=== PATIENT | male | born 1940 | race African-American/Black ===

== ENCOUNTER 2017-03-26 14:53 | Observation (INO) | payer MEDICARE ==
--- NOTE | 2017-03-26 15:27 | RAD ---
INDICATION: Dysarthria and hypertension COMPARISON: Most recent brain CT is dated August 28, 2008 TECHNIQUE: Contiguous axial sections of the brain were obtained from the skull base to the vertex without contrast. FINDINGS: New since the prior CT examination is encephalomalacia at the right parietal-occipital lobe measuring a maximum axial dimension of 3.6 x 3.8 cm. Elsewhere there is mild periventricular and subcortical white matter hypoattenuation. Throughout the rest of the brain the hoskins-white matter differentiation is adequately maintained. There is no evidence of acute intracranial hemorrhage. There is atherosclerotic calcification of the bilateral vertebral and petrous carotid arteries. No significant focal osseous abnormality is present. The mastoid air cells appear clear. There is partially visualized is a secretions in the right maxillary sinus. IMPRESSION: New since the CT of the brain dated August 28, 2008 is an area of encephalomalacia involving the right parietal-occipital lobe. This has a chronic appearance, but if the patient is exhibiting focal neurologic deficits then further characterization with MRI of the brain is advised. There are additional chronic and degenerative changes also noted in the body the report.
[2017-03-26 15:57] LABS: Hematocrit 32 % (42-52); Mean Corpuscular HGB Conc 32 g/dl (31-36); Mean Corpuscular Hemoglobin 23 pg (27-31); Mean Platelet Volume 10 um3 (7.4-10.4); Red Blood Count 4.33 10^6/ul (4.0-5.4); Red Cell Distribution Width 15 % (10.5-15); White Blood Count 8.4 10^3/ul (3.5-10.8)
[2017-03-26 15:59] LABS: Comments Flag Yes
[2017-03-26 16:00] LABS: Mean Corpuscular Volume 73 fL (80-94)
[2017-03-26 16:11] LABS: Albumin 3.6 g/dL (3.2-5.2); BUN/Creatinine Ratio 20.7 (8-20); Calcium 8.5 mg/dL (8.6-10.3); EGFR African American 58.5 (>60); EGFR Non-African American 45.5 (>60); Globulin 2.6 g/dL (2-4); Potassium 3.9 mmol/L (3.5-5.0); Total Bilirubin 0.2 mg/dL (0.2-1.0); Total Protein 6.2 g/dL (6.4-8.9)
[2017-03-26 16:12] LABS: Troponin I 0.01 ng/mL (<0.04)
[2017-03-26] MEDS ORDERED: Labetalol IV* 5 MG/ML 20 ML VIAL IV PUSH ONE (17:18)
[2017-03-26] MEDS ORDERED: NS 0.9% 1000 ML* 1,000 ML IV SCH ×2 (17:30→19:15)
[2017-03-26] MEDS ORDERED: Dextrose 50% Syringe 50 ML* 25 GM/50 ML SYRINGE IV PUSH PRN (17:38)
[2017-03-26] MEDS ORDERED: Insulin LISPRO* 1 UNITS UNIT SUBCUT SCH (18:00)
--- NOTE | 2017-03-26 18:42 | ED ---
Robert Rao Thomas, scribed for Frandy Farmer MD on 03/26/17 at 1514 . Neurological HPI - HPI Summary HPI Summary: The pt is a 76 y/o M BIB EMS after his noticed that he has slurred sleep and facial droop at 09:00 this AM. Pt denies any pains, FUNES, SOB, CP, and nausea. PMHx: PR, anticoagulation therapy, DM, CAD, HTN, depression. SHx: former smoker, no alcohol, no illicit drugs. He ate breakfast. He is on a blood thinner. - History of Current Complaint Stated Complaint: STROKE-LIKE SYMPTOMS,HIGH BLOOD PRESSURE Time Seen by Provider: 03/26/17 14:56 Hx Obtained From: Patient, EMS Onset/Duration: Sudden Onset, Started hours ago - 09:00, Still Present Timing: Constant Number of Seizures: 0 Character: Other: - POS: facial droop Aggravating: Nothing Alleviating: Nothing Associated Signs and Symptoms: Positive: Impaired Speech - slurred. Negative: Headache, Chest Pain, Shortness of Breath - Additional Pertinent History Primary Care Physician: [id number] - Allergy/Home Medications Allergies/Adverse Reactions: Allergies Allergy/AdvReac Type Severity Reaction Status Date / Time Penicillins Allergy Rash Verified 11/05/15 13:12 Home Medications: Home Medications Ferrous Gluconate [Iron] 27 mg PO DAILY 03/26/17 [History Confirmed 03/26/17] Lisinopril/HCTZ 20/25(NF) [Zestoretic 20/25(NF)] 1 tab PO DAILY 03/26/17 [ History Confirmed 03/26/17] Nitroglycerin 0.2 MG/HR PATCH* [Nitroglycerin 5 MG PATCH*] 1 patch TRANSDERM DAILY 03/26/17 [History Confirmed 03/26/17] Terazosin CAP* [Hytrin CAP*] 10 mg PO BEDTIME 03/26/17 [History Confirmed ] metFORMIN* [Glucophage 850 MG TAB *] 850 mg PO BID 03/26/17 [History Confirmed 03/26/17] prednisoLONE 1% OPHTH.SUSP* [Pred Forte 1%*] 1 drop BOTH EYES DAILY 03/26/17 [ History Confirmed 03/26/17] PMH/Surg Hx/FS Hx/Imm Hx Previously Healthy: No Endocrine/Hematology History: Reports: Hx Diabetes Denies: Hx Anticoagulant Therapy, Hx Thyroid Disease Cardiovascular History: Reports: Hx Angina, Hx Cardiac Arrest, Hx Coronary Artery Disease, Hx Hypertension, Hx Myocardial Infarction, Hx Pacemaker/ICD Denies: Hx Congestive Heart Failure Respiratory History: Denies: Hx Asthma, Hx Chronic Obstructive Pulmonary Disease (COPD) GI History: Reports: Hx Gall Bladder Disease - cholecystectomy, Other GI Disorders History: Denies: Hx Renal Disease Sensory History: Reports: Hx Vision Problem Opthamlomology History: Reports: Hx Vision Problem Neurological History: Denies: Hx Dementia, Hx Seizures Psychiatric History: Reports: Hx Depression, Hx Bipolar Disorder Denies: Hx Substance Abuse - Surgical History Surgery Procedure, Year, and Place: PACEMAKER, TRACHEOSTOMY, CHOLECYSTECTOMY Infectious Disease History: Denies: Hx Hepatitis, Hx Human Immunodeficiency Virus (HIV), Traveled Outside the [place] in Last 30 Days - Family History Known Family History: Positive: Diabetes - Social History Alcohol Use: None Substance Use Type: Reports: None Hx Tobacco Use: Yes Smoking Status (MU): Former Smoker Review of Systems Negative: Fever Negative: Chest Pain Negative: Shortness Of Breath Negative: Nausea Negative: Other - NEG: any pains Neurological: Other - POS: facial droop Positive: Slurred Speech. Negative: Headache All Other Systems Reviewed And Are Negative: Yes Physical Exam Triage Information Reviewed: Yes Vital Signs On Initial Exam: Initial Vitals Temp Pulse Resp BP Pulse Ox 97.6 F 65 17 153/86 100 03/26/17 15:17 03/26/17 15:17 03/26/17 15:17 03/26/17 15:17 03/26/17 15:17 Vital Signs Reviewed: Yes Appearance: Positive: Well-Appearing, No Pain Distress Skin: Positive: Warm, Skin Color Reflects Adequate Perfusion, Dry Head/Face: Positive: Normal Head/Face Inspection Eyes: Positive: Normal ENT: Positive: Normal ENT inspection Neck: Positive: Supple, Nontender Respiratory/Lung Sounds: Positive: Clear to Auscultation, Breath Sounds Present Cardiovascular: Positive: RRR Abdomen Description: Positive: Nontender, Soft Bowel Sounds: Positive: Present Musculoskeletal: Positive: Normal Neurological: Positive: Alert, Oriented to Person Place, Time, Other - He has slurred speech. There seems to be some R-sided facial droop, but on command he can move his entire face (there is only droop at rest). Psychiatric: Positive: Normal, Affect/Mood Appropriate Diagnostics - Vital Signs Vital Signs Temp Pulse Resp BP Pulse Ox 03/26/17 15:20 97.9 F 61 17 153/86 100 03/26/17 15:17 97.6 F 65 17 153/86 100 - Laboratory Lab Results: Lab Results 03/26/17 03/26/17 03/26/17 Range/Units 15:50 15:50 15:50 WBC 8.4 (3.5-10.8) 10^3/ul RBC 4.33 (4.0-5.4) 10^6/ul Hgb 10.0 L (14.0-18.0) g/dl Hct 32 L (42-52) % MCV 73 L (80-94) fL MCH 23 L (27-31) pg MCHC 32 (31-36) g/dl RDW 15 (10.5-15) % Plt Count 183 (150-450) 10^3/ul MPV 10 (7.4-10.4) um3 Neut % (Auto) 60.5 (38-83) % Lymph % (Auto) 27.4 (25-47) % Furnas % (Auto) 10.5 H (1-9) % Eos % (Auto) 0.7 (0-6) % Baso % (Auto) 0.9 (0-2) % Absolute Neuts (auto) 5.1 (1.5-7.7) 10^3/ul Absolute Lymphs (auto) 2.3 (1.0-4.8) 10^3/ul Absolute Monos (auto) 0.9 H (0-0.8) 10^3/ul Absolute Eos (auto) 0.1 (0-0.6) 10^3/ul Absolute Basos (auto) 0.1 (0-0.2) 10^3/ul Absolute Nucleated RBC 0.01 10^3/ul Nucleated RBC % 0.1 INR (Anticoag Therapy) 0.92 (0.89-1.11) Sodium 140 (133-145) mmol/L Potassium 3.9 (3.5-5.0) mmol/L Chloride 104 (101-111) mmol/L Carbon Dioxide 28 (22-32) mmol/L Anion Gap 8 (2-11) mmol/L BUN 31 H (6-24) mg/dL Creatinine 1.50 H (0.67-1.17) mg/dL Est GFR ( Amer) 58.5 (>60) Est GFR (Non-Af Amer) 45.5 (>60) BUN/Creatinine Ratio 20.7 H (8-20) Glucose 191 H (70-100) mg/dL Lactic Acid (0.5-2.0) mmol/L Calcium 8.5 L (8.6-10.3) mg/dL Total Bilirubin 0.20 (0.2-1.0) mg/dL AST 11 L (13-39) U/L ALT 7 (7-52) U/L Alkaline Phosphatase 28 L (34-104) U/L Troponin I 0.01 (<0.04) ng/mL Total Protein 6.2 L (6.4-8.9) g/dL Albumin 3.6 (3.2-5.2) g/dL Globulin 2.6 (2-4) g/dL Albumin/Globulin Ratio 1.4 (1-3) Triglycerides mg/dL Cholesterol mg/dL LDL Cholesterol mg/dL HDL Cholesterol mg/dL Serum Alcohol (<10) mg/dL 03/26/17 03/26/17 03/26/17 Range/Units 15:50 16:30 16:30 WBC (3.5-10.8) 10^3/ul RBC (4.0-5.4) 10^6/ul Hgb (14.0-18.0) g/dl Hct (42-52) % MCV (80-94) fL MCH (27-31) pg MCHC (31-36) g/dl RDW (10.5-15) % Plt Count (150-450) 10^3/ul MPV (7.4-10.4) um3 Neut % (Auto) (38-83) % Lymph % (Auto) (25-47) % Furnas % (Auto) (1-9) % Eos % (Auto) (0-6) % Baso % (Auto) (0-2) % Absolute Neuts (auto) (1.5-7.7) 10^3/ul Absolute Lymphs (auto) (1.0-4.8) 10^3/ul Absolute Monos (auto) (0-0.8) 10^3/ul Absolute Eos (auto) (0-0.6) 10^3/ul Absolute Basos (auto) (0-0.2) 10^3/ul Absolute Nucleated RBC 10^3/ul Nucleated RBC % INR (Anticoag Therapy) (0.89-1.11) Sodium (133-145) mmol/L Potassium (3.5-5.0) mmol/L Chloride (101-111) mmol/L Carbon Dioxide (22-32) mmol/L Anion Gap (2-11) mmol/L BUN (6-24) mg/dL Creatinine (0.67-1.17) mg/dL Est GFR ( Amer) (>60) Est GFR (Non-Af Amer) (>60) BUN/Creatinine Ratio (8-20) Glucose (70-100) mg/dL Lactic Acid 2.6 H* (0.5-2.0) mmol/L Calcium (8.6-10.3) mg/dL Total Bilirubin (0.2-1.0) mg/dL AST (13-39) U/L ALT (7-52) U/L Alkaline Phosphatase (34-104) U/L Troponin I (<0.04) ng/mL Total Protein (6.4-8.9) g/dL Albumin (3.2-5.2) g/dL Globulin (2-4) g/dL Albumin/Globulin Ratio (1-3) Triglycerides 243 mg/dL Cholesterol 203 mg/dL LDL Cholesterol 118 mg/dL HDL Cholesterol 36.0 mg/dL Serum Alcohol < 10 (<10) mg/dL Result Diagrams: 03/26/17 15:50 03/26/17 15:50 Lab Statement: Any lab studies that have been ordered have been reviewed, and results considered in the medical decision making process. - CT CT Brain CT Interpretation: Positive (See Comments) - New since the CT of the brain dated August 28, 2008 is an area of encephalomalacia involving the right parietal-occipital lobe. This has a chronic appearance, but if the patient is exhibiting focal neurologic deficits then further characterization with MRI of the brain is advised. There are additional chronic and degenerative changes also noted in the body the report. CT Interpretation Completed By: Radiologist Course/Dx - Course Course Of Treatment: Mr. Perales was ffine when he got up lan AM according to his . About 0900, she noticed that he began to slur his words and he developed a right facial droop. The patient denies all of this. On presentation, I evaluated him in the sloan and sent him for CT immediately. He had a right facial droop at rest but was able to move it when asked. It was tough to tell but the forehead did seem to be involved. His speech was quite slurred. His CT showed an old right occipital infarct and the hospitalist and neurologist were asked to see him. A Code Destin was not called secondary to the 6 hours time from onset of symptoms until evaluated in the ED. - Diagnoses Provider Diagnoses: CVA (cerebral vascular accident) Discharge - Discharge Plan Condition: Fair Disposition: ADMITTED TO [facility] The documentation as recorded by the Robert pappas Thomas accurately reflects the service I personally performed and the decisions made by me, Frandy Farmer MD.
[2017-03-26] MEDS: Labetalol IV* 200 MG in NS 0.9% 250 ML* 160 ML IVPB SCH ×2 (19:35→22:35)
[2017-03-26 20:52] LABS: Urine Bilirubin Negative (Negative); Urine Glucose Negative (Negative); Urine Nitrite Negative (Negative)
[2017-03-26] MEDS ORDERED: Terazosin CAP* 5 MG PO SCH (21:00)
[2017-03-26] MEDS ORDERED: Atorvastatin* 80 MG TAB PO ONE (21:00)
--- NOTE | 2017-03-26 21:31 | HP ---
CC: KD Wetzel; Dr. Keller; Dr. Campos HISTORY AND PHYSICAL: DATE OF ADMISSION: 03/26/17 TIME OF EVALUATION: 4:45 p.m. PRIMARY CARE PROVIDER: KD Wetzel DRAPERY WORKER: Dr. Keller. CONSULTING NEUROLOGIST: Dr. Campos. CHIEF COMPLAINT: "He was not speaking right" as per . HISTORY OF PRESENT ILLNESS: Mr. Perales is a 76-year-old male with a past medical history of coronary artery disease, type 2 diabetes, third-degree AV block status post pacemaker, history of cardiac arrest, hypertension, bipolar disorder , depression, who presented to the emergency room due to slurred speech. The patient states he is asymptomatic at this time. He states that he woke up around 6 in the morning as he usually does to watch Morning Fausto and he was feeling well. His confirms that he had no symptoms at that time. Around 9 , she checked on him and noticed that he had slurred speech, but he told her it was because he had too much saliva in his mouth and she checked back on him around 2:30 in the afternoon and she noticed that he had right facial droop and his slurred speech was much worse and she could not understand any words. EMS was called and he was found to have a blood pressure of 191/82. The states that his speech is better now, but not back to normal and although the patient denies any symptoms, he still has a right-sided facial droop. He denies any other localized weakness, numbness, tingling, or any other symptoms and he actually wanted to go home but later on agreed with admission. PAST MEDICAL HISTORY: 1. Coronary artery disease. 2. Type 2 diabetes. 3. Third-degree AV block status post pacemaker placement. 4. History of cardiac arrest. 5. Hypertension. 6. Bipolar disorder. 7. Depression. PAST SURGICAL HISTORY: Status post cholecystectomy. MEDICATIONS: 1. Aspirin 81 mg p.o. daily. 2. Atorvastatin 40 mg p.o. daily. 3. Depakote DR 500 mg p.o. b.i.d. 4. Ferrous gluconate 27 mg p.o. daily. 5. Furosemide 40 mg p.o. daily. 6. Glipizide 10 mg p.o. b.i.d. 7. Lisinopril/hydrochlorothiazide 1 tablet p.o. daily. 8. Losartan 100 mg p.o. daily. 9. Metformin 850 mg p.o. b.i.d. 10. Metoprolol tartrate 100 mg p.o. b.i.d. 11. Nitroglycerin patch 0.2 mg an hour daily. 12. Potassium chloride 20 mEq p.o. daily. 13. Prednisolone 1% one drop to both eyes daily. 14. Terazosin 10 mg p.o. at bedtime. 15. Verapamil 240 mg p.o. b.i.d. ALLERGIES: With PENICILLIN, the patient experienced a rash. FAMILY HISTORY: Mother at age 91 from breast cancer. Father at age 106 of old age. SOCIAL HISTORY: He denies any history of alcohol, tobacco, or drug use. Surrogate decision maker is his , Isaac Perales, phone number is [phone]. REVIEW OF SYSTEMS: A 14-point review of systems was performed and all the pertinent negatives and positive findings are in the HPI. PHYSICAL EXAMINATION GENERAL: The patient is a pleasant elderly male, sitting up in the ED stretcher , in no acute distress. VITAL SIGNS: Temperature 97.9, heart rate is 61, respiratory rate is 17, oxygen saturation is 100% on room air, blood pressure was 211/98 during my interview. HEENT: Pupils are equal. Moist mucous membranes. Face is asymmetric with right- sided weakness. The patient is able to close his eyes and maintain them closed. Cranial nerves II through XII are grossly intact except for the facial weakness described. CHEST: Breath sounds present bilaterally with no added sounds. CVS: Normal S1 and S2. Regular rate and rhythm with a pronounced systolic murmur. ABDOMEN: Soft, nontender. Bowel sounds are present. EXTREMITIES: No edema. NEUROLOGIC: He is alert, awake, and oriented x3. He is able to move all 4 extremities. Sensation is intact bilaterally. Right facial weakness as described and the patient still has significant dysarthria, although the patient 's describes that this is improved. LABORATORY AND IMAGING DATA: The patient's CBC showed a WBC of 8.4, hemoglobin of 10, hematocrit of 32, platelets of 183,000 with 60% neutrophils. INR is 0.92. Chemistries showed a sodium of 140, potassium of 3.9, chloride of 104, bicarb of 28, BUN of 31, creatinine of 1.5, glucose of 191, calcium of 8.5. LFTs are normal. No EKG was yet performed in the emergency room. CT of the brain showed an area of encephalomalacia involving the right parieto- occipital lobe and this is new when compared to a prior CT from August 2008. ASSESSMENT AND PLAN: Mr. Perales is a 76-year-old male with a past medical history of coronary artery disease, type 2 diabetes, third-degree AV block status post pacemaker placement, status post cardiac arrest, hypertension, bipolar disorder, depression, who presented to the emergency room with complaints of right facial droop and slurred speech likely secondary to a cerebrovascular accident. 1. Probable cerebrovascular accident/hypertensive emergency. The patient's symptoms may be secondary to vasospasm secondary to his uncontrolled hypertension. The patient states that he took all his medications at home as usual and his numbers are usually controlled. He states that his systolics are usually around 140 and that he was recently seen by Dr. Keller in the office and told "everything is fine, you don't need to see the wood block artist until next year." His blood pressure per EMS was systolic of 191 and during my interview his systolic was 211. The patient will be admitted to the intensive care unit for further control. He will receive labetalol in the emergency room and he will likely require a labetalol drip to maintain his systolic blood pressure between 160 to 180. At this point, a neurology consultation was requested. The patient unfortunately cannot have an MRI due to his pacemaker and his creatinine is 1.5 at this point with a GFR of 45, so we are going to hydrate him overnight and see if he can get a better renal function to perform a CTA of the head and neck tomorrow. I am going to request an echocardiogram and a quick discussion with consulting neurologist (Dr. Campos), recommendation was to continue his aspirin on its usual dose. He already took his usual dose this morning and I am going to continue 81 mg for now, but as we get his blood pressure controlled, he may be considered for addition of Plavix or switching to Aggrenox. He will be monitored with neurological checks. He will be seen by speech, occupational, and physical therapies. I am going to continue his atorvastatin and check a lipid profile. 2. Hypertensive emergency. The patient will receive labetalol and he will have a labetalol drip while in the intensive care unit. I am going to continue his usual medications including metoprolol, losartan, and verapamil. I am holding his lisinopril and hydrochlorothiazide for now due to elevated creatinine, but I believe this could be resumed soon. 3. Type 2 diabetes. The patient says that it is usually controlled at home with morning glucose around 80s. As the patient is n.p.o. for now, he is going to monitored with fingersticks and a lispro sliding scale, but if he is able to eat, we may be able to resume at least his glipizide. We are going to check hemoglobin A1c. 4. DVT prophylaxis. The patient has a score of 4 on the DVT Prophylaxis Risk Assessment Guide. He will have SCDs for now, but as we get his blood pressure under control, he will be started on subcutaneous heparin. 5. Code status is full. TIME SPENT: Approximately 70 minutes were spent with the patient and interview, medical records review, physical examination to complete the admission, more than half of this time was spent [id number] with the patient in coordination of care. [id number]/[facility] #: [id number] AYO
[2017-03-26] MEDS ORDERED: niCARdipine 0.1MG/ML IVPREMIX* 20 MG/200 ML BAG IV SCH (21:37)
[2017-03-26] MEDS ORDERED: IVPREMIX ONE (21:53)
[2017-03-26] MEDS ORDERED: NICARDIPINE 0.1 MG/ML ONE (21:53)
[2017-03-26] MEDS: Aspirin TAB* 325 MG PO SCH (21:58)
[2017-03-26] MEDS: Metoprolol Tartrate TAB* 100 MG TAB PO SCH (21:58)
[2017-03-26] MEDS: Verapamil SR TAB* 240 MG PO SCH (21:58)
[2017-03-26] MEDS: Insulin LISPRO* 1 UNITS UNIT SUBCUT SCH (21:59)
[2017-03-26] MEDS: Divalproex DR TAB(*) 500 MG PO SCH (21:59)
[2017-03-26] MEDS ORDERED: Heparin VIAL(*) 5000 UNITS/ML VIAL (FIVE THOUSAND) SUBCUT SCH (22:00)
--- NOTE | 2017-03-26 22:04 | CONS ---
AMENDED REPORT NOW INCLUDES DATE OF CONSULT - ESIGNED BEFORE ADJUSTMENT CONSULTATION REPORT: DATE OF CONSULT/DICTATION: 03/26/17 PATIENT OF: Dr. Santana and KD Wetzel at [facility]. HISTORY OF PRESENT ILLNESS: This is a 76-year-old right-handed man who woke up this morning in his usual state of health and then at about 9 a.m., developed slurred speech and right facial droop with some possible word finding difficulty. There was no weakness in his arm or leg. There was no numbness, no headache. No shortness of breath, chest pain, nausea. He has a history of heart attack, diabetes, coronary artery disease, hypertension, depression. He smoked only 2 months and this was 60 years ago. No alcohol history or illicit drugs. PAST MEDICAL HISTORY: He has had no prior strokes. He has had a pacemaker, tracheostomy, cholecystectomy. MEDICATIONS AT HOME: Include: 1. Ferrous gluconate 27 mg daily. 2. Lisinopril hydrochlorothiazide 1 tab daily. 3. Nitroglycerin 0.2 patch. 4. Terazosin 10 mg at bedtime. 5. Metformin 850 b.i.d. 6. Prednisolone 1 drop both eyes daily. FAMILY HISTORY: Significant for diabetes. SOCIAL HISTORY: His records says former smoker. He says it was only for 2 months 50 or 60 years ago. REVIEW OF SYSTEMS: Negative in all 14 spheres other than the HPI. PHYSICAL EXAM: When he arrived in the ER, his blood pressure is 153/86. He got one dose of 10 mg IV labetalol. This got his blood pressure, which had been higher down to the 180s to 110. He is alert and oriented with speech with minimal slurred to it. He says he feels much better. His notes that his speech is almost back to normal. Cranial nerves II through XII were normal other than he had a minimal facial weakness. This has much improved from before , but still the notes a slight difference. Motor exam revealed normal tone , strength, finger-to- nose. There was no pronator drip. Sensation intact to light touch. Reflexes were trace to 1. Toes were downgoing. Neck was supple. Chest: Clear. Cardiovascular: Regular rate and rhythm. Abdomen: Soft with positive bowel sounds. The skin showed no rash. CT scan was reviewed and did show a significant area of encephalomalacia in his right occipital area most likely representing an old stroke. He also had his right temporal larger than his left. There is some mild diffuse atrophy. DIAGNOSTIC STUDIES/LAB DATA: White count 8.4, hematocrit 32, platelets 183. INR 0.92. CMP had a BUN of 31, creatinine 1.5, glucose 191, lactic acid 2.6, calcium 8.5. Normal liver function test. Total protein 6.2. LDL was 118. Alcohol was negative. IMPRESSION: Mr. Perales most likely sustained a small stroke with persistent, but much improved speech abnormality and right facial weakness. He came in. He is well outside the TPA window and his symptoms are minimal at this point. He will need further workup including the CTA if his BUN and creatinine improved. Otherwise, I would start off with carotid Doppler. We cannot get an MRI or MRA given his pacemaker. He will also need an echo and he should be started on a statin with a target of LDL of 70 or below. We should also increase his aspirin to 325. This can be given p.o. unless he does not pass his swallowing evaluation that will be done shortly. Thank you for sharing his case. [id number]/[facility] #: [id number] ORIGINAL ESIGN DATE/TIME: 03/27/171810 AYO
[2017-03-26] MEDS ORDERED: nitroGLYCERIN DRIP* 250 ML ONE (22:41)
[2017-03-26] MEDS ORDERED: nitroGLYCERIN DRIP* 25,000 MCG in PREMIX* 0 ML IV SCH (23:00)
[2017-03-27] MEDS ORDERED: Nitroglycerin 0.2 MG/HR PATCH* (5 MG) TRANSDERM SCH (09:00)
[2017-03-27] MEDS ORDERED: prednisoLONE 1% OPHTH.SUSP* 5 ML OPHTH.SUSP BOTH EYES SCH (09:00)
[2017-03-27] MEDS ORDERED: Aspirin EC Low Dose* 81 MG TAB.EC PO SCH (09:00)
[2017-03-27] MEDS ORDERED: Potassium Chlor TAB* 20 MEQ TAB.ER PO SCH (09:00)
[2017-03-27] MEDS ORDERED: Atorvastatin* 40 MG TAB PO SCH (09:00)
[2017-03-27] MEDS ORDERED: Losartan TAB* 25 MG PO SCH (09:00)
[2017-03-27] MEDS: Metoprolol Tartrate TAB* 100 MG TAB PO SCH (09:04)
[2017-03-27 09:05] LABS: Comments Flag Yes; Hematocrit 30 % (42-52); Hemoglobin 9.5 g/dl (14.0-18.0); Mean Corpuscular HGB Conc 32 g/dl (31-36); Mean Corpuscular Hemoglobin 23 pg (27-31); Mean Platelet Volume 10 um3 (7.4-10.4); Red Blood Count 4.05 10^6/ul (4.0-5.4); Red Cell Distribution Width 16 % (10.5-15); White Blood Count 8.9 10^3/ul (3.5-10.8)
[2017-03-27] MEDS: Divalproex DR TAB(*) 500 MG PO SCH (09:05)
[2017-03-27] MEDS: Aspirin TAB* 325 MG PO SCH (09:05)
[2017-03-27 09:06] LABS: Mean Corpuscular Volume 74 fL (80-94)
[2017-03-27] MEDS: Insulin LISPRO* 1 UNITS UNIT SUBCUT SCH ×2 (09:07→13:09)
[2017-03-27] MEDS: Verapamil SR TAB* 240 MG PO SCH (09:36)
--- NOTE | 2017-03-27 12:39 | PN ---
Subjective Date of Service: 03/27/17 Interval History: No new c/o. Objective Active Medications: Aspirin (Aspirin Tab*) 325 mg PO DAILY [facility] Last Admin: 03/27/17 09:05 Dose: 325 mg Dextrose (D50w Syringe 50 Ml*) 12.5 gm IV PUSH .FOR FS < 60 - SS PRN PRN Reason: FS < 60 Divalproex Sodium (Depakote Dr Tab(*)) 500 mg PO BID [facility] Last Admin: 03/27/17 09:05 Dose: 500 mg Labetalol HCl 200 mg/ Sodium (Chloride) 200 mls @ 30 mls/hr IVPB .(Initial Rate ) NILDA PRN Reason: 0.5 MG/MIN Last Admin: 03/26/17 22:35 Dose: 30 mls/hr Sodium Chloride (Ns 0.9% 1000 Ml*) 1,000 mls @ 100 mls/hr IV PER RATE [facility] Last Admin: 03/26/17 19:35 Dose: 100 mls/hr Nitroglycerin/Dextrose 25,000 (mcg/ IV Solution) 250 mls @ 3 mls/hr IV .( Initial Rate) NILDA; 5 MCG/MIN PRN Reason: Protocol Last Admin: 03/26/17 22:58 Dose: 3 mls/hr Insulin Human Lispro (Humalog*) 0 units SUBCUT ACHS NILDA PRN Reason: Protocol Last Admin: 03/27/17 09:07 Dose: 3 units Losartan Potassium (Cozaar Tab*) 100 mg PO DAILY [facility] Last Admin: 03/27/17 09:04 Dose: 100 mg Metoprolol Tartrate (Lopressor Tab*) 100 mg PO BID [facility] Last Admin: 03/27/17 09:04 Dose: 100 mg Nitroglycerin (Nitroglycerin 5 Mg Patch*) 1 patch TRANSDERM DAILY [facility] Last Admin: 03/27/17 09:34 Dose: 1 patch Pharmacy Profile Note (Nitro Patch/Oint Remove*) 1 note PATCH OFF BEDTIME [facility] Prednisolone Acetate (Pred Forte 1%*) 1 drop BOTH EYES DAILY [facility] Last Admin: 03/27/17 09:23 Dose: 1 drop Terazosin HCl (Hytrin Cap*) 10 mg PO BEDTIME [facility] Last Admin: 03/26/17 21:58 Dose: 10 mg Verapamil HCl (Calan Sr Tab*) 240 mg PO BID [facility] Last Admin: 03/27/17 09:36 Dose: 240 mg Vital Signs 03/26/17 03/26/17 03/26/17 18:54 19:28 20:00 Temperature 98.2 F 97.6 F Pulse Rate 65 60 Respiratory 17 18 18 Rate Blood Pressure 188/119 188/119 (mmHg) O2 Sat by Pulse 100 99 Oximetry 03/26/17 03/26/17 03/26/17 23:28 23:38 23:43 Temperature 97.5 F Pulse Rate 66 Respiratory 20 Rate Blood Pressure 125/71 149/63 (mmHg) O2 Sat by Pulse 100 Oximetry 03/26/17 03/27/17 03/27/17 23:50 00:00 00:02 Temperature Pulse Rate 66 65 67 Respiratory 21 20 21 Rate Blood Pressure 167/60 145/61 (mmHg) O2 Sat by Pulse 100 97 99 Oximetry 03/27/17 03/27/17 03/27/17 00:10 00:20 00:30 Temperature Pulse Rate 65 65 65 Respiratory 22 18 22 Rate Blood Pressure 162/60 152/59 153/58 (mmHg) O2 Sat by Pulse 99 97 98 Oximetry 03/27/17 03/27/17 03/27/17 00:40 00:50 01:00 Temperature Pulse Rate 67 65 61 Respiratory 20 19 20 Rate Blood Pressure 147/68 155/78 192/75 (mmHg) O2 Sat by Pulse 99 99 98 Oximetry 03/27/17 03/27/17 03/27/17 01:05 01:10 01:15 Temperature Pulse Rate 60 66 60 Respiratory 22 24 16 Rate Blood Pressure 184/74 140/95 156/69 (mmHg) O2 Sat by Pulse 96 95 100 Oximetry 03/27/17 03/27/17 03/27/17 01:30 01:45 02:00 Temperature Pulse Rate 60 59 63 Respiratory 18 18 14 Rate Blood Pressure 180/61 188/61 176/60 (mmHg) O2 Sat by Pulse 100 99 99 Oximetry 03/27/17 03/27/17 03/27/17 02:15 02:30 02:45 Temperature Pulse Rate 59 59 59 Respiratory 19 19 19 Rate Blood Pressure 164/53 143/56 149/46 (mmHg) O2 Sat by Pulse 97 97 97 Oximetry 03/27/17 03/27/17 03/27/17 03:00 03:04 03:15 Temperature Pulse Rate 62 67 64 Respiratory 19 23 22 Rate Blood Pressure 98/81 122/85 145/59 (mmHg) O2 Sat by Pulse 98 100 100 Oximetry 03/27/17 03/27/17 03/27/17 03:30 03:45 04:00 Temperature 97.7 F Pulse Rate 62 59 65 Respiratory 19 18 18 Rate Blood Pressure 127/60 131/54 132/64 (mmHg) O2 Sat by Pulse 97 97 99 Oximetry 03/27/17 03/27/17 03/27/17 04:15 04:30 04:45 Temperature Pulse Rate 60 64 62 Respiratory 20 20 22 Rate Blood Pressure 126/58 137/55 (mmHg) O2 Sat by Pulse 98 99 99 Oximetry 03/27/17 03/27/17 03/27/17 05:00 05:15 05:30 Temperature Pulse Rate 59 59 59 Respiratory 18 18 18 Rate Blood Pressure 133/58 128/56 132/57 (mmHg) O2 Sat by Pulse 97 97 97 Oximetry 03/27/17 03/27/17 03/27/17 05:45 06:00 06:15 Temperature Pulse Rate 61 59 59 Respiratory 19 18 19 Rate Blood Pressure 132/61 145/60 144/59 (mmHg) O2 Sat by Pulse 98 97 92 Oximetry 03/27/17 03/27/17 03/27/17 06:30 06:45 07:00 Temperature Pulse Rate 60 59 59 Respiratory 19 18 17 Rate Blood Pressure 143/59 143/60 141/58 (mmHg) O2 Sat by Pulse 90 95 95 Oximetry 03/27/17 03/27/17 03/27/17 07:15 07:30 07:45 Temperature Pulse Rate 64 59 61 Respiratory 16 20 20 Rate Blood Pressure 152/62 164/71 170/62 (mmHg) O2 Sat by Pulse 99 99 100 Oximetry 03/27/17 03/27/17 03/27/17 08:00 08:15 08:30 Temperature Pulse Rate 60 65 61 Respiratory 21 17 18 Rate Blood Pressure 170/68 182/67 163/68 (mmHg) O2 Sat by Pulse 99 100 100 Oximetry 03/27/17 03/27/17 03/27/17 08:45 09:00 09:15 Temperature Pulse Rate 66 63 67 Respiratory 23 20 21 Rate Blood Pressure 179/71 161/69 180/73 (mmHg) O2 Sat by Pulse 99 100 100 Oximetry 08/01/0603/27/17 03/27/17 09:30 09:45 09:49 Temperature 97.6 F Pulse Rate 64 65 Respiratory 19 14 Rate Blood Pressure 157/69 150/111 (mmHg) O2 Sat by Pulse 100 99 Oximetry 03/27/17 03/27/17 03/27/17 10:00 10:30 10:45 Temperature Pulse Rate 61 62 59 Respiratory 22 13 19 Rate Blood Pressure 164/70 146/64 170/70 (mmHg) O2 Sat by Pulse 99 100 99 Oximetry 03/27/17 11:00 Temperature Pulse Rate 62 Respiratory 21 Rate Blood Pressure 154/69 (mmHg) O2 Sat by Pulse 99 Oximetry Oxygen Devices in Use Now: None Appearance: Alert, in a chair. In good spirits. Looks comfortable. Eyes: No Scleral Icterus Ears/Nose/Mouth/Throat: Clear Oropharnyx, Mucous Membranes Moist Respiratory: Symmetrical Chest Expansion and Respiratory Effort, Clear to Auscultation, Clear to Percussion Cardiovascular: RRR, No Edema, - - 4-5/6 systolic murmur RSB Extremities: No Edema, No Clubbing, Cyanosis, - Skin: No Rash or Ulcers, No Nodules or Sclerosis, - Neurological: Alert and Oriented x 3, NL Sensation, - - R facial droop. Speech dysarthric, ? in part due to edentulous state. Result Diagrams: 03/27/17 08:55 03/26/17 15:50 Additional Lab and Data: Lab Results 03/26/17 03/26/17 03/26/17 Range/Units 15:50 15:50 15:50 WBC 8.4 (3.5-10.8) 10^3/ul RBC 4.33 (4.0-5.4) 10^6/ul Hgb 10.0 L (14.0-18.0) g/dl Hct 32 L (42-52) % MCV 73 L (80-94) fL MCH 23 L (27-31) pg MCHC 32 (31-36) g/dl RDW 15 (10.5-15) % Plt Count 183 (150-450) 10^3/ul MPV 10 (7.4-10.4) um3 Neut % (Auto) 60.5 (38-83) % Lymph % (Auto) 27.4 (25-47) % Banner % (Auto) 10.5 H (1-9) % Eos % (Auto) 0.7 (0-6) % Baso % (Auto) 0.9 (0-2) % Absolute Neuts (auto) 5.1 (1.5-7.7) 10^3/ul Absolute Lymphs (auto) 2.3 (1.0-4.8) 10^3/ul Absolute Monos (auto) 0.9 H (0-0.8) 10^3/ul Absolute Eos (auto) 0.1 (0-0.6) 10^3/ul Absolute Basos (auto) 0.1 (0-0.2) 10^3/ul Absolute Nucleated RBC 0.01 10^3/ul Nucleated RBC % 0.1 INR (Anticoag Therapy) 0.92 (0.89-1.11) Sodium 140 (133-145) mmol/L Potassium 3.9 (3.5-5.0) mmol/L Chloride 104 (101-111) mmol/L Carbon Dioxide 28 (22-32) mmol/L Anion Gap 8 (2-11) mmol/L BUN 31 H (6-24) mg/dL Creatinine 1.50 H (0.67-1.17) mg/dL Est GFR ( Amer) 58.5 (>60) Est GFR (Non-Af Amer) 45.5 (>60) BUN/Creatinine Ratio 20.7 H (8-20) Glucose 191 H (70-100) mg/dL Lactic Acid (0.5-2.0) mmol/L Calcium 8.5 L (8.6-10.3) mg/dL Total Bilirubin 0.20 (0.2-1.0) mg/dL AST 11 L (13-39) U/L ALT 7 (7-52) U/L Alkaline Phosphatase 28 L (34-104) U/L Troponin I 0.01 (<0.04) ng/mL Total Protein 6.2 L (6.4-8.9) g/dL Albumin 3.6 (3.2-5.2) g/dL Globulin 2.6 (2-4) g/dL Albumin/Globulin Ratio 1.4 (1-3) Triglycerides mg/dL Cholesterol mg/dL LDL Cholesterol mg/dL HDL Cholesterol mg/dL Serum Alcohol (<10) mg/dL 03/26/17 03/26/17 03/26/17 Range/Units 15:50 16:30 16:30 WBC (3.5-10.8) 10^3/ul RBC (4.0-5.4) 10^6/ul Hgb (14.0-18.0) g/dl Hct (42-52) % MCV (80-94) fL MCH (27-31) pg MCHC (31-36) g/dl RDW (10.5-15) % Plt Count (150-450) 10^3/ul MPV (7.4-10.4) um3 Neut % (Auto) (38-83) % Lymph % (Auto) (25-47) % Banner % (Auto) (1-9) % Eos % (Auto) (0-6) % Baso % (Auto) (0-2) % Absolute Neuts (auto) (1.5-7.7) 10^3/ul Absolute Lymphs (auto) (1.0-4.8) 10^3/ul Absolute Monos (auto) (0-0.8) 10^3/ul Absolute Eos (auto) (0-0.6) 10^3/ul Absolute Basos (auto) (0-0.2) 10^3/ul Absolute Nucleated RBC 10^3/ul Nucleated RBC % INR (Anticoag Therapy) (0.89-1.11) Sodium (133-145) mmol/L Potassium (3.5-5.0) mmol/L Chloride (101-111) mmol/L Carbon Dioxide (22-32) mmol/L Anion Gap (2-11) mmol/L BUN (6-24) mg/dL Creatinine (0.67-1.17) mg/dL Est GFR ( Amer) (>60) Est GFR (Non-Af Amer) (>60) BUN/Creatinine Ratio (8-20) Glucose (70-100) mg/dL Lactic Acid 2.6 H* (0.5-2.0) mmol/L Calcium (8.6-10.3) mg/dL Total Bilirubin (0.2-1.0) mg/dL AST (13-39) U/L ALT (7-52) U/L Alkaline Phosphatase (34-104) U/L Troponin I (<0.04) ng/mL Total Protein (6.4-8.9) g/dL Albumin (3.2-5.2) g/dL Globulin (2-4) g/dL Albumin/Globulin Ratio (1-3) Triglycerides 243 mg/dL Cholesterol 203 mg/dL LDL Cholesterol 118 mg/dL HDL Cholesterol 36.0 mg/dL Serum Alcohol < 10 (<10) mg/dL Microbiology and Other Data: Microbiology 03/26/17 19:32 Nasal Screen MRSA (PCR)([facility]) - Final Nasal Mrsa Negative Assess/Plan/Problems-Billing Assessment: - Patient Problems (1) CVA (cerebral vascular accident) Current Visit: Yes Status: Acute Code(s): I63.9 - CEREBRAL INFARCTION, UNSPECIFIED SNOMED Code(s): 208560568 Comment: Clinically L cerebral CVA, minimal deficit. R parietal-occipital lobe area of encephalomalacia. Continue ASA 325 mg daily. (2) Hypertension Current Visit: No Status: Acute Code(s): I10 - ESSENTIAL (PRIMARY) HYPERTENSION SNOMED Code(s): 17714995 Comment: Resume all home BP meds. (3) AV block, 3rd degree Current Visit: No Status: Acute Code(s): I44.2 - ATRIOVENTRICULAR BLOCK, COMPLETE SNOMED Code(s): 47856165 Comment: PPM in place, followed by Dr. Keller. (4) Aortic stenosis Current Visit: Yes Status: Acute Code(s): I35.0 - NONRHEUMATIC AORTIC (VALVE ) STENOSIS SNOMED Code(s): 63892853 Comment: Clinically moderate degree. Fup Dr. Keller. (5) CAD (coronary artery disease) Current Visit: Yes Status: Acute Code(s): I25.10 - ATHSCL HEART DISEASE OF [place] CORONARY ARTERY W/O ANG PCTRS SNOMED Code(s): 77060553 Comment: Continue home statin.
[2017-03-27 13:00] VITALS: BP 189/68
[2017-03-27] MEDS ORDERED: Iodixanol* (CONTRAST) 320 MG/ML 100 ML SDV IV SCH (13:14)
[2017-03-27 13:55] LABS: BUN/Creatinine Ratio 21.5 (8-20); Calcium 8.3 mg/dL (8.6-10.3); EGFR Non-African American 53.7 (>60); HDL Cholesterol 36.6 mg/dL; Potassium 3.7 mmol/L (3.5-5.0)
--- NOTE | 2017-03-27 14:25 | RAD ---
INDICATION: LEFT cerebral CVA. COMPARISON: March 26, 2017 CT brain. January 12, 2012 carotid ultrasound. TECHNIQUE: Multidetector CT images were obtained from the aortic arch to the vertex of the head with 80 mL Visipaque 320 IV contrast. Arterial phase of enhancement. Multiplanar reformation including maximum intensity projection. 3-D arterial volume rendering. Stenosis estimations based on denominator of distal arterial diameter. NECK ANGIOGRAM REPORT: Normal configuration of the branch vessels from the aortic arch. Negative for ostial stenosis. Mild atherosclerotic plaque at the RIGHT carotid bulb and proximal internal carotid artery with approximate 20% stenosis resulting. Similar approximate 20% stenosis at the LEFT proximal internal carotid artery. Tortuous internal carotid arteries. Predominant LEFT vertebral artery with both vertebral arteries patent. The diminutive RIGHT vertebral artery terminates in the RIGHT posterior inferior communicating artery, a normal variant. NECK ANGIOGRAM IMPRESSION: Negative for hemodynamic significant carotid stenosis. HEAD ANGIOGRAM REPORT: Atherosclerotic plaque at the level of the carotid siphons with suggestion of multiple approximate 50% stenoses however magnitude of calcification limits assessment. Patent first and second segments of the bilateral middle and anterior cerebral arteries. Suggestion of a diminutive patent anterior communicating artery. Unremarkable basilar artery and cerebellar artery origins. The RIGHT posterior cerebral artery while patent proximally is diminutive in size and corresponds with the region of encephalomalacia related to old RIGHT occipital and parietal infarct. The LEFT posterior cerebral artery is supplied primarily by the posterior circulation with normal variant hypoplastic posterior communicating artery. No intracranial aneurysms or vascular malformations evident. Normal opacification of the dural venous sinuses. Dominant RIGHT internal jugular vein, a normal variant. HEAD ANGIOGRAM IMPRESSION: 1. Atherosclerotic plaque at the level of the carotid siphons with suggestion of multiple approximate 50% stenoses however magnitude of calcification limits assessment. 2. Negative for appreciable stenosis or occlusion of either middle cerebral artery. 3. The RIGHT posterior cerebral artery while patent proximally is diminutive in size and corresponds with the region of encephalomalacia related to old RIGHT occipital and parietal infarct. CPT II: CPT II Codes: 3100F
[2017-03-27] MEDS ORDERED: glipiZIDE TAB* 5 MG PO SCH (17:00)
[2017-03-27] MEDS ORDERED: Atorvastatin* 80 MG TAB PO SCH (17:00)
[2017-03-27] MEDS ORDERED: Nitro Patch/OINT Remove PATCH OFF SCH (21:00)
--- NOTE | 2017-03-27 22:23 | DS ---
CC: Dr. Keller; KD Wetzle DISCHARGE SUMMARY: DATE OF ADMISSION: DATE OF DISCHARGE: 03/27/17 HOSPITAL COURSE: This 76-year-old man presented because of difficulty with speech. She woke up at 6 in the morning on the day of admission and was feeling well. About 9 o'clock, his noted his sp eech was slurred, but the patient told her it was because he had too much saliva in his mouth. When she checked on him at 2:30 in the afternoon, he had right facial droop and the slurring of speech w as worse as she could not understand him at all, she called EMS. The patient had a right facial droop on arrival to the emergency room. The said his speech had improved. On the day of discharge, the still felt the speech was not normal. He had a mild r ight facial droop. His speech was somewhat dysarthric. I thought in part this might be due his fiona ntulous state, but based on his 's statement, I think he has true dysarthria from his stroke. T he rest of the history is detailed in the admission note. The patient was evaluated with a CT scan of the brain in the emergency room, this showed an area of encephalomalacia in the right parietal occipital lobe probably representing a remote infarct. There was no new infarct seen in the emergency room. CTA of the head and neck showed calcified areas of stenosis in the carotid siphons approximately 50% stenosis although the magnitude of the calcificati on limited assessment. There was no appreciable stenosis or occlusion of either middle cerebral art vandana. The right posterior cerebral artery was patent proximally but diminutive in size and could be related to the area of encephalomalacia on the right occipital parietal regions. Dr. Mohamud saw him in consultation and recommended increasing his aspirin from 81 to 325 mg daily. I also increased his atorvastatin from 40 to 80 mg daily. The patient was advised not to take metformin on the day of discharge or the next few days but to st art it again on 03/30/17. He will continue with his glipizide and all of his other usual medication s. FINAL DIAGNOSES: 1. Cerebrovascular accident. 2. Hypertension. 3. Third-degree heart block, status post permanent pacemaker. 4. Aortic stenosis. 5. Coronary artery disease. DISCHARGE MEDICATIONS: 1. Aspirin 325 mg daily. 2. Atorvastatin 80 mg daily at 5 p.m. 3. Glipizide 10 mg daily at 8 a.m. and 5 p.m. 4. Metoprolol tartrate 100 mg b.i.d. 5. Verapamil 240 mg b.i.d. 6. Divalproex 500 mg b.i.d. 7. Losartan 100 mg daily. 8. Furosemide 40 mg daily. 9. Potassium chloride 20 mEq daily. 10. Nitroglycerin patch 0.2 mg for hour daily. 11. Lisinopril/hydrochlorothiazide 20/25 one daily. 12. Prednisolone 1% ophthalmic suspension 1 drop both eyes daily. 13. Ferrous gluconate 27 mg daily. 14. Terazosin 10 mg h.s. [id number]/[facility] #: [id number]
== END 2017-03-27 16:51 | disposition home or self-care (01) ==
LOC: ED 14:53 → MEDTELE 16:51 → INTOOBSV 16:51 → OBSVTOIN 16:51 → ICU 17:54
PROVIDERS: ADMIT Internal Medicine; ATTEND Internal Medicine
DX: I63.9 Cerebral infarction, unspecified (principal); I10 Essential (primary) hypertension; Z95.0 Presence of cardiac pacemaker; I35.0 Nonrheumatic aortic (valve) stenosis; I25.10 Atherosclerotic heart disease of native coronary artery without angina pectoris; Z79.82 Long term (current) use of aspirin; E11.8 Type 2 diabetes mellitus with unspecified complications; F31.9 Bipolar disorder, unspecified; F32.9 Major depressive disorder, single episode, unspecified
CPT/HCPCS: 36415; 70450; 70496; 70498; 80048; 80053; 80061; 80320; 81003; 83036; 83605; 84484; 85025; 85610; 87641; 96374; 99283; A9270-GY; G0378; G0480; Q9967

== ENCOUNTER 2017-03-30 10:36 | Inpatient (IN) | payer MEDICARE ==
[2017-03-30] MEDS ORDERED: NS 0.9% 1000 ML* 1,000 ML IV ONE (10:37)
--- NOTE | 2017-03-30 10:56 | RAD ---
HISTORY: Right-sided facial droop, weakness COMPARISONS: Head CT dated March 26, 2017, CTA dated March 27, 2017 TECHNIQUE: Multiple contiguous axial CT scans were obtained of the head without intravenous contrast. FINDINGS: HEMORRHAGE/INFARCT: There is no hemorrhage or acute infarct. MASSES/SHIFT: There is no mass or shift. EXTRA-AXIAL SPACES: There are no extra-axial fluid collections. SULCI AND VENTRICLES: The sulci and ventricles are normal in size and position for the patient's stated age. CEREBRUM: There is right parieto-occipital encephalomalacia consistent with remote infarct. BRAINSTEM: There are no focal parenchymal abnormalities. CEREBELLUM: There are no focal parenchymal abnormalities. VESSELS: There is calcification of the cavernous segments of the internal carotid arteries bilaterally and of the distal vertebral arteries bilaterally. PARANASAL SINUSES the upper abdomen is: There is polypoid mucosal thickening versus mucus retention cysts of the right maxillary sinus. ORBITS: The orbits are unremarkable. BONES AND SOFT TISSUE: No bone or soft tissue abnormalities are noted. OTHER: None IMPRESSION: 1. REMOTE INFARCT OF THE RIGHT CEREBRAL HEMISPHERE. 2. NO ACUTE INTRACRANIAL PATHOLOGY. 3. PRELIMINARY FINDINGS WERE DISCUSSED WITH DR. ESQUIVEL AT APPROXIMATELY 10:50 AM ON MARCH 30, 2017.
--- NOTE | 2017-03-30 11:11 | RAD ---
INDICATION: Neurologic change. Code hoskins. COMPARISON: June 02, 2016 TECHNIQUE: An AP portable view obtained at 1050 hours is submitted. FINDINGS: Bones/Soft Tissues: There are no acute bony findings. There is a left-sided cardiac pacemaker. Cardiomediastinal: The cardiomediastinal silhouette is normal. Lungs: There are no infiltrates. Pleura: There are no pleural effusions. Other: None IMPRESSION: NO ACTIVE DISEASE.
[2017-03-30 11:29] LABS: Hematocrit 32 % (42-52); Hemoglobin 10.3 g/dl (14.0-18.0); Mean Corpuscular HGB Conc 32 g/dl (31-36); Mean Corpuscular Hemoglobin 23 pg (27-31); Mean Platelet Volume 9 um3 (7.4-10.4); Red Blood Count 4.44 10^6/ul (4.0-5.4); Red Cell Distribution Width 15 % (10.5-15); White Blood Count 9.1 10^3/ul (3.5-10.8)
[2017-03-30 11:32] LABS: Comments Flag Yes; Mean Corpuscular Volume 73 fL (80-94)
[2017-03-30 11:45] LABS: Albumin 3.6 g/dL (3.2-5.2); BUN/Creatinine Ratio 15.7 (8-20); Calcium 8.4 mg/dL (8.6-10.3); EGFR African American 54.7 (>60); EGFR Non-African American 42.5 (>60); Globulin 2.7 g/dL (2-4); HDL Cholesterol 36.1 mg/dL; Potassium 3.7 mmol/L (3.5-5.0); Total Bilirubin 0.3 mg/dL (0.2-1.0); Total Protein 6.3 g/dL (6.4-8.9)
[2017-03-30 11:47] LABS: Troponin I 0.03 ng/mL (<0.04)
[2017-03-30] MEDS ORDERED: Dextrose 50% Syringe 50 ML* 25 GM/50 ML SYRINGE IV PUSH PRN (15:00)
--- NOTE | 2017-03-30 15:02 | ED ---
Dhaval Rao Benjamin, scribed for Nate Esquivel MD on 03/30/17 at 1109 . Neurological HPI - HPI Summary HPI Summary: 76yo male BIBA at 1035 for CVA like symptoms. Florencia hoskins was called TEACHER COUNSELOR at 10: 28. Per EMS, onset was 08:30, but without any confirmation. Pt presents with right facial droop, and right arm weakness. Pt was admitted to ICU on 03/26/17 for TIA. - History of Current Complaint Stated Complaint: POSSIBLE STROKE Time Seen by Provider: 03/30/17 10:37 Hx Obtained From: Patient Onset/Duration: Sudden Onset - around 08:30 Timing: Constant Onset Severity: Moderate Current Severity: Moderate Neurological Deficit Location: Facial - right, RUE Character: Motor Weakness - right arm, Impaired Speech - slurring some words - Additional Pertinent History Primary Care Physician: MARION - Allergy/Home Medications Allergies/Adverse Reactions: Allergies Allergy/AdvReac Type Severity Reaction Status Date / Time Penicillins Allergy Rash Verified 03/30/17 11:04 Home Medications: Home Medications Senna TAB* [Senokot TAB*] 2 tab PO DAILY 03/30/17 [History Confirmed 03/30/17] PMH/Surg Hx/FS Hx/Imm Hx Endocrine/Hematology History: Reports: Hx Diabetes Denies: Hx Anticoagulant Therapy, Hx Thyroid Disease Cardiovascular History: Reports: Hx Angina, Hx Cardiac Arrest, Hx Coronary Artery Disease, Hx Hypertension, Hx Myocardial Infarction, Hx Pacemaker/ICD Denies: Hx Congestive Heart Failure Respiratory History: Denies: Hx Asthma, Hx Chronic Obstructive Pulmonary Disease (COPD) GI History: Reports: Hx Gall Bladder Disease - cholecystectomy, Other GI Disorders History: Denies: Hx Renal Disease Sensory History: Reports: Hx Vision Problem Denies: Hx Contacts or Glasses, Hx Eye Injury, Hx Hearing Aid Opthamlomology History: Reports: Hx Vision Problem Denies: Hx Contacts or Glasses, Hx Eye Injury Neurological History: Reports: Hx Transient Ischemic Attacks (TIA) Denies: Hx Dementia, Hx Seizures Psychiatric History: Reports: Hx Depression, Hx Bipolar Disorder Denies: Hx Substance Abuse - Surgical History Surgery Procedure, Year, and Place: PACEMAKER, TRACHEOSTOMY, CHOLECYSTECTOMY Infectious Disease History: Denies: Hx Clostridium Difficile, Hx Hepatitis, Hx Human Immunodeficiency Virus (HIV), Hx of Known/Suspected MRSA, Hx Shingles, Hx Tuberculosis, History Other Infectious Disease, Traveled Outside the [place] in Last 30 Days - Family History Known Family History: Positive: Diabetes - Social History Occupation: Disabled Lives: With Family Alcohol Use: None Substance Use Type: Reports: None Hx Tobacco Use: Yes Smoking Status (MU): Former Smoker Review of Systems Constitutional: Negative Eyes: Negative ENT: Negative Cardiovascular: Negative Respiratory: Negative Gastrointestinal: Negative Genitourinary: Negative Musculoskeletal: Negative Skin: Negative Neurological: Other - right facial droop Positive: Weakness - right arm, Slurred Speech All Other Systems Reviewed And Are Negative: Yes Physical Exam Triage Information Reviewed: Yes Vital Signs On Initial Exam: Initial Vitals Pulse Resp Pulse Ox 67 22 96 03/30/17 10:48 03/30/17 10:48 03/30/17 10:48 Vital Signs Reviewed: Yes Skin: Positive: Warm, Skin Color Reflects Adequate Perfusion, Dry Head/Face: Positive: Normal Head/Face Inspection Eyes: Positive: Normal ENT: Positive: Normal ENT inspection Neck: Positive: Supple, Nontender Respiratory/Lung Sounds: Positive: Clear to Auscultation, Breath Sounds Present Cardiovascular: Positive: Murmur Abdomen Description: Positive: Nontender, Soft Bowel Sounds: Positive: Present Neurological: Positive: Alert, Oriented to Person Place, Time, Facial Droop - right, Slurred Speech - slurring some words, Finger to Nose - able to perform. Negative: Sensory/Motor Intact - sensory intact, RUE weakness, Facial Symmetry, Speech Normal, Pronator Drift Present - Emigrant Coma Scale Glascow Coma Scale Comments: 15 Diagnostics - Vital Signs Vital Signs Temp Pulse Resp BP Pulse Ox 03/30/17 14:30 60 18 145/114 98 03/30/17 14:15 60 16 162/77 94 03/30/17 14:00 60 16 148/76 97 03/30/17 13:45 60 15 144/72 96 03/30/17 13:30 60 16 152/78 95 03/30/17 13:15 60 20 155/75 95 03/30/17 13:00 60 18 134/78 97 03/30/17 12:45 60 18 145/71 96 03/30/17 12:30 60 13 155/77 98 03/30/17 12:15 60 15 146/77 94 03/30/17 12:00 60 17 155/82 94 03/30/17 11:46 60 18 163/76 97 03/30/17 11:30 60 21 124/89 98 03/30/17 11:15 60 17 157/72 96 03/30/17 11:00 60 16 143/74 98 03/30/17 10:54 60 18 157/72 98 03/30/17 10:53 98.3 F 60 18 157/72 98 03/30/17 10:48 67 22 96 - Laboratory Lab Results: Lab Results 03/30/17 03/30/17 03/30/17 Range/Units 10:53 11:15 11:15 WBC 9.1 (3.5-10.8) 10^3/ul RBC 4.44 (4.0-5.4) 10^6/ul Hgb 10.3 L (14.0-18.0) g/dl Hct 32 L (42-52) % MCV 73 L (80-94) fL MCH 23 L (27-31) pg MCHC 32 (31-36) g/dl RDW 15 (10.5-15) % Plt Count 164 (150-450) 10^3/ul MPV 9 (7.4-10.4) um3 Neut % (Auto) 58.6 (38-83) % Lymph % (Auto) 28.1 (25-47) % Fulton % (Auto) 9.9 H (1-9) % Eos % (Auto) 2.2 (0-6) % Baso % (Auto) 1.2 (0-2) % Absolute Neuts (auto) 5.3 (1.5-7.7) 10^3/ul Absolute Lymphs (auto) 2.6 (1.0-4.8) 10^3/ul Absolute Monos (auto) 0.9 H (0-0.8) 10^3/ul Absolute Eos (auto) 0.2 (0-0.6) 10^3/ul Absolute Basos (auto) 0.1 (0-0.2) 10^3/ul Absolute Nucleated RBC 0.01 10^3/ul Nucleated RBC % 0.1 INR (Anticoag Therapy) 0.96 (0.89-1.11) APTT 25.9 L (26.0-36.3) seconds Sodium (133-145) mmol/L Potassium (3.5-5.0) mmol/L Chloride (101-111) mmol/L Carbon Dioxide (22-32) mmol/L Anion Gap (2-11) mmol/L BUN (6-24) mg/dL Creatinine (0.67-1.17) mg/dL Est GFR ( Amer) (>60) Est GFR (Non-Af Amer) (>60) BUN/Creatinine Ratio (8-20) Glucose (70-100) mg/dL POC Glucose (mg/dL) 306 H (70-100) mg/dL Lactic Acid (0.5-2.0) mmol/L Calcium (8.6-10.3) mg/dL Total Bilirubin (0.2-1.0) mg/dL AST (13-39) U/L ALT (7-52) U/L Alkaline Phosphatase (34-104) U/L Troponin I (<0.04) ng/mL Total Protein (6.4-8.9) g/dL Albumin (3.2-5.2) g/dL Globulin (2-4) g/dL Albumin/Globulin Ratio (1-3) Triglycerides mg/dL Cholesterol mg/dL LDL Cholesterol mg/dL HDL Cholesterol mg/dL Blood Type Antibody Screen 03/30/17 03/30/17 03/30/17 Range/Units 11:15 11:15 11:15 WBC (3.5-10.8) 10^3/ul RBC (4.0-5.4) 10^6/ul Hgb (14.0-18.0) g/dl Hct (42-52) % MCV (80-94) fL MCH (27-31) pg MCHC (31-36) g/dl RDW (10.5-15) % Plt Count (150-450) 10^3/ul MPV (7.4-10.4) um3 Neut % (Auto) (38-83) % Lymph % (Auto) (25-47) % Fulton % (Auto) (1-9) % Eos % (Auto) (0-6) % Baso % (Auto) (0-2) % Absolute Neuts (auto) (1.5-7.7) 10^3/ul Absolute Lymphs (auto) (1.0-4.8) 10^3/ul Absolute Monos (auto) (0-0.8) 10^3/ul Absolute Eos (auto) (0-0.6) 10^3/ul Absolute Basos (auto) (0-0.2) 10^3/ul Absolute Nucleated RBC 10^3/ul Nucleated RBC % INR (Anticoag Therapy) (0.89-1.11) APTT (26.0-36.3) seconds Sodium 140 (133-145) mmol/L Potassium 3.7 (3.5-5.0) mmol/L Chloride 105 (101-111) mmol/L Carbon Dioxide 30 (22-32) mmol/L Anion Gap 5 (2-11) mmol/L BUN 25 H (6-24) mg/dL Creatinine 1.59 H (0.67-1.17) mg/dL Est GFR ( Amer) 54.7 (>60) Est GFR (Non-Af Amer) 42.5 (>60) BUN/Creatinine Ratio 15.7 (8-20) Glucose 254 H (70-100) mg/dL POC Glucose (mg/dL) (70-100) mg/dL Lactic Acid 1.6 (0.5-2.0) mmol/L Calcium 8.4 L (8.6-10.3) mg/dL Total Bilirubin 0.30 (0.2-1.0) mg/dL AST 16 (13-39) U/L ALT 16 (7-52) U/L Alkaline Phosphatase 47 (34-104) U/L Troponin I 0.03 (<0.04) ng/mL Total Protein 6.3 L (6.4-8.9) g/dL Albumin 3.6 (3.2-5.2) g/dL Globulin 2.7 (2-4) g/dL Albumin/Globulin Ratio 1.3 (1-3) Triglycerides 289 mg/dL Cholesterol 169 mg/dL LDL Cholesterol 75 mg/dL HDL Cholesterol 36.1 mg/dL Blood Type AB Positive Antibody Screen Negative Result Diagrams: 03/30/17 11:15 03/30/17 11:15 Lab Statement: Any lab studies that have been ordered have been reviewed, and results considered in the medical decision making process. - Radiology CXR Xray Interpretation: No Acute Changes Radiology Interpretation Completed By: Radiologist - CT Brain CT WO CT Interpretation: Positive (See Comments) - IMPRESSION: 1. REMOTE INFARCT OF THE RIGHT CEREBRAL HEMISPHERE. 2. NO ACUTE INTRACRANIAL PATHOLOGY. 3. PRELIMINARY FINDINGS WERE DISCUSSED WITH DR. ESQUIVEL AT APPROXIMATELY 10:50 AM ON MARCH 30, 2017. CT Interpretation Completed By: Radiologist - EKG 1046. Cardiac Rate: NL - 60bpm EKG Interpretation: Atrial paced. Inverted T waves in lateral and inferior leads. NIH Scale - NIH Scale Level of Consciousness: Alert/Keenly Responsive Ask Patient the Month and His/Her Age: Both Correct Ask Pt to Open/Close Eyes and Event Sales Representative/Release Non-Paretic Hand: Both Correctly Best Gaze (Only Horizontal Eye Movement): Normal Visual Field Testing: No Visual Loss Facial Paresis-Pt to Smile & Close Eyes or Grimace Symmetry: Partial Paralysis Motor Function - Right Arm: No Drift-Holds 10 Seconds Motor Function - Left Arm: No Drift-Holds 10 Seconds Motor Function - Right Leg: No Drift-Holds 10 Seconds Motor Function - Left Leg: No Drift-Holds 10 Seconds Limb Ataxia-Must be out of Proportion to Weakness Present: Present in One Limb - right arm Sensory (Use Pinprick to Test Arms/Legs/Trunk/Face): Normal Best Language (Describe Picture, Name Items): No Aphasia Dysarthria (Read Several Words): Slurs Some Words Extinction and Inattention: No Abnormality Total Score: 4 Course/Dx - Course Course Of Treatment: Reviewed pts medication and allergy lists. Discussed to Dr. Mohamud (Neurology) at 10:37, 11:05, 13:[address] MOHAMUD SAW PATIENT IN ED. ADMIT HOSPITALIST STABLE. - Diagnoses Provider Diagnoses: CVA (cerebral vascular accident) Discharge - Discharge Plan Condition: Stable Disposition: ADMITTED TO [facility] Referrals: Valente ATKINS,Hansa Skinner [Primary Care Provider] - The documentation as recorded by the Dhaval pappas Benjamin accurately reflects the service I personally performed and the decisions made by me, Nate Esquivel MD.
[2017-03-30] MEDS: Atorvastatin* 80 MG TAB PO SCH (16:47)
[2017-03-30] MEDS: Insulin LISPRO* 1 UNITS UNIT SUBCUT SCH (16:47)
[2017-03-30 20:08] LABS: Urine Bilirubin Negative (Negative); Urine Glucose 2+(150 mg/dL) (Negative); Urine Nitrite Negative (Negative)
[2017-03-30] MEDS: Verapamil SR TAB* 240 MG PO SCH (20:47)
[2017-03-30] MEDS: Metoprolol Tartrate TAB* 50 mg PO SCH (20:47)
[2017-03-30] MEDS: Terazosin CAP* 5 MG PO SCH (20:48)
[2017-03-30] MEDS: Heparin VIAL(*) 5000 UNITS/ML VIAL (FIVE THOUSAND) SUBCUT SCH (20:48)
[2017-03-30] MEDS: Divalproex DR TAB(*) 500 MG PO SCH (20:48)
--- NOTE | 2017-03-30 21:02 | HP ---
CC: KD Wetzel at [facility]. * HOSPITAL MEDICINE HISTORY AND PHYSICAL: DATE OF ADMISSION: 03/30/17 PRIMARY CARE PROVIDER: KD Wetzel at [facility]. ATTENDING PHYSICIAN: Ketan Devine MD * (dictation provided by Rachel Hardwick NP ) CHIEF COMPLAINT: Dysarthria, right-sided facial droop and right-sided weakness. HISTORY OF PRESENT ILLNESS: Mr. Perales is a 76-year-old male with a past medical history of recent admission to our hospital from 03/26/17 to 03/27/17 with concern for CVA with symptoms of facial droop on the right and dysarthria. He also has a history of coronary artery disease with CT many years ago, non- insulin-dependent diabetes, third degree AV block with pacemaker, hypertension and bipolar disorder. In brief, during the last hospitalization, the patient had some improvement in his initial symptoms of right facial droop and dysarthria, and A CT brain that showed a remote infarct in the right parietal occipital lobe but no new infarct. CTA of the head and neck showed 50% stenosis. He was seen in consultation by Dr. Mohamud from Neurology who recommended increasing aspirin from 81 to 325 mg and atorvastatin from 40 to 80 mg. Mr. Perales states he was doing relatively well on getting home today. He was at the [facility] seeing his therapist when suddenly at 8 a.m., he had again worsening dysarthria with right-sided facial droop and right-sided weakness. The patient presented to the emergency room and at this point, he states that his symptoms of dysarthria and facial droop are essentially back to where he was on 03/27/17 at the time of last discharge. His labs are essentially unremarkable showing a chronic kidney disease stage 3 with BUN 25, creatinine 1.59. He has chronic anemia with hemoglobin 10.3 and [address] CT of the brain shows a remote infarct in the right cerebral hemisphere, and a new are of hypoattenuation in the left hemisphere. He was seen in consultation by Dr. Mohamud who based on the multiple infarcts in different locations, is concerned for a possible cardioembolic phenomenon. PAST MEDICAL HISTORY: 1. History of right CVA. 2. CT. 3. Type 2 diabetes, non-insulin dependent. 4. Third degree heart block with pacemaker, followed by Dr. Keller. 5. CKD, stage III. 6. Chronic anemia. 7. Moderate to severe aortic stenosis. 8. Bipolar disorder. 9. Depression. MEDICATIONS: 1. Aspirin 325 mg daily. 2. Ferrous gluconate 27 mg p.o. daily. 3. Glipizide 10 mg twice daily. 4. Prednisolone 1% 1 drop both eyes daily. 5. Atorvastatin 80 mg p.o. daily. 6. Divalproex DR 500 mg p.o. b.i.d. 7. Furosemide 40 mg p.o. daily. 8. Lisinopril/hydrochlorothiazide 20/25 one tab p.o. daily. 9. Losartan 100 mg p.o. daily. 10. Metoprolol tartrate 100 mg p.o. b.i.d. 11. Nitroglycerin 0.2 mg per hour patch daily. 12. Potassium chloride 20 mEq p.o. daily. 13. Senna 2 tabs p.o. daily. 14. Terazosin 10 mg p.o. at bedtime. 15. Verapamil 240 mg p.o. b.i.d. ALLERGIES: PENICILLIN. FAMILY HISTORY: His mother at 71 from breast cancer. Father at 106 from old age. SOCIAL HISTORY: No report of alcohol, tobacco, or drug use. He lives with his , his healthcare proxy. REVIEW OF SYSTEMS: A 14-point review of systems was completed with Mr. Perales and all those not mentioned above were negative. PHYSICAL EXAMINATION GENERAL: Mr. Perales is sitting up in the bed. He is in no acute distress. VITAL SIGNS: Temperature 98.3, heart rate 60, respiratory rate 16, O2 saturation 94% on room air, blood pressure 148/76. HEENT: His pupils are equal and reactive. Extraocular movements are intact. LUNGS: Clear to auscultation bilaterally with no accessory muscle use and good aeration. HEART: S1, S2 with a prominent systolic murmur at the sternal border. No murmur, rub, or gallop. It is regular. ABDOMEN: Soft, nontender with bowel sounds positive x4. EXTREMITIES: No cyanosis or edema. NEURO: He is alert. He is oriented x3. I am not able at this point to appreciate any weakness in the upper or lower extremities. He has good strength in both right and left. He does have right-sided facial droop and does have slurred speech, but he is able to communicate enough to make his intent understood. SKIN: Intact. LABORATORY DATA/DIAGNOSTIC STUDIES: WBC 9.1, hemoglobin 10.3, hematocrit 32, platelet count 164,000. INR 0.96. Sodium 140, potassium 3.7, chloride 105, serum bicarbonate 30, BUN 25, creatinine 1.59, glucose 254. Triglycerides 289. Cholesterol 169, LDL 75, HDL 36. CT brain is again as follows: "Remote infarct of the right cerebral hemisphere , no acute intracranial pathology. However, there is an addendum that states there is a small focus of hypoattenuation of the left frontal jorge radiata on axial image 21." Chest x-ray, no active disease. EKG shows A-paced rhythm, the heart rate is 60. ASSESSMENT/PLAN: Mr. Perales is a 76-year-old male with a recent cerebrovascular accident to the right with myocardial infarction, oby-nxlvksv-rexsogznh diabetes , third degree heart block with pacemaker and moderate to severe stenosis who presents to the hospital today with a repeat episode of dysarthria with right- sided facial droop and right-sided weakness. Our plans are for observation in the hospital for the followin. Cerebrovascular accident: This is the patient's second episode this week. He had an original episode on the right and now after an episode of worsening dysarthria and weakness is found to have an area of hypoattenuation on the left. I appreciate the consultation from Dr. Mohamud from Neurology. He is concerned that the patient has a cardioembolic phenomenon causing his mmultiple strokes. I did review the outpatient records from Dr. Keller and he notes that the patient did show brief episodes of atrial fibrillation when his pacemaker was interrogated last. This is very likely the cause of his strokes and anticoagulation will need to be considered. For now, plan to repeat CT brain tomorrow and then consider anticoagulation at that point if there is no significant hemorrhagic conversion. He is already on aspirin. He has good control of his blood pressure with blood pressure running 140s to 160s. His diabetes is reasonably controlled with a hemoglobin A1c of 7.2 at last visit. 2. Hypertension. Continue verapamil, metoprolol, losartan, lisinopril/ hydrochlorothiazide and furosemide. His blood pressure is running 140s to 160s. 3. Hyperlipidemia. Continue atorvastatin. 4. Diabetes. Hold glipizide and provide lispro sliding scale insulin with meals. 5. Chronic kidney disease, stage 3. He is at baseline. 6. Anemia, at baseline. The patient is on ferrous sulfate supplementation at home. 7. DVT prophylaxis with heparin subcu. 8. Disposition to telemetry floor. TIME SPENT: Approximately 60 minutes were spent on the admission of this patient, and more than half of the time was spent with the patient at the bedside reviewing the events leading up to this hospitalization, performing the physical examination, and reviewing my plan of care. RACHEL HARDWICK, MADELYN [id number]/[facility]PS #: [id number] AYO
--- NOTE | 2017-03-30 22:00 | CONS ---
CONSULTATION REPORT: DATE OF CONSULTATION: 03/30/17 PATIENT OF: Dr. Hardwick, Dr. Keller. HISTORY OF PRESENT ILLNESS: This is a 76-year-old right-handed man, who I am seeing today for recurrence of aphasia and right-sided weakness that began this morning and is much improved. His weakness was resolved when I saw him late morning, he still had a little bit of aphasia but was speaking in sentences and the states that this was much improved from earlier. His history is significant for similar findings presenting on this past Wednesday and he was outside the TPA window, and his symptoms were mild enough that he did not need to be considered for clot retrieval. His CTA the next day was read as 50% bilateral stenosis and because he was having recurrent symptoms today, they called Dr. Moise at [place] and spoke to him about the case with the concern that he had 50% symptomatic carotid stenosis with recurrent events, would he be a endarterectomy candidate, Dr. Moise thought that this stenosis was well less than 50% and he did not need any vascular intervention. He has had no prior stroke prior to Wednesday. He has a pacemaker for bradycardia , tracheostomy, cholecystectomy. He also has history of heart attack, diabetes , coronary artery disease, hypertension, and depression. There is no history in his hospital chart for atrial fibrillation and he was not aware that he had atrial fibrillation, however, on review of his [facility] chart today he had, there is a history of atrial fibrillation as captured by his pacemaker. MEDICATIONS: At home include: 1. Lipitor 80 mg daily. 2. Depakote 500 mg twice a day. 3. Furosemide 40 mg daily. 4. Aspirin 325 mg daily. 5. Cozaar 100 mg daily. 6. Lisinopril 1 tablet daily. 7. Iron 27 mg daily. 8. Glipizide 10 mg twice a day. 9. Verapamil 240 mg b.i.d. 10. Hytrin 10 mg at bedtime. 11. Glycerine 1 patch transdermally. 12. Metoprolol 100 mg daily. FAMILY HISTORY: Family history for diabetes. SOCIAL HISTORY: He is a former smoker. REVIEW OF SYSTEMS: Negative in all the 14 spheres. PHYSICAL EXAMINATION: On exam, temperature 98.3, pulse 60, respirations 15, blood pressure 146/73. He was alert and oriented. Speech was mildly hesitant, but he spoke in full sentences. He could find most words, but there was some mild decrease in fluency. He had a right facial droop. Strength is 5/5 bilaterally with no pronator drift. There is minimal fine motor problems in the right hand. Sensation intact to light touch. Reflexes were 1 and equal. Toes were downgoing. Chest: Clear. Cardiovascular: Regular rate and rhythm. Abdomen: Soft with positive bowel sounds. DIAGNOSTIC STUDIES/LABORATORY DATA: His repeat CT scan, I reviewed. I then spoke to Dr. Beckwith today, there was concern that there was an interval change with some hypodensity in his left basal ganglia, which was new since the prior CT scan, Dr. Beckwith agreed. His blood work from today showed white count of 9.1 , hematocrit of 32, platelets of 164,000. INR 0.96, PTT 25.9. CMP had a creatinine of 1.59, BUN of 25, glucose of 254, calcium of 8.4, total protein 6.9 , LDL 75. IMPRESSION: Liliam has had recurrent stroke, which is mild and improving. His CT scan had a right occipital stroke as well as that was old and today he is having stroke in different vascular distributions, although the one on Wednesday and today were in the same distribution. I am concerned that he could be having stroke from his atrial fibrillation. We will not be able to get an MRI scan, but we will repeat the CT scan and if we do not see any significant further stroke and he has frequent recurrent strokes, we will begin anticoagulation in the near future. Discussed this plan with Rachellissette Hardwick and the family. Thank you for sharing his case. [id number]/[facility] #: [id number] AYO
[2017-03-31] MEDS: Heparin VIAL(*) 5000 UNITS/ML VIAL (FIVE THOUSAND) SUBCUT SCH ×2 (05:49→13:42)
--- NOTE | 2017-03-31 06:43 | PN ---
Progress Note - Progress Note Date of Service: 03/31/17 Note: Nonsustained run of vtach 33 sec - asymptomatic. Labs ordered
[2017-03-31 06:44] LABS: BUN/Creatinine Ratio 20.1 (8-20); Calcium 8.3 mg/dL (8.6-10.3); EGFR African American 66.7 (>60); EGFR Non-African American 51.8 (>60); Magnesium 1.8 mg/dL (1.9-2.7); Potassium 3.9 mmol/L (3.5-5.0)
[2017-03-31] MEDS: Insulin LISPRO* 1 UNITS UNIT SUBCUT SCH ×3 (07:58→16:45)
--- NOTE | 2017-03-31 08:05 | RAD ---
INDICATION: CVA COMPARISON: CT brain March 30, 2017 TECHNIQUE: Noncontrast axial source images were acquired from the skull base to the vertex. FINDINGS: Ventricles/sulci: There is cortical atrophy with compensatory dilatation of the CSF spaces. Brain parenchyma: There is a remote right occipital infarct with encephalomalacia. There is periventricular and subcortical white matter change compatible with chronic ischemia. Intracranial hemorrhage:None. Extra-axial spaces: There are no abnormal extra axial fluid collections or evidence of extra-axial mass. Calvarium: There is no calvarial fracture or other calvarial abnormality. Scalp: There is no evidence of scalp or extracalvarial soft tissue abnormality. Paranasal sinuses/mastoid: The paranasal sinuses and mastoid air cells are clear. Other: None. IMPRESSION: ATROPHY. SMALL VESSEL ISCHEMIC CHANGE. OLD RIGHT OCCIPITAL INFARCT. NO ACUTE FINDINGS.
[2017-03-31] MEDS ORDERED: Magnesium Oxide TAB* 400 MG PO ONE (08:30)
[2017-03-31] MEDS: Senna TAB PO SCH (08:46)
[2017-03-31] MEDS: Losartan TAB* 25 MG PO SCH (08:46)
[2017-03-31] MEDS: Furosemide TAB* 40 MG PO SCH (08:47)
[2017-03-31] MEDS: Potassium Chlor TAB* 20 MEQ TAB.ER PO SCH (08:47)
[2017-03-31] MEDS: Lisinopril TAB* 10 MG PO SCH (08:47)
[2017-03-31] MEDS: Verapamil SR TAB* 240 MG PO SCH ×2 (08:47→20:55)
[2017-03-31] MEDS: Divalproex DR TAB(*) 500 MG PO SCH ×2 (08:47→20:55)
[2017-03-31] MEDS: Metoprolol Tartrate TAB* 50 mg PO SCH ×2 (08:47→20:55)
[2017-03-31] MEDS: Hydrochlorothiazide TAB* 25 MG PO SCH (08:47)
[2017-03-31] MEDS: Nitroglycerin 0.2 MG/HR PATCH* (5 MG) TRANSDERM SCH (08:51)
--- NOTE | 2017-03-31 09:19 | PN ---
Subjective Date of Service: 03/31/17 Interval History: Suspected prolonged episode of VT this AM. Asymptomatic. Patient seen this morning. Denies any new symptoms. Feels that his symptoms have improved from yesterday when symptoms recurred. Denies chest pain, SOB. Family History: Unchanged from Admission Social History: Unchanged from Admission Past Medical History: Unchanged from Admission Objective Active Medications: Atorvastatin Calcium (Lipitor*) 80 mg PO 1700 NILDA Dextrose (D50w Syringe 50 Ml*) 12.5 gm IV PUSH .FOR FS < 60 - SS PRN Divalproex Sodium (Depakote Dr Tab(*)) 500 mg PO BID NILDA Furosemide (Lasix Tab*) 40 mg PO DAILY NILDA Heparin Sodium (Porcine) (Heparin Vial(*)) 5,000 units SUBCUT Q8HR NILDA Hydrochlorothiazide (Hydrodiuril Tab*) 25 mg PO DAILY NILDA Insulin Human Lispro (Humalog*) 0 units SUBCUT AC NILDA Lisinopril (Prinivil Tab*) 20 mg PO DAILY NILDA Losartan Potassium (Cozaar Tab*) 100 mg PO DAILY NILDA Metoprolol Tartrate (Lopressor Tab*) 100 mg PO BID NILDA Nitroglycerin (Nitroglycerin 5 Mg Patch*) 1 patch TRANSDERM DAILY NILDA Potassium Chloride (Klor Con Er Tab*) 20 meq PO DAILY NILDA Senna (Senokot Tab*) 2 tab PO DAILY NILDA Terazosin HCl (Hytrin Cap*) 10 mg PO BEDTIME NILDA Verapamil HCl (Calan Sr Tab*) 240 mg PO BID NILDA Vital Signs 03/30/17 03/30/17 03/30/17 15:16 15:53 15:54 Temperature 97.5 F Pulse Rate 59 60 60 Respiratory 15 15 18 Rate Blood Pressure 162/63 146/73 170/84 (mmHg) O2 Sat by Pulse 97 97 Oximetry 03/31/17 03/31/17 03/31/17 03:45 05:25 07:14 Temperature 98.6 F 98.2 F 97.9 F Pulse Rate 60 59 60 Respiratory 16 18 20 Rate Blood Pressure 159/72 168/77 130/71 (mmHg) O2 Sat by Pulse 98 100 100 Oximetry Oxygen Devices in Use Now: None Appearance: Elderly, AAM, sitting in chair in NAD Eyes: No Scleral Icterus Ears/Nose/Mouth/Throat: Mucous Membranes Moist Neck: NL Appearance and Movements; NL JVP Respiratory: Symmetrical Chest Expansion and Respiratory Effort, Clear to Auscultation Cardiovascular: RRR, - - 3/6 ISABELLA Abdominal: NL Sounds; No Tenderness; No Distention Lymphatic: No Cervical Adenopathy Extremities: No Edema Skin: No Rash or Ulcers Neurological: Alert and Oriented x 3, - - R sided facial droop, dysarhtria, no aphasia noted, strength 5/5 throughout B/L UEs and LEs, no sensory deficits appreciated Result Diagrams: 03/30/17 11:15 03/31/17 06:20 Assess/Plan/Problems-Billing Assessment: CVA in a 76 yo M with hx of HTN, CAD, DM, 3rd degree heart block s/p PPM, mod- severe aortic stenosis - Patient Problems (1) CVA (cerebral vascular accident) Current Visit: No Comment: Clinically L cerebral CVA, R parietal-occipital lobe area of encephalomalacia on CT. Repeat CT scan this AM with no new findings , no hemorrhage. Continue ASA 325 mg daily for now. Will need to clarify if patient actually had AFib as outpatient, Dr. Bush to consult. Feels episode this AM was actually SVT. Continue ASA and statin. Will discuss further with Neurology. (2) Tachyarrhythmia Current Visit: Yes Comment: Dr. Bush to consult, will review recent interrogation and potentially re-interrogate. On initial scan of tele she feels this is more likely SVT. Replete K and Mg. Will get echo. (3) CAD (coronary artery disease) Current Visit: No Comment: Continue home statin. (4) Hypertension Current Visit: No Comment: Continue all home BP meds. (5) Diabetes Current Visit: Yes Comment: HISS (6) DVT prophylaxis Current Visit: Yes Comment: HSQ Status and Disposition: Inpatient
[2017-03-31] MEDS ORDERED: Aspirin TAB* 325 MG PO SCH (10:00)
[2017-03-31] MEDS ORDERED: Pneumococcal Vac Polyvalent* 0.5 ML VIAL IM ONE (12:00)
[2017-03-31] MEDS ORDERED: glipiZIDE TAB* 5 MG PO ONE (12:39)
--- NOTE | 2017-03-31 15:20 | ECHO ---
Patient: TORY SAPP [facility] [place] Rec#: [id number] : 1940 Date: 03/31/2017 Age: 76y Height: 167.6 cm / 66.0 in Weight: 96.6 kg / 212.9 lbs Sex: M BSA: 2.1 Room#: [facility] Admit Date#: 03/30/2017 Type: Inpatient Referring: Felicita Bush MD Reading: Felicita Bush MD Tire Groover: Leti Dillon RN RDCS CC: Hansa Lorenz Transthoracic Echocardiogram Indication: CVA BP: 130/71 HR: 60 Rhythm: Paced Findings History: CAD, PCI, pacemaker, aortic stenosis, cardiac arrest, CVA, HTN, DM, CKD Technical Comments: The study quality is fair. Completed at 1150. Left Ventricle: The left ventricular chamber size is normal. Moderate concentric left ventricular hypertrophy is observed. Global left ventricular wall motion and contractility are within normal limits. There is normal left ventricular systolic function. The estimated ejection fraction is 60-65%. Abnormal left ventricular diastolic filling is observed, consistent with impaired relaxation. Left Atrium: The left atrium is slightly dilated. Right Ventricle: The right ventricle wall thickness is mildly increased. The right ventricular cavity size is normal. The right ventricular global systolic function is normal. A pacemaker wire is visualized in the right ventricle. Right Atrium: The right atrial cavity size is normal. A pacemaker wire is visualized in the right atrium. Interatrial septum appears intact without evidence of shunting. The bubble study is negative. Aortic Valve: The aortic valve leaflets are moderately thickened.Could not confirm if trileaflet. Systolic excursion of the aortic valve cusps is reduced. There is trace to mild aortic regurgitation. There is moderate to severe aortic stenosis. The mean gradient of the aortic valve is 29 mmHg. The peak instantaneous gradient of the aortic valve is 45 mmHg. The aortic valve area, by peak velocities, is calculated at 0.9 cm2. The aortic valve area, by VTI's, is calculated at 1.1 cm2. Mitral Valve: There is mitral annular calcification. The mitral valve leaflets are mildly thickened. There is trace to mild mitral regurgitation. There is no evidence of mitral stenosis. Tricuspid Valve: The tricuspid valve leaflets are normal. There is trace tricuspid regurgitation. color jet in the region of TR on parasternal views, alias vs more likely artifact from RV lead. Unable to estimate the right ventricular systolic pressure. There is no tricuspid stenosis. Pulmonic Valve: The pulmonic valve appears normal. There is a trace pulmonic regurgitation. There is no pulmonic stenosis. Pericardium: There is no significant pericardial effusion. A pericardial fat pad is visualized. Aorta: There is no dilatation of the ascending aorta. There is no dilatation of the aortic arch. There is no dilation of the aortic root. Pulmonary Artery: The main pulmonary artery is not well visualized. Venous: The inferior vena cava appears normal in size. There is a greater than 50% respiratory change in the inferior vena cava dimension. Contrast: Normal saline was used as contrast for the bubble study. Images 2 and 3. Conclusions Moderate concentric left ventricular hypertrophy is observed. Global left ventricular wall motion and contractility are within normal limits. The estimated ejection fraction is 60-65%. Abnormal left ventricular diastolic filling is observed, consistent with impaired relaxation. The right ventricular global systolic function is normal. There is moderate to severe aortic stenosis: the mean gradient of the aortic valve is 29 mmHg, the BLAIR by VTI's, is calculated at 1.1 cm2, DI 0.27-0.33. There is mitral annular calcification with trace to mild mitral regurgitation. There is trace tricuspid regurgitation. Unable to estimate the right ventricular systolic pressure. No convincing evidence of intracardiac shunting. Compared with prior study of 08/14/15 LVEF is stable, stable. Consider MEAGAN (transesophogeal echo) if clinically indicated for improved imaging for possible cardioembolic source. Measurements Name Value Normal Range RVDdMajor (2D) 4.2 cm (2.2 - 4.4) RVAW (2D) 0.8 cm (0.2 - 0.5) RAd ISD 4CH 4.8 cm (3.4 - 4.9) RA (A4C)W 4.2 cm (2.9 - 4.6) IVSd (2D) 1.5 cm (0.6 - 1) LVPWd (2D) 1.4 cm (0.6 - 1) LVIDd (2D) 4.6 cm (3.6 - 5.4) LVIDs (2D) 3.3 cm - LV FS (2D) 28 % (25 - 45) Aortic Annulus 1.9 cm (1.4 - 2.6) Ao root diameter (2D) 3.1 cm (2.1 - 3.5) Ascending Ao 3.3 cm (2.1 - 3.4) Aortic arch 2.9 cm (1.8 - 3.4) LA dimension (AP) 2D 4.3 cm (2.3 - 3.8) LAd ISD 4CH 5.3 cm (2.9 - 5.3) LA ISD 4CH W 4.2 cm (2.5 - 4.5) Name Value Normal Range LA ESV SP 4CH (A/L) 57 ml - LA ESV SP 2CH (A/L) 62 ml - LA ESV BP (A/L) 65 ml - LA ESV BP (A/L) index 31.4 ml/m2 - LA ESV SP 4CH (MOD) 54 ml - LA ESV SP 2CH (MOD) 61 ml - Name Value Normal Range MV E-wave Vmax 0.88 m/sec - MV deceleration time 322 msec - MV A-wave Vmax 1.2 m/sec - MV E:A ratio 0.73 ratio - LV septal e' Vmax 0.03 m/sec - LV lateral e' Vmax 0.05 m/sec - LV E:e' septal ratio 29.3 ratio - LV E:e' lateral ratio 17.6 ratio - Name Value Normal Range AV Vmax 3.4 m/sec - AV VTI 82.8 cm - AV peak gradient 45 mmHg - AV mean gradient 29 mmHg - LVOT diameter 2.05 cm - LVOT Vmax 0.92 m/sec - LVOT VTI 27 cm - LVOT peak gradient 3 mmHg - LVOT mean gradient 2 mmHg - DOI (VTI) 0.33 ratio - DOI (Vmax) 0.27 ratio - BLAIR (continuity Vmax) 0.9 cm2 - BLAIR (continuity VTI) 1.1 cm2 - KIM Vmax 0.43 m/sec - Name Value Normal Range IVC diameter 1.8 cm - Name Value Normal Range PV Vmax 0.71 m/sec -
[2017-03-31] MEDS: Atorvastatin* 80 MG TAB PO SCH (16:44)
[2017-03-31] MEDS: glipiZIDE TAB* 5 MG PO SCH (16:45)
[2017-03-31] MEDS ORDERED: Rivaroxaban TAB(*) 20 MG TAB PO SCH (17:00)
[2017-03-31] MEDS: Terazosin CAP* 5 MG PO SCH (20:55)
--- NOTE | 2017-03-31 23:12 | PN ---
NEUROLOGICAL FOLLOWUP NOTE: DATE OF FOLLOWUP: 03/31/17 PATIENT OF: Dr. Steele. HISTORY OF PRESENT ILLNESS: This is a 76-year-old right-handed man who states his speech is better and feels back to normal. He has no other complaints and his is not here to note if she notes any difference. His medications are: 1. Aspirin 325. 2. Lipitor 80 mg daily. 3. Depakote 500 twice a day. 4. Lasix 40 mg daily. 5. Glucotrol 10 mg daily. 6. Hydrochlorothiazide 25 daily. 7. Lisinopril 20 mg daily. 8. Cozaar 100 mg daily. 9. Metoprolol 100 mg b.i.d. 10. Nitroglycerin p.r.n. 11. Verapamil 240 daily. 12. Terazosin 10 mg at bedtime. Temperature 98, pulse 70, respiratory rate 16, blood pressure 159/68. He was alert and oriented. He spoke in full sentences and spoke coherently. There was occasional light hesitancy, but most of the time he spoke in fluent sentences and could carry on conversation, could name objects as well without problem and said he was back to normal. He has a right facial weakness and his speech was better than yesterday. His right facial droop was unchanged. He had full strength in both sides. He tended to reach for objects with his left rather than his right, but his right was 5/5. He had slight asymmetric gait with his right leg appearing slightly stiffer than his left. I did not get him upright yesterday while he was in the middle of his stroke to walk him. Strength in his legs was symmetric. He reached for objects with either hand. He still had some minimal fine motor problems in his right hand. Reflexes were 1 and equal. Downgoing toes. Chest clear. Cardiovascular: Regular rate and rhythm. Abdomen is soft with positive bowel sounds. Repeat CT scan today showed no further stroke other than the interval change in his left basal ganglia noted on yesterday's CT scan, he has right encephalomalacia reflecting probably an old stroke. Labs were from yesterday. He will be getting an echo. His monitoring revealed tachycardia and Dr. Steele was getting Dr. Bush to come and determine the exact etiology of the tachycardia. Liliam has had 2 partial partial MCA strokes with right facial droop, this is minimal residual. He detects no change in his speech. I think there might be subtle changes. There may be an asymmetry to his gait, but it is unclear when this started. In any event, he is at further risk for strong further clots as he has had 2 strokes within several days' time. It is now long enough since his stroke on Wednesday that it would be reasonable to begin anticoagulating even though there would be risk of bleeding from anticoagulating now. The fact that he is having recurrent strokes in a short period of time puts him at high risk for further emboli and he would be safer to be treated than not, although _ I have discussed this with the patient today as well as Dr. Steele and he will begin anticoagulating. Thank you for sharing his case. [id number]/[facility] #: [id number] AYO
[2017-04-01] MEDS: Insulin LISPRO* 1 UNITS UNIT SUBCUT SCH ×2 (08:11→12:13)
[2017-04-01] MEDS: Losartan TAB* 25 MG PO SCH (08:12)
[2017-04-01] MEDS: Furosemide TAB* 40 MG PO SCH (08:12)
[2017-04-01] MEDS: Senna TAB PO SCH (08:12)
[2017-04-01] MEDS: Potassium Chlor TAB* 20 MEQ TAB.ER PO SCH (08:12)
[2017-04-01] MEDS: Hydrochlorothiazide TAB* 25 MG PO SCH (08:12)
[2017-04-01] MEDS: Metoprolol Tartrate TAB* 50 mg PO SCH (08:12)
[2017-04-01] MEDS: Verapamil SR TAB* 240 MG PO SCH (08:13)
[2017-04-01] MEDS: glipiZIDE TAB* 5 MG PO SCH (08:13)
[2017-04-01] MEDS: Lisinopril TAB* 10 MG PO SCH (08:13)
[2017-04-01] MEDS: Divalproex DR TAB(*) 500 MG PO SCH (08:13)
[2017-04-01] MEDS: Nitroglycerin 0.2 MG/HR PATCH* (5 MG) TRANSDERM SCH (08:15)
[2017-04-01] MEDS ORDERED: Aspirin EC Low Dose* 81 MG TAB.EC PO SCH (09:00)
--- NOTE | 2017-04-01 09:26 | CONS ---
CC: Hospitalist Service; Dr. Je Keller * CARDIOLOGY CONSULTATION: DATE OF CONSULT: 03/31/17 REASON FOR CONSULTATION: Recurrent stroke symptoms and concern for possible dysrhythmias. HISTORY OF PRESENT ILLNESS: Mr. Perales is a very nice 76-year-old gentleman with known atherosclerotic heart disease followed by my partner, Dr. Je Keller. He also has a history of third-degree heart block and has a pacemaker. The patient was admitted overnight from 03/26/17 to 03/27/17 due to acute onset of facial droop, expressive aphasia, and right-sided dysarthria. His aspirin was increased and statins increased. A CT revealed an old occipital infarct, but no new infarct and MRI could not be done due to the patient's pacer. A CT angiogram did show plaque in the cerebral vasculature. The patient was then readmitted on 03/30/17 because of recurrence of his symptoms with right-sided weakness, right-sided facial droop, and he could not speak. Repeat CT shows new attenuation in the left hemisphere and this CT raised concerns about possible cardioembolic phenomenon. Currently, the patient is feeling better. He can talk again. The patient denies any awareness, palpitations, or racing of the heart, chest pain, pressure, or heaviness. PAST MEDICAL HISTORY: 1. Third-degree heart block and a dual chamber pacemaker. 2. Coronary artery disease (cardiac catheterization 2010, 50% distal LAD, 40% occlusion of an OM3 branch and 25% occlusion of the distal right coronary artery ). 3. Moderate to severe aortic stenosis. 4. He has carotid artery disease. 5. Dyslipidemia. 6. Diabetes. 7. Hypertension. 8. Chronic kidney disease stage 3. 9. Chronic anemia. 10. Bipolar disorder. 11. Depression. PAST PSYCHIATRIC HISTORY: Includes pacemaker implantation 2006, cataract surgery, cholecystectomy, cardiac stenting 2007. INPATIENT MEDICATIONS: Include: 1. Aspirin 325 mg a day. 2. Subcutaneous heparin. 3. Glipizide 5 mg a day. 4. Verapamil 40 mg b.i.d. 5. Hytrin 10 mg a day. 6. Senokot 2 tabs daily. 7. Potassium chloride 20 mEq a day. 8. Nitroglycerin patch 5 mg a day on days. 9. Lopressor 100 mg b.i.d. 10. Cozaar 100 mg a day. 11. Lisinopril 20 mg a day. 12. Lispro insulin. 13. Hydrochlorothiazide 25 mg a day. 14. Lasix 40 mg a day. 15. Depakote 500 mg b.i.d. 16. Lipitor 80 mg a day. ALLERGIES: Include PENICILLIN. FAMILY HISTORY: Mother had history of breast cancer. Father at age 106. SOCIAL HISTORY: The patient lives with his . Nonsmoker. No history of recreational drugs or alcohol intake. REVIEW OF SYSTEMS: See History of Present Illness. Negative for palpitations. Negative for chest pain. No change in sleeping habits, bowel habits, diarrhea. No unilateral leg swelling or recent travel. All other 14-point review of systems were unremarkable. PHYSICAL EXAM: General: The patient is an overweight elderly gentleman in no acute distress, seated. Vital Signs: Blood pressure 159/68, pulse was 60 and regular, oxygen saturation 100% on room air, temperature 98.0, respiratory rate 16. Skin: Warm and dry. No appreciable cyanosis of the lips or nail beds. HEENT: Pupils were round and equal. Face: He had clear asymmetry of the mouth and his smile was asymmetrical. Speech was consistent with recent stroke and being somewhat slurred, but he had no trouble finding his words. Neck: Thick from obesity, but I do not appreciate thyromegaly or lymphadenopathy. Palpable carotid pulses bilaterally. Respirations: Clear with good effort. No wheezes, rales, or rhonchi. Coronary: S1 and S2, regular. Late peaking 2/6 systolic murmur heard in the right upper sternal border with radiation. Abdomen: Overweight, active bowel sounds, soft, nontender. No appreciable hepatomegaly, although suboptimal exam. Extremities: Lower extremities were free of edema and warmth. DIAGNOSTIC STUDIES/LAB DATA: White count 9, hemoglobin 10.3, hematocrit 32, and platelets 164. Sodium 142, potassium 3.9, bicarb 25, BUN 27, creatinine 1.34, glucose 162, calcium 8.3, magnesium 1.8. Total cholesterol 169, triglycerides 289, LDL cholesterol 75, HDL cholesterol 36. Troponin 0.03. CT of the brain from 03/31/17. Atrophy, small vessel ischemic changes, old right occipital infarct. No acute findings. Echocardiogram from 03/31/17 showed moderate left ventricular hypertrophy, ejection fraction 60 to 65%, abnormal diastolic filling, moderate to severe aortic stenosis with a mean gradient of 29 mmHg, aortic valve area calculated as 1.1 cm2. Dimensionless index 0.27, 0.33. No evidence of shunting on bubble study. Chest x-ray from 03/30/17 showed no active disease. ECG from 03/30/17 shows atrial pacing at a rate of 60 beats per minute, negative QRS. He has inverted T-waves in the inferior lateral leads and flattened T waves elsewhere. When this EKG is compared with this EKG of , there is no significant change. Pacemaker interrogation was performed. The patient on March 27 had high atrial rates for several hours documented, although the device was not programed to allow the evaluation of intracardiac electrogram and on 03/31/17 at 5 in the morning, he had another high atrial rate episode, the device was programed to save the longest and the most recent, so it is possible that he had high rate atrial dysrhythmias in the interim. Dr. Mohamud's consultation reviewed including his evaluation of repeat CT scan and there was concern for hypodensity in the left basal ganglia, which is new. His concerns were he had strokes in different vascular distributions and raised the possibility of Afib. CT angiogram of the head from 03/27/17 showed multiple 50% occlusions at the level of the carotid sinus. The right posterior cerebral artery was diminutive in size corresponding with the region of encephalomalacia related to the old right occipital parietal infarct. On telemetry initial concerns for ventricular tachycardia; however, on my review these are consistent with supraventricular tachycardia with ventricular pacing/tracking of the atrial dysrhythmias not ventricular tachycardia. IMPRESSION: In summary, Liliam Perales is a 76-year-old male with coronary artery disease, peripheral vascular disease involving the carotids, third-degree heart block with a pacemaker, and with a second admission this week for stroke with right- sided facial droop and right-sided weakness and trouble speaking. The pacemaker interrogation is consistent with recent atrial fibrillation. During the interrogation, I did reprogram the device so in the future we will be able to look at the intracardiac electrograms and be able to report with more accuracy of the atrial dysrhythmias. Based on 03/27/17 prolonged episode, I do recommend anticoagulation with Coumadin or NOAC if agreed upon by Neurology. In addition to aggressive atherosclerotic risk factor modification is being done with control of diabetes , hypertension, and dyslipidemia. Although initial concerns were raised about the possibility of ventricular tachycardia and the patient has some risk for this based on his aortic stenosis, I feel this was misinterpreted and in fact represented ventricular pacing and I think we can continue him on his current high dose beta-lynn. Potential options in the future would be to initiate in antiarrhythmic. For the paroxysmal atrial fibrillation, the safest with his aortic stenosis and complex medical regimen would be amiodarone, but there are other options as such as Tikosyn if he is compliant with medications and careful. I feel the choice of the antiarrhythmic can be determined at follow up with his regular car painter, Dr. Keller unless he shows recurrent episodes of atrial fibrillation during this hospitalization. Thank you for allowing me to assist in this nice gentleman's care. [id number]/[facility] #: [id number] AYO
--- NOTE | 2017-04-01 10:37 | DCNOTE ---
Patient seen this morning, no new complaints. Feels speech is improving. agrees. No chest pain, palpitations. On exam, RRR, ISABELLA, lungs CTA B/L, no w/r/r, R facial droop, slight dysarthria, no aphasia. Started on Xarelto this admission due to multi-area vascular distribution of CVA , concern of AFib (atrial tachycardia recorded) on PPM interrogation. Discharge on Xarelto and ASA 81 mg daily. F/U with Dr. Mohamud and Dr. Keller as well as PCP.
--- NOTE | 2017-04-01 11:45 | CARD ---
CC: Dr. Keller * DATE OF PROCEDURE: 03/31/2017 - ROOM #445 PROCEDURE PERFORMED: Pacemaker interrogation. INDICATION: Evaluate for possible paroxysmal atrial fibrillation. DEVICE: The device is a [employer] XL DR [id number], serial number [id number]. The device is a dual chamber, programmed in rate response mode with a low rate of 60 beats a minute. The patient atrially paced at 67 percent of the time, ventricularly paced was less than one percent of the time, and he modes which is less than one percent of the time. The programming did not allow for evaluation of intracardiac electrograms with high atrial rate episodes; however, it does detect dates and times of the atrial tachycardia. On 03/27/2017, the patient was in a high atrial rate of 349 beats a minute from 6:00 p.m. to 8:30 p.m. On March 31, he had a 10 second burst at 5:00 a.m. of an atrial dysrhythmia at 200 beats per minute. There are other events, but they have been cleared. This is the longest and most recent. I adjusted his programming, turning AMS entry on, I turned down the high ventricular rate triggered at 125 beats a minute, I decreased AT/AF detection to 150 beats a minute from 180 beats a minute, AF suppression is on. SUMMARY: In summary, high atrial rates suggestive of A-fib or flutter, one prolonged at least two hours in length. [id number]/[facility] #: [id number] MTDD
[2017-04-01 12:04] VITALS: BP 171/75
--- NOTE | 2017-04-02 01:09 | DS ---
CC: KD Wetzel; Dr. Keller; Dr. Mohamud * DISCHARGE SUMMARY: DATE OF ADMISSION: 03/30/17 DATE OF DISCHARGE: 04/01/17 PRIMARY CARE PHYSICIAN: KD Wetzel at [facility]. PRINCIPAL DISCHARGE DIAGNOSES: 1. Cardiovascular accident. 2. Atrial tachyarrhythmia, likely atrial fibrillation or atrial flutter. SECONDARY DIAGNOSES: 1. Type 2 diabetes. 2. Coronary artery disease, status post myocardial infarction. 3. Chronic kidney disease. 4. Third-degree heart block with pacemaker placement. 5. Chronic anemia. 6. Moderate to severe aortic stenosis. 7. Bipolar disorder. 8. Depression. DISCHARGE MEDICATION REGIMEN: 1. Xarelto 20 mg by mouth daily. 2. Aspirin 81 mg by mouth daily. 3. Metformin 850 mg by mouth 2 times daily. 4. Prednisolone 1 drop in both eyes daily. 5. Metoprolol tartrate 100 mg by mouth 2 times daily. 6. Nitroglycerin patch 5 mg 1 patch transdermal daily. 7. Potassium chloride 20 mEq by mouth daily. 8. Terazosin 10 mg by mouth at bedtime. 9. Glipizide 10 mg by mouth 2 times daily. 10. Depakote 500 mg by mouth 2 times daily. 11. Ferrous gluconate 27 mg by mouth daily. 12. Lasix 40 mg by mouth daily. 13. Lisinopril/HCTZ 20/25 one tablet by mouth daily. 14. Losartan 100 mg by mouth daily. 15. Atorvastatin 80 mg by mouth nightly. 16. Senna 2 tablets by mouth daily. STUDIES DURING HOSPITALIZATION: CT of the brain without contrast. Impression: There is a small focus of hypoattenuation of the left frontal jorge radiata on axial image 21. This is not clearly evident on the previous CT or CT of the head and the differential, acute and subacute, nonhemorrhagic lacunar infarct, also remote infarct of the right cerebral hemisphere is seen. Chest x-ray, impression: No active disease. Repeat CT of the brain 03/31/17, impression: Atrophy. Small vessel ischemic change, old right occipital infarct, no acute findings. Transthoracic echocardiogram, conclusion is moderate concentric LVH, global left ventricular wall motion and contractility within normal limits with an ejection fraction of 60-65%. Abnormal left ventricular diastolic filling was observed consistent with impaired relaxation. The right ventricular global systolic function is normal. There is some moderate to severe aortic stenosis. There is mitral annular calcification with trace to mild mitral regurgitation. There is trace tricuspid regurgitation, unable to estimate the right ventricular systolic pressure. No convincing evidence of intracardiac shunting. Compared with the prior study of 08/14/15, LVEF is stable, stable. CONSULTANTS DURING HOSPITALIZATION: 1. Dr. Mk Mohamud, Neurology. 2. Dr. Felicita Bush, Cardiology. HISTORY OF PRESENT ILLNESS AND HOSPITAL SUMMARY: Please see the full history and physical by Rachel Hardwick NP for full details. Briefly, Mr. Perales is a 76-year -old male with the past medical history as above who presented to the hospital with dysarthria and worsening right-sided facial droop after recent discharge from the hospital after stay with similar symptoms. On previous hospitalization , the patient was seen by Neurology and medication changes were made including increasing his statin and his aspirin. The patient was doing well after discharge until recurrence of his symptoms on the day of admission. His symptoms were concerning for recurrent stroke. On the CT scan, there was some evidence of subacute nonhemorrhagic infarct that was in a different distribution from what appears to be an old infarction in the occipital lobe on the CT scan. The patient had a repeat CT scan that was stable here in the hospital. Looking further in the patient's cardiac status, it seems that he has been having some episodes of atrial tachycardia, which are likely AFib or Aflutter. Dr. Bush evaluated the patient, interrogated the pacemaker, which showed this. She was initially consulted because of what appeared to be ventricular tachycardia on telemetry. However, Dr. Bush feels this is likely atrial in origin and appeared ventricular due to the pacer tracking. With the patient seemingly having areas of stroke in different vascular distributions combined with his potential atrial fibrillation, decision was made to start the patient on anticoagulation. He was started on Xarelto here in the hospital and he will be discharged home on this with his aspirin reduced back down to 81 mg dose. 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 Keller, as well as with Dr. Mohamud of Neurology as an outpatient. He was instructed to resume his home metformin on discharge as well. On day of discharge, he felt like he was back to his baseline that he was at from previous discharge. TIME SPENT: Total time spent on this discharge 50 minutes. This is a summary of the hospitalization. Please see the full medical record for further details. [id number]/[facility] #: [id number] [facility]ITAL[facility]
== END 2017-04-01 12:57 | disposition home or self-care (01) | DRG 65 ==
LOC: ED 10:36 → MEDTELE 15:09 → OBSVTOIN 03-31 09:13
PROVIDERS: ADMIT Internal Medicine; ATTEND Hospitalist
PROC: 3E0234Z Introduction of Serum, Toxoid and Vaccine into Muscle, Percutaneous Approach (ICD-10-PCS; 2017-03-31)
PROC: 4B02XSZ Measurement of Cardiac Pacemaker, External Approach (ICD-10-PCS; principal; 2017-04-01)
DX: I63.9 Cerebral infarction, unspecified (principal); G81.91 Hemiplegia, unspecified affecting right dominant side; I44.2 Atrioventricular block, complete; E11.22 Type 2 diabetes mellitus with diabetic chronic kidney disease; E11.51 Type 2 diabetes mellitus with diabetic peripheral angiopathy without gangrene; I48.92 Unspecified atrial flutter; G93.89 Other specified disorders of brain; I48.0 Paroxysmal atrial fibrillation; I12.9 Hypertensive chronic kidney disease with stage 1 through stage 4 chronic kidney disease, or unspecified chronic kidney disease; R47.01 Aphasia; G83.21 Monoplegia of upper limb affecting right dominant side; I25.10 Atherosclerotic heart disease of native coronary artery without angina pectoris; R40.2412 Glasgow coma scale score 13-15, at arrival to emergency department; R47.1 Dysarthria and anarthria; R29.810 Facial weakness; R29.704 NIHSS score 4; F31.9 Bipolar disorder, unspecified; N18.3 Chronic kidney disease, stage 3 (moderate); I08.3 Combined rheumatic disorders of mitral, aortic and tricuspid valves; D64.9 Anemia, unspecified; E66.3 Overweight; Z79.82 Long term (current) use of aspirin; Z79.01 Long term (current) use of anticoagulants; Z79.84 Long term (current) use of oral hypoglycemic drugs; Z88.0 Allergy status to penicillin; I25.2 Old myocardial infarction; Z90.49 Acquired absence of other specified parts of digestive tract; Z87.891 Personal history of nicotine dependence; Z86.73 Personal history of transient ischemic attack (TIA), and cerebral infarction without residual deficits; Z95.0 Presence of cardiac pacemaker; Z80.3 Family history of malignant neoplasm of breast; Z68.34 Body mass index [BMI] 34.0-34.9, adult; Z83.3 Family history of diabetes mellitus; Z23 Encounter for immunization
CPT/HCPCS: 36415; 70450; 71010; 80048; 80053; 80061; 81003; 82947; 83605; 83735; 84484; 85025; 85610; 85730; 86850; 86900; 86901; 90732; 93005; 93306; A9270-GY; J1644

== ENCOUNTER 2017-04-21 01:02 | Emergency (ER) | payer MEDICARE ==
[2017-04-21 01:38] LABS: Hematocrit 31 % (42-52); Hemoglobin 10.2 g/dl (14.0-18.0); Mean Corpuscular HGB Conc 33 g/dl (31-36); Mean Corpuscular Hemoglobin 23 pg (27-31); Mean Platelet Volume 8 um3 (7.4-10.4); Red Blood Count 4.43 10^6/ul (4.0-5.4); Red Cell Distribution Width 15 % (10.5-15); White Blood Count 9.6 10^3/ul (3.5-10.8)
[2017-04-21 01:45] LABS: Comments Flag Yes; Mean Corpuscular Volume 70 fL (80-94)
[2017-04-21 01:53] LABS: Albumin 3.5 g/dL (3.2-5.2); EGFR Non-African American 32.6 (>60); Globulin 2.9 g/dL (2-4); Potassium 3.8 mmol/L (3.5-5.0); Total Bilirubin 0.3 mg/dL (0.2-1.0); Total Protein 6.4 g/dL (6.4-8.9)
[2017-04-21 01:55] LABS: Troponin I 0.01 ng/mL (<0.04)
--- NOTE | 2017-04-21 04:10 | ED ---
Robert Rao Thomas, scribed for Daniele Eisenberg on 04/21/17 at 0128 . Neurological HPI - HPI Summary HPI Summary: The pt is a 76 y/o M with a Hx of CVA BIB EMS after he had AMS with attempts to strike his (per EMS, this is atypical for him). When the patient is asked how he is doing, he responds I dont know whats going on but I feel all right. He is aware that he is in the hospital but he is unsure which hospital. He does not know what year it is. He believes he is 50 years old. He is moving all extremities. He has R-sided facial droop. 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 PMHx: CVA, DM, HTN, CT, TIA. PSHx: pacemaker. - History of Current Complaint Chief Complaint: EDAltMentalStatus Stated Complaint: LOW SUGAR Time Seen by Provider: 04/21/17 01:11 Hx Obtained From: Patient, EMS Onset/Duration: Sudden Onset - per EMS, Still Present Timing: Constant Pain Intensity: 0 Aggravating: Nothing Alleviating: Nothing Associated Signs and Symptoms: Positive: Confusion, AMS - Additional Pertinent History Primary Care Physician: MARION - Allergy/Home Medications Allergies/Adverse Reactions: Allergies Allergy/AdvReac Type Severity Reaction Status Date / Time Penicillins Allergy Rash Verified 03/30/17 11:04 PMH/Surg Hx/FS Hx/Imm Hx Previously Healthy: No Endocrine/Hematology History: Reports: Hx Diabetes Denies: Hx Anticoagulant Therapy, Hx Thyroid Disease Cardiovascular History: Reports: Hx Angina, Hx Cardiac Arrest, Hx Coronary Artery Disease, Hx Hypertension, Hx Myocardial Infarction, Hx Pacemaker/ICD Denies: Hx Congestive Heart Failure Respiratory History: Denies: Hx Asthma, Hx Chronic Obstructive Pulmonary Disease (COPD) GI History: Reports: Hx Gall Bladder Disease - cholecystectomy, Other GI Disorders History: Denies: Hx Renal Disease Sensory History: Reports: Hx Vision Problem Denies: Hx Contacts or Glasses, Hx Eye Injury, Hx Hearing Aid Opthamlomology History: Reports: Hx Vision Problem Denies: Hx Contacts or Glasses, Hx Eye Injury Neurological History: Reports: Hx CVA, Hx Transient Ischemic Attacks (TIA) Denies: Hx Dementia, Hx Seizures Psychiatric History: Reports: Hx Depression, Hx Bipolar Disorder Denies: Hx Substance Abuse - Surgical History Surgery Procedure, Year, and Place: PACEMAKER, TRACHEOSTOMY, CHOLECYSTECTOMY Infectious Disease History: No Infectious Disease History: Denies: Hx Clostridium Difficile, Hx Hepatitis, Hx Human Immunodeficiency Virus (HIV), Hx of Known/Suspected MRSA, Hx Shingles, Hx Tuberculosis, History Other Infectious Disease, Traveled Outside the [place] in Last 30 Days - Family History Known Family History: Positive: Diabetes - Social History Alcohol Use: None Substance Use Type: Reports: None Hx Tobacco Use: Yes Smoking Status (MU): Former Smoker Review of Systems Negative: Fever Neurological: Other - POS: AMS (trying to hit , which is atypical), confused , R-sided facial droop All Other Systems Reviewed And Are Negative: Yes Physical Exam Triage Information Reviewed: Yes Vital Signs On Initial Exam: Initial Vitals Temp Pulse Resp BP Pulse Ox 96.8 F 64 18 163/65 96 04/21/17 01:11 04/21/17 01:11 04/21/17 01:11 04/21/17 01:11 04/21/17 01:11 Vital Signs Reviewed: Yes Appearance: Positive: Well-Appearing, No Pain Distress Skin: Positive: Warm, Skin Color Reflects Adequate Perfusion, Dry Head/Face: Positive: Normal Head/Face Inspection Eyes: Positive: EOMI, GUSTAVO ENT: Positive: Normal ENT inspection Neck: Positive: Supple, Nontender Respiratory/Lung Sounds: Positive: Clear to Auscultation, Breath Sounds Present Cardiovascular: Positive: RRR, Pulses are Symmetrical in both Upper and Lower Extremities Abdomen Description: Positive: Nontender, Soft Bowel Sounds: Positive: Present Musculoskeletal: Positive: Normal, Strength/ROM Intact Neurological: Positive: Other - He is alert but confused. He has right facial weakness. - Ayah Coma Scale Coma Scale Total: 14 Diagnostics - Vital Signs Vital Signs Temp Pulse Resp BP Pulse Ox 04/21/17 01:15 97.0 F 66 18 163/65 98 04/21/17 01:11 96.8 F 64 18 163/65 96 - Laboratory Lab Results: Lab Results 04/21/17 04/21/17 04/21/17 Range/Units 01:20 01:20 01:20 WBC 9.6 (3.5-10.8) 10^3/ul RBC 4.43 (4.0-5.4) 10^6/ul Hgb 10.2 L (14.0-18.0) g/dl Hct 31 L (42-52) % MCV 70 L (80-94) fL MCH 23 L (27-31) pg MCHC 33 (31-36) g/dl RDW 15 (10.5-15) % Plt Count 210 (150-450) 10^3/ul MPV 8 (7.4-10.4) um3 Neut % (Auto) 55.4 (38-83) % Lymph % (Auto) 34.5 (25-47) % [place] % (Auto) 9.1 H (1-9) % Eos % (Auto) 0.8 (0-6) % Baso % (Auto) 0.2 (0-2) % Absolute Neuts (auto) 5.3 (1.5-7.7) 10^3/ul Absolute Lymphs (auto) 3.3 (1.0-4.8) 10^3/ul Absolute Monos (auto) 0.9 H (0-0.8) 10^3/ul Absolute Eos (auto) 0.1 (0-0.6) 10^3/ul Absolute Basos (auto) 0 (0-0.2) 10^3/ul Absolute Nucleated RBC 0 10^3/ul Nucleated RBC % 0 INR (Anticoag Therapy) 1.26 H (0.89-1.11) APTT 34.7 (26.0-36.3) seconds Sodium 140 (133-145) mmol/L Potassium 3.8 (3.5-5.0) mmol/L Chloride 102 (101-111) mmol/L Carbon Dioxide 29 (22-32) mmol/L Anion Gap 9 (2-11) mmol/L BUN 46 H (6-24) mg/dL Creatinine 2.00 H (0.67-1.17) mg/dL Est GFR ( Amer) 42.0 (>60) Est GFR (Non-Af Amer) 32.6 (>60) BUN/Creatinine Ratio 23.0 H (8-20) Glucose 71 (70-100) mg/dL POC Glucose (mg/dL) (70-100) mg/dL Calcium 9.0 (8.6-10.3) mg/dL Total Bilirubin 0.30 (0.2-1.0) mg/dL AST 13 (13-39) U/L ALT 8 (7-52) U/L Alkaline Phosphatase 29 L (34-104) U/L Troponin I 0.01 (<0.04) ng/mL Total Protein 6.4 (6.4-8.9) g/dL Albumin 3.5 (3.2-5.2) g/dL Globulin 2.9 (2-4) g/dL Albumin/Globulin Ratio 1.2 (1-3) 04/21/17 Range/Units 02:52 WBC (3.5-10.8) 10^3/ul RBC (4.0-5.4) 10^6/ul Hgb (14.0-18.0) g/dl Hct (42-52) % MCV (80-94) fL MCH (27-31) pg MCHC (31-36) g/dl RDW (10.5-15) % Plt Count (150-450) 10^3/ul MPV (7.4-10.4) um3 Neut % (Auto) (38-83) % Lymph % (Auto) (25-47) % [place] % (Auto) (1-9) % Eos % (Auto) (0-6) % Baso % (Auto) (0-2) % Absolute Neuts (auto) (1.5-7.7) 10^3/ul Absolute Lymphs (auto) (1.0-4.8) 10^3/ul Absolute Monos (auto) (0-0.8) 10^3/ul Absolute Eos (auto) (0-0.6) 10^3/ul Absolute Basos (auto) (0-0.2) 10^3/ul Absolute Nucleated RBC 10^3/ul Nucleated RBC % INR (Anticoag Therapy) (0.89-1.11) APTT (26.0-36.3) seconds Sodium (133-145) mmol/L Potassium (3.5-5.0) mmol/L Chloride (101-111) mmol/L Carbon Dioxide (22-32) mmol/L Anion Gap (2-11) mmol/L BUN (6-24) mg/dL Creatinine (0.67-1.17) mg/dL Est GFR ( Amer) (>60) Est GFR (Non-Af Amer) (>60) BUN/Creatinine Ratio (8-20) Glucose (70-100) mg/dL POC Glucose (mg/dL) 77 (70-100) mg/dL Calcium (8.6-10.3) mg/dL Total Bilirubin (0.2-1.0) mg/dL AST (13-39) U/L ALT (7-52) U/L Alkaline Phosphatase (34-104) U/L Troponin I (<0.04) ng/mL Total Protein (6.4-8.9) g/dL Albumin (3.2-5.2) g/dL Globulin (2-4) g/dL Albumin/Globulin Ratio (1-3) Result Diagrams: 04/21/17 01:20 04/21/17 01:20 Lab Statement: Any lab studies that have been ordered have been reviewed, and results considered in the medical decision making process. - Radiology CXR Xray Interpretation: No Acute Changes - No acute disease Radiology Interpretation Completed By: ED Physician - CT CT Abd/Pel CT Interpretation: No Acute Changes - No evidence for acute pathology CT Interpretation Completed By: Radiologist - EKG 02:52 Cardiac Rate: NL - 60BPM EKG Interpretation: Sinus rhythm. Nonspecific T changes. Course/Dx - Course Assessment/Plan: The patient comes to the ED with AMS and low blood glucose. In the ED he was given dextrose. He is not at his baseline mental status. His bblood glucose was 70 in the ED. He was advised to follow up with his PCP and call his primary care doctor in the morning. pt has unlikely cva at present. pt at his baseline mental status as per the . - Diagnoses Provider Diagnoses: Hypoglycemia, CVA, old, aphasia, Diabetes Discharge - Discharge Plan Condition: Stable Disposition: HOME Patient Education Materials: Hypoglycemia in a Person with Diabetes (ED) Referrals: Valente ATKINS,Hansa Skinner [Primary Care Provider] - 2 Days Additional Instructions: Please call your primary care doctor in the morning. The documentation as recorded by the Robert pappas Thomas accurately reflects the service I personally performed and the decisions made by , Daniele Eisenberg.
[2017-04-21 04:40] VITALS: BP 159/69
--- NOTE | 2017-04-21 07:47 | RAD ---
INDICATION: CVA COMPARISON: Comparison is made with a prior chest x-ray study from March 30, 2017. TECHNIQUE: A portable view of the chest was obtained. FINDINGS: There is a dual-chamber transvenous pacemaker present. The heart is within normal limits in size. The lungs are underinflated and clear. No pleural effusion is seen. IMPRESSION: NO EVIDENCE FOR ACUTE DISEASE.
--- NOTE | 2017-04-21 07:58 | RAD ---
INDICATION: CVA. COMPARISON: Comparison is made with a prior CT brain from March 31, 2017. TECHNIQUE: Contiguous axial sections of the brain were obtained from the skull base to the vertex without contrast. FINDINGS: The ventricles, cisterns and sulci are enlarged consistent with diffuse atrophy. There is a focal moderate size area of encephalomalacia present in the right occipital lobe which is unchanged from the prior study consistent with an old infarct. There are small areas of decreased attenuation in the periventricular white matter most consistent with mild chronic small vessel ischemic changes. No other focal abnormality or mass effect is seen. There is no evidence for hemorrhage. No significant focal osseous abnormality is seen. The visualized portion of the paranasal sinuses and mastoid air cells appear clear. IMPRESSION: 1. NO EVIDENCE FOR GROSS ACUTE INFARCT, MASS EFFECT OR HEMORRHAGE. 2. OLD RIGHT OCCIPITAL LOBE INFARCT, UNCHANGED.
== END 2017-04-21 04:38 | disposition home or self-care (01) ==
LOC: ED 01:02
DX: E11.649 Type 2 diabetes mellitus with hypoglycemia without coma (principal); R41.0 Disorientation, unspecified; R41.82 Altered mental status, unspecified; R47.01 Aphasia; Z87.891 Personal history of nicotine dependence; Z86.73 Personal history of transient ischemic attack (TIA), and cerebral infarction without residual deficits
CPT/HCPCS: 36415; 70450; 71010; 80053; 84484; 85025; 85610; 85730; 93005; 99285

== ENCOUNTER 2017-04-21 12:48 | Inpatient (IN) | payer MEDICARE ==
[2017-04-21] MEDS ORDERED: NS 0.9% 1000 ML* 1,000 ML IV SCH ×2 (13:30→15:45)
--- NOTE | 2017-04-21 13:41 | RAD ---
HISTORY: Right face and arm weakness COMPARISONS: April 21, 2017 VIEWS:1: Single frontal portable view of the chest at 1:25 PM FINDINGS: LINES AND TUBES: There is left-sided pacemaker CARDIOMEDIASTINAL SILHOUETTE: The aorta is tortuous. The cardiomediastinal silhouette is stable from the previous examination.. PLEURA: The costophrenic angles are sharp. No pleural abnormalities are noted. LUNG PARENCHYMA: The lungs are clear. ABDOMEN: The upper abdomen is clear. There is no subphrenic gas. BONES AND SOFT TISSUES: No bone or soft tissue abnormalities are noted. IMPRESSION: NO ACTIVE CARDIOPULMONARY DISEASE.
--- NOTE | 2017-04-21 13:53 | RAD ---
HISTORY: Right face and arm weakness COMPARISONS: April 21, 2017 at 1:46 AM TECHNIQUE: Multiple contiguous axial CT scans were obtained of the head without intravenous contrast. FINDINGS: HEMORRHAGE/INFARCT: There is no hemorrhage or acute infarct. MASSES/SHIFT: There is no mass or shift. EXTRA-AXIAL SPACES: There are no extra-axial fluid collections. SULCI AND VENTRICLES: The sulci and ventricles are normal in size and position for the patient's stated age. CEREBRUM: There is stable right occipital encephalomalacia BRAINSTEM: There are no focal parenchymal abnormalities. CEREBELLUM: There are no focal parenchymal abnormalities. VESSELS: The vessels are grossly normal. PARANASAL SINUSES: The paranasal sinuses are clear. ORBITS: The orbits are unremarkable. BONES AND SOFT TISSUE: No bone or soft tissue abnormalities are noted. OTHER: None IMPRESSION: NO ACUTE INTRACRANIAL PATHOLOGY. STABLE RIGHT OCCIPITAL ENCEPHALOMALACIA
[2017-04-21 14:08] LABS: Hematocrit 30 % (42-52); Hemoglobin 9.5 g/dl (14.0-18.0); Mean Corpuscular HGB Conc 32 g/dl (31-36); Mean Corpuscular Hemoglobin 23 pg (27-31); Mean Platelet Volume 9 um3 (7.4-10.4); Red Blood Count 4.15 10^6/ul (4.0-5.4); Red Cell Distribution Width 15 % (10.5-15); White Blood Count 9.6 10^3/ul (3.5-10.8)
[2017-04-21 14:22] LABS: Comments Flag Yes
[2017-04-21 14:23] LABS: Mean Corpuscular Volume 71 fL (80-94)
[2017-04-21 14:25] LABS: Troponin I 0.01 ng/mL (<0.04)
[2017-04-21 14:27] LABS: B Type Natriuretic Peptide 74 pg/mL
[2017-04-21 14:32] LABS: ALT 7 U/L (7-52); AST 15 U/L (13-39); Albumin 3.4 g/dL (3.2-5.2); Alkaline Phosphatase 29 U/L (34-104); Ammonia 34 mol/L (16-53); Anion Gap 9 mmol/L (2-11); BUN/Creatinine Ratio 22.3 (8-20); Blood Urea Nitrogen 46 mg/dL (6-24); C Reactive Protein 11.48 mg/L (< 5.00); CO2 Carbon Dioxide 29 mmol/L (22-32); Calcium 8.9 mg/dL (8.6-10.3); Chloride 100 mmol/L (101-111); Creatine Kinase 57 U/L (10-223); EGFR African American 40.6 (>60); EGFR Non-African American 31.6 (>60); Globulin 2.9 g/dL (2-4); Glucose 120 mg/dL (70-100); Lipase 30 U/L (11.0-82.0); Potassium 4.3 mmol/L (3.5-5.0); Sodium 138 mmol/L (133-145); Total Protein 6.3 g/dL (6.4-8.9)
[2017-04-21 14:48] LABS: Acetaminophen < 15 mcg/mL
[2017-04-21 14:59] LABS: TSH (Thyroid Stimulating Horm) 4.77 mcIU/mL (0.34-5.60)
[2017-04-21] MEDS ORDERED: Acetaminophen TAB* 325 MG PO PRN (15:39)
[2017-04-21] MEDS ORDERED: Dextrose 50% Syringe 50 ML* 25 GM/50 ML SYRINGE IV PUSH PRN (15:39)
[2017-04-21] MEDS ORDERED: Ondansetron INJ* 2 MG/ML VIAL IV PRN (15:39)
--- NOTE | 2017-04-21 15:52 | ED ---
Andrew Rao Alfonso, scribed for Nate Dao MD on 04/21/17 at 1318 . Neurological HPI - HPI Summary HPI Summary: This patient is a 76 year old M BIBA to [facility] accompanied by for AMS since this morning. states he was last seen normal at 0630 today. The patient rates the pain 0/10 in severity. Symptoms aggravated by nothing. Symptoms alleviated by nothing. reports slurred speech, right sided facial droop, and right arm weakness. PMHx includes DM, CAD, HTN, and CVA. Medications reviewed. 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 - Onset/Duration: Sudden Onset, Started hours ago - morning last seen normal at 0630, Still Present Timing: Constant Onset Severity: Moderate Current Severity: Moderate Pain Intensity: 0 Pain Scale Used: 0-10 Numeric Aggravating: Nothing Alleviating: Nothing Associated Signs and Symptoms: Positive: Weakness, Impaired Speech - Additional Pertinent History Primary Care Physician: MARION - Allergy/Home Medications Allergies/Adverse Reactions: Allergies Allergy/AdvReac Type Severity Reaction Status Date / Time Penicillins Allergy Rash Verified 03/30/17 11:04 PMH/Surg Hx/FS Hx/Imm Hx Endocrine/Hematology History: Reports: Hx Diabetes Denies: Hx Anticoagulant Therapy, Hx Thyroid Disease Cardiovascular History: Reports: Hx Angina, Hx Cardiac Arrest, Hx Coronary Artery Disease, Hx Hypertension, Hx Myocardial Infarction, Hx Pacemaker/ICD Denies: Hx Congestive Heart Failure Respiratory History: Denies: Hx Asthma, Hx Chronic Obstructive Pulmonary Disease (COPD) GI History: Reports: Hx Gall Bladder Disease - cholecystectomy, Other GI Disorders History: Denies: Hx Renal Disease Sensory History: Reports: Hx Vision Problem Denies: Hx Contacts or Glasses, Hx Eye Injury, Hx Hearing Aid Opthamlomology History: Reports: Hx Vision Problem Denies: Hx Contacts or Glasses, Hx Eye Injury Neurological History: Reports: Hx CVA, Hx Transient Ischemic Attacks (TIA) Denies: Hx Dementia, Hx Seizures Psychiatric History: Reports: Hx Depression, Hx Bipolar Disorder Denies: Hx Substance Abuse - Surgical History Surgery Procedure, Year, and Place: PACEMAKER, TRACHEOSTOMY, CHOLECYSTECTOMY Infectious Disease History: No Infectious Disease History: Denies: Hx Clostridium Difficile, Hx Hepatitis, Hx Human Immunodeficiency Virus (HIV), Hx of Known/Suspected MRSA, Hx Shingles, Hx Tuberculosis, History Other Infectious Disease, Traveled Outside the [place] in Last 30 Days - Family History Known Family History: Positive: Diabetes - Social History Alcohol Use: None Substance Use Type: Reports: None Hx Tobacco Use: Yes Smoking Status (MU): Former Smoker Review of Systems Negative: Fever Neurological: Other - AMS, slurred speech, right sided facial droop, and right arm weakness. All Other Systems Reviewed And Are Negative: Yes Physical Exam Triage Information Reviewed: Yes Vital Signs On Initial Exam: Initial Vitals Temp Pulse Resp BP Pulse Ox 96.9 F 68 18 143/76 100 04/21/17 13:05 04/21/17 13:05 04/21/17 13:05 04/21/17 13:05 04/21/17 13:05 Vital Signs Reviewed: Yes Appearance: Positive: Well-Appearing, No Pain Distress Skin: Positive: Warm, Skin Color Reflects Adequate Perfusion, Dry Head/Face: Positive: Normal Head/Face Inspection Eyes: Positive: EOMI, GUSTAVO, Other: - Gaze stays midline and to the left. Able to bright his eyes across the right midline. Cannot see on the right side of the both eyes. ENT: Positive: Normal ENT inspection Neck: Positive: Supple, Nontender Respiratory/Lung Sounds: Positive: Clear to Auscultation, Breath Sounds Present Cardiovascular: Positive: RRR, Murmur Abdomen Description: Positive: Nontender, Soft Bowel Sounds: Positive: Present Musculoskeletal: Positive: Other - No effort against gravity RUE. Drift of RLE. Neurological: Positive: Facial Droop - right sided, Other - Alert. Right facial droop. Psychiatric: Positive: Affect/Mood Appropriate - Ayah Coma Scale Best Eye Response: 4 - Spontaneous Best Motor Response: 6 - Obeys Commands Best Verbal Response: 5 - Oriented Coma Scale Total: 14 Glascow Coma Scale Comments: Diagnostics - Vital Signs Vital Signs Temp Pulse Resp BP Pulse Ox 04/21/17 13:05 96.9 F 68 18 143/76 100 - Laboratory Lab Results: Lab Results 04/21/17 04/21/17 04/21/17 Range/Units 13:24 13:55 13:55 WBC (3.5-10.8) 10^3/ul RBC (4.0-5.4) 10^6/ul Hgb (14.0-18.0) g/dl Hct (42-52) % MCV (80-94) fL MCH (27-31) pg MCHC (31-36) g/dl RDW (10.5-15) % Plt Count (150-450) 10^3/ul MPV (7.4-10.4) um3 Neut % (Auto) (38-83) % Lymph % (Auto) (25-47) % Bingham % (Auto) (1-9) % Eos % (Auto) (0-6) % Baso % (Auto) (0-2) % Absolute Neuts (auto) (1.5-7.7) 10^3/ul Absolute Lymphs (auto) (1.0-4.8) 10^3/ul Absolute Monos (auto) (0-0.8) 10^3/ul Absolute Eos (auto) (0-0.6) 10^3/ul Absolute Basos (auto) (0-0.2) 10^3/ul Absolute Nucleated RBC 10^3/ul Nucleated RBC % INR (Anticoag Therapy) 1.76 H (0.89-1.11) APTT 36.7 H (26.0-36.3) seconds Sodium 138 (133-145) mmol/L Potassium 4.3 (3.5-5.0) mmol/L Chloride 100 L (101-111) mmol/L Carbon Dioxide 29 (22-32) mmol/L Anion Gap 9 (2-11) mmol/L BUN 46 H (6-24) mg/dL Creatinine 2.06 H (0.67-1.17) mg/dL Est GFR ( Amer) 40.6 (>60) Est GFR (Non-Af Amer) 31.6 (>60) BUN/Creatinine Ratio 22.3 H (8-20) Glucose 120 H (70-100) mg/dL POC Glucose (mg/dL) 132 H (70-100) mg/dL Lactic Acid (0.5-2.0) mmol/L Calcium 8.9 (8.6-10.3) mg/dL Magnesium 2.0 (1.9-2.7) mg/dL Total Bilirubin 0.30 (0.2-1.0) mg/dL AST 15 (13-39) U/L ALT 7 (7-52) U/L Alkaline Phosphatase 29 L (34-104) U/L Ammonia (16-53) mol/L Total Creatine Kinase 57 (10-223) U/L CK-MB (CK-2) 0.8 (0.6-6.3) ng/mL Troponin I 0.01 (<0.04) ng/mL C-Reactive Protein 11.48 H (< 5.00) mg/L B-Natriuretic Peptide ( - 100) pg/mL Total Protein 6.3 L (6.4-8.9) g/dL Albumin 3.4 (3.2-5.2) g/dL Globulin 2.9 (2-4) g/dL Albumin/Globulin Ratio 1.2 (1-3) Lipase 30 (11.0-82.0) U/L TSH 4.77 (0.34-5.60) mcIU/mL Acetaminophen < 15 mcg/mL 04/21/17 04/21/17 04/21/17 Range/Units 13:55 13:55 13:55 WBC 9.6 (3.5-10.8) 10^3/ul RBC 4.15 (4.0-5.4) 10^6/ul Hgb 9.5 L (14.0-18.0) g/dl Hct 30 L (42-52) % MCV 71 L (80-94) fL MCH 23 L (27-31) pg MCHC 32 (31-36) g/dl RDW 15 (10.5-15) % Plt Count 185 (150-450) 10^3/ul MPV 9 (7.4-10.4) um3 Neut % (Auto) 66.5 (38-83) % Lymph % (Auto) 23.6 L (25-47) % Bingham % (Auto) 9.0 (1-9) % Eos % (Auto) 0.5 (0-6) % Baso % (Auto) 0.4 (0-2) % Absolute Neuts (auto) 6.4 (1.5-7.7) 10^3/ul Absolute Lymphs (auto) 2.3 (1.0-4.8) 10^3/ul Absolute Monos (auto) 0.9 H (0-0.8) 10^3/ul Absolute Eos (auto) 0 (0-0.6) 10^3/ul Absolute Basos (auto) 0 (0-0.2) 10^3/ul Absolute Nucleated RBC 0 10^3/ul Nucleated RBC % 0 INR (Anticoag Therapy) (0.89-1.11) APTT (26.0-36.3) seconds Sodium (133-145) mmol/L Potassium (3.5-5.0) mmol/L Chloride (101-111) mmol/L Carbon Dioxide (22-32) mmol/L Anion Gap (2-11) mmol/L BUN (6-24) mg/dL Creatinine (0.67-1.17) mg/dL Est GFR ( Amer) (>60) Est GFR (Non-Af Amer) (>60) BUN/Creatinine Ratio (8-20) Glucose (70-100) mg/dL POC Glucose (mg/dL) (70-100) mg/dL Lactic Acid 2.6 H* (0.5-2.0) mmol/L Calcium (8.6-10.3) mg/dL Magnesium (1.9-2.7) mg/dL Total Bilirubin (0.2-1.0) mg/dL AST (13-39) U/L ALT (7-52) U/L Alkaline Phosphatase (34-104) U/L Ammonia 34 (16-53) mol/L Total Creatine Kinase (10-223) U/L CK-MB (CK-2) (0.6-6.3) ng/mL Troponin I (<0.04) ng/mL C-Reactive Protein (< 5.00) mg/L B-Natriuretic Peptide 74 ( - 100) pg/mL Total Protein (6.4-8.9) g/dL Albumin (3.2-5.2) g/dL Globulin (2-4) g/dL Albumin/Globulin Ratio (1-3) Lipase (11.0-82.0) U/L TSH (0.34-5.60) mcIU/mL Acetaminophen mcg/mL Result Diagrams: 04/21/17 13:55 04/21/17 13:55 Lab Statement: Any lab studies that have been ordered have been reviewed, and results considered in the medical decision making process. - Radiology CXR Radiology Interpretation Completed By: Radiologist - NO ACTIVE CARDIOPULMONARY DISEASE. ED physician has reviewed this radiology report and agrees. - CT Brain CT Interpretation Completed By: Radiologist - NO ACUTE INTRACRANIAL PATHOLOGY. STABLE RIGHT OCCIPITAL ENCEPHALOMALACIA. ED physician has reviewed this radiology report and agrees. - EKG 1410 Cardiac Rate: NL - BPM 60 EKG Interpretation: Atrial paced complex. Non specific T-wave abnormalities. Prolonged QTc 528. NIH Scale - NIH Scale Level of Consciousness: Alert/Keenly Responsive Ask Patient the Month and His/Her Age: One Correct/Not Aphasic Ask Pt to Open/Close Eyes and Jewelry Sorter/Release Non-Paretic Hand: Both Correctly Best Gaze (Only Horizontal Eye Movement): Partial Gaze Palsy Visual Field Testing: Complete Hemianopia - Right Facial Paresis-Pt to Smile & Close Eyes or Grimace Symmetry: Complete Paralysis Motor Function - Right Arm: No Effort Against Rowan Motor Function - Left Arm: No Drift-Holds 10 Seconds Motor Function - Right Leg: Drifts LT 10 seconds Motor Function - Left Leg: No Drift-Holds 10 Seconds Limb Ataxia-Must be out of Proportion to Weakness Present: Absent Sensory (Use Pinprick to Test Arms/Legs/Trunk/Face): Pinprick Less on Affected Best Language (Describe Picture, Name Items): No Aphasia Dysarthria (Read Several Words): Slurs Some Words Extinction and Inattention: Inattention Total Score: 14 Course/Dx - Course Course Of Treatment: DR GOMEZ, NEUROLOGY, SAW PATIENT IN ED. ADMIT HOSPITALIST STABLE. CRITICAL CARE TIME LESS THAN 30 MINUTES. - Diagnoses Provider Diagnoses: CVA (cerebral vascular accident) - Physician Notifications Discussed Care Of Patient With: Roby Gomez Time Discussed With Above Provider: 14:00 Instructed by Provider To: Other - Consulted Dr. Gomez (neurology) at 1400 who will see the patient in the ED. Consulted Dr. Devine (hospitalist) at 1410 who agrees to admit. Discharge - Discharge Plan Condition: Stable Disposition: ADMITTED TO [facility] Referrals: Valente ATKINS,Hansa Skinner [Primary Care Provider] - The documentation as recorded by the Andrew pappas Alfonso accurately reflects the service I personally performed and the decisions made by , Nate Dao MD.
[2017-04-21 16:19] LABS: Urine Bacteria Absent (Absent); Urine Bilirubin Negative (Negative); Urine Glucose Negative (Negative); Urine Nitrite Negative (Negative)
[2017-04-21] MEDS: Insulin LISPRO* 1 UNITS UNIT SUBCUT SCH (17:49)
[2017-04-21] MEDS: Atorvastatin* 80 MG TAB PO SCH (18:28)
[2017-04-21] MEDS: Metoprolol Tartrate TAB* 50 mg PO SCH (18:28)
[2017-04-21] MEDS: Rivaroxaban TAB(*) 15 MG PO SCH (19:40)
--- NOTE | 2017-04-21 20:25 | CONS ---
NEUROLOGY CONSULTATION: DATE OF CONSULT: 04/21/17 REFERRING PROVIDER: August Carney NP CHIEF COMPLAINT: Right-sided weakness, facial droop. HISTORY OF PRESENT ILLNESS: Liliam Perales is a 76-year-old man, who was just here in the emergency room late last night with confusion and hypoglycemia. He went home and according to his , had some breakfast and was at his baseline. He went to bed at about 5 in the morning and when he got up at 10:30 , she could not get him up. He had a left gaze deviation and his right side was weak. He was brought into the emergency room where his right-sided weakness persisted and he continued with the left gaze deviation. He was just discharged a few weeks ago from the hospital when he had presumptive left hemisphere stroke with right-sided weakness and was discharged with Xarelto for intermittent atrial fibrillation. He says he takes it regularly. He was readmitted early this month when he had a second episode of right-sided weakness again with facial drooping. CAT scans have shown an old right occipital infarct, but no new lesions. He had a CAT scan this admission which reveals an old right occipital infarct and some hypodensities in the left hemisphere, but no clear new infarct either. There is no history of seizures. PAST MEDICAL HISTORY: Notable for hypertension, diabetes, pacemaker for third- degree heart lynn, chronic stage 3 kidney disease, mumacimc-ao-lurwch aortic stenosis, bipolar disorder and depression, prior [place]. MEDICATIONS: At home, consist of: 1. Xarelto 20 mg p.o. q. day. 2. Aspirin 81 mg p.o. q. day. 3. Metformin 850 mg p.o. b.i.d. 4. Metoprolol 100 mg p.o. b.i.d. 5. Potassium 20 mEq p.o. q. day. 6. Glipizide 10 mg p.o. b.i.d. 7. Terazosin 10 mg p.o. q.h.s. 8. Depakote 500 mg p.o. b.i.d. 9. Lisinopril/hydrochlorothiazide 20/25 one p.o. q. day. 10. Losartan 100 mg p.o. q. day. 11. Lasix 40 mg p.o. q. day. 12. Atorvastatin 80 mg p.o. q.h.s. ALLERGIES: He is allergic to PENICILLIN. REVIEW OF SYSTEMS: From the patient is negative for headache or pain in his extremities. He has not noticed any change in vision. He has been ambulating with a walker since his discharge from the hospital earlier this month with presumptive recurrent stroke. He denies chest pain or shortness of breath or intestinal problems. PHYSICAL EXAM: He is well nourished and overweight. Temperature 96.9 temporally, blood pressure 140/70, heart rate is in the 70s and paced. Respirations 18 and oxygen saturation is 99% on room air. Neck is supple. Heart is in a regular rate and rhythm with a loud harsh murmur at the second right interspace. There is a transmitted murmur, but I do not clearly hear any bruits. Carotid pulses are intact. Lungs are clear anterolaterally. Neurologically, he has a forced gaze deviation to the left. He has a dense right homonymous hemianopsia. He has central pattern right facial weakness. Tongue protrudes to the right. Speech is moderately dysarthric. Hearing is intact. Motor exam reveals antigravity strength in the right arm and leg, but it drifts with both. He has good strength in left arm and leg. Opening and closing his fist on the left is normal, but on the right is slow and clumsy. Reflexes are diffusely diminished. He has a right Babinski sign. He has a symmetrical light touch and pin discrimination on the face, but diminished pin discrimination diffusely in the right arm. DIAGNOSTIC STUDIES/LAB DATA: Includes a CT scan described above. So far, chemistries back included an INR of 1.76, PTT elevated at 36.7, a lactic acid elevated at 2.6, glucose 120, creatinine is 2.06 which is elevated for him. BUN is elevated at 46. Cholesterol on 03/30/17 was [address] angiogram of the brain from 03/27/17 interpreted as showing approximately 50 % stenosis of the carotid siphons bilaterally. There is an intact right posterior cerebral artery, but it was diminutive in size distally. IMPRESSION AND PLAN: Impression is that of an apparent recurrent left hemisphere infarction. He is already on Xarelto and aspirin. He did not have any evidence of large vessel occlusive disease with his last CTA just a few weeks ago. Alternatively, may be having recurrent seizures but I would not expect him to still have a gaze deviation 5 or 6 hours after waking with it. We will arrange to have him admitted and switch his aspirin to Aggrenox. I will arrange for an EEG. He cannot get an MRI and I do not think he needs a CTA , so I will just repeat his brain CT after about 3 days. If his deficits return to their baseline and his repeat CAT scan does not show a new stroke, then an empiric trial of anticonvulsant could be considered even if his EEG does not show epileptiform discharges. Further recommendations will depend upon his hospital course and the results of his studies. [id number]/[facility] #: [id number] AYO
[2017-04-21] MEDS: Dipyridamole/Aspirin 25/200* CAP.ER PO SCH (20:37)
[2017-04-21] MEDS: Verapamil SR TAB* 240 MG PO SCH (20:37)
[2017-04-21] MEDS: Terazosin CAP* 5 MG PO SCH (20:37)
[2017-04-21] MEDS: Divalproex DR TAB(*) 500 MG PO SCH (20:38)
--- NOTE | 2017-04-21 22:55 | HP ---
CC: KD Wetzel; Dr. Joaquin * HISTORY AND PHYSICAL: DATE OF ADMISSION: 04/21/17 PRIMARY CARE PROVIDER: KD Wetzel ATTENDING PHYSICIAN WHILE IN THE HOSPITAL: Dr. Ketan Devine * (report dictated by August Carney NP). CONSULTING NEUROLOGIST: Dr. Joaquin. CHIEF COMPLAINT: 1. Worsening right-sided weakness. 2. Worsening dysarthria. 3. Worsening right facial droop. HISTORY OF PRESENT ILLNESS: Mr. Perales is a 76-year-old male patient, who has presented to the hospital 3 times now since the beginning of March with similar complaints. Initially, was diagnosed with CVA in the beginning of the month, came back with recurrent symptoms on 03/31/17, discharged and started on Xarelto. It sounds as if he was having intermittent episodes of AFib , which was thought that may be contributing to cardioembolic source of CVA. However, he was doing well, he was seeing VNS and has been at home, doing well; however, today, the VNS nurse noted that the patient appeared to be having more difficulty with speech. His face appeared to be more of a facial droop where the had said that the facial droop had resolved and now appeared to be coming back. In addition to this, it was also noted that he appeared to be more confused. There were no reports of incontinence of urine. No reports of tremors or shaking. There was a report of diaphoresis, chills, and feeling cold last night. He was actually brought in to the ER and was found to be hypoglycemic on 04/21/17 and then sent back home after correcting the sugar and then he came back again today after the VNS noted that he appeared to be more in and out of his baseline. There were reports of worsening right-sided weakness as well. He came in, was evaluated in the ED. There was concern for recurrence of stroke, worsening symptoms, and the hospitalist service was asked to evaluate for admission. PAST MEDICAL HISTORY: Significant for: 1. CVA. 2. [place]. 3. Diabetes. 4. Third-degree heart block, status post pacemaker. 5. CKD, stage 3. 6. Anemia. 7. Aortic stenosis, severe. 8. Bipolar disorder. 9. Depression. 10. CAD. 11. Hyperlipidemia. PAST SURGICAL HISTORY: He has had a pacemaker placement. MEDICATIONS: The home medications include: 1. Senna 2 tablets daily. 2. Lipitor 80 mg daily at 1700. 3. Glipizide 10 mg p.o. b.i.d. 4. Hytrin 10 mg p.o. at bedtime. 5. Ferrous gluconate 25 mg p.o. daily. 6. Prednisolone 1 drop both eyes daily. 7. Potassium 20 mEq p.o. daily. 8. Nitro patch, 1 patch transdermally daily. 9. Lisinopril/hydrochlorothiazide 1 tablet daily. 10. Lasix 40 mg daily. 11. Verapamil 240 mg p.o. b.i.d. 12. Cozaar 100 mg daily. 13. Depakote 500 mg p.o. b.i.d. 14. Metformin 850 mg p.o. b.i.d. 15. Xarelto 20 mg daily. 16. Metoprolol 100 mg p.o. b.i.d. 17. Aspirin 81 mg daily. ALLERGIES TO MEDICATIONS: Include PENICILLIN. FAMILY HISTORY: Mother had a history of breast cancer. Father at the age of 106. SOCIAL HISTORY: He does not smoke, does not drink. He lives with his who is also his surrogate decision maker. REVIEW OF SYSTEMS: There is no documented fever. Denied having any significant weight change. There was no double vision. There is no ear discharge. Denied having any rhinorrhea. There is no sore throat. No thyroid enlargement. Denied having any chest pain. There was no orthopnea, no nocturnal dyspnea. There was no abdominal pain. There was no nausea, no vomiting. There was no dysuria, no frequency. There was no loss of consciousness. No pruritus and no skin ulcerations. Review of 14 systems completed, all others negative. PHYSICAL EXAMINATION GENERAL: At this time, Mr. Perales is a 76-year-old male patient. He is sitting in the ER stretcher. He does not appear to be in any acute distress. VITAL SIGNS: Reveal blood pressure 143/76, pulse 68, respirations 18, O2 sat 100%, temperature 96.9. HEENT: Head is atraumatic, normocephalic. Eyes: He does have a deviated gaze noted to the left. Pupils react to light. Throat: Oral mucosa appeared to be dry. No oropharyngeal erythema. NECK: Supple. LUNGS: Clear to auscultation bilaterally. No wheezes, rales, or rhonchi. HEART: Sounds S1, S2. He has a grade 2 to 3 systolic murmur heard in the aortic listening area. ABDOMEN: Soft. It was flat, nontender. Bowel sounds are present. EXTREMITIES: He can move the left upper and left lower extremity with 5/5 strength. He has difficulty moving the right side, there is weakness here. NEUROLOGIC: He is awake. He knows where he is, he knows his name. He is confused in month. Again, right side was weaker than the left. He did have right-sided weakness when compared to the left side. He does have left deviated gaze. He does have a right-sided facial droop and he does have some dysarthria as well. No other gross focal deficits are noted. SKIN: Intact. DIAGNOSTIC STUDIES/LAB DATA: WBC of 9.6, RBC of 4.15, hemoglobin 9.5, hematocrit 30, platelet count 185. INR 1.76, PTT 36.7. Sodium 138, potassium 4.3, chloride of 100, bicarb 29, BUN 46, creatinine was 2.06, appears to be slightly elevated from his baseline of 1.3, glucose 120, lactate 2.6, calcium 8.9. Total bili 0.3, AST 15, ALT 7, alk phos . Ammonia 34. CK 57, CK-MB is 0.8. Troponin 0.01. CRP 11.4. BNP 74. TSH 4.77. Toxicology showed Tylenol is less than 15. He did have a brain CT obtained today, which showed no acute intracranial pathology, stable right occipital encephalomalacia. Chest x-ray showed no active cardiopulmonary disease. EKG shows atrial paced rhythm, rate of 60. Old medical records were reviewed. He did have a CTA done on 03/27/17 with impression, atherosclerotic plaque at the level of the carotid siphons suggestive of multiple approximate 50% stenosis ; however, magnitude of calcification limits assessment, negative for appreciable stenosis or occlusion of either middle cerebral artery, right posterior cerebral artery was patent, proximally is diminutive in size and corresponds with the region of encephalomalacia, where there is an old occipital and parietal infarct. He had an echo done as well, which showed no cardiac shunting that was with his last hospitalization. Old medical records were reviewed. ASSESSMENT AND PLAN: Mr. Perales is a 76-year-old male patient coming in to ER today with worsening focal neurological deficits in the setting of recent stroke. So, we were asked to evaluate for admission. He will be admitted under observation status for: 1. Focal weakness, concern for possible worsening cerebrovascular accident, possible transient ischemic attack, possible seizure. The hospitalist service was asked to evaluate the patient for this. Dr. Joaquin will evaluate the patient. The plan is he probably needs repeat CT of the head in 48 to 72 hours, which may be able to be done as an outpatient depending if the patient does return to his baseline mental status. The plan is to get an EEG, which has been done. Dr. Joaquin will read this. If there are any concerns for focal discharge, we will consider antiepileptics. At this point, I will get neuro checks every 2 hours. I am going to increase his aspirin to Aggrenox b.i.d. with the Xarelto and we will check neuro checks every 2 hours and follow him closely. 2. History of cerebrovascular accident. Continue again Aggrenox, continue the Xarelto, continue statin therapy. 3. History of myocardial infarction and coronary artery disease. Continue beta lynn, statin therapy for the time being and continue with Aggrenox. 4. Diabetes. He will be on lispro sliding scale. 5. Elevated lactic acid. It is probably secondary to the fact that his chronic kidney disease is a little worsened and this certainly may elevate the lactate in the setting of his metformin. We will hydrate him and repeat the lactate, I do not think he is actively infected. 6. History of chronic kidney disease with acute renal failure. It is probably secondary to dehydration. I am going to hold his NAIDA and ARBs for the time being, hydrate him, and repeat the labs in the morning. 7. Anemia. H and H stable. 8. Aortic stenosis. Follow with his primary translator. 9. Bipolar and depression. Continue his Depakote as prescribed. 10. Coronary artery disease. He is going to be on Aggrenox, statin, and a beta lynn. 11. Hyperlipidemia. Continue statin. 12. DVT prophylaxis. He is on Xarelto, so we will continue this. 13. Code status. Full code. 14. Fluids, electrolytes, and nutrition. He can have a consistent carb diet. TIME SPENT: On the admission was 60 minutes; greater than half the time was spent [id number] with the patient obtaining my history and physical, the other half the time was spent going over the plan of care with the patient and implementing the plan of care. I did discuss the plan of care with my attending physician, Dr. Devine; she is in agreement. AUGUST CARNEY NP [id number]/[facility] #: [id number] AYO
--- NOTE | 2017-04-22 05:03 | EEG ---
ELECTROENCEPHALOGRAPHY: DATE OF STUDY: 04/21/17 - ROOM #431 REFERRING PHYSICIAN: Dr. Joaquin. LOCATION: He is an inpatient in [address] [place] [address]. CLINICAL PROBLEM: Recurrent episodes of right-sided weakness and aphasia. MEDICATIONS: Include: 1. Xarelto. 2. Aspirin. 3. Metformin. 4. Depakote. 5. Atorvastatin. 6. Terazosin. 7. Lisinopril. 8. Verapamil. REPORT: This 16-channel EEG is remarkable for background activity consisting of a posterior dominant alpha rhythm in the right occipital derivations at about 8.5 cycles per seconds. Slower rhythm is seen in the left occipital derivations of lower abundance at about 6 to 7 cycles per second. Bifrontal beta rhythms are noted and are symmetric. The patient is clinically awake. The patient drowses with central slowing and briefly some parasagittal sleep spindles are noted. Activation procedures are not attempted. There are no epileptiform discharges. CLINICAL IMPRESSION: Abnormal EEG due to generalized slowing and background rhythms particularly from the left hemisphere. There are no epileptiform features to this recording. [id number]/[facility] #: [id number] [facility]
[2017-04-22 05:43] LABS: Hematocrit 27 % (42-52); Mean Corpuscular HGB Conc 34 g/dl (31-36); Mean Corpuscular Hemoglobin 24 pg (27-31); Mean Platelet Volume 9 um3 (7.4-10.4); Red Blood Count 3.77 10^6/ul (4.0-5.4); Red Cell Distribution Width 15 % (10.5-15); White Blood Count 9.4 10^3/ul (3.5-10.8)
[2017-04-22 05:44] LABS: Comments Flag Yes; Mean Corpuscular Volume 71 fL (80-94)
[2017-04-22 06:08] LABS: BUN/Creatinine Ratio 24.2 (8-20); Blood Urea Nitrogen 45 mg/dL (6-24); CO2 Carbon Dioxide 25 mmol/L (22-32); Calcium 8.2 mg/dL (8.6-10.3); Chloride 104 mmol/L (101-111); EGFR African American 45.7 (>60); EGFR Non-African American 35.5 (>60); Glucose 105 mg/dL (70-100); Sodium 138 mmol/L (133-145)
[2017-04-22 06:47] LABS: Anion Gap 9 mmol/L (2-11)
[2017-04-22] MEDS: Insulin LISPRO* 1 UNITS UNIT SUBCUT SCH ×3 (08:31→17:13)
[2017-04-22] MEDS: Divalproex DR TAB(*) 500 MG PO SCH ×2 (08:47→21:17)
[2017-04-22] MEDS: Metoprolol Tartrate TAB* 50 mg PO SCH ×2 (08:47→17:13)
[2017-04-22] MEDS: Verapamil SR TAB* 240 MG PO SCH ×2 (08:47→21:17)
[2017-04-22] MEDS: Potassium Chlor TAB* 20 MEQ TAB.ER PO SCH (08:47)
[2017-04-22] MEDS: Furosemide TAB* 40 MG PO SCH (08:47)
[2017-04-22] MEDS: Dipyridamole/Aspirin 25/200* CAP.ER PO SCH ×2 (08:47→21:16)
[2017-04-22] MEDS: Nitroglycerin 0.2 MG/HR PATCH* (5 MG) TRANSDERM SCH (08:48)
[2017-04-22] MEDS: prednisoLONE 1% OPHTH.SUSP* 5 ML OPHTH.SUSP BOTH EYES SCH (08:49)
[2017-04-22] MEDS ORDERED: Lisinopril TAB* 10 MG PO SCH (09:00)
[2017-04-22] MEDS ORDERED: Losartan TAB* 25 MG PO SCH (09:00)
--- NOTE | 2017-04-22 10:34 | PN ---
Subjective Date of Service: 04/22/17 Interval History: He offers no c/o. Objective Active Medications: Acetaminophen (Tylenol Tab*) 650 mg PO Q4H PRN PRN Reason: FEVER/PAIN Atorvastatin Calcium (Lipitor*) 80 mg PO 1700 [facility] Last Admin: 04/21/17 18:28 Dose: 80 mg Dextrose (D50w Syringe 50 Ml*) 12.5 gm IV PUSH .FOR FS < 60 - SS PRN PRN Reason: FS < 60 Dipyridamole/Aspirin (Aggrenox 25/200*) 1 cap.er PO BID [facility] Last Admin: 04/22/17 08:47 Dose: 1 cap.er Divalproex Sodium (Depakote Dr Tab(*)) 500 mg PO BID [facility] Last Admin: 04/22/17 08:47 Dose: 500 mg Furosemide (Lasix Tab*) 40 mg PO DAILY [facility] Last Admin: 04/22/17 08:47 Dose: 40 mg Insulin Human Lispro (Humalog*) 0 units SUBCUT AC [facility] PRN Reason: Protocol Last Admin: 04/22/17 08:31 Dose: Not Given Metoprolol Tartrate (Lopressor Tab*) 100 mg PO BID WITH MEALS [facility] Last Admin: 04/22/17 08:47 Dose: 100 mg Nitroglycerin (Nitroglycerin 5 Mg Patch*) 1 patch TRANSDERM DAILY [facility] Last Admin: 04/22/17 08:48 Dose: 1 patch Ondansetron HCl (Zofran Inj*) 4 mg IV Q6H PRN PRN Reason: NAUSEA Pharmacy Profile Note (Nitro Patch/Oint Remove*) 1 note PATCH OFF 2100 [facility] Potassium Chloride (Klor Con Er Tab*) 20 meq PO DAILY WITH MEAL [facility] Last Admin: 04/22/17 08:47 Dose: 20 meq Prednisolone Acetate (Pred Forte 1%*) 1 drop BOTH EYES DAILY [facility] Last Admin: 04/22/17 08:49 Dose: 1 drop Rivaroxaban (Xarelto(*)) 15 mg PO DAILY@1700 [facility] Last Admin: 04/21/17 19:40 Dose: 15 mg Terazosin HCl (Hytrin Cap*) 10 mg PO BEDTIME [facility] Last Admin: 04/21/17 20:37 Dose: 10 mg Verapamil HCl (Calan Sr Tab*) 240 mg PO BID [facility] Last Admin: 04/22/17 08:47 Dose: 240 mg Vital Signs 04/21/17 04/21/17 04/22/17 18:01 19:23 00:02 Temperature 97.0 F 98.3 F 98.4 F Pulse Rate 69 65 69 Respiratory 16 16 16 Rate Blood Pressure 184/72 164/59 148/61 (mmHg) O2 Sat by Pulse 94 99 99 Oximetry 04/22/17 04/22/17 03:25 07:30 Temperature 98.3 F 98.6 F Pulse Rate 69 60 Respiratory 16 16 Rate Blood Pressure 112/59 118/58 (mmHg) O2 Sat by Pulse 96 93 Oximetry Oxygen Devices in Use Now: None Appearance: Alert, supine in bed. In fair spirits. Looks comfortable although a little restless. Neck: NL Appearance and Movements; NL JVP, No Thyroid Enlargement, Masses Respiratory: Symmetrical Chest Expansion and Respiratory Effort, Clear to Auscultation, Clear to Percussion Cardiovascular: RRR, No Edema, - - 4/6 systolic murmur R > L Extremities: No Edema, No Clubbing, Cyanosis, - Skin: No Rash or Ulcers, No Nodules or Sclerosis, - Neurological: NL Sensation - Speech very dysarthric. Not clear if comprehension intact. R arm weaker than L. R facial droop. Result Diagrams: 04/22/17 05:28 04/22/17 06:23 Additional Lab and Data: Lab Results 04/21/17 04/21/17 04/21/17 Range/Units 13:24 13:55 13:55 WBC (3.5-10.8) 10^3/ul RBC (4.0-5.4) 10^6/ul Hgb (14.0-18.0) g/dl Hct (42-52) % MCV (80-94) fL MCH (27-31) pg MCHC (31-36) g/dl RDW (10.5-15) % Plt Count (150-450) 10^3/ul MPV (7.4-10.4) um3 Neut % (Auto) (38-83) % Lymph % (Auto) (25-47) % [place] % (Auto) (1-9) % Eos % (Auto) (0-6) % Baso % (Auto) (0-2) % Absolute Neuts (auto) (1.5-7.7) 10^3/ul Absolute Lymphs (auto) (1.0-4.8) 10^3/ul Absolute Monos (auto) (0-0.8) 10^3/ul Absolute Eos (auto) (0-0.6) 10^3/ul Absolute Basos (auto) (0-0.2) 10^3/ul Absolute Nucleated RBC 10^3/ul Nucleated RBC % INR (Anticoag Therapy) 1.76 H (0.89-1.11) APTT 36.7 H (26.0-36.3) seconds Sodium 138 (133-145) mmol/L Potassium 4.3 (3.5-5.0) mmol/L Chloride 100 L (101-111) mmol/L Carbon Dioxide 29 (22-32) mmol/L Anion Gap 9 (2-11) mmol/L BUN 46 H (6-24) mg/dL Creatinine 2.06 H (0.67-1.17) mg/dL Est GFR ( Amer) 40.6 (>60) Est GFR (Non-Af Amer) 31.6 (>60) BUN/Creatinine Ratio 22.3 H (8-20) Glucose 120 H (70-100) mg/dL POC Glucose (mg/dL) 132 H (70-100) mg/dL Lactic Acid (0.5-2.0) mmol/L Calcium 8.9 (8.6-10.3) mg/dL Magnesium 2.0 (1.9-2.7) mg/dL Total Bilirubin 0.30 (0.2-1.0) mg/dL AST 15 (13-39) U/L ALT 7 (7-52) U/L Alkaline Phosphatase 29 L (34-104) U/L Ammonia (16-53) mol/L Total Creatine Kinase 57 (10-223) U/L CK-MB (CK-2) 0.8 (0.6-6.3) ng/mL Troponin I 0.01 (<0.04) ng/mL C-Reactive Protein 11.48 H (< 5.00) mg/L B-Natriuretic Peptide ( - 100) pg/mL Total Protein 6.3 L (6.4-8.9) g/dL Albumin 3.4 (3.2-5.2) g/dL Globulin 2.9 (2-4) g/dL Albumin/Globulin Ratio 1.2 (1-3) Lipase 30 (11.0-82.0) U/L TSH 4.77 (0.34-5.60) mcIU/mL Acetaminophen < 15 mcg/mL 04/21/17 04/21/17 04/21/17 Range/Units 13:55 13:55 13:55 WBC 9.6 (3.5-10.8) 10^3/ul RBC 4.15 (4.0-5.4) 10^6/ul Hgb 9.5 L (14.0-18.0) g/dl Hct 30 L (42-52) % MCV 71 L (80-94) fL MCH 23 L (27-31) pg MCHC 32 (31-36) g/dl RDW 15 (10.5-15) % Plt Count 185 (150-450) 10^3/ul MPV 9 (7.4-10.4) um3 Neut % (Auto) 66.5 (38-83) % Lymph % (Auto) 23.6 L (25-47) % [place] % (Auto) 9.0 (1-9) % Eos % (Auto) 0.5 (0-6) % Baso % (Auto) 0.4 (0-2) % Absolute Neuts (auto) 6.4 (1.5-7.7) 10^3/ul Absolute Lymphs (auto) 2.3 (1.0-4.8) 10^3/ul Absolute Monos (auto) 0.9 H (0-0.8) 10^3/ul Absolute Eos (auto) 0 (0-0.6) 10^3/ul Absolute Basos (auto) 0 (0-0.2) 10^3/ul Absolute Nucleated RBC 0 10^3/ul Nucleated RBC % 0 INR (Anticoag Therapy) (0.89-1.11) APTT (26.0-36.3) seconds Sodium (133-145) mmol/L Potassium (3.5-5.0) mmol/L Chloride (101-111) mmol/L Carbon Dioxide (22-32) mmol/L Anion Gap (2-11) mmol/L BUN (6-24) mg/dL Creatinine (0.67-1.17) mg/dL Est GFR ( Amer) (>60) Est GFR (Non-Af Amer) (>60) BUN/Creatinine Ratio (8-20) Glucose (70-100) mg/dL POC Glucose (mg/dL) (70-100) mg/dL Lactic Acid 2.6 H* (0.5-2.0) mmol/L Calcium (8.6-10.3) mg/dL Magnesium (1.9-2.7) mg/dL Total Bilirubin (0.2-1.0) mg/dL AST (13-39) U/L ALT (7-52) U/L Alkaline Phosphatase (34-104) U/L Ammonia 34 (16-53) mol/L Total Creatine Kinase (10-223) U/L CK-MB (CK-2) (0.6-6.3) ng/mL Troponin I (<0.04) ng/mL C-Reactive Protein (< 5.00) mg/L B-Natriuretic Peptide 74 ( - 100) pg/mL Total Protein (6.4-8.9) g/dL Albumin (3.2-5.2) g/dL Globulin (2-4) g/dL Albumin/Globulin Ratio (1-3) Lipase (11.0-82.0) U/L TSH (0.34-5.60) mcIU/mL Acetaminophen mcg/mL Assess/Plan/Problems-Billing Assessment: - Patient Problems (1) CVA (cerebral vascular accident) Current Visit: No Status: Acute Code(s): I63.9 - CEREBRAL INFARCTION, UNSPECIFIED SNOMED Code(s): 222421444 Comment: Clinically again L cerebral CVA, CT only showed R occipital lobe encephalomalacia. Continue statin, rivaroxaban. I will discuss with Dr. Joaquin. PT, OT ordered. (2) AV block, 3rd degree Current Visit: No Status: Acute Code(s): I44.2 - ATRIOVENTRICULAR BLOCK, COMPLETE SNOMED Code(s): 12607395 Comment: PPM in place, followed by Dr. Keller. (3) CAD (coronary artery disease) Current Visit: No Status: Acute Code(s): I25.10 - ATHSCL HEART DISEASE OF [place] CORONARY ARTERY W/O ANG PCTRS SNOMED Code(s): 32107118 Comment: Continue home statin. (4) Diabetes Current Visit: No Status: Acute Code(s): E11.9 - TYPE 2 DIABETES MELLITUS WITHOUT COMPLICATIONS SNOMED Code(s): 06104913 Comment: Lispro by SS. (5) Aortic stenosis Current Visit: No Status: Acute Code(s): I35.0 - NONRHEUMATIC AORTIC (VALVE ) STENOSIS SNOMED Code(s): 27880196 Comment: Moderate to severe on echo 03/31/2017.
[2017-04-22] MEDS: Rivaroxaban TAB(*) 15 MG PO SCH (17:13)
[2017-04-22] MEDS: Atorvastatin* 80 MG TAB PO SCH (17:13)
[2017-04-22] MEDS: Terazosin CAP* 5 MG PO SCH (21:18)
[2017-04-22] MEDS: Nitro Patch/OINT Remove PATCH OFF SCH (21:19)
[2017-04-23] MEDS: Nitroglycerin 0.2 MG/HR PATCH* (5 MG) TRANSDERM SCH (07:53)
[2017-04-23] MEDS: prednisoLONE 1% OPHTH.SUSP* 5 ML OPHTH.SUSP BOTH EYES SCH (07:53)
[2017-04-23] MEDS: Metoprolol Tartrate TAB* 50 mg PO SCH ×2 (07:54→16:48)
[2017-04-23] MEDS: Dipyridamole/Aspirin 25/200* CAP.ER PO SCH ×2 (07:54→20:23)
[2017-04-23] MEDS: Verapamil SR TAB* 240 MG PO SCH ×2 (07:55→20:27)
[2017-04-23] MEDS: Potassium Chlor TAB* 20 MEQ TAB.ER PO SCH (07:55)
[2017-04-23] MEDS: Furosemide TAB* 40 MG PO SCH (07:55)
[2017-04-23] MEDS: Divalproex DR TAB(*) 500 MG PO SCH ×2 (07:55→20:24)
[2017-04-23] MEDS: Insulin LISPRO* 1 UNITS UNIT SUBCUT SCH ×3 (08:01→17:35)
[2017-04-23] MEDS: Atorvastatin* 80 MG TAB PO SCH (16:48)
[2017-04-23] MEDS: Rivaroxaban TAB(*) 15 MG PO SCH (16:48)
--- NOTE | 2017-04-23 17:38 | PN ---
Subjective Date of Service: 04/23/17 Interval History: No c/o. Objective Active Medications: Acetaminophen (Tylenol Tab*) 650 mg PO Q4H PRN PRN Reason: FEVER/PAIN Atorvastatin Calcium (Lipitor*) 80 mg PO 1700 [facility] Last Admin: 04/23/17 16:48 Dose: 80 mg Dextrose (D50w Syringe 50 Ml*) 12.5 gm IV PUSH .FOR FS < 60 - SS PRN PRN Reason: FS < 60 Dipyridamole/Aspirin (Aggrenox 25/200*) 1 cap.er PO BID [facility] Last Admin: 04/23/17 07:54 Dose: 1 cap.er Divalproex Sodium (Depakote Dr Tab(*)) 500 mg PO BID [facility] Last Admin: 04/23/17 07:55 Dose: 500 mg Furosemide (Lasix Tab*) 40 mg PO DAILY [facility] Last Admin: 04/23/17 07:55 Dose: 40 mg Insulin Glargine (Lantus(*)) 12 units SUBCUT Q24H [facility] Insulin Human Lispro (Humalog*) 0 units SUBCUT AC [facility] PRN Reason: Protocol Last Admin: 04/23/17 12:59 Dose: 3 units Metoprolol Tartrate (Lopressor Tab*) 100 mg PO BID WITH MEALS [facility] Last Admin: 04/23/17 16:48 Dose: 100 mg Nitroglycerin (Nitroglycerin 5 Mg Patch*) 1 patch TRANSDERM DAILY [facility] Last Admin: 04/23/17 07:53 Dose: 1 patch Ondansetron HCl (Zofran Inj*) 4 mg IV Q6H PRN PRN Reason: NAUSEA Pharmacy Profile Note (Nitro Patch/Oint Remove*) 1 note PATCH OFF 2100 [facility] Last Admin: 04/22/17 21:19 Dose: 1 dose Potassium Chloride (Klor Con Er Tab*) 20 meq PO DAILY WITH MEAL [facility] Last Admin: 04/23/17 07:55 Dose: 20 meq Prednisolone Acetate (Pred Forte 1%*) 1 drop BOTH EYES DAILY [facility] Last Admin: 04/23/17 07:53 Dose: 1 drop Rivaroxaban (Xarelto(*)) 15 mg PO DAILY@1700 [facility] Last Admin: 04/23/17 16:48 Dose: 15 mg Terazosin HCl (Hytrin Cap*) 10 mg PO BEDTIME [facility] Last Admin: 04/22/17 21:18 Dose: 10 mg Verapamil HCl (Calan Sr Tab*) 240 mg PO BID [facility] Last Admin: 04/23/17 07:55 Dose: 240 mg Vital Signs 04/22/17 04/22/17 04/23/17 19:56 20:00 00:13 Temperature 97.6 F 98.8 F Pulse Rate 69 61 Respiratory 17 17 16 Rate Blood Pressure 155/71 190/66 (mmHg) O2 Sat by Pulse 100 100 Oximetry 04/23/17 04/23/17 04/23/17 01:11 03:51 07:31 Temperature 98.7 F 98.6 F 98.6 F Pulse Rate 69 75 59 Respiratory 16 16 24 Rate Blood Pressure 159/75 149/68 138/71 (mmHg) O2 Sat by Pulse 95 98 99 Oximetry 04/23/17 04/23/17 11:37 15:31 Temperature 98.2 F 97.8 F Pulse Rate 68 60 Respiratory 20 18 Rate Blood Pressure 130/71 143/68 (mmHg) O2 Sat by Pulse 99 100 Oximetry Oxygen Devices in Use Now: None Appearance: Alert, partly up in bed. In good spirits. Looks comfortable. Eyes: No Scleral Icterus Neck: NL Appearance and Movements; NL JVP, Trachea Midline, No Thyroid Enlargement, Masses Extremities: No Edema, No Clubbing, Cyanosis, - Skin: No Rash or Ulcers, No Nodules or Sclerosis, - Neurological: Alert and Oriented x 3, NL Sensation, - - Speech more clear. Handgrips 4-/5 R 4/5 L. Counts fingers OK, not ignoring R side of field of vision today. Result Diagrams: 04/22/17 05:28 04/22/17 06:23 Additional Lab and Data: Lab Results 04/21/17 04/21/17 04/21/17 Range/Units 13:24 13:55 13:55 WBC (3.5-10.8) 10^3/ul RBC (4.0-5.4) 10^6/ul Hgb (14.0-18.0) g/dl Hct (42-52) % MCV (80-94) fL MCH (27-31) pg MCHC (31-36) g/dl RDW (10.5-15) % Plt Count (150-450) 10^3/ul MPV (7.4-10.4) um3 Neut % (Auto) (38-83) % Lymph % (Auto) (25-47) % [place] % (Auto) (1-9) % Eos % (Auto) (0-6) % Baso % (Auto) (0-2) % Absolute Neuts (auto) (1.5-7.7) 10^3/ul Absolute Lymphs (auto) (1.0-4.8) 10^3/ul Absolute Monos (auto) (0-0.8) 10^3/ul Absolute Eos (auto) (0-0.6) 10^3/ul Absolute Basos (auto) (0-0.2) 10^3/ul Absolute Nucleated RBC 10^3/ul Nucleated RBC % INR (Anticoag Therapy) 1.76 H (0.89-1.11) APTT 36.7 H (26.0-36.3) seconds Sodium 138 (133-145) mmol/L Potassium 4.3 (3.5-5.0) mmol/L Chloride 100 L (101-111) mmol/L Carbon Dioxide 29 (22-32) mmol/L Anion Gap 9 (2-11) mmol/L BUN 46 H (6-24) mg/dL Creatinine 2.06 H (0.67-1.17) mg/dL Est GFR ( Amer) 40.6 (>60) Est GFR (Non-Af Amer) 31.6 (>60) BUN/Creatinine Ratio 22.3 H (8-20) Glucose 120 H (70-100) mg/dL POC Glucose (mg/dL) 132 H (70-100) mg/dL Lactic Acid (0.5-2.0) mmol/L Calcium 8.9 (8.6-10.3) mg/dL Magnesium 2.0 (1.9-2.7) mg/dL Total Bilirubin 0.30 (0.2-1.0) mg/dL AST 15 (13-39) U/L ALT 7 (7-52) U/L Alkaline Phosphatase 29 L (34-104) U/L Ammonia (16-53) mol/L Total Creatine Kinase 57 (10-223) U/L CK-MB (CK-2) 0.8 (0.6-6.3) ng/mL Troponin I 0.01 (<0.04) ng/mL C-Reactive Protein 11.48 H (< 5.00) mg/L B-Natriuretic Peptide ( - 100) pg/mL Total Protein 6.3 L (6.4-8.9) g/dL Albumin 3.4 (3.2-5.2) g/dL Globulin 2.9 (2-4) g/dL Albumin/Globulin Ratio 1.2 (1-3) Lipase 30 (11.0-82.0) U/L TSH 4.77 (0.34-5.60) mcIU/mL Acetaminophen < 15 mcg/mL 04/21/17 04/21/17 04/21/17 Range/Units 13:55 13:55 13:55 WBC 9.6 (3.5-10.8) 10^3/ul RBC 4.15 (4.0-5.4) 10^6/ul Hgb 9.5 L (14.0-18.0) g/dl Hct 30 L (42-52) % MCV 71 L (80-94) fL MCH 23 L (27-31) pg MCHC 32 (31-36) g/dl RDW 15 (10.5-15) % Plt Count 185 (150-450) 10^3/ul MPV 9 (7.4-10.4) um3 Neut % (Auto) 66.5 (38-83) % Lymph % (Auto) 23.6 L (25-47) % [place] % (Auto) 9.0 (1-9) % Eos % (Auto) 0.5 (0-6) % Baso % (Auto) 0.4 (0-2) % Absolute Neuts (auto) 6.4 (1.5-7.7) 10^3/ul Absolute Lymphs (auto) 2.3 (1.0-4.8) 10^3/ul Absolute Monos (auto) 0.9 H (0-0.8) 10^3/ul Absolute Eos (auto) 0 (0-0.6) 10^3/ul Absolute Basos (auto) 0 (0-0.2) 10^3/ul Absolute Nucleated RBC 0 10^3/ul Nucleated RBC % 0 INR (Anticoag Therapy) (0.89-1.11) APTT (26.0-36.3) seconds Sodium (133-145) mmol/L Potassium (3.5-5.0) mmol/L Chloride (101-111) mmol/L Carbon Dioxide (22-32) mmol/L Anion Gap (2-11) mmol/L BUN (6-24) mg/dL Creatinine (0.67-1.17) mg/dL Est GFR ( Amer) (>60) Est GFR (Non-Af Amer) (>60) BUN/Creatinine Ratio (8-20) Glucose (70-100) mg/dL POC Glucose (mg/dL) (70-100) mg/dL Lactic Acid 2.6 H* (0.5-2.0) mmol/L Calcium (8.6-10.3) mg/dL Magnesium (1.9-2.7) mg/dL Total Bilirubin (0.2-1.0) mg/dL AST (13-39) U/L ALT (7-52) U/L Alkaline Phosphatase (34-104) U/L Ammonia 34 (16-53) mol/L Total Creatine Kinase (10-223) U/L CK-MB (CK-2) (0.6-6.3) ng/mL Troponin I (<0.04) ng/mL C-Reactive Protein (< 5.00) mg/L B-Natriuretic Peptide 74 ( - 100) pg/mL Total Protein (6.4-8.9) g/dL Albumin (3.2-5.2) g/dL Globulin (2-4) g/dL Albumin/Globulin Ratio (1-3) Lipase (11.0-82.0) U/L TSH (0.34-5.60) mcIU/mL Acetaminophen mcg/mL Assess/Plan/Problems-Billing Assessment: - Patient Problems (1) CVA (cerebral vascular accident) Current Visit: No Status: Acute Code(s): I63.9 - CEREBRAL INFARCTION, UNSPECIFIED SNOMED Code(s): 722025788 Comment: Clinically again L cerebral CVA, CT only showed R occipital lobe encephalomalacia. Continue statin, rivaroxaban. Continue PT, OT. Awaiting decision re PMRU. (2) AV block, 3rd degree Current Visit: No Status: Acute Code(s): I44.2 - ATRIOVENTRICULAR BLOCK, COMPLETE SNOMED Code(s): 99913038 Comment: PPM in place, followed by Dr. Keller. (3) CAD (coronary artery disease) Current Visit: No Status: Acute Code(s): I25.10 - ATHSCL HEART DISEASE OF [place] CORONARY ARTERY W/O ANG PCTRS SNOMED Code(s): 17403553 Comment: Continue home statin. (4) Diabetes Current Visit: No Status: Acute Code(s): E11.9 - TYPE 2 DIABETES MELLITUS WITHOUT COMPLICATIONS SNOMED Code(s): 92982517 Comment: Lispro by SS. Resume home dose of glipizide 04/23/17 PM. (5) Aortic stenosis Current Visit: No Status: Acute Code(s): I35.0 - NONRHEUMATIC AORTIC (VALVE ) STENOSIS SNOMED Code(s): 90774503 Comment: Moderate to severe on echo 03/31/2017.
[2017-04-23] MEDS: glipiZIDE TAB* 5 MG PO SCH (17:40)
[2017-04-23] MEDS ORDERED: Insulin GLARGINE(*) 1 UNITS UNIT SUBCUT SCH (18:00)
[2017-04-23] MEDS: Terazosin CAP* 5 MG PO SCH (20:26)
[2017-04-23] MEDS: Nitro Patch/OINT Remove PATCH OFF SCH (20:29)
[2017-04-24] MEDS: Insulin LISPRO* 1 UNITS UNIT SUBCUT SCH ×3 (07:48→17:30)
[2017-04-24] MEDS: Metoprolol Tartrate TAB* 50 mg PO SCH ×2 (07:51→16:41)
[2017-04-24] MEDS: Furosemide TAB* 40 MG PO SCH (07:51)
[2017-04-24] MEDS: prednisoLONE 1% OPHTH.SUSP* 5 ML OPHTH.SUSP BOTH EYES SCH (07:52)
[2017-04-24] MEDS: Verapamil SR TAB* 240 MG PO SCH ×2 (07:52→20:43)
[2017-04-24] MEDS: Nitroglycerin 0.2 MG/HR PATCH* (5 MG) TRANSDERM SCH (07:52)
[2017-04-24] MEDS: Potassium Chlor TAB* 20 MEQ TAB.ER PO SCH (07:52)
[2017-04-24] MEDS: glipiZIDE TAB* 5 MG PO SCH ×2 (07:54→16:41)
[2017-04-24] MEDS: Divalproex DR TAB(*) 500 MG PO SCH ×2 (07:54→20:41)
[2017-04-24] MEDS: Dipyridamole/Aspirin 25/200* CAP.ER PO SCH ×2 (07:55→20:40)
--- NOTE | 2017-04-24 14:30 | PN ---
Subjective Date of Service: 04/24/17 Interval History: Pt still with right sided neglect while working with PT (tendency to walk into [place] without redirection). Denies complaints other than dislikes the food. Hypertensive overnight and this AM to 170s. Objective Active Medications: Acetaminophen (Tylenol Tab*) 650 mg PO Q4H PRN PRN Reason: FEVER/PAIN Atorvastatin Calcium (Lipitor*) 80 mg PO 1700 [facility] Last Admin: 04/23/17 16:48 Dose: 80 mg Dextrose (D50w Syringe 50 Ml*) 12.5 gm IV PUSH .FOR FS < 60 - SS PRN PRN Reason: FS < 60 Dipyridamole/Aspirin (Aggrenox 25/200*) 1 cap.er PO BID [facility] Last Admin: 04/24/17 07:55 Dose: 1 cap.er Divalproex Sodium (Depakote Dr Tab(*)) 500 mg PO BID [facility] Last Admin: 04/24/17 07:54 Dose: 500 mg Furosemide (Lasix Tab*) 40 mg PO DAILY [facility] Last Admin: 04/24/17 07:51 Dose: 40 mg Glipizide (Glucotrol Tab*) 10 mg PO 0800,1700 [facility] Last Admin: 04/24/17 07:54 Dose: 10 mg Insulin Human Lispro (Humalog*) 0 units SUBCUT AC [facility] PRN Reason: Protocol Last Admin: 04/24/17 12:36 Dose: 3 units Metoprolol Tartrate (Lopressor Tab*) 100 mg PO BID WITH MEALS [facility] Last Admin: 04/24/17 07:51 Dose: 100 mg Nitroglycerin (Nitroglycerin 5 Mg Patch*) 1 patch TRANSDERM DAILY [facility] Last Admin: 04/24/17 07:52 Dose: 1 patch Ondansetron HCl (Zofran Inj*) 4 mg IV Q6H PRN PRN Reason: NAUSEA Pharmacy Profile Note (Nitro Patch/Oint Remove*) 1 note PATCH OFF 2100 [facility] Last Admin: 04/23/17 20:29 Dose: 1 note Potassium Chloride (Klor Con Er Tab*) 20 meq PO DAILY WITH MEAL [facility] Last Admin: 04/24/17 07:52 Dose: 20 meq Prednisolone Acetate (Pred Forte 1%*) 1 drop BOTH EYES DAILY [facility] Last Admin: 04/24/17 07:52 Dose: 1 drop Rivaroxaban (Xarelto(*)) 15 mg PO DAILY@1700 [facility] Last Admin: 04/23/17 16:48 Dose: 15 mg Terazosin HCl (Hytrin Cap*) 10 mg PO BEDTIME [facility] Last Admin: 04/23/17 20:26 Dose: 10 mg Verapamil HCl (Calan Sr Tab*) 240 mg PO BID [facility] Last Admin: 04/24/17 07:52 Dose: 240 mg Vital Signs 04/23/17 04/23/17 04/23/17 15:31 20:00 20:01 Temperature 97.8 F 97.7 F Pulse Rate 60 68 Respiratory 18 18 18 Rate Blood Pressure 143/68 176/90 (mmHg) O2 Sat by Pulse 100 100 Oximetry 04/23/17 04/24/17 04/24/17 20:13 00:27 04:06 Temperature 98.1 F 97.7 F Pulse Rate 63 60 62 Respiratory 16 16 Rate Blood Pressure 161/69 152/62 178/77 (mmHg) O2 Sat by Pulse 100 100 Oximetry 04/24/17 04/24/17 04/24/17 05:24 07:38 08:30 Temperature 98.1 F Pulse Rate 61 67 Respiratory 18 Rate Blood Pressure 152/59 170/78 (mmHg) O2 Sat by Pulse 100 100 Oximetry Oxygen Devices in Use Now: None Appearance: Sitting up in chair. No acute distress Eyes: No Scleral Icterus, PERRLA Ears/Nose/Mouth/Throat: Mucous Membranes Moist Neck: NL Appearance and Movements; NL JVP Respiratory: Clear to Auscultation Cardiovascular: NL Sounds; No Murmurs; No JVD Abdominal: NL Sounds; No Tenderness; No Distention Extremities: No Edema, No Clubbing, Cyanosis Skin: No Rash or Ulcers Neurological: - - Oriented to [facility], states his correct date of when asked about current time. Thinks "Espinoza" is president. [place] strength 4 +/5 on right. Does not consistently track eyes to right, and not able to correctly state # fingers in right visual field. Lower extremity strength 5/5. Right nasolabial fold droop. Result Diagrams: 04/22/17 05:28 04/22/17 06:23 Additional Lab and Data: Lab Results 04/21/17 04/21/17 04/21/17 Range/Units 13:24 13:55 13:55 WBC (3.5-10.8) 10^3/ul RBC (4.0-5.4) 10^6/ul Hgb (14.0-18.0) g/dl Hct (42-52) % MCV (80-94) fL MCH (27-31) pg MCHC (31-36) g/dl RDW (10.5-15) % Plt Count (150-450) 10^3/ul MPV (7.4-10.4) um3 Neut % (Auto) (38-83) % Lymph % (Auto) (25-47) % [place] % (Auto) (1-9) % Eos % (Auto) (0-6) % Baso % (Auto) (0-2) % Absolute Neuts (auto) (1.5-7.7) 10^3/ul Absolute Lymphs (auto) (1.0-4.8) 10^3/ul Absolute Monos (auto) (0-0.8) 10^3/ul Absolute Eos (auto) (0-0.6) 10^3/ul Absolute Basos (auto) (0-0.2) 10^3/ul Absolute Nucleated RBC 10^3/ul Nucleated RBC % INR (Anticoag Therapy) 1.76 H (0.89-1.11) APTT 36.7 H (26.0-36.3) seconds Sodium 138 (133-145) mmol/L Potassium 4.3 (3.5-5.0) mmol/L Chloride 100 L (101-111) mmol/L Carbon Dioxide 29 (22-32) mmol/L Anion Gap 9 (2-11) mmol/L BUN 46 H (6-24) mg/dL Creatinine 2.06 H (0.67-1.17) mg/dL Est GFR ( Amer) 40.6 (>60) Est GFR (Non-Af Amer) 31.6 (>60) BUN/Creatinine Ratio 22.3 H (8-20) Glucose 120 H (70-100) mg/dL POC Glucose (mg/dL) 132 H (70-100) mg/dL Lactic Acid (0.5-2.0) mmol/L Calcium 8.9 (8.6-10.3) mg/dL Magnesium 2.0 (1.9-2.7) mg/dL Total Bilirubin 0.30 (0.2-1.0) mg/dL AST 15 (13-39) U/L ALT 7 (7-52) U/L Alkaline Phosphatase 29 L (34-104) U/L Ammonia (16-53) mol/L Total Creatine Kinase 57 (10-223) U/L CK-MB (CK-2) 0.8 (0.6-6.3) ng/mL Troponin I 0.01 (<0.04) ng/mL C-Reactive Protein 11.48 H (< 5.00) mg/L B-Natriuretic Peptide ( - 100) pg/mL Total Protein 6.3 L (6.4-8.9) g/dL Albumin 3.4 (3.2-5.2) g/dL Globulin 2.9 (2-4) g/dL Albumin/Globulin Ratio 1.2 (1-3) Lipase 30 (11.0-82.0) U/L TSH 4.77 (0.34-5.60) mcIU/mL Acetaminophen < 15 mcg/mL 04/21/17 04/21/17 04/21/17 Range/Units 13:55 13:55 13:55 WBC 9.6 (3.5-10.8) 10^3/ul RBC 4.15 (4.0-5.4) 10^6/ul Hgb 9.5 L (14.0-18.0) g/dl Hct 30 L (42-52) % MCV 71 L (80-94) fL MCH 23 L (27-31) pg MCHC 32 (31-36) g/dl RDW 15 (10.5-15) % Plt Count 185 (150-450) 10^3/ul MPV 9 (7.4-10.4) um3 Neut % (Auto) 66.5 (38-83) % Lymph % (Auto) 23.6 L (25-47) % [place] % (Auto) 9.0 (1-9) % Eos % (Auto) 0.5 (0-6) % Baso % (Auto) 0.4 (0-2) % Absolute Neuts (auto) 6.4 (1.5-7.7) 10^3/ul Absolute Lymphs (auto) 2.3 (1.0-4.8) 10^3/ul Absolute Monos (auto) 0.9 H (0-0.8) 10^3/ul Absolute Eos (auto) 0 (0-0.6) 10^3/ul Absolute Basos (auto) 0 (0-0.2) 10^3/ul Absolute Nucleated RBC 0 10^3/ul Nucleated RBC % 0 INR (Anticoag Therapy) (0.89-1.11) APTT (26.0-36.3) seconds Sodium (133-145) mmol/L Potassium (3.5-5.0) mmol/L Chloride (101-111) mmol/L Carbon Dioxide (22-32) mmol/L Anion Gap (2-11) mmol/L BUN (6-24) mg/dL Creatinine (0.67-1.17) mg/dL Est GFR ( Amer) (>60) Est GFR (Non-Af Amer) (>60) BUN/Creatinine Ratio (8-20) Glucose (70-100) mg/dL POC Glucose (mg/dL) (70-100) mg/dL Lactic Acid 2.6 H* (0.5-2.0) mmol/L Calcium (8.6-10.3) mg/dL Magnesium (1.9-2.7) mg/dL Total Bilirubin (0.2-1.0) mg/dL AST (13-39) U/L ALT (7-52) U/L Alkaline Phosphatase (34-104) U/L Ammonia 34 (16-53) mol/L Total Creatine Kinase (10-223) U/L CK-MB (CK-2) (0.6-6.3) ng/mL Troponin I (<0.04) ng/mL C-Reactive Protein (< 5.00) mg/L B-Natriuretic Peptide 74 ( - 100) pg/mL Total Protein (6.4-8.9) g/dL Albumin (3.2-5.2) g/dL Globulin (2-4) g/dL Albumin/Globulin Ratio (1-3) Lipase (11.0-82.0) U/L TSH (0.34-5.60) mcIU/mL Acetaminophen mcg/mL Assess/Plan/Problems-Billing Assessment: 76 year old male PMH [place], DM, pAfib on xarelto, moderate-severe aortic stenosis, HTN, CKDIII, bipolar with recent symptoms of CVA and multiple CT heads showing chronic right parietal/occipital infarct presenting with confusion, hypoglycemia to 35 and concern for worsened neuro deficit . Persistent right sided neglect - Patient Problems (1) CVA (cerebral vascular accident) Current Visit: Yes Status: Acute Code(s): I63.9 - CEREBRAL INFARCTION, UNSPECIFIED SNOMED Code(s): 068917688 Comment: Right sided neglect continues along with disorientation from baseline. CT Head showing chronic R occipital lobe encephalomalacia. Unable to get MRI 2/2 PPM. Continue statin, rivaroxaban. Continue PT, OT. Awaiting ultimate decision on PMRU vs Acute Rehab admission. (2) CAD (coronary artery disease) Current Visit: No Status: Acute Code(s): I25.10 - ATHSCL HEART DISEASE OF [place] CORONARY ARTERY W/O ANG PCTRS SNOMED Code(s): 55640857 Comment: Continue home statin. (3) Diabetes Current Visit: No Status: Acute Code(s): E11.9 - TYPE 2 DIABETES MELLITUS WITHOUT COMPLICATIONS SNOMED Code(s): 19461880 Comment: Lispro sliding scale. Home dose of glipizide (4) Hypertension Current Visit: No Status: Acute Code(s): I10 - ESSENTIAL (PRIMARY) HYPERTENSION SNOMED Code(s): 79533680 Comment: Not controlled on home BP meds. Recheck and titrate. (5) AV block, 3rd degree Current Visit: No Status: Acute Code(s): I44.2 - ATRIOVENTRICULAR BLOCK, COMPLETE SNOMED Code(s): 63564005 Comment: PPM in place, followed by Dr. Keller. (6) Aortic stenosis Current Visit: No Status: Acute Code(s): I35.0 - NONRHEUMATIC AORTIC (VALVE ) STENOSIS SNOMED Code(s): 94495717 Comment: Moderate to severe on echo 03/31/2017. (7) Atrial fibrillation Current Visit: Yes Status: Acute Code(s): I48.91 - UNSPECIFIED ATRIAL FIBRILLATION SNOMED Code(s): 81262356 Comment: Continue home xarelto. Clarify history. Status and Disposition: inpatient medicine telemetry Attending: Arun Ware
[2017-04-24] MEDS: Atorvastatin* 80 MG TAB PO SCH (16:41)
[2017-04-24] MEDS: Rivaroxaban TAB(*) 15 MG PO SCH (16:41)
[2017-04-24] MEDS: Terazosin CAP* 5 MG PO SCH (20:42)
[2017-04-24] MEDS: Nitro Patch/OINT Remove PATCH OFF SCH (20:46)
[2017-04-25] MEDS: Dipyridamole/Aspirin 25/200* CAP.ER PO SCH ×2 (08:09→20:04)
[2017-04-25] MEDS: prednisoLONE 1% OPHTH.SUSP* 5 ML OPHTH.SUSP BOTH EYES SCH (08:09)
[2017-04-25] MEDS: Divalproex DR TAB(*) 500 MG PO SCH ×2 (08:09→20:04)
[2017-04-25] MEDS: Verapamil SR TAB* 240 MG PO SCH ×2 (08:09→20:04)
[2017-04-25] MEDS: Furosemide TAB* 40 MG PO SCH (08:09)
[2017-04-25] MEDS: Potassium Chlor TAB* 20 MEQ TAB.ER PO SCH (08:09)
[2017-04-25] MEDS: glipiZIDE TAB* 5 MG PO SCH ×2 (08:10→17:28)
[2017-04-25] MEDS: Nitroglycerin 0.2 MG/HR PATCH* (5 MG) TRANSDERM SCH (08:10)
[2017-04-25] MEDS: Metoprolol Tartrate TAB* 50 mg PO SCH ×2 (08:11→17:28)
[2017-04-25] MEDS: Insulin LISPRO* 1 UNITS UNIT SUBCUT SCH ×3 (08:25→17:27)
[2017-04-25] MEDS: Atorvastatin* 80 MG TAB PO SCH (17:28)
[2017-04-25] MEDS: Rivaroxaban TAB(*) 15 MG PO SCH (17:28)
--- NOTE | 2017-04-25 19:31 | PN ---
Subjective Date of Service: 04/25/17 Interval History: Pt still somewhat disoriented compared to baseline with significant right sided neglect but no new neurological deficits. labile BPs Objective Active Medications: Acetaminophen (Tylenol Tab*) 650 mg PO Q4H PRN PRN Reason: FEVER/PAIN Atorvastatin Calcium (Lipitor*) 80 mg PO 1700 [facility] Last Admin: 04/25/17 17:28 Dose: 80 mg Dextrose (D50w Syringe 50 Ml*) 12.5 gm IV PUSH .FOR FS < 60 - SS PRN PRN Reason: FS < 60 Dipyridamole/Aspirin (Aggrenox 25/200*) 1 cap.er PO BID [facility] Last Admin: 04/25/17 08:09 Dose: 1 cap.er Divalproex Sodium (Depakote Dr Tab(*)) 500 mg PO BID [facility] Last Admin: 04/25/17 08:09 Dose: 500 mg Furosemide (Lasix Tab*) 40 mg PO DAILY [facility] Last Admin: 04/25/17 08:09 Dose: 40 mg Glipizide (Glucotrol Tab*) 10 mg PO 0800,1700 [facility] Last Admin: 04/25/17 17:28 Dose: 10 mg Insulin Human Lispro (Humalog*) 0 units SUBCUT AC [facility] PRN Reason: Protocol Last Admin: 04/25/17 17:27 Dose: 3 units Metoprolol Tartrate (Lopressor Tab*) 100 mg PO BID WITH MEALS [facility] Last Admin: 04/25/17 17:28 Dose: 100 mg Nitroglycerin (Nitroglycerin 5 Mg Patch*) 1 patch TRANSDERM DAILY [facility] Last Admin: 04/25/17 08:10 Dose: 1 patch Ondansetron HCl (Zofran Inj*) 4 mg IV Q6H PRN PRN Reason: NAUSEA Pharmacy Profile Note (Nitro Patch/Oint Remove*) 1 note PATCH OFF 2100 [facility] Last Admin: 04/24/17 20:46 Dose: 1 note Potassium Chloride (Klor Con Er Tab*) 20 meq PO DAILY WITH MEAL [facility] Last Admin: 04/25/17 08:09 Dose: 20 meq Prednisolone Acetate (Pred Forte 1%*) 1 drop BOTH EYES DAILY [facility] Last Admin: 04/25/17 08:09 Dose: 1 drop Rivaroxaban (Xarelto(*)) 15 mg PO DAILY@1700 [facility] Last Admin: 04/25/17 17:28 Dose: 15 mg Terazosin HCl (Hytrin Cap*) 10 mg PO BEDTIME [facility] Last Admin: 04/24/17 20:42 Dose: 10 mg Verapamil HCl (Calan Sr Tab*) 240 mg PO BID [facility] Last Admin: 04/25/17 08:09 Dose: 240 mg Vital Signs 04/24/17 04/24/17 04/24/17 19:56 20:00 22:50 Temperature 98.2 F Pulse Rate 69 Respiratory 16 16 Rate Blood Pressure 149/76 (mmHg) O2 Sat by Pulse 100 99 Oximetry 04/25/17 04/25/17 04/25/17 00:05 04:08 04:24 Temperature 98.6 F 98.4 F Pulse Rate 61 69 93 Respiratory 20 20 Rate Blood Pressure 155/50 183/72 172/96 (mmHg) O2 Sat by Pulse 99 100 Oximetry 04/25/17 04/25/17 04/25/17 07:21 08:00 09:11 Temperature 98.3 F Pulse Rate 60 Respiratory 20 20 Rate Blood Pressure 176/65 (mmHg) O2 Sat by Pulse 97 97 Oximetry 04/25/17 04/25/17 04/25/17 11:28 15:46 18:06 Temperature 97.9 F 97.6 F Pulse Rate 59 74 Respiratory 16 20 20 Rate Blood Pressure 142/80 158/88 (mmHg) O2 Sat by Pulse 100 100 Oximetry Oxygen Devices in Use Now: None Eyes: No Scleral Icterus, PERRLA Respiratory: Symmetrical Chest Expansion and Respiratory Effort, Clear to Auscultation Cardiovascular: - - RRR, 2/6 ISABELLA across precordium and radiating to carotids. Abdominal: NL Sounds; No Tenderness; No Distention, No Hepatosplenomegaly Extremities: No Edema, No Clubbing, Cyanosis Skin: No Rash or Ulcers Neurological: - - Oriented to hospital and but not current year or president. Significant right sided neglect remains. Intact strength. Result Diagrams: 04/22/17 05:28 04/22/17 06:23 Additional Lab and Data: Lab Results 04/21/17 04/21/17 04/21/17 Range/Units 13:24 13:55 13:55 WBC (3.5-10.8) 10^3/ul RBC (4.0-5.4) 10^6/ul Hgb (14.0-18.0) g/dl Hct (42-52) % MCV (80-94) fL MCH (27-31) pg MCHC (31-36) g/dl RDW (10.5-15) % Plt Count (150-450) 10^3/ul MPV (7.4-10.4) um3 Neut % (Auto) (38-83) % Lymph % (Auto) (25-47) % [place] % (Auto) (1-9) % Eos % (Auto) (0-6) % Baso % (Auto) (0-2) % Absolute Neuts (auto) (1.5-7.7) 10^3/ul Absolute Lymphs (auto) (1.0-4.8) 10^3/ul Absolute Monos (auto) (0-0.8) 10^3/ul Absolute Eos (auto) (0-0.6) 10^3/ul Absolute Basos (auto) (0-0.2) 10^3/ul Absolute Nucleated RBC 10^3/ul Nucleated RBC % INR (Anticoag Therapy) 1.76 H (0.89-1.11) APTT 36.7 H (26.0-36.3) seconds Sodium 138 (133-145) mmol/L Potassium 4.3 (3.5-5.0) mmol/L Chloride 100 L (101-111) mmol/L Carbon Dioxide 29 (22-32) mmol/L Anion Gap 9 (2-11) mmol/L BUN 46 H (6-24) mg/dL Creatinine 2.06 H (0.67-1.17) mg/dL Est GFR ( Amer) 40.6 (>60) Est GFR (Non-Af Amer) 31.6 (>60) BUN/Creatinine Ratio 22.3 H (8-20) Glucose 120 H (70-100) mg/dL POC Glucose (mg/dL) 132 H (70-100) mg/dL Lactic Acid (0.5-2.0) mmol/L Calcium 8.9 (8.6-10.3) mg/dL Magnesium 2.0 (1.9-2.7) mg/dL Total Bilirubin 0.30 (0.2-1.0) mg/dL AST 15 (13-39) U/L ALT 7 (7-52) U/L Alkaline Phosphatase 29 L (34-104) U/L Ammonia (16-53) mol/L Total Creatine Kinase 57 (10-223) U/L CK-MB (CK-2) 0.8 (0.6-6.3) ng/mL Troponin I 0.01 (<0.04) ng/mL C-Reactive Protein 11.48 H (< 5.00) mg/L B-Natriuretic Peptide ( - 100) pg/mL Total Protein 6.3 L (6.4-8.9) g/dL Albumin 3.4 (3.2-5.2) g/dL Globulin 2.9 (2-4) g/dL Albumin/Globulin Ratio 1.2 (1-3) Lipase 30 (11.0-82.0) U/L TSH 4.77 (0.34-5.60) mcIU/mL Acetaminophen < 15 mcg/mL 04/21/17 04/21/17 04/21/17 Range/Units 13:55 13:55 13:55 WBC 9.6 (3.5-10.8) 10^3/ul RBC 4.15 (4.0-5.4) 10^6/ul Hgb 9.5 L (14.0-18.0) g/dl Hct 30 L (42-52) % MCV 71 L (80-94) fL MCH 23 L (27-31) pg MCHC 32 (31-36) g/dl RDW 15 (10.5-15) % Plt Count 185 (150-450) 10^3/ul MPV 9 (7.4-10.4) um3 Neut % (Auto) 66.5 (38-83) % Lymph % (Auto) 23.6 L (25-47) % [place] % (Auto) 9.0 (1-9) % Eos % (Auto) 0.5 (0-6) % Baso % (Auto) 0.4 (0-2) % Absolute Neuts (auto) 6.4 (1.5-7.7) 10^3/ul Absolute Lymphs (auto) 2.3 (1.0-4.8) 10^3/ul Absolute Monos (auto) 0.9 H (0-0.8) 10^3/ul Absolute Eos (auto) 0 (0-0.6) 10^3/ul Absolute Basos (auto) 0 (0-0.2) 10^3/ul Absolute Nucleated RBC 0 10^3/ul Nucleated RBC % 0 INR (Anticoag Therapy) (0.89-1.11) APTT (26.0-36.3) seconds Sodium (133-145) mmol/L Potassium (3.5-5.0) mmol/L Chloride (101-111) mmol/L Carbon Dioxide (22-32) mmol/L Anion Gap (2-11) mmol/L BUN (6-24) mg/dL Creatinine (0.67-1.17) mg/dL Est GFR ( Amer) (>60) Est GFR (Non-Af Amer) (>60) BUN/Creatinine Ratio (8-20) Glucose (70-100) mg/dL POC Glucose (mg/dL) (70-100) mg/dL Lactic Acid 2.6 H* (0.5-2.0) mmol/L Calcium (8.6-10.3) mg/dL Magnesium (1.9-2.7) mg/dL Total Bilirubin (0.2-1.0) mg/dL AST (13-39) U/L ALT (7-52) U/L Alkaline Phosphatase (34-104) U/L Ammonia 34 (16-53) mol/L Total Creatine Kinase (10-223) U/L CK-MB (CK-2) (0.6-6.3) ng/mL Troponin I (<0.04) ng/mL C-Reactive Protein (< 5.00) mg/L B-Natriuretic Peptide 74 ( - 100) pg/mL Total Protein (6.4-8.9) g/dL Albumin (3.2-5.2) g/dL Globulin (2-4) g/dL Albumin/Globulin Ratio (1-3) Lipase (11.0-82.0) U/L TSH (0.34-5.60) mcIU/mL Acetaminophen mcg/mL Assess/Plan/Problems-Billing Assessment: 76 year old male PMH [place], DM, pAfib on xarelto, moderate-severe aortic stenosis, HTN, CKDIII, bipolar with recent symptoms of CVA and multiple CT heads showing chronic right parietal/occipital infarct presenting with confusion, hypoglycemia to 35 and concern for worsened neuro deficit . Persistent right sided neglect that will need continued rehabilitation or alternative living situation. Awaiting final PMRU decision. - Patient Problems (1) CVA (cerebral vascular accident) Current Visit: Yes Status: Acute Code(s): I63.9 - CEREBRAL INFARCTION, UNSPECIFIED SNOMED Code(s): 983401373 Comment: Right sided neglect continues along with disorientation from baseline. CT Head showing chronic R occipital lobe encephalomalacia. Unable to get MRI 2/2 PPM. Continue statin, rivaroxaban. Continue PT, OT. Awaiting ultimate decision on PMRU vs Acute Rehab admission. (2) CAD (coronary artery disease) Current Visit: No Status: Acute Code(s): I25.10 - ATHSCL HEART DISEASE OF [place] CORONARY ARTERY W/O ANG PCTRS SNOMED Code(s): 31468024 Comment: Continue home statin. (3) Diabetes Current Visit: No Status: Acute Code(s): E11.9 - TYPE 2 DIABETES MELLITUS WITHOUT COMPLICATIONS SNOMED Code(s): 57256145 Comment: Lispro sliding scale. Home dose of glipizide (4) Hypertension Current Visit: No Status: Acute Code(s): I10 - ESSENTIAL (PRIMARY) HYPERTENSION SNOMED Code(s): 00548359 Comment: Not at target control but ARB and HCTZ held given his ROGE. Caution with preload reduction given moderate to severe aortic stenosis. Repeat BMP to assess [employer] in order to pick best agent to add. (5) AV block, 3rd degree Current Visit: No Status: Acute Code(s): I44.2 - ATRIOVENTRICULAR BLOCK, COMPLETE SNOMED Code(s): 84700543 Comment: PPM in place, followed by Dr. Keller. (6) Acute on chronic renal insufficiency Current Visit: Yes Status: Acute Code(s): N28.9 - DISORDER OF KIDNEY AND URETER, UNSPECIFIED; N18.9 - CHRONIC KIDNEY DISEASE, UNSPECIFIED SNOMED Code(s ): 547799538 Comment: Recheck BMP in AM. ARB and HCTZ being held. Urine lytes. (7) Aortic stenosis Current Visit: No Status: Acute Code(s): I35.0 - NONRHEUMATIC AORTIC (VALVE ) STENOSIS SNOMED Code(s): 77573175 Comment: Moderate to severe on echo 03/31/2017. (8) Atrial fibrillation Current Visit: Yes Status: Acute Code(s): I48.91 - UNSPECIFIED ATRIAL FIBRILLATION SNOMED Code(s): 87307795 Comment: Continue home xarelto. Interrogation of PPM last admission was concerning for atrial tachycardia/Afib/Aflutter Status and Disposition: inpatient medicine telemetry Attending: Arun Ware
[2017-04-25] MEDS: Terazosin CAP* 5 MG PO SCH (20:04)
[2017-04-25] MEDS: Nitro Patch/OINT Remove PATCH OFF SCH (20:10)
--- NOTE | 2017-04-25 22:29 | PN ---
Progress Note - Progress Note Date of Service: 04/25/17 Note: Cross cover: Called for VT x 49 beats. Patient asymptomatic. Strip reviewed, A-paced followed by 3 beats that are not pace then 49 beats wide complex tachycardia that appears V-paced. No intervention at this time. May need additional telemetry strip review or pacer interrogation if recurs.
[2017-04-26] MEDS: Insulin LISPRO* 1 UNITS UNIT SUBCUT SCH ×2 (08:12→12:26)
[2017-04-26 08:21] LABS: BUN/Creatinine Ratio 19.8 (8-20); Calcium 8.8 mg/dL (8.6-10.3); EGFR African American 48.3 (>60); EGFR Non-African American 37.6 (>60); Potassium 3.4 mmol/L (3.5-5.0)
[2017-04-26] MEDS ORDERED: Losartan TAB* 25 MG PO SCH (09:00)
[2017-04-26] MEDS: Furosemide TAB* 40 MG PO SCH (09:24)
[2017-04-26] MEDS: Potassium Chlor TAB* 20 MEQ TAB.ER PO SCH (09:25)
[2017-04-26] MEDS: Verapamil SR TAB* 240 MG PO SCH (09:26)
[2017-04-26] MEDS: Dipyridamole/Aspirin 25/200* CAP.ER PO SCH (09:27)
[2017-04-26] MEDS: Metoprolol Tartrate TAB* 50 mg PO SCH (09:28)
[2017-04-26] MEDS: Divalproex DR TAB(*) 500 MG PO SCH (09:28)
[2017-04-26] MEDS: prednisoLONE 1% OPHTH.SUSP* 5 ML OPHTH.SUSP BOTH EYES SCH (09:30)
[2017-04-26] MEDS: glipiZIDE TAB* 5 MG PO SCH (09:30)
[2017-04-26] MEDS: Nitroglycerin 0.2 MG/HR PATCH* (5 MG) TRANSDERM SCH (09:30)
[2017-04-26] MEDS ORDERED: Potassium Chlor TAB* 20 MEQ TAB.ER PO SCH ×2 (10:30→21:00)
[2017-04-26 13:33] VITALS: BP 157/83
--- NOTE | 2017-04-26 15:04 | DS ---
DISCHARGE SUMMARY: DATE OF ADMISSION: 04/21/17 DATE OF DISCHARGE: 04/26/17 PRIMARY CARE PROVIDER: KD Wetzel. ATTENDING PHYSICIAN: Arun Ware MD. CONSULTING NEUROLOGIST: Dr. Joaquin. PRIMARY DIAGNOSES: Continued right-sided neglect secondary to likely left basal ganglia stroke (subacute) resulting in inability to take care of himself at home and compounded by hypoglycemia. SECONDARY DIAGNOSES: 1. Coronary artery disease with third-degree heart block, status post permanent pacemaker. 2. Myocardial infarction. 3. Non-insulin dependent diabetes. 4. Xtuasekp-yu-qjtudo aortic stenosis. 5. Depression. 6. Hyperlipidemia. 7. Bipolar disorder. 8. Atrial fibrillation, on Xarelto. HISTORY OF PRESENT ILLNESS AND HOSPITAL COURSE: Mr. Liliam Perales is a 76-year- old male with recent diagnosis of stroke-like symptoms for which he was admitted to the hospital on 03/31/17, at which point in time, he was discharged on Xarelto. Please see H and P for further details. He was being managed with visiting nursing services, who thought that he was having more difficulty with speech, a more pronounced right-sided facial droop, and right-sided weakness, in addition to confusion. He was taken to the ED on 04/21/17, and found to be hypoglycemic, discharged after correction of this, but returned to the ED after continued right- sided symptoms. In the ED, a repeat CT of the head was obtained, which again showed no acute intracranial pathology, stable right occipital encephalomalacia. Of note, on review of previous hospital records, there was concern among the neurology and radiology team that the patient has had subtle changes in the left basal ganglia region on 03/30/17 (Dr. Mohamud in discussion with Dr. Beckwith). The patient was admitted to the floor and Neurology was consulted, Dr. Joaquin. EEG was ordered. The patient was monitored on telemetry and had episodes of a wide complex tachycardia likely related to atrial fibrillation driving his permanent pacemaker, but was asymptomatic during these episodes. His creatinine upon admission was elevated to 2.06, so his lisinopril and losartan/hydrochlorothiazide were held. He had elevated lactic acidosis and metformin was also held. He was changed from aspirin to Aggrenox and continued on the Xarelto. The patient was evaluated each day with Physical Therapy, which noted a persistent dense right-sided neglect. He needed persistent cueing to be able to walk in the unit without bumping into [place]. He was not at this baseline in terms of orientation, knowing his date of and hospital, but not which hospital or current year. He was frustrated with this loss of memory and was feeling guilty about the strains that his care would place on his . He was evaluated by the Physical Medicine Rehabilitation Unit service and ultimately decided for acceptance to that unit on 04/26/17. His blood pressure was labile in the setting of holding his some of his home meds for his acute kidney injury, but creatinine had improved on the day of discharge to 1.77, and his ACEI and ARB were restarted on discharge. He will not be discharged on his original home metformin given his presenting lactic acidosis and chronic kidney disease, with an estimated GFR around 48 on the day of discharge. Of note, he is unable to obtain a brain MRI given his permanent pacemaker. Additional medication changes included decrease in his dosage of Xarelto to 15 mg daily based on his kidney function. His neurological exam on the day of discharge included 4+/5 strength in right hand sleeve separator, continued dense right-sided neglect, with persistent need for cues to attend to the right side of his body during any task. Decrease in either visual acuity or attention to visual lundberg. He was able to correctly state the number of fingers directly in front of his head, but often would incorrectly state number of fingers in any other position. He had difficulties tracking gaze, particularly to the right. 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 DISCHARGE MEDICATIONS: 1. Rivaroxaban 15 mg p.o. daily. 2. Metoprolol tartrate 100 mg p.o. b.i.d. 3. Verapamil Extended Release 240 mg p.o. b.i.d. 4. Depakote 500 mg p.o. b.i.d. 5. Losartan 100 mg daily. 6. Furosemide 40 mg p.o. daily. 7. Potassium chloride 20 mEq p.o. daily. 8. Nitroglycerin patch transdermal 0.2 mg per hour daily. 9. Lisinopril/hydrochlorothiazide 20/25 mg p.o. daily. 10. Prednisolone 1% ophthalmic suspension eyedrops both eyes every day. 11. Ferrous gluconate 27 mg p.o. daily. 12. Terazosin 10 mg p.o. q.h.s. 13. Glipizide 10 mg p.o. b.i.d. 14. Atorvastatin 80 mg p.o. with dinner. 15. Senna 2 tabs p.o. daily. 16. Dipyridamole/aspirin 25/200 mg p.o. b.i.d. DISPOSITION: PMRU. DIET: Carbohydrate consistent diet, unchanged. [id number]/[facility] #: [id number] [facility]
== END 2017-04-26 13:51 | DRG 65 ==
LOC: ED 12:48 → MEDTELE 17:45 → OBSVTOIN 04-22 14:00 → MEDTELE 04-22 15:22
PROVIDERS: ADMIT Internal Medicine; ATTEND Internal Medicine
DX: I63.22 Cerebral infarction due to unspecified occlusion or stenosis of basilar artery (principal); I44.2 Atrioventricular block, complete; N17.9 Acute kidney failure, unspecified; G81.91 Hemiplegia, unspecified affecting right dominant side; E11.649 Type 2 diabetes mellitus with hypoglycemia without coma; I48.91 Unspecified atrial fibrillation; E11.22 Type 2 diabetes mellitus with diabetic chronic kidney disease; I13.10 Hypertensive heart and chronic kidney disease without heart failure, with stage 1 through stage 4 chronic kidney disease, or unspecified chronic kidney disease; E86.0 Dehydration; I25.10 Atherosclerotic heart disease of native coronary artery without angina pectoris; I35.0 Nonrheumatic aortic (valve) stenosis; E78.5 Hyperlipidemia, unspecified; F31.9 Bipolar disorder, unspecified; I25.2 Old myocardial infarction; N18.3 Chronic kidney disease, stage 3 (moderate); Z86.73 Personal history of transient ischemic attack (TIA), and cerebral infarction without residual deficits; Z79.01 Long term (current) use of anticoagulants; Z95.0 Presence of cardiac pacemaker; D64.9 Anemia, unspecified; Z79.84 Long term (current) use of oral hypoglycemic drugs; Z79.82 Long term (current) use of aspirin; Z79.899 Other long term (current) drug therapy; Z88.0 Allergy status to penicillin; Z80.3 Family history of malignant neoplasm of breast
CPT/HCPCS: 36415; 70450; 71010; 80048; 80053; 80164; 80329; 81003; 81015; 82140; 82550; 82553; 82570; 83605; 83690; 83735; 83880; 84300; 84443; 84484; 85025; 85610; 85730; 86140; 87086; 93005; 94760; 95816; 97530; A9270-GY; G0378; G0480; G8978-GP-CK; G8979-GP-CI; G8980-GP-CK; G8987-GO-CL; G8988-GO-CJ; G8996-GN-CH; G8997-GN-CH; G8998-GN-CH

== ENCOUNTER 2017-04-26 12:08 | Inpatient (IN) | payer MEDICARE ==
[2017-04-26] MEDS ORDERED: Magnesium Hydroxide LIQ* 30 ML UDC PO PRN (14:59)
[2017-04-26] MEDS ORDERED: Senna TAB PO PRN (14:59)
[2017-04-26] MEDS ORDERED: Dextrose 50% Syringe 50 ML* 25 GM/50 ML SYRINGE IV PUSH PRN (15:09)
[2017-04-26] MEDS: glipiZIDE TAB* 5 MG PO SCH (17:35)
[2017-04-26] MEDS: Insulin LISPRO* 1 UNITS UNIT SUBCUT SCH ×2 (17:35→20:54)
[2017-04-26] MEDS: Rivaroxaban TAB(*) 15 MG PO SCH (17:36)
[2017-04-26] MEDS: Atorvastatin* 80 MG TAB PO SCH (17:36)
--- NOTE | 2017-04-26 18:24 | HP ---
ADMISSION HISTORY AND PHYSICAL: DATE OF ADMISSION: 04/26/17 REASON FOR ADMISSION: Stroke with right-sided weakness and aphasia. HISTORY OF PRESENT ILLNESS: Liliam Perales is a 76-year-old male. The patient has a history of hypertension and diabetes. He also has a pacemaker, which was done for third-degree heart block. He has stage 3 chronic kidney disease as well as aortic stenosis and bipolar disease. He has had a prior myocardial infarct as well. The patient was brought to the hospital acutely on 04/21/17. He had been in the emergency room actually the day before as well with confusion and hypoglycemia. When he came to the ER on 04/21/17, he was having right-sided weakness with a gaze deviation. Several weeks ago, he was hospitalized with what was felt to be a new left hemisphere stroke with right- sided weakness. He was put on Xarelto at that time in addition to his aspirin. He cannot have an MRI because of his pacer. He was admitted to the hospital. He did have a CAT scan of his brain. He also had an evaluation by Dr. Joaquin, the neurologist. Dr. Joaquin felt that the patient did not need a new CT angiogram as he had just had one 3 weeks ago. The CAT scans of his brain showed old right occipital infarcts, but no new lesions. While in the hospital, he had an EEG done which did not show any epileptiform discharges. The patient was evaluated by therapies. He was felt to have needs in physical therapy, occupational therapy, and speech therapy. He is now being admitted for inpatient rehab, so that he might return to independent living. PAST MEDICAL HISTORY: Significant for the aforementioned diabetes, hypertension , third-degree heart block, he had a pacemaker placed, chronic kidney disease stage 3, aortic stenosis, bipolar disease, and coronary artery disease. He has had an [place] in the past. As mentioned, he had a CVA diagnosed at the beginning of the month. He has atrial fibrillation as well. CURRENT MEDICATIONS: Include: 1. Xarelto. 2. Cozaar. 3. Lasix. 4. Glucotrol. 5. Aggrenox. 6. Depakote. 7. Lopressor. 8. Potassium. 9. Hytrin. 10. Calan. ALLERGIES: Include PENICILLIN. SOCIAL HISTORY: He is a nonsmoker, nondrinker. He lives with his at [facility]. REVIEW OF SYSTEMS: The patient reports no current shortness of breath or chest pain. PHYSICAL EXAMINATION VITAL SIGNS: The patient's temperature is 99.0, blood pressure is 157/83, pulse 70, respirations 16. HEENT: He has a left gaze deviation with a right blind spot. 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 NECK: Supple. LUNGS: Sounded clear to auscultation bilaterally. HEART: Sounds were regular. He had a grade 2 systolic murmur. ABDOMEN: Soft and nontender. EXTREMITIES: Showed normal muscle bulk and tone. NEUROLOGIC: He is awake, alert. He has a slight dysarthria. He appears to have an aphasia. His right side is about 4/5 strength, left side is about 5/5 strength. FUNCTIONAL EXAM: He transfers with [id number] amount of assistance. ASSESSMENT: Cerebrovascular accident with right hemiparesis. PLAN: Integrate him into a comprehensive and therapeutic rehab program. We will have the following goals: 1. Physical Therapy will work with the patient. They are going to work on functional transfer training, ambulation training with a walker. 2. Occupational Therapy will see the patient, work on his activities of daily living including toileting and toilet transfers. 3. Speech Therapy will see the patient to work on his aphasia as well as dysarthria. 4. Continue Xarelto for secondary stroke prevention as well as DVT prophylaxis. 5. Continue his multiple blood pressure medications including Lasix, Cozaar, Lopressor, nitro patch and Calan. 6. Diabetes. We will do fingersticks 4 times a day with appropriate insulin coverage. We are going to continue him on Glucotrol. 7. Continue statin. 8. SSRI such as Prozac is indicated. 9. His bowels will be regulated. 10. Continue his Depakote for bipolar disease. 11. human services instructor will be closely involved to make sure that any services and equipment the patient requires are in place prior to discharge. 12. Family training as appropriate. 13. Home with appropriate services. ESTIMATED LENGTH OF STAY: 17 to 21 days. [id number]/[facility] #: [id number] MTDD
[2017-04-26] MEDS: Metoprolol Tartrate TAB* 100 MG TAB PO SCH (20:52)
[2017-04-26] MEDS: Dipyridamole/Aspirin 25/200* CAP.ER PO SCH (20:52)
[2017-04-26] MEDS: Divalproex DR TAB(*) 500 MG PO SCH (20:52)
[2017-04-26] MEDS: Verapamil SR TAB* 240 MG PO SCH (20:52)
[2017-04-26] MEDS: Docusate CAP* 100 MG PO SCH (20:52)
[2017-04-26] MEDS: Potassium Chlor TAB* 20 MEQ TAB.ER PO SCH (20:53)
[2017-04-26] MEDS: Terazosin CAP* 5 MG PO SCH (20:53)
[2017-04-26] MEDS: Nitro Patch/OINT Remove PATCH OFF SCH (21:02)
[2017-04-27] MEDS: Insulin LISPRO* 1 UNITS UNIT SUBCUT SCH ×4 (08:07→20:31)
[2017-04-27] MEDS: Docusate CAP* 100 MG PO SCH ×2 (08:13→20:31)
[2017-04-27] MEDS: Metoprolol Tartrate TAB* 100 MG TAB PO SCH ×2 (08:13→20:31)
[2017-04-27] MEDS: Divalproex DR TAB(*) 500 MG PO SCH ×2 (08:13→20:30)
[2017-04-27] MEDS: Furosemide TAB* 40 MG PO SCH (08:13)
[2017-04-27] MEDS: Losartan TAB* 25 MG PO SCH (08:13)
[2017-04-27] MEDS: Verapamil SR TAB* 240 MG PO SCH ×2 (08:13→20:30)
[2017-04-27] MEDS: glipiZIDE TAB* 5 MG PO SCH ×2 (08:13→17:13)
[2017-04-27] MEDS: Potassium Chlor TAB* 20 MEQ TAB.ER PO SCH ×2 (08:13→20:30)
[2017-04-27] MEDS: Dipyridamole/Aspirin 25/200* CAP.ER PO SCH ×2 (08:14→20:30)
[2017-04-27] MEDS: prednisoLONE 1% OPHTH.SUSP* 5 ML OPHTH.SUSP BOTH EYES SCH (08:15)
[2017-04-27] MEDS: Nitroglycerin 0.2 MG/HR PATCH* (5 MG) TRANSDERM SCH (08:17)
--- NOTE | 2017-04-27 12:41 | PMRUTEAM ---
PMRU: Goals Current Status: Nursing: Current Status Skin Deviations [Left Lower Abrasion Arm] Skin Deviation Description [ not observed Left Lower Arm] Physical Therapy: Current Status Bed Mobility Assistance Min Assist Transfer Moblility Assistance Mod Assist Ambulation Assistance Min Assist Ambulation Assistive Devices Rolling Walker Stairs Assistance Not Tested Occupational Therapy: Current Status Upper Body Dressing Mod Assist Lower Body Dressing Max Asst Bathing Mod Assist Toileting Min Assist Toilet Transfer Min Assist Shower Transfer Min Assist Eating Supervision Nutrition: Current Status Monitoring new adm; initial goals as outlined below SPEECH THERAPY: He has both a receptive and expressive aphasia. Basic Y/N are 80 %, moderate Y/N fall to 20%. A lot of difficulty with visual processing and sequencing. Swallowing ok, needs cues to eat Goals: Occupational Therapy: Initial Goals Goals to be Completed in (Days 4 we ) Upper Body Bathing Routine Supervision/Set Up Lower Body Bathing Routine Supervision/Set Up Upper Body Dressing Routine Supervision/Set Up Lower Body Dressing Routine Supervision/Set Up Toilet Hygeine and Clothing Supervision/Set Up Management Routine Toilet Transfer Routine Supervision/Set Up Tub Transfer Routine Supervision/Set Up Functional Transfers for ADL Supervision/Set Up Grooming Routine Supervision/Set Up Feeding Routine Supervision/Set Up Nutrition: Goals Intervention Goals 1. Adequate PO intake to prevent loss of lean body mass w/o promoting undesired weight gain 2. Adequate glycemic control per inpatient parameters 3. Establish regularity of BM w/o constipation (or diarrhea) Speech: Goals Speech Goal 1 Receptive Language Goal 1 Comments Evaluation completed this date 04/27/17 Single step commands 60% accuracy Basic yes/no questions 80% accuracy Two step commands 0% accuracy Spatial relations 25% accuracy Unable to assess reading due to vision Complex/abstract yes/no questions 20% accuracy Speech Goal 2 Expressive Language Speech Goal 2 Comments Evaluation completed this date 04/27/17 Automatic speech tasks - moderate-max cues Responsive naming 40% accuracy Confrontational naming - unable to assess due to vision Senetence completion 20% accuracy Speech Goal 3 Cognitive-linguistic Speech Goal 3 Comments Ongoing assessment required due to severity of receptive/expressive language. PHYSICAL THERAPY: Supervision ambulating and transfers. Ambulation goals 150 feet with RW? Care Plan: Care Plan Cardiovascular- Improve/Maintain Start: 04/26/17 15:44 Freq: QSHIFT Status: Active Target: Activity Type Activity Date Activity User E-Sign Co-Sign Detail Recorded Client Recorded Date Recorded By Document 04/27/17 10:32 [id number] [id number] 04/27/17 10:33 [id number] 04/27/17 10:32 PMRU Outcome: Cardiovascular Vital Signs q Shift for 48hrs Then BID Yes Daily Weight Ordered No Current Cardiovascular Outcome/Goal Maintain/ Achieve Baseline HR, BP , Perfusion Free of Abnormal Cardiac Symptoms Progression Toward Outcome/Goal Progressing Coping/Psych-Improve/Maintain Start: 04/26/17 15:44 Freq: QSHIFT Status: Active Target: Activity Type Activity Date Activity User E-Sign Co-Sign Detail Recorded Client Recorded Date Recorded By Document 04/27/17 10:32 [id number] [id number] 04/27/17 10:33 [id number] 04/27/17 10:32 PMRU Outcome: Coping/Psychosocial Coping Outcome/Goals Willingness to Participate in Treatment Plan and Basic Needs Psychosocial Outcome/Goals Cooperate/ Participate in Plan Progression Toward Outcome/Goals - Progressing Coping Progression Toward Outcome/Goals - Progressing Psychosocial DVT Prophylaxis- Improve/Maintain Start: 04/26/17 15:44 Freq: QSHIFT Status: Active Target: Activity Type Activity Date Activity User E-Sign Co-Sign Detail Recorded Client Recorded Date Recorded By Document 04/27/17 10:32 [id number] [id number] 04/27/17 10:33 [id number] 04/27/17 10:32 PMRU Outcome: DVT Prophylaxis Outcome/Goals Remains Free of DVT Complies with DVT Prophylaxis /Treatment Progression Toward Outcome/Goals Progressing Discharge Planning - Improve/Maintain Start: 04/26/17 15:44 Freq: QSHIFT Status: Active Target: Activity Type Activity Date Activity User E-Sign Co-Sign Detail Recorded Client Recorded Date Recorded By Document 04/27/17 10:32 [id number] [id number] 04/27/17 10:33 [id number] 04/27/17 10:32 PMRU Outcome: Discharge Planning Identify Patient Needs yes Update Patient Family No Outcome/Goals Demonstrates Understanding of Discharge Plan Progression Toward Outcome/Goals Progressing Education-Improve/Maintain Start: 04/26/17 15:44 Freq: QSHIFT Status: Active Target: Activity Type Activity Date Activity User E-Sign Co-Sign Detail Recorded Client Recorded Date Recorded By Document 04/27/17 10:32 [id number] [id number] 04/27/17 10:33 [id number] 04/27/17 10:32 PMRU Outcome: Education Outcome/Goals Encourage Questions Progression Toward Outcome/Goals Progressing /GI-Improve/Maintain Start: 04/26/17 15:44 Freq: QSHIFT Status: Active Target: Activity Type Activity Date Activity User E-Sign Co-Sign Detail Recorded Client Recorded Date Recorded By Document 04/27/17 10:32 [id number] [id number] 04/27/17 10:33 [id number] 04/27/17 10:32 PMRU Outcome: Genitourinary/ Gastrointestinal Genitourinary- Outcome/Goals Remain Free of Hospital- Acquired UTI Gastrointestinal-Outcome/Goals Maintain/ Achieve Bowel Regularity in Accordance with Pt's Baseline Remain Free of Emesis Prevent Constipation Laxatives as Ordered Progression Toward Outcome/Goals - Progressing Progression Toward Outcome/Goals - GI Progressing Medication Administration Start: 04/26/17 15:44 Freq: QSHIFT Status: Active Target: Activity Type Activity Date Activity User E-Sign Co-Sign Detail Recorded Client Recorded Date Recorded By Document 04/27/17 10:32 [id number] 04/27/17 10:33 [id number] 04/27/17 10:32 PMRU Outcome: Medication Administration Assess Patient Knowledge/Teach Med Yes Education for all Meds Outcome/Goals Family/ Caregiver Administer Medications at Home Demonstrates Understanding Progression Towards Outcome/Goals Progressing Is Patient Going Home on Lovenox? No Metabolic Status- Improve/Maintain Start: 04/26/17 15:44 Freq: QSHIFT Status: Active Target: Activity Type Activity Date Activity User E-Sign Co-Sign Detail Recorded Client Recorded Date Recorded By Document 04/27/17 10:32 [id number] [id number] 04/27/17 10:33 [id number] 04/27/17 10:32 PMRU Outcome: Metabolic Status Have Fingersticks Been Ordered Yes Fingerstick Order Frequency AC & HS Outcome/Goals Maintain/ Improve Metabolic Status Demonstrate Knowledge of Prevention/ Treatment of Metabolic Imbalances Progression Toward Outcome/Goals Progressing Neurological- Improve/Maintain Start: 04/26/17 15:44 Freq: QSHIFT Status: Active Target: Activity Type Activity Date Activity User E-Sign Co-Sign Detail Recorded Client Recorded Date Recorded By Document 04/27/17 10:32 [id number] [id number] 04/27/17 10:33 [id number] 04/27/17 10:32 PMRU Outcome: Neurological Weakness/Aphasia Weakness Aphasia Right Side Outcome/Goals Maintain/ Achieve Baseline Neurological Status Improve Neurological Status Prevent Avoidable Neurological Decline Demonstrate Knowledge of Prevention/Tx of Neuro Disorders/ Complication Maintain/ Improve Strength/ROM Progression Toward Outcome/Goals Progressing Outcome/Goals Met Comment pt has visual cut bilaterally Safety- Improve/Maintain Start: 04/26/17 15:44 Freq: QSHIFT Status: Active Target: Activity Type Activity Date Activity User E-Sign Co-Sign Detail Recorded Client Recorded Date Recorded By Document 04/27/17 10:32 [id number] [email or web address] 04/27/17 10:33 [id number] 04/27/17 10:32 PMRU Outcome: Safety Outcome/Goals Remain Free of Injury or Harm Cooperates with Safety Measures for Least Restrictive Environment Prevent Falls/ Injury Progression Toward Outcome/Goals Progressing Outcome/Goals Met Comment PA in place, frequent checks Medicine Note: Length of Stay: 21 days Anticipated Discharge Destination: Tentative Discharge Date: 05/18/17 Discharged to: Home?
[2017-04-27] MEDS: Atorvastatin* 80 MG TAB PO SCH (17:13)
[2017-04-27] MEDS: Rivaroxaban TAB(*) 15 MG PO SCH (17:13)
[2017-04-27] MEDS: Terazosin CAP* 5 MG PO SCH (20:31)
[2017-04-27] MEDS: Nitro Patch/OINT Remove PATCH OFF SCH (20:39)
[2017-04-28 07:13] LABS: Hematocrit 26 % (42-52); Hemoglobin 8.6 g/dl (14.0-18.0); Mean Corpuscular HGB Conc 33 g/dl (31-36); Mean Corpuscular Hemoglobin 23 pg (27-31); Mean Platelet Volume 9 um3 (7.4-10.4); Red Cell Distribution Width 16 % (10.5-15); White Blood Count 9.3 10^3/ul (3.5-10.8)
[2017-04-28 07:15] LABS: Comments Flag Yes
[2017-04-28 07:16] LABS: Mean Corpuscular Volume 70 fL (80-94)
[2017-04-28 07:27] LABS: Albumin 3.3 g/dL (3.2-5.2); BUN/Creatinine Ratio 19.3 (8-20); Calcium 8.8 mg/dL (8.6-10.3); EGFR African American 47.1 (>60); EGFR Non-African American 36.6 (>60); Globulin 2.5 g/dL (2-4); Potassium 4.1 mmol/L (3.5-5.0); Total Bilirubin 0.4 mg/dL (0.2-1.0); Total Protein 5.8 g/dL (6.4-8.9)
[2017-04-28] MEDS: Insulin LISPRO* 1 UNITS UNIT SUBCUT SCH ×4 (08:11→20:47)
[2017-04-28] MEDS: Potassium Chlor TAB* 20 MEQ TAB.ER PO SCH ×2 (08:43→20:46)
[2017-04-28] MEDS: Divalproex DR TAB(*) 500 MG PO SCH ×2 (08:43→20:47)
[2017-04-28] MEDS: Losartan TAB* 25 MG PO SCH (08:43)
[2017-04-28] MEDS: Verapamil SR TAB* 240 MG PO SCH ×2 (08:43→20:47)
[2017-04-28] MEDS: Docusate CAP* 100 MG PO SCH ×2 (08:43→20:47)
[2017-04-28] MEDS: Furosemide TAB* 40 MG PO SCH (08:43)
[2017-04-28] MEDS: glipiZIDE TAB* 5 MG PO SCH ×2 (08:43→17:20)
[2017-04-28] MEDS: Dipyridamole/Aspirin 25/200* CAP.ER PO SCH ×2 (08:43→20:48)
[2017-04-28] MEDS: Metoprolol Tartrate TAB* 100 MG TAB PO SCH ×2 (08:43→20:46)
[2017-04-28] MEDS: Nitroglycerin 0.2 MG/HR PATCH* (5 MG) TRANSDERM SCH (08:45)
[2017-04-28] MEDS: prednisoLONE 1% OPHTH.SUSP* 5 ML OPHTH.SUSP BOTH EYES SCH (08:46)
[2017-04-28] MEDS: Rivaroxaban TAB(*) 15 MG PO SCH (17:20)
[2017-04-28] MEDS: Atorvastatin* 80 MG TAB PO SCH (17:20)
[2017-04-28] MEDS: Terazosin CAP* 5 MG PO SCH (20:47)
[2017-04-28] MEDS: Nitro Patch/OINT Remove PATCH OFF SCH (20:51)
[2017-04-29] MEDS: Omeprazole CAP* 20 MG PO SCH (06:08)
[2017-04-29] MEDS: Insulin LISPRO* 1 UNITS UNIT SUBCUT SCH ×4 (07:29→21:01)
[2017-04-29] MEDS: Divalproex DR TAB(*) 500 MG PO SCH ×2 (08:57→21:01)
[2017-04-29] MEDS: Verapamil SR TAB* 240 MG PO SCH ×2 (08:57→21:06)
[2017-04-29] MEDS: glipiZIDE TAB* 5 MG PO SCH ×2 (08:57→17:03)
[2017-04-29] MEDS: Dipyridamole/Aspirin 25/200* CAP.ER PO SCH ×2 (08:57→21:00)
[2017-04-29] MEDS: Furosemide TAB* 40 MG PO SCH (08:57)
[2017-04-29] MEDS: Docusate CAP* 100 MG PO SCH ×2 (08:57→21:01)
[2017-04-29] MEDS: Potassium Chlor TAB* 20 MEQ TAB.ER PO SCH ×2 (08:57→21:05)
[2017-04-29] MEDS: prednisoLONE 1% OPHTH.SUSP* 5 ML OPHTH.SUSP BOTH EYES SCH (08:57)
[2017-04-29] MEDS: Metoprolol Tartrate TAB* 100 MG TAB PO SCH ×2 (08:57→21:05)
[2017-04-29] MEDS: Losartan TAB* 25 MG PO SCH (08:57)
[2017-04-29] MEDS: Nitroglycerin 0.2 MG/HR PATCH* (5 MG) TRANSDERM SCH (08:59)
[2017-04-29] MEDS: Atorvastatin* 80 MG TAB PO SCH (17:03)
[2017-04-29] MEDS: Rivaroxaban TAB(*) 15 MG PO SCH (17:03)
[2017-04-29] MEDS: Terazosin CAP* 5 MG PO SCH (21:05)
[2017-04-29] MEDS: Nitro Patch/OINT Remove PATCH OFF SCH (21:13)
[2017-04-30] MEDS: Omeprazole CAP* 20 MG PO SCH (06:12)
[2017-04-30] MEDS: Insulin LISPRO* 1 UNITS UNIT SUBCUT SCH ×4 (07:38→20:31)
[2017-04-30] MEDS: prednisoLONE 1% OPHTH.SUSP* 5 ML OPHTH.SUSP BOTH EYES SCH (08:09)
[2017-04-30] MEDS: Potassium Chlor TAB* 20 MEQ TAB.ER PO SCH ×2 (08:10→20:14)
[2017-04-30] MEDS: glipiZIDE TAB* 5 MG PO SCH ×2 (08:10→17:36)
[2017-04-30] MEDS: Metoprolol Tartrate TAB* 100 MG TAB PO SCH ×2 (08:10→20:14)
[2017-04-30] MEDS: Nitroglycerin 0.2 MG/HR PATCH* (5 MG) TRANSDERM SCH (08:11)
[2017-04-30] MEDS: Losartan TAB* 25 MG PO SCH (08:11)
[2017-04-30] MEDS: Verapamil SR TAB* 240 MG PO SCH ×2 (08:13→20:37)
[2017-04-30] MEDS: Dipyridamole/Aspirin 25/200* CAP.ER PO SCH ×2 (08:13→20:13)
[2017-04-30] MEDS: Divalproex DR TAB(*) 500 MG PO SCH ×2 (08:13→20:14)
[2017-04-30] MEDS: Furosemide TAB* 40 MG PO SCH (08:14)
[2017-04-30] MEDS: Docusate CAP* 100 MG PO SCH ×2 (08:16→20:08)
[2017-04-30 10:28] LABS: Hematocrit 27 % (42-52); Hemoglobin 8.9 g/dl (14.0-18.0); Mean Corpuscular HGB Conc 33 g/dl (31-36); Mean Corpuscular Hemoglobin 23 pg (27-31); Mean Corpuscular Volume 71 fL (80-94); Mean Platelet Volume 9 um3 (7.4-10.4); Red Blood Count 3.81 10^6/ul (4.0-5.4); Red Cell Distribution Width 17 % (10.5-15); White Blood Count 9.8 10^3/ul (3.5-10.8)
[2017-04-30 10:32] LABS: Comments Flag Yes
[2017-04-30] MEDS: Atorvastatin* 80 MG TAB PO SCH (17:36)
[2017-04-30] MEDS: Rivaroxaban TAB(*) 15 MG PO SCH (17:36)
[2017-04-30] MEDS: Terazosin CAP* 5 MG PO SCH (20:13)
[2017-04-30] MEDS: Nitro Patch/OINT Remove PATCH OFF SCH (20:36)
[2017-05-01] MEDS: Omeprazole CAP* 20 MG PO SCH (06:17)
[2017-05-01] MEDS: Insulin LISPRO* 1 UNITS UNIT SUBCUT SCH ×4 (07:27→20:48)
[2017-05-01] MEDS: glipiZIDE TAB* 5 MG PO SCH ×2 (09:03→16:56)
[2017-05-01] MEDS: Docusate CAP* 100 MG PO SCH ×2 (09:03→20:49)
[2017-05-01] MEDS: Losartan TAB* 25 MG PO SCH (09:03)
[2017-05-01] MEDS: Dipyridamole/Aspirin 25/200* CAP.ER PO SCH ×2 (09:04→20:49)
[2017-05-01] MEDS: Furosemide TAB* 40 MG PO SCH (09:04)
[2017-05-01] MEDS: Metoprolol Tartrate TAB* 100 MG TAB PO SCH ×2 (09:04→20:49)
[2017-05-01] MEDS: Potassium Chlor TAB* 20 MEQ TAB.ER PO SCH ×2 (09:04→20:49)
[2017-05-01] MEDS: Divalproex DR TAB(*) 500 MG PO SCH ×2 (09:04→20:49)
[2017-05-01] MEDS: Verapamil SR TAB* 240 MG PO SCH ×2 (09:04→20:49)
[2017-05-01] MEDS: Nitroglycerin 0.2 MG/HR PATCH* (5 MG) TRANSDERM SCH (09:05)
[2017-05-01] MEDS: prednisoLONE 1% OPHTH.SUSP* 5 ML OPHTH.SUSP BOTH EYES SCH (09:06)
[2017-05-01] MEDS: Atorvastatin* 80 MG TAB PO SCH (16:56)
[2017-05-01] MEDS: Rivaroxaban TAB(*) 15 MG PO SCH (16:56)
[2017-05-01] MEDS: Terazosin CAP* 5 MG PO SCH (20:49)
[2017-05-01] MEDS: Nitro Patch/OINT Remove PATCH OFF SCH (20:53)
[2017-05-02] MEDS: Omeprazole CAP* 20 MG PO SCH (07:02)
[2017-05-02] MEDS: Insulin LISPRO* 1 UNITS UNIT SUBCUT SCH ×4 (07:50→21:00)
[2017-05-02] MEDS: Verapamil SR TAB* 240 MG PO SCH ×2 (08:45→20:08)
[2017-05-02] MEDS: prednisoLONE 1% OPHTH.SUSP* 5 ML OPHTH.SUSP BOTH EYES SCH (08:45)
[2017-05-02] MEDS: Furosemide TAB* 40 MG PO SCH (08:46)
[2017-05-02] MEDS: Metoprolol Tartrate TAB* 100 MG TAB PO SCH ×2 (08:46→20:08)
[2017-05-02] MEDS: Losartan TAB* 25 MG PO SCH (08:46)
[2017-05-02] MEDS: Potassium Chlor TAB* 20 MEQ TAB.ER PO SCH ×2 (08:46→20:07)
[2017-05-02] MEDS: Dipyridamole/Aspirin 25/200* CAP.ER PO SCH ×2 (08:46→20:08)
[2017-05-02] MEDS: Docusate CAP* 100 MG PO SCH ×2 (08:46→20:08)
[2017-05-02] MEDS: glipiZIDE TAB* 5 MG PO SCH ×2 (08:46→17:10)
[2017-05-02] MEDS: Divalproex DR TAB(*) 500 MG PO SCH ×2 (08:47→20:08)
[2017-05-02] MEDS: Nitroglycerin 0.2 MG/HR PATCH* (5 MG) TRANSDERM SCH (08:48)
[2017-05-02] MEDS: Atorvastatin* 80 MG TAB PO SCH (17:10)
[2017-05-02] MEDS: Rivaroxaban TAB(*) 15 MG PO SCH (17:10)
[2017-05-02] MEDS: cloNIDine TAB* 0.1 MG PO SCH (20:08)
[2017-05-02] MEDS: Terazosin CAP* 5 MG PO SCH (20:08)
[2017-05-02] MEDS: Nitro Patch/OINT Remove PATCH OFF SCH (20:10)
[2017-05-03] MEDS: Omeprazole CAP* 20 MG PO SCH (06:20)
[2017-05-03] MEDS: Dipyridamole/Aspirin 25/200* CAP.ER PO SCH ×2 (09:00→21:03)
[2017-05-03] MEDS: Verapamil SR TAB* 240 MG PO SCH ×2 (09:00→21:03)
[2017-05-03] MEDS: Furosemide TAB* 40 MG PO SCH (09:00)
[2017-05-03] MEDS: Metoprolol Tartrate TAB* 100 MG TAB PO SCH ×2 (09:00→21:03)
[2017-05-03] MEDS: Losartan TAB* 25 MG PO SCH (09:00)
[2017-05-03] MEDS: Potassium Chlor TAB* 20 MEQ TAB.ER PO SCH ×2 (09:00→21:03)
[2017-05-03] MEDS: Divalproex DR TAB(*) 500 MG PO SCH ×2 (09:01→21:03)
[2017-05-03] MEDS: glipiZIDE TAB* 5 MG PO SCH ×2 (09:01→17:37)
[2017-05-03] MEDS: Nitroglycerin 0.2 MG/HR PATCH* (5 MG) TRANSDERM SCH (09:03)
[2017-05-03] MEDS: Insulin LISPRO* 1 UNITS UNIT SUBCUT SCH ×4 (09:09→21:03)
[2017-05-03] MEDS: prednisoLONE 1% OPHTH.SUSP* 5 ML OPHTH.SUSP BOTH EYES SCH (09:10)
[2017-05-03] MEDS: Docusate CAP* 100 MG PO SCH ×2 (09:11→21:05)
[2017-05-03] MEDS: Rivaroxaban TAB(*) 15 MG PO SCH (17:37)
[2017-05-03] MEDS: Atorvastatin* 80 MG TAB PO SCH (17:37)
[2017-05-03] MEDS: Terazosin CAP* 5 MG PO SCH (21:03)
[2017-05-03] MEDS: cloNIDine TAB* 0.1 MG PO SCH (21:03)
[2017-05-03] MEDS: Nitro Patch/OINT Remove PATCH OFF SCH (22:20)
[2017-05-04] MEDS: Acetaminophen TAB* 325 MG PO PRN (02:52)
[2017-05-04] MEDS: Omeprazole CAP* 20 MG PO SCH (06:36)
[2017-05-04] MEDS: Insulin LISPRO* 1 UNITS UNIT SUBCUT SCH ×4 (07:34→21:03)
[2017-05-04] MEDS: Potassium Chlor TAB* 20 MEQ TAB.ER PO SCH ×2 (07:40→20:24)
[2017-05-04] MEDS: Dipyridamole/Aspirin 25/200* CAP.ER PO SCH ×2 (07:40→20:24)
[2017-05-04] MEDS: Docusate CAP* 100 MG PO SCH ×2 (07:40→20:25)
[2017-05-04] MEDS: Metoprolol Tartrate TAB* 100 MG TAB PO SCH ×2 (07:41→20:24)
[2017-05-04] MEDS: Furosemide TAB* 40 MG PO SCH (07:41)
[2017-05-04] MEDS: glipiZIDE TAB* 5 MG PO SCH ×2 (07:41→17:06)
[2017-05-04] MEDS: Divalproex DR TAB(*) 500 MG PO SCH ×2 (07:41→20:24)
[2017-05-04] MEDS: Verapamil SR TAB* 240 MG PO SCH ×2 (07:41→20:25)
[2017-05-04] MEDS: Losartan TAB* 25 MG PO SCH (07:41)
[2017-05-04] MEDS: Nitroglycerin 0.2 MG/HR PATCH* (5 MG) TRANSDERM SCH (07:47)
[2017-05-04] MEDS: prednisoLONE 1% OPHTH.SUSP* 5 ML OPHTH.SUSP BOTH EYES SCH (07:48)
--- NOTE | 2017-05-04 12:40 | PMRUTEAM ---
PMRU: Goals Current Status: Nursing: Current Status Skin Deviations [Left Lower Other Arm] Skin Deviation Description [ healing well Left Lower Arm] Bladder Current Status up to br to void. no accidents Bowel Current Status bm x2 on 05/03/17. colace given this am Nutrition Current Status appetite good Medication Current Status tylenol for FUNES during the weight shifter. needs reinforcement Physical Therapy: Current Status Bed Mobility Assistance Supervision Transfer Moblility Assistance Contact Guard Assist Transfer/Bed Mobility None Recommended Devices Ambulation Assistance Contact Guard Assist Ambulation Assistive Devices None Number of Feet Patient 150' Ambulated Stairs Assistance Max Assist Stairs Recommended Devices Two Rails Number of Stairs 2 Curb Not Tested Objective Comments patient has great difficutly with stair navigation and is unable to complete without max assist to maintain standing. patient has difficulty judgeing distance and difficulty with coordination of movement. has difficulty moving slowly and following verbal commands. Occupational Therapy: Current Status Upper Body Dressing Min Assist Lower Body Dressing Mod Assist Bathing Min Assist Toileting Min Assist Toilet Transfer Contact Guard Assist Shower Transfer Contact Guard Assist Eating Min Assist Instrumental ADL Pt. dependent in all IADLs Rec Therapy: Current Status Summary of Assessment and RT assessment complete and pt. is aware of RT Clinical Impression services. Pt. has been engaged in leisure visits. Treatment Goals Pt. will engage in leisure activities while on the unit. Treatment Plan Provide RT services and encourage involvement. Social Work: Current Status Discharge Plan return home with home care svs and family support Potential for Family Training pt's is involved and supportive Anticipated Discharge Home Destination Discharge With VNS and family support Nutrition: Current Status Monitoring new adm; initial goals as outlined below Speech: Current Status Assessment The patient presented with continued receptive/ expressive aphasia; however, progressing as expected. The patient would benefit from cotninued skilled WEIGHT SHIFTER services to improve receptive/expressive language and dysarthria treatment to comprehend and express daily wants and needs independently with use of strategies as needed. Goals: Physical Therapy: Initial Goals Bed Mobility Assistance Independent,Supervision Transfer Mobility Assistance Independent,Supervision Transfer/Bed Mobility Rolling Walker Recommended Devices Ambulation Independent,Supervision Ambulation Recommended Devices Rolling Walker Ambulation Distance 300 Physical Therapy: Updated Goals Transfer/Bed Mobility Rolling Walker Recommended Devices Occupational Therapy: Initial Goals Goals to be Completed in (Days 4 weeks ) Upper Body Bathing Routine Supervision/Set Up Lower Body Bathing Routine Supervision/Set Up Upper Body Dressing Routine Supervision/Set Up Lower Body Dressing Routine Supervision/Set Up Toilet Hygeine and Clothing Supervision/Set Up Management Routine Toilet Transfer Routine Supervision/Set Up Step-In Shower Transfer Supervision/Set Up Routine Tub Transfer Routine Supervision/Set Up Functional Transfers for ADL Supervision/Set Up Grooming Routine Supervision/Set Up Feeding Routine Supervision/Set Up Nursing: Goals Bladder Goal independent Nutrition Goal eating 100% of all meals Medication Goal to assist with meds at home Nutrition: Goals Intervention Goals 1. PO will be adeuqate to meet needs, with use of finger foods to facilitate self-feeding 2. BG will be adequately controlled 3. Pt will maintain regular bowel pattern without constipation/diarrhea Speech: Goals Speech Goal 1 Receptive Language Goal 1 Comments LTG: The patient will comprehend information relating to basic daily wants/needs/ideas with use of strategies as needed. STGs: 1. The patient will follow single step commands at 90% accuracy. Status: The patient followed single step commands at 90% accuracy, no cues. 2. The patient will respond to moderate yes/no questions at 80% accuracy. Status: The patient responded to verbally presented moderate yes/no questions at 90% accuracy, improving to 100% accuracy with repetition. 3. The patient will identify named body parts at 80% accuracy. Status: The patient identifed named body parts at 40% accuracy, no cues, improving to 90% accuracy with moderate cues for left vs right as the patient primarily pointed to named body on left side instead of side specified in directions. Speech Goal 2 Expressive Language Speech Goal 2 Comments LTG: The patient will express basic daily wants and needs independently with use of strategies as needed. STGs: 1. The patient will complete various functional word finding tasks (i.e. responsive naming, sentence completion) at 80% accuracy Status: The patient completed functional naming of opposites at 20% accuracy independently, improving to 50% accuracy with max cues. The patient completed responsive naming tasks at 20% accuracy improving to 60% accuracy with initial phonemic cue. 2. The patient will complete automatic speech tasks at 80% accuracy without cues. Status: The patient counted 1-20 with 75% accuracy , stated 5/7 days of the week and 7/12 months of the year accurate; requiring max cues to improve accuracy to 90-100% for all tasks. 3. The patient will state personal information with 80% accuracy (ie. date of , phone number , address etc) Status: The patient stated name, spouse name and date of , phone number, apartment number and building name independently. The patient required min-mod cues for street address and road number. Speech Goal 3 Motor speech Speech Goal 3 Comments LTG: The patient will express daily wants and needs intelligibly with use of motor speech strategies. STGs: 1. The patient will complete oral motor exercises independently. Status as of 04/28/17: The patient demonstrated understanding of labial and lingual ROM, coordination and strength exercises with moderate cues for increased accuracy. Written HEP left bedside with family or staff assist to complete. 2. The patient will produce single words at 90% accuracy with use of strategies. Speech Goal 4 Cognitive-linguistic Speech Goal 4 Comments Ongoing assessment required due to severity of receptive/expressive language. Social Work: Goals Discharge Plan return home with home care svs and family support Potential for Family Training pt's is involved and supportive Anticipated Discharge Home Destination Discharge With VNS and family support Care Plan: Care Plan ADL's - Improve/Maintain Start: 04/29/17 14:12 Freq: DAILY Status: Active Target: Activity Type Activity Date Activity User E-Sign Co-Sign Detail Recorded Client Recorded Date Recorded By Document 04/29/17 14:13 [id number] 04/29/17 14:13 [id number] 04/29/17 14:13 PMRU Outcome: ADL's/ADL Transfers Orders/Interventions Occupational Therapy Evaluation & Treatment Device Yes Patient to receive OT 5x/wk for 60-120 Therex min/day Self Care Management Group Therapy Neuromuscular ReEducation UE/LE ADL's with Assist Yes: S ADL Transfers with Assist Yes: S Toileting: Transfers,Clothing Management Yes: S ,Hygeine w/Assist Progression Toward Outcome/Goals Progressing Outcome/Goals Met Pt reports better vision today and has made notable progress with his ability to feed himself, complete LB dressing and complete short distance mobility without running into large barriers. Pt does continue to need cues although less frequently than yesterday. He feels encouraged and motviated by his achievements today. Cardiovascular- Improve/Maintain Start: 04/26/17 15:44 Freq: DAILY Status: Active Target: Activity Type Activity Date Activity User E-Sign Co-Sign Detail Recorded Client Recorded Date Recorded By Document 05/04/17 08:09 [id number] 05/04/17 08:10 [id number] 05/04/17 08:09 PMRU Outcome: Cardiovascular Vital Signs q Shift for 48hrs Then BID Yes Daily Weight Ordered No Current Cardiovascular Outcome/Goal Maintain/ Achieve Baseline HR, BP , Perfusion Free of Abnormal Cardiac Symptoms Progression Toward Outcome/Goal Progressing Communication-Improve/Maintain Start: 04/28/17 11:37 Freq: DAILY Status: Active Target: Activity Type Activity Date Activity User E-Sign Co-Sign Detail Recorded Client Recorded Date Recorded By Document 05/04/17 11:41 [id number] [email or web address] 05/04/17 11:42 [id number] 05/04/17 11:41 PMRU Outcome: Communication/Cognitive Status Outcome/Goals Makes Needs Known Effectively Progression Toward Outcomes/Goals Progressing Outcome/Goals Met Comment Continued increased comprehension of simple, verbal 1-step directions and moderate yes/no questions and personal information ( phone number, address etc) Coping/Psych-Improve/Maintain Start: 04/26/17 15:44 Freq: DAILY Status: Active Target: Activity Type Activity Date Activity User E-Sign Co-Sign Detail Recorded Client Recorded Date Recorded By Document 05/04/17 08:09 [id number] [id number] 05/04/17 08:10 [id number] 05/04/17 08:09 PMRU Outcome: Coping/Psychosocial Coping Outcome/Goals Willingness to Participate in Treatment Plan and Basic Needs Utilization of Available Support Systems Psychosocial Outcome/Goals Cooperate/ Participate in Plan Progression Toward Outcome/Goals - Progressing Coping Progression Toward Outcome/Goals - Progressing Psychosocial Outcome/Goals Met Comment staying the night with pt DVT Prophylaxis- Improve/Maintain Start: 04/26/17 15:44 Freq: DAILY Status: Active Target: Activity Type Activity Date Activity User E-Sign Co-Sign Detail Recorded Client Recorded Date Recorded By Document 05/04/17 08:09 [id number] 05/04/17 08:10 [id number] 05/04/17 08:09 PMRU Outcome: DVT Prophylaxis Outcome/Goals Remains Free of DVT Complies with DVT Prophylaxis /Treatment TEDS Stockings on Every AM, Off at HS Progression Toward Outcome/Goals Progressing Discharge Planning - Improve/Maintain Start: 04/26/17 15:44 Freq: DAILY Status: Active Target: Activity Type Activity Date Activity User E-Sign Co-Sign Detail Recorded Client Recorded Date Recorded By Document 05/03/17 23:16 [id number] 05/03/17 23:17 [id number] 05/03/17 23:16 PMRU Outcome: Discharge Planning Identify Patient Needs yes Update Patient Family No Outcome/Goals Demonstrates Understanding of Discharge Plan Progression Toward Outcome/Goals Progressing Education-Improve/Maintain Start: 04/26/17 15:44 Freq: DAILY Status: Active Target: Activity Type Activity Date Activity User E-Sign Co-Sign Detail Recorded Client Recorded Date Recorded By Document 05/04/17 08:09 [id number] 05/04/17 08:10 [id number] 05/04/17 08:09 PMRU Outcome: Education Outcome/Goals Encourage Questions Progression Toward Outcome/Goals Progressing /GI-Improve/Maintain Start: 04/26/17 15:44 Freq: DAILY Status: Active Target: Activity Type Activity Date Activity User E-Sign Co-Sign Detail Recorded Client Recorded Date Recorded By Document 05/04/17 08:09 [id number] 05/04/17 08:10 [id number] 05/04/17 08:09 PMRU Outcome: Genitourinary/ Gastrointestinal Genitourinary- Outcome/Goals Maintain/ Achieve Urinary Continence Remain Free of Hospital- Acquired UTI Gastrointestinal-Outcome/Goals Maintain/ Achieve Bowel Regularity in Accordance with Pt's Baseline Remain Free of Emesis Prevent Constipation Laxatives as Ordered Progression Toward Outcome/Goals - Progressing Progression Toward Outcome/Goals - GI Progressing Outcome/Goals Met Comment patient voiding without difficulty. bm x2 05/03/17 Medication Administration Start: 04/26/17 15:44 Freq: DAILY Status: Active Target: Activity Type Activity Date Activity User E-Sign Co-Sign Detail Recorded Client Recorded Date Recorded By Document 05/04/17 08:09 [id number] 05/04/17 08:10 [id number] 05/04/17 08:09 PMRU Outcome: Medication Administration Assess Patient Knowledge/Teach Med Yes Education for all Meds Outcome/Goals Family/ Caregiver Administer Medications at Home Demonstrates Understanding Progression Towards Outcome/Goals Progressing Outcome/Goals Met Comment speech becoming more clear Is Patient Going Home on Lovenox? No Metabolic Status- Improve/Maintain Start: 04/26/17 15:44 Freq: DAILY Status: Active Target: Activity Type Activity Date Activity User E-Sign Co-Sign Detail Recorded Client Recorded Date Recorded By Document 05/04/17 08:09 [id number] 05/04/17 08:10 [id number] 05/04/17 08:09 PMRU Outcome: Metabolic Status Have Fingersticks Been Ordered Yes Fingerstick Order Frequency AC & HS Outcome/Goals Maintain/ Improve Metabolic Status Demonstrate Knowledge of Prevention/ Treatment of Metabolic Imbalances Progression Toward Outcome/Goals Progressing Outcome/Goals Met Comment requires assistance with feeding Mobility- Improve/Maintain Start: 04/30/17 13:25 Freq: DAILY Status: Active Target: Activity Type Activity Date Activity User E-Sign Co-Sign Detail Recorded Client Recorded Date Recorded By Document 05/03/17 09:56 [id number] [id number] 05/03/17 09:56 [id number] 05/03/17 09:56 PMRU Outcome: Mobility Physical Therapy Evaluation and Yes Treatment Activity OOB with Assistance Yes WBAT Yes Device Yes Assistance Yes Patient to be seen 5x/wk for 60-120 min/ Therex day for: Mobility Training Gait Training W/C Mobility Balance Other Outcome/Goals Maintain/ Achieve Baseline Mobility Status Improve Mobility Status Demonstrates Proper Use of Assistive Devices Free from Complications of Immobility Progression Toward Outcome/Goals Progressing Bed Mobility Yes: supervision Transfers Yes: supervision with rolling walker Gait x ft Yes: supervision with rolling walker. Up/Down Stairs Yes: supervision up/ down 5 stairs Neurological- Improve/Maintain Start: 04/26/17 15:44 Freq: DAILY Status: Active Target: Activity Type Activity Date Activity User E-Sign Co-Sign Detail Recorded Client Recorded Date Recorded By Document 05/04/17 08:09 [id number] [email or web address] 05/04/17 08:10 [id number] 05/04/17 08:09 PMRU Outcome: Neurological Weakness/Aphasia Weakness Aphasia Right Side Outcome/Goals Maintain/ Achieve Baseline Neurological Status Improve Neurological Status Prevent Avoidable Neurological Decline Demonstrate Knowledge of Prevention/Tx of Neuro Disorders/ Complication Maintain/ Improve Strength/ROM Progression Toward Outcome/Goals Progressing Outcome/Goals Met Comment pt has bilat visual cut, blurred vision, aphasic speech , appears to have word finding difficulty. Safety- Improve/Maintain Start: 04/26/17 15:44 Freq: DAILY Status: Active Target: Activity Type Activity Date Activity User E-Sign Co-Sign Detail Recorded Client Recorded Date Recorded By Document 05/04/17 08:09 [id number] 05/04/17 08:10 [id number] 05/04/17 08:09 PMRU Outcome: Safety Outcome/Goals Remain Free of Injury or Harm Cooperates with Safety Measures for Least Restrictive Environment Prevent Falls/ Injury Progression Toward Outcome/Goals Progressing Outcome/Goals Met Comment PA in place, pt rings appropriately, in room Medicine Note: Length of Stay: 2 weeks Anticipated Discharge Destination: Home Tentative Discharge Date: 05/18/17 Discharged to: Home
[2017-05-04] MEDS: Atorvastatin* 80 MG TAB PO SCH (17:06)
[2017-05-04] MEDS: Rivaroxaban TAB(*) 15 MG PO SCH (17:06)
[2017-05-04] MEDS: Terazosin CAP* 5 MG PO SCH (20:24)
[2017-05-04] MEDS: cloNIDine TAB* 0.1 MG PO SCH (20:29)
[2017-05-04] MEDS: Nitro Patch/OINT Remove PATCH OFF SCH (21:07)
[2017-05-05] MEDS: Omeprazole CAP* 20 MG PO SCH (04:53)
[2017-05-05] MEDS: Acetaminophen TAB* 325 MG PO PRN (04:53)
[2017-05-05 07:00] LABS: Hematocrit 23 % (42-52); Hemoglobin 7.8 g/dl (14.0-18.0); Mean Corpuscular HGB Conc 34 g/dl (31-36); Mean Corpuscular Hemoglobin 24 pg (27-31); Mean Platelet Volume 8 um3 (7.4-10.4); Red Blood Count 3.22 10^6/ul (4.0-5.4); Red Cell Distribution Width 19 % (10.5-15); White Blood Count 7.6 10^3/ul (3.5-10.8)
[2017-05-05 07:08] LABS: Comments Flag Yes; Mean Corpuscular Volume 71 fL (80-94)
[2017-05-05 07:09] LABS: Add Diff/Slide Review? Slide Review Added
[2017-05-05 07:14] LABS: Albumin 2.8 g/dL (3.2-5.2); BUN/Creatinine Ratio 23.9 (8-20); Calcium 8.2 mg/dL (8.6-10.3); EGFR African American 54.7 (>60); EGFR Non-African American 42.5 (>60); Globulin 2.4 g/dL (2-4); Potassium 4.4 mmol/L (3.5-5.0); Total Bilirubin 0.3 mg/dL (0.2-1.0); Total Protein 5.2 g/dL (6.4-8.9)
[2017-05-05 07:28] LABS: Hypochromasia 2+; Microcytosis 1+; RBC Morphology Normal (Normal); Schistocytes 1+
[2017-05-05 07:29] LABS: Burr Cells 1+
[2017-05-05] MEDS: Insulin LISPRO* 1 UNITS UNIT SUBCUT SCH ×4 (07:34→20:48)
[2017-05-05] MEDS: Potassium Chlor TAB* 20 MEQ TAB.ER PO SCH ×2 (09:03→20:47)
[2017-05-05] MEDS: Metoprolol Tartrate TAB* 100 MG TAB PO SCH ×2 (09:03→20:48)
[2017-05-05] MEDS: Furosemide TAB* 40 MG PO SCH (09:04)
[2017-05-05] MEDS: glipiZIDE TAB* 5 MG PO SCH ×2 (09:04→17:07)
[2017-05-05] MEDS: Verapamil SR TAB* 240 MG PO SCH ×2 (09:04→20:48)
[2017-05-05] MEDS: prednisoLONE 1% OPHTH.SUSP* 5 ML OPHTH.SUSP BOTH EYES SCH (09:04)
[2017-05-05] MEDS: Dipyridamole/Aspirin 25/200* CAP.ER PO SCH ×2 (09:04→20:47)
[2017-05-05] MEDS: Divalproex DR TAB(*) 500 MG PO SCH ×2 (09:05→20:48)
[2017-05-05] MEDS: Losartan TAB* 25 MG PO SCH (09:05)
[2017-05-05] MEDS: Docusate CAP* 100 MG PO SCH ×2 (09:05→20:48)
[2017-05-05] MEDS: Nitroglycerin 0.2 MG/HR PATCH* (5 MG) TRANSDERM SCH (09:07)
[2017-05-05] MEDS: Rivaroxaban TAB(*) 15 MG PO SCH (17:07)
[2017-05-05] MEDS: Atorvastatin* 80 MG TAB PO SCH (17:07)
[2017-05-05] MEDS: Terazosin CAP* 5 MG PO SCH (20:47)
[2017-05-05] MEDS: Insulin GLARGINE(*) 1 UNITS UNIT SUBCUT SCH (20:48)
[2017-05-05] MEDS: cloNIDine TAB* 0.1 MG PO SCH (20:48)
[2017-05-05] MEDS: Nitro Patch/OINT Remove PATCH OFF SCH (20:56)
[2017-05-06] MEDS: Omeprazole CAP* 20 MG PO SCH (05:37)
[2017-05-06] MEDS: Insulin LISPRO* 1 UNITS UNIT SUBCUT SCH ×4 (07:44→21:22)
[2017-05-06 08:12] LABS: Hematocrit 23 % (42-52); Hemoglobin 7.6 g/dl (14.0-18.0); Mean Corpuscular HGB Conc 33 g/dl (31-36); Mean Corpuscular Hemoglobin 23 pg (27-31); Mean Platelet Volume 9 um3 (7.4-10.4); Red Blood Count 3.25 10^6/ul (4.0-5.4); Red Cell Distribution Width 18 % (10.5-15); White Blood Count 7.8 10^3/ul (3.5-10.8)
[2017-05-06 08:15] LABS: Comments Flag Yes
[2017-05-06 08:16] LABS: Mean Corpuscular Volume 72 fL (80-94)
[2017-05-06] MEDS: Potassium Chlor TAB* 20 MEQ TAB.ER PO SCH ×2 (08:18→21:28)
[2017-05-06] MEDS: Losartan TAB* 25 MG PO SCH (08:18)
[2017-05-06] MEDS: Furosemide TAB* 40 MG PO SCH (08:18)
[2017-05-06] MEDS: Verapamil SR TAB* 240 MG PO SCH ×2 (08:18→21:29)
[2017-05-06] MEDS: Dipyridamole/Aspirin 25/200* CAP.ER PO SCH ×2 (08:19→21:23)
[2017-05-06] MEDS: Divalproex DR TAB(*) 500 MG PO SCH ×2 (08:19→21:23)
[2017-05-06] MEDS: Metoprolol Tartrate TAB* 100 MG TAB PO SCH ×2 (08:19→21:27)
[2017-05-06] MEDS: Docusate CAP* 100 MG PO SCH ×2 (08:19→21:36)
[2017-05-06] MEDS: glipiZIDE TAB* 5 MG PO SCH ×2 (08:19→17:20)
[2017-05-06] MEDS: prednisoLONE 1% OPHTH.SUSP* 5 ML OPHTH.SUSP BOTH EYES SCH (08:19)
[2017-05-06] MEDS: Nitroglycerin 0.2 MG/HR PATCH* (5 MG) TRANSDERM SCH (08:19)
[2017-05-06] MEDS: Atorvastatin* 80 MG TAB PO SCH (17:19)
[2017-05-06] MEDS: Rivaroxaban TAB(*) 15 MG PO SCH (17:20)
[2017-05-06] MEDS: Insulin GLARGINE(*) 1 UNITS UNIT SUBCUT SCH (21:21)
[2017-05-06] MEDS: cloNIDine TAB* 0.1 MG PO SCH (21:22)
[2017-05-06] MEDS: Terazosin CAP* 5 MG PO SCH (21:28)
[2017-05-06] MEDS: Nitro Patch/OINT Remove PATCH OFF SCH (21:56)
[2017-05-06] MEDS ORDERED: LORazepam TAB(*) 0.5 MG PO PRN (22:06)
[2017-05-07] MEDS: Omeprazole CAP* 20 MG PO SCH (06:26)
[2017-05-07] MEDS: Insulin LISPRO* 1 UNITS UNIT SUBCUT SCH ×4 (07:20→21:08)
[2017-05-07] MEDS: Nitroglycerin 0.2 MG/HR PATCH* (5 MG) TRANSDERM SCH (08:28)
[2017-05-07] MEDS: Losartan TAB* 25 MG PO SCH (08:29)
[2017-05-07] MEDS: glipiZIDE TAB* 5 MG PO SCH ×2 (08:29→16:56)
[2017-05-07] MEDS: Furosemide TAB* 40 MG PO SCH (08:29)
[2017-05-07] MEDS: prednisoLONE 1% OPHTH.SUSP* 5 ML OPHTH.SUSP BOTH EYES SCH (08:29)
[2017-05-07] MEDS: Potassium Chlor TAB* 20 MEQ TAB.ER PO SCH ×2 (08:29→20:53)
[2017-05-07] MEDS: Verapamil SR TAB* 240 MG PO SCH ×2 (08:29→20:54)
[2017-05-07] MEDS: Dipyridamole/Aspirin 25/200* CAP.ER PO SCH ×2 (08:29→20:50)
[2017-05-07] MEDS: Metoprolol Tartrate TAB* 100 MG TAB PO SCH ×2 (08:29→20:53)
[2017-05-07] MEDS: Divalproex DR TAB(*) 500 MG PO SCH ×2 (08:30→20:50)
[2017-05-07] MEDS: Docusate CAP* 100 MG PO SCH ×2 (08:30→20:53)
[2017-05-07 09:05] LABS: Comments Flag Yes; Hematocrit 26 % (42-52); Hemoglobin 8.4 g/dl (14.0-18.0); Mean Corpuscular HGB Conc 33 g/dl (31-36); Mean Corpuscular Hemoglobin 24 pg (27-31); Mean Platelet Volume 9 um3 (7.4-10.4); Red Blood Count 3.59 10^6/ul (4.0-5.4); Red Cell Distribution Width 19 % (10.5-15); White Blood Count 9.3 10^3/ul (3.5-10.8)
[2017-05-07 09:06] LABS: Mean Corpuscular Volume 72 fL (80-94)
[2017-05-07] MEDS: Rivaroxaban TAB(*) 15 MG PO SCH (16:56)
[2017-05-07] MEDS: Atorvastatin* 80 MG TAB PO SCH (16:57)
[2017-05-07] MEDS: cloNIDine TAB* 0.1 MG PO SCH (20:50)
[2017-05-07] MEDS: Terazosin CAP* 5 MG PO SCH (20:54)
[2017-05-07] MEDS: Nitro Patch/OINT Remove PATCH OFF SCH (20:59)
[2017-05-07] MEDS: Insulin GLARGINE(*) 1 UNITS UNIT SUBCUT SCH (21:08)
[2017-05-08] MEDS: Omeprazole CAP* 20 MG PO SCH (06:32)
[2017-05-08] MEDS: Insulin LISPRO* 1 UNITS UNIT SUBCUT SCH ×4 (08:10→20:17)
[2017-05-08] MEDS: Metoprolol Tartrate TAB* 100 MG TAB PO SCH ×2 (08:11→21:29)
[2017-05-08] MEDS: Potassium Chlor TAB* 20 MEQ TAB.ER PO SCH ×2 (08:12→21:29)
[2017-05-08] MEDS: Furosemide TAB* 40 MG PO SCH (08:12)
[2017-05-08] MEDS: Divalproex DR TAB(*) 500 MG PO SCH ×2 (08:13→21:28)
[2017-05-08] MEDS: Dipyridamole/Aspirin 25/200* CAP.ER PO SCH ×2 (08:13→21:28)
[2017-05-08] MEDS: Verapamil SR TAB* 240 MG PO SCH ×2 (08:13→21:28)
[2017-05-08] MEDS: Losartan TAB* 25 MG PO SCH (08:14)
[2017-05-08] MEDS: glipiZIDE TAB* 5 MG PO SCH ×2 (08:14→16:54)
[2017-05-08] MEDS: Nitroglycerin 0.2 MG/HR PATCH* (5 MG) TRANSDERM SCH (08:15)
[2017-05-08] MEDS: Docusate CAP* 100 MG PO SCH ×2 (08:15→21:26)
[2017-05-08] MEDS: prednisoLONE 1% OPHTH.SUSP* 5 ML OPHTH.SUSP BOTH EYES SCH (08:18)
[2017-05-08] MEDS: Rivaroxaban TAB(*) 15 MG PO SCH (16:54)
[2017-05-08] MEDS: Atorvastatin* 80 MG TAB PO SCH (16:54)
[2017-05-08] MEDS: Terazosin CAP* 5 MG PO SCH (21:29)
[2017-05-08] MEDS: Insulin GLARGINE(*) 1 UNITS UNIT SUBCUT SCH (21:30)
[2017-05-08] MEDS: cloNIDine TAB* 0.1 MG PO SCH (21:30)
[2017-05-08] MEDS: Nitro Patch/OINT Remove PATCH OFF SCH (21:34)
[2017-05-09] MEDS: Omeprazole CAP* 20 MG PO SCH (06:25)
[2017-05-09] MEDS: Insulin LISPRO* 1 UNITS UNIT SUBCUT SCH ×4 (07:23→21:26)
[2017-05-09] MEDS: glipiZIDE TAB* 5 MG PO SCH ×2 (08:16→17:06)
[2017-05-09] MEDS: cloNIDine TAB* 0.1 MG PO SCH ×2 (08:16→21:37)
[2017-05-09] MEDS: Dipyridamole/Aspirin 25/200* CAP.ER PO SCH ×2 (08:17→21:37)
[2017-05-09] MEDS: Verapamil SR TAB* 240 MG PO SCH ×2 (08:17→21:41)
[2017-05-09] MEDS: Furosemide TAB* 40 MG PO SCH (08:17)
[2017-05-09] MEDS: Metoprolol Tartrate TAB* 100 MG TAB PO SCH ×2 (08:17→21:38)
[2017-05-09] MEDS: Docusate CAP* 100 MG PO SCH ×2 (08:18→21:27)
[2017-05-09] MEDS: Potassium Chlor TAB* 20 MEQ TAB.ER PO SCH ×2 (08:18→21:39)
[2017-05-09] MEDS: Losartan TAB* 25 MG PO SCH (08:18)
[2017-05-09] MEDS: Divalproex DR TAB(*) 500 MG PO SCH ×2 (08:19→21:37)
[2017-05-09] MEDS: Nitroglycerin 0.2 MG/HR PATCH* (5 MG) TRANSDERM SCH (08:20)
[2017-05-09] MEDS: prednisoLONE 1% OPHTH.SUSP* 5 ML OPHTH.SUSP BOTH EYES SCH (10:27)
[2017-05-09] MEDS: Atorvastatin* 80 MG TAB PO SCH (17:06)
[2017-05-09] MEDS: Rivaroxaban TAB(*) 15 MG PO SCH (17:06)
[2017-05-09] MEDS: Insulin GLARGINE(*) 1 UNITS UNIT SUBCUT SCH (21:36)
[2017-05-09] MEDS: Terazosin CAP* 5 MG PO SCH (21:39)
[2017-05-09] MEDS: Nitro Patch/OINT Remove PATCH OFF SCH (21:40)
[2017-05-10] MEDS: Omeprazole CAP* 20 MG PO SCH (06:34)
[2017-05-10] MEDS: Nitroglycerin 0.2 MG/HR PATCH* (5 MG) TRANSDERM SCH (08:39)
[2017-05-10] MEDS: cloNIDine TAB* 0.1 MG PO SCH ×2 (08:41→20:15)
[2017-05-10] MEDS: Metoprolol Tartrate TAB* 100 MG TAB PO SCH ×2 (08:41→20:16)
[2017-05-10] MEDS: Furosemide TAB* 40 MG PO SCH (08:41)
[2017-05-10] MEDS: Losartan TAB* 25 MG PO SCH (08:41)
[2017-05-10] MEDS: Verapamil SR TAB* 240 MG PO SCH ×2 (08:41→20:15)
[2017-05-10] MEDS: glipiZIDE TAB* 5 MG PO SCH ×2 (08:41→17:15)
[2017-05-10] MEDS: Potassium Chlor TAB* 20 MEQ TAB.ER PO SCH ×2 (08:41→20:15)
[2017-05-10] MEDS: Dipyridamole/Aspirin 25/200* CAP.ER PO SCH ×2 (08:41→20:16)
[2017-05-10] MEDS: Divalproex DR TAB(*) 500 MG PO SCH ×2 (08:42→20:17)
[2017-05-10] MEDS: Insulin LISPRO* 1 UNITS UNIT SUBCUT SCH ×4 (08:47→21:28)
[2017-05-10] MEDS: prednisoLONE 1% OPHTH.SUSP* 5 ML OPHTH.SUSP BOTH EYES SCH (08:48)
[2017-05-10] MEDS: Docusate CAP* 100 MG PO SCH ×2 (10:39→20:17)
[2017-05-10] MEDS: Atorvastatin* 80 MG TAB PO SCH (17:14)
[2017-05-10] MEDS: Rivaroxaban TAB(*) 15 MG PO SCH (17:15)
[2017-05-10] MEDS: Terazosin CAP* 5 MG PO SCH (20:15)
[2017-05-10] MEDS: Insulin GLARGINE(*) 1 UNITS UNIT SUBCUT SCH (21:26)
[2017-05-10] MEDS: Nitro Patch/OINT Remove PATCH OFF SCH (21:38)
[2017-05-11] MEDS: Omeprazole CAP* 20 MG PO SCH (06:23)
[2017-05-11] MEDS: Insulin LISPRO* 1 UNITS UNIT SUBCUT SCH ×4 (07:53→21:43)
[2017-05-11] MEDS: glipiZIDE TAB* 5 MG PO SCH ×2 (08:31→17:17)
[2017-05-11] MEDS: prednisoLONE 1% OPHTH.SUSP* 5 ML OPHTH.SUSP BOTH EYES SCH (08:31)
[2017-05-11] MEDS: Losartan TAB* 25 MG PO SCH (08:31)
[2017-05-11] MEDS: Metoprolol Tartrate TAB* 100 MG TAB PO SCH ×2 (08:32→21:39)
[2017-05-11] MEDS: Dipyridamole/Aspirin 25/200* CAP.ER PO SCH ×2 (08:32→21:39)
[2017-05-11] MEDS: Divalproex DR TAB(*) 500 MG PO SCH ×2 (08:32→21:46)
[2017-05-11] MEDS: Furosemide TAB* 40 MG PO SCH (08:32)
[2017-05-11] MEDS: Verapamil SR TAB* 240 MG PO SCH ×2 (08:32→21:41)
[2017-05-11] MEDS: cloNIDine TAB* 0.1 MG PO SCH ×2 (08:32→21:38)
[2017-05-11] MEDS: Potassium Chlor TAB* 20 MEQ TAB.ER PO SCH ×2 (08:32→21:38)
[2017-05-11] MEDS: Nitroglycerin 0.2 MG/HR PATCH* (5 MG) TRANSDERM SCH (08:33)
[2017-05-11] MEDS: Docusate CAP* 100 MG PO SCH ×2 (08:35→21:46)
--- NOTE | 2017-05-11 12:28 | PMRUTEAM ---
PMRU: Goals Current Status: Nursing: Current Status Skin Deviations [Left Lower Abrasion Arm] Skin Deviation Description [ healed Left Lower Arm] Bladder Current Status up to br to void. no accidents Bowel Current Status colace given this am Nutrition Current Status appetite good Medication Current Status pt likes pills poured in hand unable to do with small pills or they dont make it to pt mouth Physical Therapy: Current Status Bed Mobility Assistance Supervision Transfer Moblility Assistance Contact Guard Assist Transfer/Bed Mobility None Recommended Devices Ambulation Assistance Supervision,Contact Guard Assist Ambulation Assistive Devices None Number of Feet Patient 150' x 2 Ambulated Stairs Assistance Max Assist Stairs Recommended Devices Two Rails Number of Stairs 2 Curb Not Tested Objective Comments patient has great difficutly with stair navigation and is unable to complete without max assist to maintain standing. patient has difficulty judgeing distance and difficulty with coordination of movement. has difficulty moving slowly and following verbal commands. Occupational Therapy: Current Status Upper Body Dressing Contact Guard Assist Lower Body Dressing Contact Guard Assist Bathing Min Assist Toileting Supervision Toilet Transfer Contact Guard Assist Shower Transfer Contact Guard Assist Eating Contact Guard Assist Instrumental ADL Pt. dependent in all IADLs Rec Therapy: Current Status Summary of Assessment and RT assessment complete and pt. is aware of RT Clinical Impression services. Pt. has been engaged in leisure visits and listens to music independently in his room during free-time. Treatment Goals Pt. will engage in leisure activities while on the unit. Treatment Plan Provide RT services and encourage involvement. Social Work: Current Status Discharge Plan return home with home care svs and family support Potential for Family Training pt's has received family training Anticipated Discharge Home Destination Discharge With VNS and family support Nutrition: Current Status Monitoring pt eating 100% of meals (consistent carbohydrate diet). Finger foods more easily consumed by pt, but other foods sent as well. FS is widely variable, ranging 50s-70s on many mornings, up to 140s-200s in afternoon and evening. Noted when HS snack leftover (ie: not eaten), a.m. FS result is low. Encouraged him to consume snack in the evening. Had BM this a.m. Speech: Current Status Assessment The patient presented with an increase in accuracy with responsive naming this date. He continues to have difficulty with following two-step directions and answering yes/no questions. 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 Goals: Physical Therapy: Initial Goals Bed Mobility Assistance Independent,Supervision Transfer Mobility Assistance Independent,Supervision Transfer/Bed Mobility Rolling Walker Recommended Devices Ambulation Independent,Supervision Ambulation Recommended Devices Rolling Walker Ambulation Distance 300 Physical Therapy: Updated Goals Bed Mobility Assistance Independent Transfer Mobility Assistance Supervision Transfer/Bed Mobility None Recommended Devices Ambulation Assistance Contact Guard Assist Ambulation Assistive Devices None Home Exercise Program Supervision Assistance Occupational Therapy: Initial Goals Goals to be Completed in (Days 4 weeks ) Upper Body Bathing Routine Supervision/Set Up Lower Body Bathing Routine Supervision/Set Up Upper Body Dressing Routine Supervision/Set Up Lower Body Dressing Routine Supervision/Set Up Toilet Hygeine and Clothing Supervision/Set Up Management Routine Toilet Transfer Routine Supervision/Set Up Step-In Shower Transfer Supervision/Set Up Routine Tub Transfer Routine Supervision/Set Up Functional Transfers for ADL Supervision/Set Up Grooming Routine Supervision/Set Up Feeding Routine Supervision/Set Up Nursing: Goals Bladder Goal independent Nutrition Goal eating 100% of all meals Medication Goal to assist with meds at home Nutrition: Goals Intervention Goals 1. PO will be adeuqate to meet needs, with use of finger foods to facilitate self-feeding 2. BG will be adequately controlled; no s/sx hypo- or hyperglycemia 3. Pt will maintain regular bowel pattern without constipation/diarrhea Speech: Goals Speech Goal 1 Receptive Language Goal 1 Comments LTG: The patient will comprehend information relating to basic daily wants/needs/ideas with use of strategies as needed. STGs: 1. The patient will follow single step commands at 90% accuracy. Goal met 05/07/17 increase to 2 step commands. Status: Patient followed two-step directions with 10% accuracy; he had difficulty with temporal directions of "before" and "after", improving to 40% accuracy with moderate cues. 2. The patient will respond to moderate yes/no questions at 80% accuracy. Status: The patient responded to verbally presented moderate yes/no questions at 80% accuracy independently, improving to 100% accuracy with repetition. 3. The patient will identify named body parts at 80% accuracy. Status: The patient identifed named right sided body parts at 50% accuracy, no cues, improving to 80% accuracy with moderate cues for left vs right as the patient primarily pointed to named body on left side instead of side specified in directions and further improving to 100% accuracy with immediate model. Speech Goal 2 Expressive Language Speech Goal 2 Comments LTG: The patient will express basic daily wants and needs independently with use of strategies as needed. STGs: 1. The patient will complete various functional word finding tasks (i.e. responsive naming, sentence completion) at 80% accuracy Status: Word deductions given three words which described an object: 20% accuracy independently, improving to 70% accuracy with max cues. The patient completed functional responsive naming tasks at 20% accuracy, improving to 70% accuracy with max cues. 2. The patient will complete automatic speech tasks at 80% accuracy without cues. Status as of 05/07/17: The patient counted 1-20 with 95% accuracy, stated 7/7 days of the week and 9/12 months of the year accurate; requiring max cues to improve accuracy to 100% for all tasks. 3. The patient will state personal information with 80% accuracy (ie. date of , phone number , address etc) Status: The patient stated name, spouse name and date of independently. The patient required mod-max cues for street address, phone number, apartment number and building name and age. Speech Goal 3 Motor speech Speech Goal 3 Comments LTG: The patient will express daily wants and needs intelligibly with use of motor speech strategies. STGs: 1. The patient will complete oral motor exercises independently. Status as of 04/28/17: The patient demonstrated understanding of labial and lingual ROM, coordination and strength exercises with moderate cues for increased accuracy. Written HEP left bedside with family or staff assist to complete. 2. The patient will produce single words at 90% accuracy with use of strategies. Speech Goal 4 Cognitive-linguistic Speech Goal 4 Comments Ongoing assessment required due to severity of receptive/expressive language. Social Work: Goals Discharge Plan return home with home care svs and family support Potential for Family Training pt's has received family training Anticipated Discharge Home Destination Discharge With VNS and family support Care Plan: Care Plan ADL's - Improve/Maintain Start: 04/29/17 14:12 Freq: DAILY Status: Active Target: Activity Type Activity Date Activity User E-Sign Co-Sign Detail Recorded Client Recorded Date Recorded By Document 04/29/17 14:13 [id number] 04/29/17 14:13 [id number] 04/29/17 14:13 PMRU Outcome: ADL's/ADL Transfers Orders/Interventions Occupational Therapy Evaluation & Treatment Device Yes Patient to receive OT 5x/wk for 60-120 Therex min/day Self Care Management Group Therapy Neuromuscular ReEducation UE/LE ADL's with Assist Yes: S ADL Transfers with Assist Yes: S Toileting: Transfers,Clothing Management Yes: S ,Hygeine w/Assist Progression Toward Outcome/Goals Progressing Outcome/Goals Met Pt reports better vision today and has made notable progress with his ability to feed himself, complete LB dressing and complete short distance mobility without running into large barriers. Pt does continue to need cues although less frequently than yesterday. He feels encouraged and motviated by his achievements today. Cardiovascular- Improve/Maintain Start: 04/26/17 15:44 Freq: DAILY Status: Active Target: Activity Type Activity Date Activity User E-Sign Co-Sign Detail Recorded Client Recorded Date Recorded By Document 05/11/17 10:38 [id number] 05/11/17 10:39 [id number] 05/11/17 10:38 PMRU Outcome: Cardiovascular Vital Signs q Shift for 48hrs Then BID Yes Daily Weight Ordered No Current Cardiovascular Outcome/Goal Maintain/ Achieve Baseline HR, BP , Perfusion Free of Abnormal Cardiac Symptoms Progression Toward Outcome/Goal Progressing Outcome/Goals Met Comment bp improving Communication-Improve/Maintain Start: 04/28/17 11:37 Freq: DAILY Status: Active Target: Activity Type Activity Date Activity User E-Sign Co-Sign Detail Recorded Client Recorded Date Recorded By Document 05/10/17 13:18 [id number] 05/10/17 13:18 [id number] 05/10/17 13:18 PMRU Outcome: Communication/Cognitive Status Outcome/Goals Makes Needs Known Effectively Progression Toward Outcomes/Goals Progressing Outcome/Goals Met Comment Follow two-step directions: 10 % (increase in task complexity ) Body part identification: 45% accuracy, increased to 80 % with left and right cues. Yes/no questions: 80% Required moderate-max cues for stating phone number, address , and apartment number. Independently stated name, , and spouse 's name Responsive naming 60% accuracy. Coping/Psych-Improve/Maintain Start: 04/26/17 15:44 Freq: DAILY Status: Complete Target: Activity Type Activity Date Activity User E-Sign Co-Sign Detail Recorded Client Recorded Date Recorded By Document 05/10/17 11:00 [id number] 05/10/17 11:01 [id number] 05/10/17 11:00 PMRU Outcome: Coping/Psychosocial Coping Outcome/Goals Verbalization of Acceptance of Rehab Admit Willingness to Participate in Treatment Plan and Basic Needs Utilization of Available Support Systems Psychosocial Outcome/Goals Cooperate/ Participate in Plan Progression Toward Outcome/Goals - Progressing Coping Progression Toward Outcome/Goals - Progressing Psychosocial Coping Outcome/Goals Met Demonstrates Understanding of Rehab Admit and Goal Setting Process Recognizes/Uses Appropriate Resources That Can Assist With Adjustment DVT Prophylaxis- Improve/Maintain Start: 04/26/17 15:44 Freq: DAILY Status: Active Target: Activity Type Activity Date Activity User E-Sign Co-Sign Detail Recorded Client Recorded Date Recorded By Document 05/11/17 10:38 [id number] 05/11/17 10:39 [id number] 05/11/17 10:38 PMRU Outcome: DVT Prophylaxis Outcome/Goals Remains Free of DVT Complies with DVT Prophylaxis /Treatment TEDS Stockings on Every AM, Off at HS Progression Toward Outcome/Goals Progressing Discharge Planning - Improve/Maintain Start: 04/26/17 15:44 Freq: DAILY Status: Active Target: Activity Type Activity Date Activity User E-Sign Co-Sign Detail Recorded Client Recorded Date Recorded By Document 05/11/17 10:38 [id number] 05/11/17 10:39 [id number] 05/11/17 10:38 PMRU Outcome: Discharge Planning Identify Patient Needs yes Update Patient Family No Outcome/Goals Demonstrates Understanding of Discharge Plan Progression Toward Outcome/Goals Progressing Education-Improve/Maintain Start: 04/26/17 15:44 Freq: DAILY Status: Active Target: Activity Type Activity Date Activity User E-Sign Co-Sign Detail Recorded Client Recorded Date Recorded By Document 05/11/17 10:38 [id number] 05/11/17 10:39 [id number] 05/11/17 10:38 PMRU Outcome: Education Outcome/Goals Encourage Questions Progression Toward Outcome/Goals Progressing /GI-Improve/Maintain Start: 04/26/17 15:44 Freq: DAILY Status: Active Target: Activity Type Activity Date Activity User E-Sign Co-Sign Detail Recorded Client Recorded Date Recorded By Document 05/11/17 10:38 [id number] 05/11/17 10:39 [id number] 05/11/17 10:38 PMRU Outcome: Genitourinary/ Gastrointestinal Genitourinary- Outcome/Goals Maintain/ Achieve Urinary Continence Remain Free of Hospital- Acquired UTI Gastrointestinal-Outcome/Goals Maintain/ Achieve Bowel Regularity in Accordance with Pt's Baseline Remain Free of Emesis Prevent Constipation Laxatives as Ordered Progression Toward Outcome/Goals - Progressing Progression Toward Outcome/Goals - GI Progressing Outcome/Goals Met Comment pt up to toilet Medication Administration Start: 04/26/17 15:44 Freq: DAILY Status: Active Target: Activity Type Activity Date Activity User E-Sign Co-Sign Detail Recorded Client Recorded Date Recorded By Document 05/11/17 10:38 [id number] 05/11/17 10:39 [id number] 05/11/17 10:38 PMRU Outcome: Medication Administration Assess Patient Knowledge/Teach Med Yes Education for all Meds Outcome/Goals Family/ Caregiver Administer Medications at Home Demonstrates Understanding Progression Towards Outcome/Goals Progressing Outcome/Goals Met Comment speech becoming more clear. vision slowly improving Is Patient Going Home on Lovenox? No Metabolic Status- Improve/Maintain Start: 04/26/17 15:44 Freq: DAILY Status: Active Target: Activity Type Activity Date Activity User E-Sign Co-Sign Detail Recorded Client Recorded Date Recorded By Document 05/11/17 10:38 [id number] 05/11/17 10:39 [id number] 05/11/17 10:38 PMRU Outcome: Metabolic Status Have Fingersticks Been Ordered Yes Fingerstick Order Frequency AC & HS Outcome/Goals Maintain/ Improve Metabolic Status Demonstrate Knowledge of Prevention/ Treatment of Metabolic Imbalances Progression Toward Outcome/Goals Progressing Mobility- Improve/Maintain Start: 04/30/17 13:25 Freq: DAILY Status: Active Target: Activity Type Activity Date Activity User E-Sign Co-Sign Detail Recorded Client Recorded Date Recorded By Document 05/11/17 10:20 [id number] 05/11/17 10:20 [id number] 05/11/17 10:20 PMRU Outcome: Mobility Physical Therapy Evaluation and Yes Treatment Activity OOB with Assistance Yes WBAT Yes Device Yes Assistance Yes Patient to be seen 5x/wk for 60-120 min/ Therex day for: Mobility Training Gait Training W/C Mobility Balance Other Outcome/Goals Maintain/ Achieve Baseline Mobility Status Improve Mobility Status Demonstrates Proper Use of Assistive Devices Free from Complications of Immobility Progression Toward Outcome/Goals Progressing Bed Mobility Yes: supervision Transfers Yes: supervision with rolling walker Gait x ft Yes: supervision with rolling walker. Up/Down Stairs Yes: supervision up/ down 5 stairs Neurological- Improve/Maintain Start: 04/26/17 15:44 Freq: DAILY Status: Active Target: Activity Type Activity Date Activity User E-Sign Co-Sign Detail Recorded Client Recorded Date Recorded By Document 05/11/17 10:38 [id number] 05/11/17 10:39 [id number] 05/11/17 10:38 PMRU Outcome: Neurological Weakness/Aphasia Weakness Aphasia Right Side Outcome/Goals Maintain/ Achieve Baseline Neurological Status Improve Neurological Status Prevent Avoidable Neurological Decline Demonstrate Knowledge of Prevention/Tx of Neuro Disorders/ Complication Maintain/ Improve Strength/ROM Progression Toward Outcome/Goals Progressing Outcome/Goals Met Comment pt has bilat visual cut, blurred vision, aphasic speech , appears to have word finding difficulty. Sight getting better along with speech. Safety- Improve/Maintain Start: 04/26/17 15:44 Freq: DAILY Status: Active Target: Activity Type Activity Date Activity User E-Sign Co-Sign Detail Recorded Client Recorded Date Recorded By Document 05/11/17 10:38 [id number] 05/11/17 10:39 [id number] 05/11/17 10:38 PMRU Outcome: Safety Outcome/Goals Remain Free of Injury or Harm Cooperates with Safety Measures for Least Restrictive Environment Prevent Falls/ Injury Progression Toward Outcome/Goals Progressing Outcome/Goals Met Comment PA in place, pt ringing appropriately, in room Medicine Note: Length of Stay: 2 days Anticipated Discharge Destination: Home Tentative Discharge Date: 05/13/17 Discharged to: home
[2017-05-11] MEDS: Atorvastatin* 80 MG TAB PO SCH (17:17)
[2017-05-11] MEDS: Rivaroxaban TAB(*) 15 MG PO SCH (17:17)
[2017-05-11] MEDS: Terazosin CAP* 5 MG PO SCH (21:39)
[2017-05-11] MEDS: Nitro Patch/OINT Remove PATCH OFF SCH (21:43)
[2017-05-11] MEDS: Insulin GLARGINE(*) 1 UNITS UNIT SUBCUT SCH (21:45)
[2017-05-12 06:39] LABS: Hematocrit 21 % (42-52); Hemoglobin 7.2 g/dl (14.0-18.0); Mean Corpuscular HGB Conc 34 g/dl (31-36); Mean Corpuscular Hemoglobin 24 pg (27-31); Mean Platelet Volume 8 um3 (7.4-10.4); Red Blood Count 2.97 10^6/ul (4.0-5.4); Red Cell Distribution Width 21 % (10.5-15); White Blood Count 7.3 10^3/ul (3.5-10.8)
[2017-05-12 06:40] LABS: Comments Flag Yes
[2017-05-12 06:41] LABS: Mean Corpuscular Volume 72 fL (80-94)
[2017-05-12] MEDS: Omeprazole CAP* 20 MG PO SCH (06:48)
[2017-05-12 06:56] LABS: Albumin 3.1 g/dL (3.2-5.2); BUN/Creatinine Ratio 22.4 (8-20); Calcium 8.4 mg/dL (8.6-10.3); EGFR African American 61.8 (>60); EGFR Non-African American 48.1 (>60); Globulin 2.3 g/dL (2-4); Potassium 4.2 mmol/L (3.5-5.0); Total Bilirubin 0.4 mg/dL (0.2-1.0); Total Protein 5.4 g/dL (6.4-8.9)
[2017-05-12] MEDS: Insulin LISPRO* 1 UNITS UNIT SUBCUT SCH ×4 (07:44→20:36)
[2017-05-12] MEDS: glipiZIDE TAB* 5 MG PO SCH ×2 (08:35→17:35)
[2017-05-12] MEDS: cloNIDine TAB* 0.1 MG PO SCH ×2 (08:35→21:20)
[2017-05-12] MEDS: Potassium Chlor TAB* 20 MEQ TAB.ER PO SCH ×2 (08:36→21:19)
[2017-05-12] MEDS: Losartan TAB* 25 MG PO SCH (08:36)
[2017-05-12] MEDS: Nitroglycerin 0.2 MG/HR PATCH* (5 MG) TRANSDERM SCH (08:36)
[2017-05-12] MEDS: Divalproex DR TAB(*) 500 MG PO SCH ×2 (08:36→21:19)
[2017-05-12] MEDS: Docusate CAP* 100 MG PO SCH ×2 (08:36→21:22)
[2017-05-12] MEDS: Furosemide TAB* 40 MG PO SCH (08:36)
[2017-05-12] MEDS: Verapamil SR TAB* 240 MG PO SCH ×2 (08:36→21:19)
[2017-05-12] MEDS: Dipyridamole/Aspirin 25/200* CAP.ER PO SCH ×2 (08:36→21:20)
[2017-05-12] MEDS: Metoprolol Tartrate TAB* 100 MG TAB PO SCH ×2 (08:36→21:20)
[2017-05-12] MEDS: prednisoLONE 1% OPHTH.SUSP* 5 ML OPHTH.SUSP BOTH EYES SCH (08:41)
[2017-05-12] MEDS: Rivaroxaban TAB(*) 15 MG PO SCH (17:35)
[2017-05-12] MEDS: Atorvastatin* 80 MG TAB PO SCH (17:35)
[2017-05-12] MEDS: Terazosin CAP* 5 MG PO SCH (21:20)
[2017-05-12] MEDS: Insulin GLARGINE(*) 1 UNITS UNIT SUBCUT SCH (21:22)
[2017-05-12] MEDS: Nitro Patch/OINT Remove PATCH OFF SCH (21:49)
[2017-05-13 06:34] VITALS: BP 183/70
[2017-05-13] MEDS: Omeprazole CAP* 20 MG PO SCH (06:38)
[2017-05-13 07:22] LABS: Hematocrit 22 % (42-52); Hemoglobin 7.1 g/dl (14.0-18.0); Mean Corpuscular HGB Conc 33 g/dl (31-36); Mean Corpuscular Hemoglobin 24 pg (27-31); Mean Platelet Volume 9 um3 (7.4-10.4); Red Blood Count 2.98 10^6/ul (4.0-5.4); Red Cell Distribution Width 21 % (10.5-15); White Blood Count 7.8 10^3/ul (3.5-10.8)
[2017-05-13 07:36] LABS: Comments Flag Yes
[2017-05-13 07:37] LABS: Mean Corpuscular Volume 73 fL (80-94)
[2017-05-13] MEDS: Insulin LISPRO* 1 UNITS UNIT SUBCUT SCH ×2 (08:39→11:34)
[2017-05-13] MEDS: Divalproex DR TAB(*) 500 MG PO SCH (08:49)
[2017-05-13] MEDS: Dipyridamole/Aspirin 25/200* CAP.ER PO SCH (08:49)
[2017-05-13] MEDS: Verapamil SR TAB* 240 MG PO SCH (08:49)
[2017-05-13] MEDS: Potassium Chlor TAB* 20 MEQ TAB.ER PO SCH (08:49)
[2017-05-13] MEDS: Losartan TAB* 25 MG PO SCH (08:49)
[2017-05-13] MEDS: glipiZIDE TAB* 5 MG PO SCH (08:50)
[2017-05-13] MEDS: Docusate CAP* 100 MG PO SCH (08:50)
[2017-05-13] MEDS: Nitroglycerin 0.2 MG/HR PATCH* (5 MG) TRANSDERM SCH (08:50)
[2017-05-13] MEDS: Furosemide TAB* 40 MG PO SCH (08:50)
[2017-05-13] MEDS: Metoprolol Tartrate TAB* 100 MG TAB PO SCH (08:50)
[2017-05-13] MEDS: cloNIDine TAB* 0.1 MG PO SCH (08:50)
[2017-05-13] MEDS: prednisoLONE 1% OPHTH.SUSP* 5 ML OPHTH.SUSP BOTH EYES SCH (08:51)
--- NOTE | 2017-05-14 10:01 | DS ---
CC: KD Wetzel* DISCHARGE SUMMARY: DATE OF ADMISSION: 04/26/17 DATE OF DISCHARGE: 05/13/17 DISCHARGE DIAGNOSES: 1. Stroke with right-sided weakness. 2. Aphagia. 3. Hypertension. 4. Diabetes. 5. Stage 3 chronic kidney disease. 6. Acute blood loss anemia. 7. Aortic stenosis. 8. Bipolar disease. 9. Coronary artery disease. 10. History of previous stroke. 11. Atrial fibrillation. HISTORY OF ILLNESS AND HOSPITAL COURSE: For complete history of the events leading up to his rehab stay, please see the history and physical dictated by me on 04/26/17. While on the rehab unit, the patient's blood pressure remained high. Clonidine was added to his multiple blood pressure medications, namely metoprolol, Cardizem, Cozaar, Lasix, and nitro patch. His blood pressure initially improved, but he continued to have episodes of high blood pressure. His blood sugars likewise were hard to control. He could not fill on metformin because of his chronic kidney disease. Lantus insulin was added with some improvement. However, he began to have episodes of hypoglycemia with the Lantus insulin. The patient was on both Aggrenox and Xarelto for secondary stroke prevention. His hemoglobin was monitored while on the rehab unit. Initially, his hemoglobin was fine, but on 05/05/17, his hemoglobin dropped from 8.9 to 7.8. It dropped again on 05/12/17 to 7.2. Prior to discharge, a repeat hemoglobin was done, which was 7.1 with a hematocrit of 22. It was decided to transfuse the patient 1 unit of packed cells. In addition after discussion with Neurology, it was decided to hold the patient's Xarelto. He will follow up with his primary care provider, as well as Gastroenterology. Xarelto may be restarted at a date down the road. This would be after he is evaluated by Gastroenterology. The patient was seen by both Physical Therapy, Occupational Therapy, as well as Speech Therapy. He made very good gains with all 3 disciplines. With Physical Therapy, at the time of admission the patient required moderate amount of assistance to transfer. He was able to ambulate with minimal amount of assistance 300 feet, but had significant difficulty avoiding obstacles. With Occupational Therapy at the time of admission, the patient required moderate amount of assistance for upper body dressing, lower body dressing was max assist, grooming was min assist, toileting was minimal amount of assistance and toilet transfers were minimum amount of assistance. By the time of discharge, he was contact guard for transfers, contact guard ambulating 600 feet without an assistive device. For toilet transfers, he was toileting with contact guard to supervision and dressing was contact guard to supervision. His was brought in for family training prior to his discharge home. She felt safe in taking him home. The patient was discharged on 05/13/17. DISCHARGE DIET: Consistent carbohydrate. DISCHARGE MEDICATIONS: Included: 1. Aggrenox 1 tablet orally twice a day. 2. Lipitor 80 mg daily. 3. Depakote 500 mg twice daily. 4. Lasix 40 mg daily. 5. Cozaar 100 mg every day. 6. Metoprolol 100 mg twice daily. 7. Nitro patch 0.2 mg an hour 1 patch transdermally on in the morning, off in the evening. 8. Omeprazole 20 mg daily. 9. Potassium chloride 20 mEq twice daily. 10. Hytrin 10 mg at bedtime. 11. Verapamil 240 mg twice daily. 12. Clonidine 0.1 mg twice daily. 13. Glipizide 10 mg at 8 a.m. and 5 p.m. 14. Prednisolone eye drops 1 drop to both eyes every day. SERVICES AFTER DISCHARGE: Through visiting nurse services, home nursing and home physical therapy, home occupation therapy and home speech therapy. Follow up with his primary care provider, Hansa Victor at [facility], as well as [facility]. [id number]/[facility] #: [id number] [facility] [place] DIVISIONCos[facility]
== END 2017-05-13 14:00 | disposition home health service (06) | DRG 57 ==
LOC: PMRU 13:49
PROVIDERS: ADMIT Physical Medicine & Rehabilitation; ATTEND Physical Medicine & Rehabilitation
PROC: F07Z5ZZ Bed Mobility Treatment (ICD-10-PCS; 2017-04-26)
PROC: F07Z9ZZ Gait Training/Functional Ambulation Treatment (ICD-10-PCS; 2017-04-26)
PROC: F07Z8ZZ Transfer Training Treatment (ICD-10-PCS; 2017-04-26)
PROC: F08Z0ZZ Bathing/Showering Techniques Treatment (ICD-10-PCS; 2017-04-26)
PROC: F08Z1ZZ Dressing Techniques Treatment (ICD-10-PCS; 2017-04-26)
PROC: F08Z3ZZ Feeding/Eating Treatment (ICD-10-PCS; 2017-04-26)
PROC: F06Z3ZZ Aphasia Treatment (ICD-10-PCS; 2017-04-26)
PROC: F06ZBZZ Receptive/Expressive Language Treatment (ICD-10-PCS; 2017-04-26)
PROC: 30233N1 Transfusion of Nonautologous Red Blood Cells into Peripheral Vein, Percutaneous Approach (ICD-10-PCS; principal; 2017-05-13)
DX: I69.351 Hemiplegia and hemiparesis following cerebral infarction affecting right dominant side (principal); I44.2 Atrioventricular block, complete; E11.22 Type 2 diabetes mellitus with diabetic chronic kidney disease; I13.10 Hypertensive heart and chronic kidney disease without heart failure, with stage 1 through stage 4 chronic kidney disease, or unspecified chronic kidney disease; D62 Acute posthemorrhagic anemia; I48.91 Unspecified atrial fibrillation; N18.3 Chronic kidney disease, stage 3 (moderate); I69.322 Dysarthria following cerebral infarction; I25.10 Atherosclerotic heart disease of native coronary artery without angina pectoris; I35.0 Nonrheumatic aortic (valve) stenosis; F31.9 Bipolar disorder, unspecified; I69.320 Aphasia following cerebral infarction; Z95.0 Presence of cardiac pacemaker; I25.2 Old myocardial infarction; Z79.01 Long term (current) use of anticoagulants; Z79.4 Long term (current) use of insulin; Z79.899 Other long term (current) drug therapy; Z88.0 Allergy status to penicillin
CPT/HCPCS: 36415; 80053; 85025; 85027; 86850; 86900; 86901; 86922; A9270-GY; P9040

== ENCOUNTER 2017-06-09 23:28 | Observation (INO) | payer MEDICARE ==
[2017-06-09] MEDS ORDERED: Labetalol IV* 5 MG/ML 20 ML VIAL IV PUSH ONE (23:45)
[2017-06-09] MEDS ORDERED: Labetalol TAB* 100 MG PO ONE (23:45)
[2017-06-10 00:38] LABS: Hematocrit 28 % (42-52); Mean Corpuscular HGB Conc 33 g/dl (31-36); Mean Corpuscular Hemoglobin 25 pg (27-31); Mean Corpuscular Volume 76 fL (80-94); Mean Platelet Volume 9 um3 (7.4-10.4); Red Blood Count 3.61 10^6/ul (4.0-5.4); Red Cell Distribution Width 17 % (10.5-15); White Blood Count 9.4 10^3/ul (3.5-10.8)
[2017-06-10 00:47] LABS: Troponin I 0.01 ng/mL (<0.04)
[2017-06-10 00:48] LABS: Albumin 3.6 g/dL (3.2-5.2); BUN/Creatinine Ratio 18.7 (8-20); Calcium 8.4 mg/dL (8.6-10.3); EGFR African American 58.4 (>60); EGFR Non-African American 45.4 (>60); Globulin 2.6 g/dL (2-4); Potassium 4.2 mmol/L (3.5-5.0); Total Bilirubin 0.4 mg/dL (0.2-1.0); Total Protein 6.2 g/dL (6.4-8.9)
[2017-06-10] MEDS ORDERED: cloNIDine TAB* 0.1 MG PO ONE ×2 (00:52→07:39)
[2017-06-10] MEDS ORDERED: Iodixanol* (CONTRAST) 320 MG/ML 100 ML SDV IV ONE (00:58)
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
--- NOTE | 2017-06-10 07:18 | ED ---
Robert Rao Thomas, scribed for Basilio Gunn MD on 06/10/17 at 0540 . Progress - Progress Note Progress Note: CXR. Interpreted by ED physician. Impression: No acute intrathoraic process. UA pending, neurology Dr. Nails consulted Course/Dx - Course Course Of Treatment: Dr. Nails consulted for neurological evaluation - Diagnoses Provider Diagnoses: Confusion - Provider Notifications Instructed by Provider To: Other - I consulted with Dr. Melgar, hospitalist, who admits the patient to [facility]. The documentation as recorded by the Robert pappas Thomas accurately reflects the service I personally performed and the decisions made by Velia floyd Dong, MD.
--- NOTE | 2017-06-10 07:35 | RAD ---
INDICATION: Confusion, history of recent stroke. COMPARISON: Comparison is made with a prior CT brain from April 21, 2017. TECHNIQUE: Contiguous axial sections of the brain were obtained from the skull base to the vertex without contrast. FINDINGS: The ventricles, cisterns and sulci are enlarged consistent with diffuse atrophy. There are small areas of decreased density in the subcortical and periventricular white matter suggestive of mild chronic small vessel ischemic changes. There is a focal moderate size area of encephalomalacia present in the posterior right parietal and occipital lobes which is unchanged most consistent with an old infarct. No other focal abnormalities or mass effect are seen. There is no evidence for hemorrhage. No significant focal osseous abnormality is seen. The visualized portion of the paranasal sinuses and mastoid air cells appear clear. IMPRESSION: 1. NO EVIDENCE FOR ACUTE INTRACRANIAL ABNORMALITY. 2. OLD INFARCT IN THE RIGHT POSTERIOR PARIETAL AND OCCIPITAL LOBES, UNCHANGED.
--- NOTE | 2017-06-10 07:37 | RAD ---
INDICATION: Confusion, history of recent stroke. COMPARISON: Comparison is made with a prior chest x-ray study from April 21, 2017. TECHNIQUE: A single AP view of the chest was obtained. FINDINGS: There is a dual-chamber transvenous pacemaker present. Heart appears to be within normal limits in size. The lungs are underinflated and clear. No pleural effusion is seen. IMPRESSION: NO EVIDENCE FOR ACTIVE CARDIOPULMONARY DISEASE.
[2017-06-10] MEDS ORDERED: hydrALAZINE IV* 20 MG/ML VIAL IV SLOW PU ONE (07:40)
[2017-06-10] MEDS ORDERED: Dextrose 50% Syringe 50 ML* 25 GM/50 ML SYRINGE IV PUSH PRN (08:49)
[2017-06-10 09:37] LABS: Folate 8.77 ng/mL (>3.99)
[2017-06-10] MEDS: Divalproex DR TAB(*) 500 MG PO SCH ×2 (10:07→20:26)
[2017-06-10] MEDS: Furosemide TAB* 40 MG PO SCH (10:08)
[2017-06-10] MEDS: Losartan TAB* 25 MG PO SCH (10:08)
[2017-06-10] MEDS: cloNIDine TAB* 0.1 MG PO SCH ×2 (10:09→20:27)
[2017-06-10] MEDS: Metoprolol Tartrate TAB* 100 MG TAB PO SCH ×2 (10:09→20:27)
[2017-06-10] MEDS: Dipyridamole/Aspirin 25/200* CAP.ER PO SCH ×2 (10:09→20:27)
[2017-06-10] MEDS: Verapamil SR TAB* 240 MG PO SCH ×2 (10:10→20:26)
[2017-06-10] MEDS: Nitroglycerin 0.2 MG/HR PATCH* (5 MG) TRANSDERM SCH (10:10)
[2017-06-10] MEDS: prednisoLONE 1% OPHTH.SUSP* 5 ML OPHTH.SUSP BOTH EYES SCH (11:16)
--- NOTE | 2017-06-10 12:11 | HP ---
CC: Dr. Nails; KD Wetzel* HISTORY AND PHYSICAL: DATE OF ADMISSION: 06/10/17 PRIMARY CARE PROVIDER: KD Wetzel CHIEF COMPLAINT: Agitation and altered mental status. HISTORY OF PRESENT ILLNESS: Liliam Perales is a 77-year-old male, who was discharged from our facility on 05/13/17 from physiotherapy unit with a diagnosis of problems due to subacute left-sided basal ganglia stroke. Please note the patient was originally admitted on 04/26/17 and had a history of chronic right-sided weakness ever since March of 2017. On 04/26/17, he was noted to have exacerbation of right- sided neglect and weakness. It was deemed to be due to continuation of problems of ischemic left basal ganglia stroke as well as hypoglycemia. The patient was transferred to the physiotherapy unit while he was noted to hypertensive and on discharge with systolic pressures in between 150 to 180 on 05/13/17. He was discharged under the care of his . The patient stated that at home, the patient's "tells him" to ambulate with a roller walker and he also ambulating with the assistance of his . He had been doing fine, although he is a poor historian. He was noted to wake up agitated and was brought into the ED for evaluation. Here, he appears to be back to his baseline. He is mildly dysarthric. He has very mild weakness on the right side. He has left homonymous hemianopsia, which was also chronic. His systolic pressures on presentation were 215 and he continues to be hypertensive despite multiple medications given in the ED with systolic blood pressures in the 180s right now. He is going to be admitted with a diagnosis of confusion and hypertensive urgency. PAST MEDICAL HISTORY: 1. History of left basal ganglia stroke with residual right-sided weakness, mild dysarthria, right facial droop, and left homonymous hemianopsia. 2. History of uncontrolled hypertension.. 3. History of bipolar disease, on Depakote. 4. History of CVA in the past with a history of right hemispheric encephalomalacia in the past. 5. History of OH. 6. History of diabetes, type 2. 7. History of third-degree heart block, status post pacemaker. 8. Chronic kidney disease, stage 3. 9. History of anemia. 10. History of severe aortic stenosis. 11. Depression. 12. Dyslipidemia. 13. History of atrial fibrillation. PAST SURGICAL HISTORY: 1. History of cataract surgery. 2. History of cholecystectomy. 3. Last cardiac stenting was in 2007. MEDICATIONS: At this point, unknown. The patient did not present with a list. He came in the middle of the night. His pharmacy is not opened yet. His , who was supposed to bring the medications list, is on her way. From 05/13/17 discharge summary, the patient had been on: 1. Aggrenox 1 tablet b.i.d. 2. Lipitor 80 mg daily. 3. Depakote 500 mg twice a day. 4. Lasix 40 mg daily. 5. Cozaar 100 mg daily. 6. Metoprolol 100 mg b.i.d. 7. Nitro patch 0.20 mg an hour daily. 8. Omeprazole 20 mg daily. 9. Potassium chloride 20 mEq daily. 10. Hytrin 10 mg daily. 11. Verapamil 240 mg twice a day. 12. Clonidine 0.1 mg twice a day. 13. Glipizide 10 mg b.i.d. 14. Prednisolone eye drops 1 drop to both eyes every day. ALLERGIES: Include PENICILLIN. FAMILY HISTORY: Positive for father, who at the age of 106 and mother who of breast cancer. SOCIAL HISTORY: The patient denies tobacco, alcohol, or drug use. He lives with his , who is his surrogate decision maker. He has significant memory problems. REVIEW OF SYSTEMS: Very limited due to the patient's baseline memory deficits. The patient stated that he is 46 years old. He does not remember what time and what day of the week it is and what date it is. He stated that his made an appointment with doctor earlier due to problems with his vision. He stated that he is supposed to ambulate with a roller walker, but he ambulates by himself with the help of his . He denies any headache. He denies any chest pain or shortness of breath. He denies any abdominal pain and problems with bowel movements. All the remaining 12 systems were reviewed with the patient and were otherwise limited due to the patient's poor memory. PHYSICAL EXAMINATION GENERAL: The patient is a pleasant 77-year-old male who is in no acute distress. The patient is oriented to self and place. Disoriented to his age. He is able to give me his date of . He is disoriented to time VITAL SIGNS: Blood pressure of 182/82, heart rate of 65 and regular, respiratory rate 19, oxygen saturation 100% on 2 L oxygen nasal cannula, temperature of 97.3. HEENT: Head atraumatic, normocephalic. Eyes: Pupils are equal and reactive to light and accommodation. Oropharynx clear. Mucosa moist. NECK: Supple. No JVD. No bruits bilaterally. RESPIRATORY: Clear to auscultation bilaterally. CARDIOVASCULAR: Regular rate and rhythm with 3/6 systolic ejection murmur noted on auscultation of the right upper sternal border radiating to bilateral carotids. ABDOMEN: Soft, nontender. Bowel sounds are present in all 4 quadrants. EXTREMITIES: There is no edema. Pulses are +2 bilaterally. No clubbing or cyanosis. NEURO EVALUATION: The patient has left left homonymous hemianopsia on evaluation. He has what appears to be a mild right-sided hemineglect. His right upper and lower extremity motor strength is minimally decreased comparing with the left. [id number] is by 1 cm on the right side. The patient has right-sided facial droop. Mild dysarthria. PSYCHIATRIC: Pleasant and cooperative with evaluation with no evidence of anxiety or depression. SKIN: On evaluation of the skin, no ecchymotic areas or rashes noted. DIAGNOSTIC STUDIES/LAB DATA: Sodium of 137, potassium 4.2, chloride 107, carbon dioxide 26, BUN 28, creatinine 1.50. Liver function test unremarkable. Glucose of 164. Troponin of 0.01. CBC with white blood cell count of 9.4, hemoglobin of 9.0, hematocrit of 28, MCV of 76, and platelets of 196. Urinalysis not obtained yet. CT of the brain showed no evidence of acute intracranial abnormality. Old infarct in the right posterior parietal and occipital lobes that is unchanged from prior. Portable chest x-ray, impression: "No evidence of acute cardiopulmonary disease." The patient's EKG showed atrial paced rhythm with 173 beats per minute, flattening of T waves in lateral leads of V4 to V6 and inferior leads. ASSESSMENT AND PLAN: 1. Transient altered mental status in a patient with a history of problems with memory and old cerebrovascular accident. He comes in with the same residual chronic right-sided symptoms and visual symptoms that are also chronic. Nevertheless, he was agitated at night and presented to the ED with systolic pressures over 200s. I suspect that the patient either was hallucinating at night that could have been due to his dementia or he had hypertensive encephalopathy, which is more likely. At this point, the patient is going to be placed on telemetry monitored bed. His systolic blood pressures are significantly down from 215 systolically to 180. At this point, I will restart all of the patient's outpatient p.o. antihypertensives and continue to observe. At this point, the goal would be not to decrease his blood pressures too fast, probably around 20% to 30% in the next 24 hours. I will continue him on neuro checks. I will continue speech therapy, although the patient appears to have baseline dysarthria. For the time being, I will place on full liquid diet, neuro checks every [address] Nails from Neurology will also consult on the patient. 2. In regards to the patient's diabetes, the patient oral hypoglycemics are going to held and he is going to placed on insulin sliding scale with lispro coverage. 3. The patient with chronic kidney disease, stage 3, due to diabetes, creatinine and is chronic range. 4. The patient has a history of atrial fibrillation, on anticoagulation. Currently, he is on a paced rhythm. The patient is going to be continued on his Aggrenox as well as Xarelto as previously taken. 5. DVT prophylaxis. As above mentioned, the patient is going to be placed on Xarelto. 6. The patient's code status is full. Surrogate is his . TIME SPENT: Approximately 72 minutes was spent on admission of this patient, more than half that time was spent [id number] with the patient during the interview and physical exam. [id number]/[facility] #: [id number] AYO
[2017-06-10] MEDS: Insulin LISPRO* 1 UNITS UNIT SUBCUT SCH ×3 (12:54→20:25)
--- NOTE | 2017-06-10 13:18 | PN ---
Progress Note - Progress Note Date of Service: 06/10/17 Note: Spoke with radiology : CTA head showed L MCA stenosis. D/w Dr. Nails: new (C/W 03/2017 CTA) let MCa stenosis is not likely contributing to pt's todays' symptoms. Cont med management with Aggrenox/Xarelto + statin
--- NOTE | 2017-06-10 13:25 | CONS ---
CONSULTATION REPORT: DATE OF CONSULT: 06/10/2017. CURRENT LOCATION: ER. REASON FOR CONSULT: Confusion and right-sided weakness. HISTORY OF PRESENT ILLNESS: Mr. Perales is a 77-year-old gentleman with a complicated medical history. He has been to the ER multiple times, most recently was seen by Neurology in late March. Dr. Joaquin saw him on . At that time, he was admitted with persistent right-sided weakness and left -gaze deviation. Prior to that, in early March, he was admitted and at that time was seen by Dr. Mohamud. 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 When Dr. Mohamud saw him in early March, he presented with recurrence of his aphasia and right-sided weakness that began the morning of his admission. It apparently had resolved by late morning, but he still had some aphasia, although improved. He was apparently seen prior to that with the same symptoms, but was outside of the tPA window. CTA at that time was read as 50% bilateral stenosis. at [facility] was consulted for possible vascular intervention, but it was felt that he was not a good candidate. He does have a history of a pacemaker for bradycardia and unfortunately could not have an MRI. In late March, he was admitted with similar symptoms, Dr. Joaquin ended up doing an EEG to rule out any seizures as he was having some left-gaze deviation; it was persistent. The EEG did not show any evidence of ongoing seizure activity, although it did show generalized slowing of the background rhythm in the left hemisphere. At that time, an empiric trial of anticonvulsive was suggested if he continued to have symptoms, although this was not started. During that hospitalization, he did well. He was discharged to a rehab on 04/26/17 in stable condition with a presumptive diagnosis that he has had possible extension of a left basal ganglia stroke, which was found in early March. At that time, he was on Xarelto for the prior stroke and intermittent AFib and his aspirin was changed to Aggrenox. Overnight , he became more confused, apparently was having more right-sided symptoms, although the patient is a very poor historian, he is not able to give me much history. He states "I have had a new stroke." Based on this and the confusion , he was brought to the ER. A repeat CAT scan done this morning, the films were reviewed, I see no evidence of any new stroke, atrophy is noted. The old stroke is noted in the right posterior parietal and occipital lobe, unchanged. I see no new left-sided strokes. On admission, he was noted to have significantly elevated blood pressures with systolics in the 200s. I did speak with the admitting provider and there was some concern that he may be suffering from some hypertensive urgency/emergency with unmasking of his old symptoms. At this point, his symptoms have persisted but appeared to be about the same as his prior admission. On my evaluation, he denies any headache, nausea, vomiting , diarrhea, constipation, shortness of breath, dyspnea on exertion. He denies new vision changes, although he states "I can't see to the left." He denies any new speech difficulties or swallowing difficulties. He has otherwise been in his usual state of health. PAST MEDICAL HISTORY: Significant for: 1. Hypertension. 2. Diabetes. 3. Pacemaker. 4. Bipolar disease and depression. 5. Prior VT. 6. Aortic stenosis. 7. Stage 3 kidney disease. 8. Prior strokes. MEDICATIONS: According to his last discharge summary on 04/26/17 include: 1. Xarelto 15 mg p.o. daily. 2. Metoprolol 100 mg p.o. b.i.d. 3. Verapamil extended release 240 mg p.o. b.i.d. 4. Depakote 500 mg p.o. b.i.d. 5. Losartan 100 mg daily. 6. Furosemide 40 mg p.o. daily. 7. Potassium chloride 20 mEq daily. 8. Nitroglycerin patch. 9. Lisinopril/hydrochlorothiazide. 10. Prednisone eye drops. 11. Ferrous gluconate. 12. Terazosin. 13. Glipizide. 14. Atorvastatin 80 mg at dinner. 15. Senna 2 tablets p.o. daily. 16. Dipyridamole and aspirin 25/200 p.o. b.i.d. ALLERGIES: To PENICILLIN. FAMILY HISTORY: Significant for a mother with breast cancer. Apparently, his father at the age of 106. SOCIAL HISTORY: No tobacco, alcohol, or drug use. Lives with his . REVIEW OF SYSTEMS: A 14-organ systems was difficult due to his mental status but is as noted above in the HPI, otherwise negative. PHYSICAL EXAM: Vital Signs: Blood pressures 209/86, 208/85 to 214/82, most recent systolic in the 180s; his pulse has been in the 60s; he is afebrile, temp of 97.3; respiratory rate 16 to 22; satting 90% to 100%. In general, he is a well- nourished, well-developed, slightly overweight, gentleman sitting in his hospital bed with his head at approximately 60 degrees. He is pleasant, well-dressed, well-groomed. HEENT is normocephalic, atraumatic. Sclerae anicteric. Mucous membranes are moist. Oropharynx is clear. Poor dentition. Neck is supple. No thyromegaly, no carotid bruits. Chest is clear to auscultation bilaterally. Cardiovascular: Regular rate and rhythm with a 4/6 systolic ejection murmur, blowing in nature. Abdomen is nontender, nondistended. Extremities: There is no significant clubbing, cyanosis, or edema. Skin is warm and dry. On neurologic exam, he is awake and alert. He is oriented to person only. His speech is fluent, but there is dysarthria noted. Repetition is intact. Cranial Nerves: Pupils equal, round, and reactive to light. Extraocular muscles are intact. Visual Norris: He has a left homonymous hemianopsia. His face, he has a right lower facial droop. Facial sensation appears to be intact. Hearing is intact bilaterally. Tongue is midline. Oropharynx: His palate raises symmetrically. He has antigravity in the right side with drift in the upper and lower extremity; left side is 5/5 bilaterally. Reflexes are 1+ and symmetric in the upper and lower extremities, his right Babinski is positive, left is equivocal. Light touch and pinprick appeared to be intact bilaterally, although he is a difficulty historian. Gait was not tested at this time. DIAGNOSTIC STUDIES/LAB DATA: CT scan as noted above, no new abnormalities. His CBC with diff significant for anemia with a hemoglobin of 9, hematocrit of 28, white count of 9.4. INR 1.62, PTT of 37.1. Chemistry, the complete metabolic profile is significant for BUN of 28, creatinine of 1.5, glucose of 164, calcium of 8.4, total protein of 6.2, LDL cholesterol 61, HDL 32, B12 and folate pending. Prior TSH on 04/21/17, 4.77. He had a prior transthoracic echocardiogram on 03/31/17, which showed moderate concentric left ventricular hypertrophy, global left ventricular wall motion criteria within normal limits, estimated ejection fraction 60% to 65%, abnormal left ventricular diastolic filling is observed consistent with impaired relaxation. Right ventricular global systolic function is normal, moderate-to- severe aortic stenosis, mitral valve annular calcification with [id number] mitral regurg, there is trace tricuspid regurg. Unable to estimate right ventricular systolic pressure. No convincing evidence of intracardiac shunting compared to prior exam from 08/14/15. Left ventricular ejection fraction is stable. Aortic stenosis is stable. He had a prior CT angiogram from 03/27/17, which showed atherosclerotic plaque in the carotid siphon suggestive of multiple approximate 50% stenosis; however , magnitude of calcification limits assessment. Negative for appreciable stenosis or occlusion of either middle cerebral artery, right posterior cerebral artery patent, proximally is diminutive in size and corresponds to region of encephalomalacia related to an old right occipital parietal infarct. ASSESSMENT AND PLAN: Mr. Perales is a 77-year-old gentleman with a history of prior right occipital parietal infarct with what appears to be left homonymous hemianopsia, some underlying memory loss behavioral issues with bipolar, on Depakote. He also has presented recently several times with right-sided symptoms including gaze deviation, possible vision loss on the right side, right -sided weakness, facial droop, and some speech difficulties. Prior workup includes multiple CT scans with a possible new stroke noted in early March of 2017 in the left basal ganglia. Subsequent CT scans show no new strokes. He presents today with worsening right-sided findings, confusion, admitted with a blood pressure systolics in the 200s. At this point, my concern for a new stroke is low given the similarity of his findings to prior admission and the fact that his blood pressure is elevated, I suspect underlying hypertensive emergency/urgency. I spoke with the primary care physician about this and she will work to reduce his blood pressure. My suspicion for seizure is low, but given his history, I am going to get another EEG to make sure he has no underlying seizure-like focus or epileptogenic activity. He is on Depakote 500 mg p.o. b.i.d. for his bipolar and I will continue this. This is likely providing some antiseizure effect as well, although he has no history of seizures. He appears to have similar findings on examination including a left homonymous hemianopsia and right-sided weakness, which appears to be similar to his prior examination from March. There are no new symptoms reported. He does have some underlying dementia and this is likely worsened with the hypertension. Metabolic workup is in progress. Antiseizure workup is in progress. UA is pending. I would continue his current medication regimen including the Aggrenox and the Xarelto given his history of prior paroxysmal atrial fibrillation. He is also on a statin and his LDL cholesterol was good. Strive for good blood pressure control during this admission. Strive for good diabetes control. He is a nonsmoker. We will continue to monitor his mental status, likely has some underlying dementia along with bipolar. This is something that needs to be followed up as an outpatient. Medications can be considered as an outpatient. I do not think there is any need at this point to repeat his CT angiogram or echocardiogram. If he develops any new symptoms, we will consider that. We can also repeat a CT scan in 1 to 2 days to look for evolving stroke. Unfortunately, he is unable to have an MRI because of his pacemaker. I will continue to follow him closely and make further recommendations as necessary. Thank you for the opportunity to participate in the care of this very nice patient. [id number]/[facility] #: [id number] AYO
--- NOTE | 2017-06-10 13:26 | RAD ---
INDICATION: Possible stroke. COMPARISON: Comparison is made with a prior CT of the brain from June 09, [address] angiogram of the head and neck from March 27, 2017. TECHNIQUE: A CT angiogram of the head and neck was performed following intravenous injection of 80 ml of Visipaque 320 nonionic contrast. Contiguous axial sections were obtained from the thoracic inlet through the skull vertex. Images were reconstructed in the coronal and sagittal planes and in a 3-D volume rendered format. The distal cervical internal carotid artery diameter is used as the denominator for stenosis measurement. FINDINGS: RIGHT CAROTID: The common and internal carotid arteries appear patent without evidence for hemodynamically significant stenosis. There is mild soft and calcific plaque present within the carotid bulb and proximal internal carotid artery. The distal internal carotid artery is tortuous. LEFT CAROTID: The common and internal carotid arteries appear patent without evidence for hemodynamically significant stenosis. There is mild soft and calcific plaque present within the carotid bulb and proximal internal carotid artery. The distal internal carotid artery is tortuous. VERTEBRALS: The vertebral arteries appear patent. The left vertebral artery is dominant. CTA BRAIN: There is moderate to severe calcific plaque present within the cavernous portion of the carotid arteries with multiple moderate grade stenoses on both sides which appears unchanged from the prior exam. The middle and anterior cerebral arteries appear patent without evidence for high-grade stenosis or occlusion. The basilar and posterior cerebral arteries appear patent without evidence for high-grade stenosis or occlusion. The right posterior cerebral artery is small in caliber and unchanged from the prior exam consistent with the patient's prior occipital parietal infarct. No gross focal perfusion abnormalities are seen. No aneurysm or vascular malformation is seen. NECK: No significant enlarged lymph nodes are seen within the neck. The thyroid, parotid and submandibular glands appear to be within normal limits. The lung apices appear clear. There are several nodules within the right maxillary sinus most consistent with mucous retention cysts or polyps. The paranasal sinuses and mastoid air cells otherwise appear clear. The results of this examination were called to Dr. Pagan. IMPRESSION: 1. NO EVIDENCE FOR SIGNIFICANT CAROTID STENOSIS. 2. NO EVIDENCE FOR LARGE VESSEL INTRACRANIAL THROMBUS. 3. SMALL RIGHT POSTERIOR CEREBRAL ARTERY CONSISTENT WITH THE PATIENT'S PRIOR OCCIPITAL AND PARIETAL LOBE INFARCTS. CPT II Codes: 3100F
[2017-06-10] MEDS ORDERED: Rivaroxaban TAB(*) 15 MG PO SCH (17:00)
[2017-06-10] MEDS ORDERED: Atorvastatin* 80 MG TAB PO SCH (17:00)
[2017-06-10 17:04] LABS: Urine Bilirubin Negative (Negative); Urine Glucose Negative (Negative); Urine Nitrite Negative (Negative)
[2017-06-10] MEDS ORDERED: Terazosin CAP* 5 MG PO SCH (21:00)
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
[2017-06-11] MEDS ORDERED: Omeprazole CAP* 20 MG PO SCH (06:00)
[2017-06-11] MEDS: Insulin LISPRO* 1 UNITS UNIT SUBCUT SCH ×2 (08:27→11:46)
[2017-06-11] MEDS: Losartan TAB* 25 MG PO SCH (08:28)
[2017-06-11] MEDS: prednisoLONE 1% OPHTH.SUSP* 5 ML OPHTH.SUSP BOTH EYES SCH (08:28)
[2017-06-11] MEDS: Furosemide TAB* 40 MG PO SCH (08:29)
[2017-06-11] MEDS: Dipyridamole/Aspirin 25/200* CAP.ER PO SCH (08:29)
[2017-06-11] MEDS: Metoprolol Tartrate TAB* 100 MG TAB PO SCH (08:29)
[2017-06-11] MEDS: Divalproex DR TAB(*) 500 MG PO SCH (08:29)
[2017-06-11] MEDS: cloNIDine TAB* 0.1 MG PO SCH (08:29)
[2017-06-11] MEDS: Verapamil SR TAB* 240 MG PO SCH (08:29)
[2017-06-11] MEDS: Nitroglycerin 0.2 MG/HR PATCH* (5 MG) TRANSDERM SCH (08:31)
[2017-06-11 12:42] VITALS: BP 107/55
--- NOTE | 2017-06-11 23:19 | PN ---
PROGRESS NOTE: DATE OF PROGRESS NOTE: 06/11/17 LOCATION: He is currently in 436, bed 1. HISTORY OF PRESENT ILLNESS: Overnight, he has had no new issues. This morning , he tells me "I feel much better." He had no new swallowing problems, new vision problems, new headaches, nausea and vomiting and appears more interactive this morning. PHYSICAL EXAMINATION: Vital Signs: Temp of 97.8, pulse rate of 62, respiratory rate of 20, O2 sat of 100, blood pressure 156/61. Blood pressures have been much better on admission from his ER pressures. In general, he is a well-nourished, well-developed slightly obese gentleman, in no acute distress, sitting in his bed. He is pleasant, well-dressed, well-groomed. HEENT: He is normocephalic, atraumatic. Sclerae are anicteric. Mucous membranes are moist. Oropharynx is clear. Poor dentition. Neck is supple. No carotid bruits. Chest: Clear to auscultation bilaterally. Cardiovascular: Regular rate and rhythm with a 3/6 systolic ejection murmur, in nature. Abdomen is nontender. Extremities: No significant clubbing, cyanosis, or edema. Skin is warm and dry. Neurologic: He is awake. He is alert. He is oriented to person only. Speech is fluent with some mild dysarthria. Cranial nerves: Pupils are equal, round, and reactive to light. Extraocular muscles are intact. Visual field: He has a left homonymous hemianopsia. Face: Has a right lower facial droop. Hearing is diminished bilaterally. Facial sensation is intact. Tongue is midline. Palate rises symmetrically. His motor exam, spontaneously moving all extremities, antigravity 5/5. He does have a very subtle drift in the right upper extremity, but otherwise no drift. DTRs are 1+ in the upper extremities, 2+ at the patella, absent at the ankles, equivocal Babinski. Sensation, he states he is intact to light touch and pinprick throughout. Gait was not tested. The patient has a difficult examination due to some compliance issues. DIAGNOSTIC STUDIES/LAB DATA: Lab work none this morning. Blood sugars 202 to 218 and 195 to 155. Hemoglobin A1c of 6.2, LDL 61, HDL 32, triglycerides are 175, cholesterol 128, B12 was 656, folate of 8.7. Valproic acid level 41. He has had studies done including a head CTA yesterday, which showed intact and patent vertebral arteries, left vertebral dominant. There was no evidence of large vessel intracranial thrombus, small right posterior cerebral artery mild soft calcific plaque present within the carotid bulb and proximal internal carotid artery noted on the right, tortuous distal carotid on the left, mild soft and calcific plaque present within the carotid bulb and proximal internal carotid. Distal internal carotid was tortuous. He had an electroencephalogram done yesterday, abnormal awaking EEG due to the presence of slow posterior dominant rhythm. These findings are suggestive of nonspecific diffuse encephalopathy and no epileptiform abnormalities noted. ASSESSMENT AND PLAN: Mr. Perales is a 77-year-old gentleman who presents to the hospital with history of some dementia with bipolar, on Depakote, has presented several times with right-sided findings including gaze deviation, possible vision loss on the right side, right-sided weakness, facial droop, and speech difficulties. He has had multiple workups, which show the old stroke in the right occipital area. There was some question as to a new stroke in the left basal ganglia, which could be causing his symptoms, but there does not appear to be any new stroke on this admission and I suspect that he may be having some unmasking of his symptoms likely related to his elevated blood pressures on admission and systolics in the 200s. Another consideration would be possible seizures. At one point, Dr. Joaquin suggested the possibility of an empiric trial of another antiepileptic. His Depakote level is low. We could certainly raise the dose; but at this point, I do not have enough evidence for seizures and I am going to keep his medication unchanged. I think this is something that could be followed up as an outpatient, perhaps a 24-hour EEG to look for any epileptiform activity. He does have a history of paroxysmal atrial fibrillation, is on Aggrenox and Xarelto. We will continue those medications. He is also on a statin. LDL was good. Blood pressures have improved on admission and primary care physician is working to normalize these. Diabetes remains a problem and this is something that needs to be controlled more timely as an outpatient. He does have a history of some underlying dementia, which makes the presentation more difficult as he is not very a good historian. At this point, given his current findings, I do not think there is any additional workup that needs to be done. If he develops any new symptoms, we can certainly repeat a CT scan, but my suspicion for new stroke given the fact that he presents with very similar symptoms to his prior admissions is low. I will continue his current medications unchanged and will be glad to follow him as an outpatient. Dr. Mohamud will be assuming care tomorrow. I will sign out to him. [id number]/[facility] #: [id number] AYO
--- NOTE | 2017-06-12 02:34 | DS ---
CC: KD Wetzel; Gulshan Nails MD* DISCHARGE SUMMARY: DATE OF ADMISSION: 06/10/17 DATE OF DISCHARGE: 06/11/17 PRIMARY CARE PROVIDER: KD Wetzel. DISCHARGE DIAGNOSIS: Agitation and altered mental status, most likely due to encephalopathy related to hypertensive emergency that is resolved. SECONDARY DIAGNOSES: 1. History of left basal ganglia stroke, residual right-sided weakness, mild dysarthria, right facial droop, and left homonymous hemianopsia. 2. History of uncontrolled hypertension. 3. History of bipolar disease, on Depakote. 4. History of cerebrovascular accident with a history of right hemispheric encephalomalacia in the past. 5. History of myocardial infarction. 6. Diabetes, type 2. 7. History of third-degree heart block, status post pacemaker. 8. Chronic kidney disease, stage 3 due to diabetes. 9. Anemia. 10. History of severe aortic stenosis. 11. Depression. 12. Dyslipidemia. 13. History of atrial fibrillation, on anticoagulation with Xarelto. MEDICATIONS AT DISCHARGE: Unchanged from the patient's home medications at admission. Please note that the medications that were included in history and physical at admission were not fully reconciled due to the patient being admitted early in the morning prior to his pharmacy and his primary care physician's office open. The current medications that the patient is going to be continued is: 1. Klor-Con 20 mEq b.i.d. 2. Lipitor 80 mg daily. 3. Glipizide 10 mg b.i.d. 4. Depakote 500 mg b.i.d. 5. Verapamil 240 mg b.i.d. 6. Plavix 75 mg daily. 7. Xarelto 15 mg daily. 8. Clonidine 0.1 mg b.i.d. 9. Metoprolol tartrate 100 mg b.i.d. 10. Aspirin 81 mg daily. 11. Terazosin 10 mg daily. 12. Lisinopril/hydrochlorothiazide 20/25 mg daily. 13. Nitro patch 0.2 mg per hour 1 patch daily. 14. Metformin 850 mg b.i.d. 15. Lasix 40 mg daily. 16. Losartan 100 mg daily. CONSULTATION DURING THE HOSPITAL STAY: Included Dr. Nails from Neurology. LABORATORY DATA AND STUDIES: From 06/10/17, white blood cell count 9.4, hemoglobin 9.0, hematocrit 28, MCV 76 and platelets 196,000. Sodium 137, potassium 4.2, chloride 107, carbon dioxide 26, BUN 28, creatinine 1.[address] angiogram of the head and neck obtained on 06/10/17 showed "no evidence of significant carotid stenosis. No evidence of large vessel intracranial thrombus. Small right posterior cerebral artery consistent with the patient's prior occipital and parietal lobe infarcts." EEG obtained on 06/10/17, impression: "This is an abnormal waking EEG due to the presence of slow posterior dominant rhythm. These findings are suggestive of a nonspecific, diffuse encephalopathy. There are no epileptiform abnormalities." HOSPITALIZATION COURSE: Liliam Perales is a 77-year-old male with history of CVA that originally occurred at the beginning of the year of 2016 with residual right-sided weakness, right-sided facial droop. The patient has a history of atrial fibrillation and diabetes and he presented to the hospital after his found him agitated and verbally abusive in bed in the middle of the night. When the patient presented to the emergency department, his blood pressure was 220 systolically. He said he must have had another stroke. He stated that he saw "people in the house" and he was not really sure where they came from. He also stated that he was upset with his that she invited someone into the house. At this point, it was not clear if the patient had just a bad dream or was hallucinating. The patient has a history of baseline very poor memory after his strokes. He was admitted with a diagnosis of hypertensive emergency and likely encephalopathy due to that. The neurology evaluation included EEG that was grossly unremarkable apart from slowing as mentioned above. CT angiogram of the head and neck was also unremarkable. The patient was placed on p.r.n. IV medications for his blood pressure and his p.o. medications were restarted. His systolic pressures started stabilizing within the next few hours and his systolic pressure is right now in the 140s to 150s. He underwent physical therapy and occupational therapy evaluation and was deemed to be back to his baseline. He is being discharged home with recommendation to follow up with his primary care provider in approximately 4 to 7 days as well as Dr. Nails in approximately a month. A visiting nurse association was also set up at discharge. MEDICATIONS AT DISCHARGE: Unchanged from admission. Please note that this is a short summary of the patient's hospitalization. Please refer to further medical records for details. PHYSICAL EXAMINATION: At the time of discharge, blood pressure of 136/61, heart rate of 62 and regular, respiratory rate 20, oxygen saturation 100% on room air, temperature of 97.8. General: The patient is a pleasant 77-year-old male who is in no acute distress. Alert, awake, and oriented x3. HEENT: Head is atraumatic, normocephalic. Eyes: Pupils are equal, reactive to light and accommodation. Oropharynx is clear. Mucosa moist. Neck: Supple. No JVD, no bruits bilaterally. Cardiovascular: Regular rate and rhythm with 3/6 systolic ejection murmur on auscultation of the entire precordium radiating to the bilateral carotids. Respiratory: Clear to auscultation bilaterally. Abdomen: Soft, nontender. Bowel sounds present in all 4 quadrants. Extremities: There is trace bilateral pedal edema. Pulses +2 bilaterally. No clubbing or cyanosis. On neuro evaluation, the patient has mild dysarthria. He has right- sided facial droop, left homonymous hemianopsia. He also has right-sided weakness in the right upper and right lower extremity at 4+/5. Those are comparable with the findings that were noted in April 2017 and that is his residual neuro status after his CVA earlier this year. Once again, the patient was being discharged home with recommendations to follow up with his primary care provider as above mentioned. [id number]/CPS #: [id number] MTDD
== END 2017-06-11 13:30 | disposition home or self-care (01) ==
LOC: ED 23:28 → INTOOBSV 06-10 08:39 → MEDTELE 06-10 08:39
PROVIDERS: ADMIT Internal Medicine; ATTEND Internal Medicine
DX: R41.82 Altered mental status, unspecified (principal); I16.1 Hypertensive emergency; E11.22 Type 2 diabetes mellitus with diabetic chronic kidney disease; N18.3 Chronic kidney disease, stage 3 (moderate); I48.91 Unspecified atrial fibrillation; Z79.01 Long term (current) use of anticoagulants; Z79.84 Long term (current) use of oral hypoglycemic drugs; Z79.899 Other long term (current) drug therapy; I69.898 Other sequelae of other cerebrovascular disease; G93.49 Other encephalopathy; I35.0 Nonrheumatic aortic (valve) stenosis; D64.9 Anemia, unspecified; E78.5 Hyperlipidemia, unspecified; F32.9 Major depressive disorder, single episode, unspecified; I25.2 Old myocardial infarction; R94.31 Abnormal electrocardiogram [ECG] [EKG]
CPT/HCPCS: 36415; 70450; 70496; 70498; 71010; 80053; 80061; 80164; 81003; 82607; 82746; 83036; 84484; 85025; 85610; 85730; 93005; 95816; 96374; 96375; 99285; A9270-GY; G0378; G8981-GP-CI; G8982-GP-CI; G8983-GP-CI; J0360; Q9967

== ENCOUNTER 2017-06-24 10:15 | Inpatient (IN) | payer MEDICARE ==
--- NOTE | 2017-06-24 11:45 | RAD ---
INDICATION: Altered mental status COMPARISON: Most recent comparison chest x-rays dated June 10, 2017 TECHNIQUE: Single AP portable view of the chest was obtained. FINDINGS: Image quality is compromised due to the relative inferiority of a portable chest x-ray. The left upper chest cardiac pacemaker with 2 leads overlying the heart has not significantly changed in position. The heart and mediastinum exhibit normal size and contour. The lungs are grossly clear. There is no evidence of a large pleural effusion. Visualized bones are normal for the patient's age. IMPRESSION: No radiographic evidence for acute cardiopulmonary abnormality on this portable chest x-ray.
--- NOTE | 2017-06-24 12:37 | RAD ---
INDICATION: Altered mental status. COMPARISON: Comparison is made with a prior CT of the brain from June 09, 2017. TECHNIQUE: Contiguous axial sections of the brain were obtained from the skull base to the vertex without contrast. FINDINGS: The ventricles, cisterns and sulci are enlarged consistent with diffuse atrophy. There are multiple small areas of decreased attenuation in the subcortical and periventricular white matter most consistent with chronic small vessel ischemic changes. In addition there is a moderate size area of encephalomalacia present in the right posterior parietal and occipital lobe which is unchanged consistent with an old infarct. There is a small old lacunar infarct in the left periventricular white matter. No other focal abnormalities or mass effect is present. There is no evidence for hemorrhage. No significant focal osseous abnormality is seen. The visualized portion of the paranasal sinuses and mastoid air cells appear clear. IMPRESSION: 1. NO EVIDENCE FOR GROSS ACUTE INFARCT, MASS EFFECT OR HEMORRHAGE. 2. OLD RIGHT POSTERIOR PARIETAL AND OCCIPITAL LOBE INFARCT, UNCHANGED.
[2017-06-24 13:09] LABS: ABS Basophils 0 10^3/ul (0-0.2); ABS Eosinophils 0.1 10^3/ul (0-0.6); ABS Lymphocytes 2.1 10^3/ul (1.0-4.8); ABS Monocytes 0.7 10^3/ul (0-0.8); ABS Neutrophils 4.7 10^3/ul (1.5-7.7); ABS Nucleated RBC 0 10^3/ul; Eosinophil % 1.2 % (0-6); Hematocrit 30 % (42-52); Hemoglobin 9.5 g/dl (14.0-18.0); Lymphocyte % 28.2 % (25-47); Mean Corpuscular HGB Conc 32 g/dl (31-36); Mean Corpuscular Hemoglobin 24 pg (27-31); Mean Corpuscular Volume 77 fL (80-94); Mean Platelet Volume 10 um3 (7.4-10.4); Nucleated Red Blood Cells % 0; Platelet Count 178 10^3/ul (150-450); Red Cell Distribution Width 16 % (10.5-15); White Blood Count 7.5 10^3/ul (3.5-10.8)
[2017-06-24 13:19] LABS: INR 1.24 (0.89-1.11)
[2017-06-24 13:22] LABS: EGFR Non-African American 46.8 (>60)
--- NOTE | 2017-06-24 14:08 | ED ---
Sapphire Rao SooYoung, scribed for Nate Dao MD on 06/24/17 at 1048 . 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 Pt states he is in ED for high blood pressure. Per , pt has been laughing incontrollably and acting confused. The visiting nurse called pt's PCP who recommended pt be evaluated at ED. Pt denies abd pain, general pain. Pert PMHx: TIA 2x approx. one month ago. Pt has R-sided facial droop per baseline. Pt goes to physical therapy. Pt is repeatedly asking why he isnt getting paid to go to physical therapy. - History Of Current Complaint Chief Complaint: EDAltMentalStatus Time Seen by Provider: 06/24/17 10:46 Hx Obtained From: Patient, Family/Spinner Operator - Timing: Constant Severity Currently: Mild Severity Initially: Mild Associated Signs And Symptoms: Positive: Confusion, Other - pos: uncontrolled laughing, high blood pressure. Negative: Abdominal Pain - Allergies/Home Medications Allergies/Adverse Reactions: Allergies Allergy/AdvReac Type Severity Reaction Status Date / Time Penicillins Allergy Rash Verified 06/10/17 00:54 Home Medications: Home Medications Divalproex DR TAB(*) [Depakote DR(*)] 500 mg PO BID 06/24/17 [History Confirmed 06/24/17] Docusate CAP* [Colace Cap*] 100 mg PO DAILY PRN 06/24/17 [History Confirmed 10/09] Losartan TAB* [Cozaar TAB*] 100 mg PO DAILY 06/24/17 [History Confirmed 06/24/17 ] Omeprazole CAP* [Prilosec CAP* 20 MG] 20 mg PO DAILY 06/24/17 [History Confirmed 06/24/17] glipiZIDE TAB* [Glucotrol TAB*] 10 mg PO BID 06/24/17 [History Confirmed ] prednisoLONE 1% OPHTH.SUSP* [Pred Forte 1%*] 1 drop BOTH EYES DAILY 06/24/17 [ History Confirmed 06/24/17] PMH/Surg Hx/FS Hx/Imm Hx Previously Healthy: No Endocrine/Hematology History: Reports: Hx Diabetes, Hx Anemia Denies: Hx Anticoagulant Therapy, Hx Thyroid Disease Cardiovascular History: Reports: Hx Angina, Hx Cardiac Arrest, Hx Coronary Artery Disease, Hx Hypercholesterolemia, Hx Hypertension, Hx Myocardial Infarction, Hx Pacemaker/ICD, Other Cardiovascular Problems/Disorders - 3rd degree heart block, severe aortic stenosis, Denies: Hx Congestive Heart Failure Respiratory History: Denies: Hx Asthma, Hx Chronic Obstructive Pulmonary Disease (COPD) GI History: Reports: Other GI Disorders Denies: Hx Gall Bladder Disease History: Reports: Other Problems/Disorders - CKD stage 3 Denies: Hx Renal Disease Sensory History: Reports: Hx Vision Problem Denies: Hx Contacts or Glasses, Hx Eye Injury, Hx Hearing Aid Opthamlomology History: Reports: Hx Vision Problem Denies: Hx Contacts or Glasses, Hx Eye Injury Neurological History: Reports: Hx CVA, Hx Transient Ischemic Attacks (TIA) Denies: Hx Dementia, Hx Seizures Psychiatric History: Reports: Hx Depression, Hx Bipolar Disorder Denies: Hx Substance Abuse - Surgical History Surgery Procedure, Year, and Place: PACEMAKER Infectious Disease History: No Infectious Disease History: Denies: Hx Clostridium Difficile, Hx Hepatitis, Hx Human Immunodeficiency Virus (HIV), Hx of Known/Suspected MRSA, Hx Shingles, Hx Tuberculosis, History Other Infectious Disease, Traveled Outside the [place] in Last 30 Days - Family History Known Family History: Positive: Diabetes - Social History Occupation: Disabled Lives: With Family Alcohol Use: Occasionally Hx Substance Use: No Substance Use Type: Reports: None Hx Tobacco Use: Yes Smoking Status (MU): Never Smoked Tobacco Review of Systems Negative: Abdominal Pain Neurological: Other - pos: confusion Psychological: Other - pos: laughing uncontrolled All Other Systems Reviewed And Are Negative: Yes Physical Exam Triage Information Reviewed: Yes Vital Signs On Initial Exam: Initial Vitals Temp Pulse Resp BP Pulse Ox 96.7 F 55 16 145/71 98 06/24/17 10:18 06/24/17 10:18 06/24/17 10:18 06/24/17 10:18 06/24/17 10:18 Vital Signs Reviewed: Yes Appearance: Positive: Well-Appearing, No Pain Distress Skin: Positive: Warm, Skin Color Reflects Adequate Perfusion, Dry Head/Face: Positive: Other - R sided facial droop Eyes: Positive: EOMI, GUSTAVO ENT: Positive: Normal ENT inspection Neck: Positive: Supple, Nontender Respiratory/Lung Sounds: Positive: Clear to Auscultation, Breath Sounds Present Cardiovascular: Positive: RRR, Murmur Abdomen Description: Positive: Nontender, Soft Bowel Sounds: Positive: Present Musculoskeletal: Positive: Normal, Strength/ROM Intact Neurological: Positive: Facial Droop - R-side Psychiatric: Positive: Other - possible mild confused Diagnostics - Vital Signs Vital Signs Temp Pulse Resp BP Pulse Ox 06/24/17 10:18 96.7 F 55 16 145/71 98 - Laboratory Lab Results: Lab Results 06/24/17 06/24/17 06/24/17 Range/Units 11:18 12:05 12:05 WBC (3.5-10.8) 10^3/ul RBC (4.0-5.4) 10^6/ul Hgb (14.0-18.0) g/dl Hct (42-52) % MCV (80-94) fL MCH (27-31) pg MCHC (31-36) g/dl RDW (10.5-15) % Plt Count (150-450) 10^3/ul MPV (7.4-10.4) um3 Neut % (Auto) (38-83) % Lymph % (Auto) (25-47) % Clare % (Auto) (1-9) % Eos % (Auto) (0-6) % Baso % (Auto) (0-2) % Absolute Neuts (auto) (1.5-7.7) 10^3/ul Absolute Lymphs (auto) (1.0-4.8) 10^3/ul Absolute Monos (auto) (0-0.8) 10^3/ul Absolute Eos (auto) (0-0.6) 10^3/ul Absolute Basos (auto) (0-0.2) 10^3/ul Absolute Nucleated RBC 10^3/ul Nucleated RBC % INR (Anticoag Therapy) 1.24 H (0.89-1.11) APTT 33.7 (26.0-36.3) seconds Sodium 138 (133-145) mmol/L Potassium 4.2 (3.5-5.0) mmol/L Chloride 106 (101-111) mmol/L Carbon Dioxide 26 (22-32) mmol/L Anion Gap 6 (2-11) mmol/L BUN 30 H (6-24) mg/dL Creatinine 1.46 H (0.67-1.17) mg/dL Est GFR ( Amer) 60.2 (>60) Est GFR (Non-Af Amer) 46.8 (>60) BUN/Creatinine Ratio 20.5 H (8-20) Glucose 200 H (70-100) mg/dL POC Glucose (mg/dL) 260 H (70-100) mg/dL Lactic Acid (0.5-2.0) mmol/L Calcium 8.9 (8.6-10.3) mg/dL Magnesium 2.0 (1.9-2.7) mg/dL Total Bilirubin 0.30 (0.2-1.0) mg/dL AST 15 (13-39) U/L ALT 11 (7-52) U/L Alkaline Phosphatase 38 (34-104) U/L Ammonia Total Creatine Kinase 55 (10-223) U/L CK-MB (CK-2) 1.1 (0.6-6.3) ng/mL Troponin I 0.01 (<0.04) ng/mL C-Reactive Protein 9.31 H (< 5.00) mg/L B-Natriuretic Peptide ( - 100) pg/mL Total Protein 6.7 (6.4-8.9) g/dL Albumin 3.8 (3.2-5.2) g/dL Globulin 2.9 (2-4) g/dL Albumin/Globulin Ratio 1.3 (1-3) Lipase 41 (11.0-82.0) U/L TSH 8.42 H (0.34-5.60) mcIU/mL Acetaminophen < 15 mcg/mL Serum Alcohol < 10 (<10) mg/dL 06/24/17 06/24/17 06/24/17 Range/Units 12:05 12:05 12:05 WBC 7.5 (3.5-10.8) 10^3/ul RBC 3.90 L (4.0-5.4) 10^6/ul Hgb 9.5 L (14.0-18.0) g/dl Hct 30 L (42-52) % MCV 77 L (80-94) fL MCH 24 L (27-31) pg MCHC 32 (31-36) g/dl RDW 16 H (10.5-15) % Plt Count 178 (150-450) 10^3/ul MPV 10 (7.4-10.4) um3 Neut % (Auto) 61.7 (38-83) % Lymph % (Auto) 28.2 (25-47) % Clare % (Auto) 8.6 (1-9) % Eos % (Auto) 1.2 (0-6) % Baso % (Auto) 0.3 (0-2) % Absolute Neuts (auto) 4.7 (1.5-7.7) 10^3/ul Absolute Lymphs (auto) 2.1 (1.0-4.8) 10^3/ul Absolute Monos (auto) 0.7 (0-0.8) 10^3/ul Absolute Eos (auto) 0.1 (0-0.6) 10^3/ul Absolute Basos (auto) 0 (0-0.2) 10^3/ul Absolute Nucleated RBC 0 10^3/ul Nucleated RBC % 0 INR (Anticoag Therapy) (0.89-1.11) APTT (26.0-36.3) seconds Sodium (133-145) mmol/L Potassium (3.5-5.0) mmol/L Chloride (101-111) mmol/L Carbon Dioxide (22-32) mmol/L Anion Gap (2-11) mmol/L BUN (6-24) mg/dL Creatinine (0.67-1.17) mg/dL Est GFR ( Amer) (>60) Est GFR (Non-Af Amer) (>60) BUN/Creatinine Ratio (8-20) Glucose (70-100) mg/dL POC Glucose (mg/dL) (70-100) mg/dL Lactic Acid 1.3 (0.5-2.0) mmol/L Calcium (8.6-10.3) mg/dL Magnesium (1.9-2.7) mg/dL Total Bilirubin (0.2-1.0) mg/dL AST (13-39) U/L ALT (7-52) U/L Alkaline Phosphatase (34-104) U/L Ammonia TNP Total Creatine Kinase (10-223) U/L CK-MB (CK-2) (0.6-6.3) ng/mL Troponin I (<0.04) ng/mL C-Reactive Protein (< 5.00) mg/L B-Natriuretic Peptide 220 H ( - 100) pg/mL Total Protein (6.4-8.9) g/dL Albumin (3.2-5.2) g/dL Globulin (2-4) g/dL Albumin/Globulin Ratio (1-3) Lipase (11.0-82.0) U/L TSH (0.34-5.60) mcIU/mL Acetaminophen mcg/mL Serum Alcohol (<10) mg/dL Result Diagrams: 06/24/17 12:05 06/24/17 12:05 Lab Statement: Any lab studies that have been ordered have been reviewed, and results considered in the medical decision making process. - Radiology CXR Xray Interpretation: No Acute Changes - IMPRESSION: No evidence for active cardiopulmonary dz. ED physician has reviewed this radiology report and agrees. Radiology Interpretation Completed By: Radiologist - CT BRAIN CT Interpretation: No Acute Changes - IMPRESSION: 1. NO EVIDENCE FOR GROSS ACUTE INFARCT, MASS EFFECT OR HEMORRHAGE. 2. OLD RIGHT POSTERIOR PARIETAL AND OCCIPITAL LOBE INFARCT, UNCHANGED. ED physician has reviewed this radiology report and agrees. CT Interpretation Completed By: Radiologist - EKG 1 Cardiac Rate: Other Rate - atrial paced at 60bpm ST Segment: Non-Specific - in lateral leads Complex Multi-Symp Course/Dx Course Of Treatment: A 77 y/o M presents to ED with possibly AMS onset VISITOR SERVICES REPRESENTATIVE. Pt states he is in ED for high blood pressure. Per , pt has been laughing incontrollably and acting confused. The visiting nurse called pt's PCP who recommended pt be evaluated at ED. Pt denies abd pain, general pain. Pert PMHx: TIA 2x approx. one month ago. Pt has R-sided facial droop per baseline. Pt goes to physical therapy. Pt is repeatedly asking why he isnt getting paid to go to physical therapy. BP noted and advised to follow up with PCP. Medications reviewed this visit. PATIENT'S REORTS SHE CANNOT CARE FOR PATIENT AT HOME. SOCIAL WORK CONSULTED. ADMIT HOSPITALIST. - Diagnoses Provider Diagnoses: Altered mental state, Hypothyroidism - Physician Notifications Discussed Care Of Patient With: Isadora Melgar - hospitalist Time Discussed With Above Provider: 11:57 Instructed by Provider To: Other - Discussed case. Believes pt may have AMS at baseline. Recommends social work consult. Discharge - Discharge Plan Condition: Stable Disposition: ADMITTED TO [facility] Referrals: Valente ATKINS,Hansa Skinner [Primary Care Provider] - Consult Consult: 1331: Consult with Dr. Melgar, hospitalist Will admit pt, but will work with social work The documentation as recorded by the Sapphire pappas SooYoung accurately reflects the service I personally performed and the decisions made by me, Nate Dao MD.
[2017-06-24] MEDS ORDERED: Docusate CAP* 100 MG PO PRN (15:10)
[2017-06-24] MEDS ORDERED: Atorvastatin* 80 MG TAB PO SCH (18:00)
[2017-06-24] MEDS ORDERED: hydrALAZINE IV* 20 MG/ML VIAL ONE (18:24)
[2017-06-24] MEDS: hydrALAZINE IV* 20 MG/ML VIAL IV SLOW PU PRN (18:27)
[2017-06-24] MEDS: NS 0.9% 1000 ML* 1,000 ML IV SCH (18:27)
[2017-06-24] MEDS: Verapamil SR TAB* 240 MG PO SCH (19:22)
[2017-06-24] MEDS: Potassium Chlor TAB* 20 MEQ TAB.ER PO SCH (19:22)
[2017-06-24] MEDS: Divalproex DR TAB(*) 500 MG PO SCH (19:24)
[2017-06-24] MEDS: Nitro Patch/OINT Remove TOPICAL SCH (19:24)
[2017-06-24] MEDS: Metoprolol Tartrate TAB* 100 MG TAB PO SCH (19:24)
[2017-06-24] MEDS: Terazosin CAP* 5 MG PO SCH (19:24)
[2017-06-24] MEDS: cloNIDine TAB* 0.1 MG PO SCH (19:24)
[2017-06-24] MEDS ORDERED: QUEtiapine TAB* 25 MG PO SCH (21:00)
--- NOTE | 2017-06-24 21:40 | HP ---
HISTORY AND PHYSICAL: * ADDENDUM: Please also note that the patient has chronic microcytic anemia with hemoglobin actually at his baseline and improved from previous. It appears that the patient is scheduled for endoscopic procedure with Dr. Stephens on 07/31, which he is recommended to continue. [id number]/CPS #: [id number] MTDD
--- NOTE | 2017-06-24 21:57 | HP ---
ADDENDUM NOW INCLUDED ON THIS REPORT CC: KD Wetzel * HISTORY AND PHYSICAL: DATE OF ADMISSION: 06/24/17 PRIMARY CARE PROVIDER: KD Wetzel CHIEF COMPLAINT: Agitation. HISTORY OF PRESENT ILLNESS: Liliam Perales is a 77-year-old male with history of recent ischemic strokes and due to that significant memory deficits. The patient was admitted overnight on 06/10/17, which he was noted to be more forgetful and agitated at night and sundowning at night. He also was noted to have hypertensive urgency and was discharged within 24 hours with resolution of most of his symptoms, although he continued to be intermittently confused. Today, his brought him into the hospital saying that she is too exhausted to be able to take care of him anymore. He gets more confused and agitated at night. He is going to be observed with a diagnosis of worsening confusion. Please also note that this history was obtained from nursing staff and social workers, who spoke with the patient's . The patient's is at this point en route to home and I was unable to contact her to discuss the patient's presentation. The patient himself denies having any problems. PAST MEDICAL HISTORY: 1. History of left basal ganglia stroke with residual right-sided weakness, mild dysarthria and left facial droop and left homonymous hemianopia. 2. History of uncontrolled hypertension. 3. History of bipolar disease, on Depakote. 4. History of CVA in the past with history of right hemispheric encephalomalacia in the past. 5. History of [place]. 6. Diabetes type 2. 7. History of third-degree heart block, status post pacemaker placement. 8. Chronic kidney disease stage 3 due to diabetes. 9. History of severe aortic stenosis. 10. History of depression. 11. Dyslipidemia. 12. History of atrial fibrillation. 13. History of cataract surgery. 14. History of cholecystectomy. 15. History of cardiac stent in 2007. MEDICATIONS AT HOME: Include: 1. Prednisolone eye drops, one drop both eyes daily. 2. Glipizide 10 mg b.i.d. 3. Clonidine 0.1 mg b.i.d. 4. Verapamil SR 240 mg b.i.d. 5. Terazosin 10 mg at bedtime. 6. Xarelto 15 mg daily. 7. Potassium chloride 20 mEq b.i.d. 8. Omeprazole 20 mg daily. 9. Nitroglycerin patch 0.2 mg an hour one daily. 10. Metoprolol tartrate 100 mg b.i.d. 11. Losartan 100 mg daily. 12. Furosemide 20 mg daily. 13. Colace 100 mg daily p.r.n. 14. Depakote DR 500 mg b.i.d. 15. Plavix 75 mg daily. 16. Lipitor 80 mg daily. ALLERGIES: PENICILLINS. FAMILY HISTORY: Positive for father who at the age of 106, and mother who of breast cancer. SOCIAL HISTORY: The patient denies any tobacco, alcohol, or drug use. He lives with his , who is his surrogate decision maker. He states that he ambulates now without any problems. REVIEW OF SYSTEMS: Basically, no relevant review of systems was able to be obtained from the patient. The patient request to be discharged. He does not know where his is. He stated that he is willing to stay overnight. He stated that his physical therapist did "not worked" at home and I believe he discontinued physical therapy at home. He stated that he does not need a roller walker to walk and he ambulates without any problems. When I asked him about night time confusion, he got upset and he wanted to go back home. Once again, the patient is a very poor historian, but he denies any chest pain, shortness of breath, abdominal pain, problems with bowels or urination. All the remaining 12 systems were attempted to be reviewed with the patient, although I am not really sure how reliable historian he is and were otherwise negative. PHYSICAL EXAMINATION GENERAL: The patient is a very pleasant 77-year-old male who is unable to give me his date of . He is disoriented to time. He does not remember his age. He remembers the name of his . VITAL SIGNS: Blood pressure of 157/61, heart rate of 60 and regular, respiratory rate 14, oxygen saturation 100% on room air, temperature 97.7. HEENT: Head: Atraumatic, normocephalic. Eyes: Pupils are equal and reactive to light and accommodation. Oropharynx clear. Mucosa moist. NECK: Supple. No JVD. No bruits bilaterally. RESPIRATORY: Clear to auscultation bilaterally. CARDIOVASCULAR: Regular rate and rhythm with 2/6 systolic ejection murmur on auscultation of the right upper sternal border radiating to bilateral carotids. ABDOMEN: Protuberant, soft, nontender. Bowel sounds are present in all 4 quadrants. EXTREMITIES: There is no edema. Pulses are +2 bilaterally. No clubbing or cyanosis. NEURO EVALUATION: Slight dysarthria noted in speech. The patient has right- sided facial droop that is significant. Otherwise, I do not detect any focal weakness in bilateral lower and upper extremities in evaluation. PSYCHIATRIC EVALUATION: The patient is disoriented, but communicative. He is able to follow commands. He appears slightly hypersexual during my evaluation. SKIN: On evaluation of the skin, no ecchymotic areas or rashes noted. DIAGNOSTIC STUDIES/LAB DATA: Today included: White blood cell count 7.5, hemoglobin 9.5, hematocrit of 30, MCV of 77, and platelets of 178. Sodium of 138, potassium 4.2, chloride 106, carbon dioxide 26, BUN 30, creatinine 1.46 with baseline creatinine of 1.5 in the past. Liver function tests were unremarkable. Brain natriuretic peptide was 220. Troponin of 0.01. C-reactive protein was 9.3. TSH was 8.4 and was checked previously in March and was normal at 4.7. Brain CT obtained today, impression: "No evidence for gross acute infarct, mass effect or hemorrhage. Old right posterior parietal and occipital lobe infarct, unchanged." Portable chest x-ray, impression: "No radiographic evidence for acute cardiopulmonary abnormality on this portable chest x-ray." The patient's EKG showed paced atrial complexes with heart rate of 60 beats per minute. Negative T-waves in lateral leads and mildly negative T-waves in inferior leads. Those were comparable to an EKG from May of 2017. ASSESSMENT AND PLAN: 1. Liliam Perales is a 77-year-old male with history of recent ischemic infarct, who presented with worsening dementia and agitation. The patient also has a history of bipolar disorder and is on Depakote. At this point, there is no indication of an acute pathology. Nevertheless, the patient's well services operator, his , was exhausted. He is going to be placed on overnight observation on medical floor. I will continue the patient's Depakote for his bipolar disease and I suspect that he may have exacerbation of his bipolar disease and been mild demonic. At this point, I will ask Psychiatry to see the patient in consultation. I will provide Seroquel for the night. 2. In regards to the patient's diabetes, the patient's oral hypoglycemias are going to be held and he is going to be placed on insulin sliding scale. 3. The patient has history of atrial fibrillation and is on anticoagulation. He is on Xarelto that is going to be continued throughout his hospital stay. 4. In regards to the patient's chronic kidney disease stage 3 due to diabetes, his creatinine is at baseline. 5. The patient's hypertension is currently fairly controlled with his medications that are going to be continued throughout his hospital stay. 6. History of ischemia cerebrovascular accident. His residual deficits are actually improving. He still has mild dysarthria and right-sided facial droop. At this point, we will continue Aggrenox as well as Xarelto as previously taken. 7. The patient's code status is full and his surrogate is his . 8. The patient is likely going to have multiple social issues. I do not believe his is able to take him back home. marketing effectiveness manager is going to be following in regards to that. TIME SPENT: Approximately 65 minutes was spent on admission of this patient, more than half that time was spent [id number] with the patient during the interview and physical exam. ADDENDUM: Please also note that the patient has chronic microcytic anemia with hemoglobin actually at his baseline and improved from previous. It appears that the patient is scheduled for endoscopic procedure with Dr. Stephens on 07/31/17, which he is recommended to continue. [id number] #: [id number] #: [id number]
[2017-06-25] MEDS: hydrALAZINE IV* 20 MG/ML VIAL IV SLOW PU PRN (00:10)
[2017-06-25] MEDS: NS 0.9% 1000 ML* 1,000 ML IV SCH (01:14)
[2017-06-25 01:42] LABS: Urine Appearance Clear; Urine Blood 1+ (Negative); Urine Color Straw; Urine Ketones Negative (Negative); Urine Protein Negative (Negative); Urine Specific Gravity 1.013 (1.010-1.030); Urine Urobilinogen Negative (Negative)
[2017-06-25] MEDS ORDERED: hydrALAZINE IV* 20 MG/ML VIAL IV SLOW PU PRN (04:08)
[2017-06-25] MEDS ORDERED: Dextrose 50% Syringe 50 ML* 25 GM/50 ML SYRINGE IV PUSH PRN (09:00)
[2017-06-25] MEDS: Furosemide TAB* 40 MG PO SCH (09:01)
[2017-06-25] MEDS: cloNIDine TAB* 0.1 MG PO SCH ×2 (09:01→21:45)
[2017-06-25] MEDS: Losartan TAB* 25 MG PO SCH (09:01)
[2017-06-25] MEDS: Divalproex DR TAB(*) 500 MG PO SCH (09:01)
[2017-06-25] MEDS: Clopidogrel TAB* 75 MG PO SCH (09:01)
[2017-06-25] MEDS: Verapamil SR TAB* 240 MG PO SCH ×2 (09:02→21:58)
[2017-06-25] MEDS: Rivaroxaban TAB(*) 15 MG PO SCH (09:06)
[2017-06-25] MEDS: CMCS: Pantoprazole TAB (NF) 40 MG TAB PO SCH (09:06)
[2017-06-25] MEDS: Metoprolol Tartrate TAB* 100 MG TAB PO SCH ×2 (09:06→21:44)
[2017-06-25] MEDS: Nitroglycerin 0.2 MG/HR PATCH* (5 MG) TRANSDERM SCH (09:07)
[2017-06-25] MEDS: Potassium Chlor TAB* 20 MEQ TAB.ER PO SCH ×2 (09:07→21:57)
[2017-06-25] MEDS: prednisoLONE 1% OPHTH.SUSP* 5 ML OPHTH.SUSP BOTH EYES SCH (09:08)
[2017-06-25] MEDS ORDERED: cloNIDine TAB* 0.1 MG PO ONE (11:12)
[2017-06-25] MEDS: Insulin LISPRO* 1 UNITS UNIT SUBCUT SCH ×3 (12:35→21:45)
--- NOTE | 2017-06-25 14:47 | PN ---
Subjective Date of Service: 06/25/17 Interval History: Pt had been agitated intermittently, yelling and upset. Tearful, and then aggressive with staff. Occasionally making inappropriate sexual advances. Objective Active Medications: Acetaminophen (Tylenol Tab*) 650 mg PO Q4H PRN PRN Reason: FEVER/PAIN Atorvastatin Calcium (Lipitor*) 80 mg PO 2100 [facility] Clonidine HCl (Catapres Tab*) 0.1 mg PO BID [facility] Last Admin: 06/25/17 09:01 Dose: 0.1 mg Clopidogrel Bisulfate (Plavix Tab*) 75 mg PO DAILY [facility] Last Admin: 06/25/17 09:01 Dose: 75 mg Dextrose (D50w Syringe 50 Ml*) 12.5 gm IV PUSH .FOR FS < 60 - SS PRN PRN Reason: FS < 60 Divalproex Sodium (Depakote Dr Tab(*)) 500 mg PO BID [facility] Last Admin: 06/25/17 09:01 Dose: 500 mg Docusate Sodium (Colace Cap*) 100 mg PO DAILY PRN PRN Reason: CONSTIPATION Furosemide (Lasix Tab*) 40 mg PO DAILY [facility] Last Admin: 06/25/17 09:01 Dose: 40 mg Hydralazine HCl (Apresoline Iv*) 10 mg IV SLOW PU Q6H PRN PRN Reason: SBP < 185 Last Admin: 06/25/17 04:18 Dose: 10 mg Insulin Human Lispro (Humalog*) 0 units SUBCUT ACHS [facility] PRN Reason: Protocol Last Admin: 06/25/17 12:35 Dose: 6 units Losartan Potassium (Cozaar Tab*) 100 mg PO DAILY [facility] Last Admin: 06/25/17 09:01 Dose: 100 mg Metoprolol Tartrate (Lopressor Tab*) 100 mg PO BID [facility] Last Admin: 06/25/17 09:06 Dose: 100 mg Nitroglycerin (Nitroglycerin 5 Mg Patch*) 1 patch TRANSDERM DAILY [facility] Last Admin: 06/25/17 09:07 Dose: 1 patch Pantoprazole Sodium (Protonix Tab (Nf)) 40 mg PO DAILY [facility] Last Admin: 06/25/17 09:06 Dose: 40 mg Pharmacy Profile Note (Nitro Patch/Oint Remove*) 1 note TOPICAL 2100 [facility] Last Admin: 06/24/17 19:24 Dose: 1 patch Potassium Chloride (Klor Con Er Tab*) 20 meq PO BID [facility] Last Admin: 06/25/17 09:07 Dose: 20 meq Prednisolone Acetate (Pred Forte 1%*) 1 drop BOTH EYES DAILY [facility] Last Admin: 06/25/17 09:08 Dose: Not Given Quetiapine Fumarate (Seroquel Tab*) 25 mg PO BEDTIME [facility] Last Admin: 06/24/17 19:22 Dose: 25 mg Rivaroxaban (Xarelto(*)) 15 mg PO DAILY [facility] Last Admin: 06/25/17 09:06 Dose: 15 mg Terazosin HCl (Hytrin Cap*) 10 mg PO BEDTIME [facility] Last Admin: 06/24/17 19:24 Dose: 10 mg Verapamil HCl (Calan Sr Tab*) 240 mg PO BID [facility] Last Admin: 06/25/17 09:02 Dose: 240 mg Vital Signs 06/24/17 06/24/17 06/24/17 16:00 17:00 17:32 Temperature Pulse Rate 60 Respiratory 20 14 18 Rate Blood Pressure 199/83 (mmHg) O2 Sat by Pulse 99 Oximetry 06/24/17 06/24/17 06/24/17 18:07 19:20 20:00 Temperature 97.7 F 97.2 F Pulse Rate 58 59 Respiratory 20 18 Rate Blood Pressure 244/88 218/84 187/71 (mmHg) O2 Sat by Pulse 100 100 Oximetry 06/24/17 06/25/17 06/25/17 23:44 00:03 03:28 Temperature 97.7 F Pulse Rate 59 59 Respiratory 16 16 Rate Blood Pressure 207/73 192/86 193/62 (mmHg) O2 Sat by Pulse 100 100 Oximetry 06/25/17 06/25/17 07:38 11:18 Temperature 97.8 F Pulse Rate 59 Respiratory 16 Rate Blood Pressure 197/69 174/80 (mmHg) O2 Sat by Pulse 100 Oximetry Oxygen Devices in Use Now: None Appearance: 77 yo M in nAD, knows he is in hospital, dysarthia noted, doesn't remember his age. Frequently changing topic of conversation, confused Eyes: No Scleral Icterus, PERRLA Ears/Nose/Mouth/Throat: NL Teeth, Lips, Gums, Mucous Membranes Moist Neck: NL Appearance and Movements; NL JVP, Trachea Midline Respiratory: Symmetrical Chest Expansion and Respiratory Effort, Clear to Auscultation Cardiovascular: RRR, - - 3/6 ISABELLA Abdominal: NL Sounds; No Tenderness; No Distention Lymphatic: No Cervical Adenopathy Extremities: No Edema, No Clubbing, Cyanosis Skin: No Rash or Ulcers, No Nodules or Sclerosis Neurological: - - left facial droop, dysarthia Result Diagrams: 06/24/17 12:05 06/24/17 12:05 Additional Lab and Data: Lab Results 06/24/17 06/24/17 06/24/17 Range/Units 11:18 12:05 12:05 WBC (3.5-10.8) 10^3/ul RBC (4.0-5.4) 10^6/ul Hgb (14.0-18.0) g/dl Hct (42-52) % MCV (80-94) fL MCH (27-31) pg MCHC (31-36) g/dl RDW (10.5-15) % Plt Count (150-450) 10^3/ul MPV (7.4-10.4) um3 Neut % (Auto) (38-83) % Lymph % (Auto) (25-47) % [place] % (Auto) (1-9) % Eos % (Auto) (0-6) % Baso % (Auto) (0-2) % Absolute Neuts (auto) (1.5-7.7) 10^3/ul Absolute Lymphs (auto) (1.0-4.8) 10^3/ul Absolute Monos (auto) (0-0.8) 10^3/ul Absolute Eos (auto) (0-0.6) 10^3/ul Absolute Basos (auto) (0-0.2) 10^3/ul Absolute Nucleated RBC 10^3/ul Nucleated RBC % INR (Anticoag Therapy) 1.24 H (0.89-1.11) APTT 33.7 (26.0-36.3) seconds Sodium 138 (133-145) mmol/L Potassium 4.2 (3.5-5.0) mmol/L Chloride 106 (101-111) mmol/L Carbon Dioxide 26 (22-32) mmol/L Anion Gap 6 (2-11) mmol/L BUN 30 H (6-24) mg/dL Creatinine 1.46 H (0.67-1.17) mg/dL Est GFR ( Amer) 60.2 (>60) Est GFR (Non-Af Amer) 46.8 (>60) BUN/Creatinine Ratio 20.5 H (8-20) Glucose 200 H (70-100) mg/dL POC Glucose (mg/dL) 260 H (70-100) mg/dL Lactic Acid (0.5-2.0) mmol/L Calcium 8.9 (8.6-10.3) mg/dL Magnesium 2.0 (1.9-2.7) mg/dL Total Bilirubin 0.30 (0.2-1.0) mg/dL AST 15 (13-39) U/L ALT 11 (7-52) U/L Alkaline Phosphatase 38 (34-104) U/L Ammonia Total Creatine Kinase 55 (10-223) U/L CK-MB (CK-2) 1.1 (0.6-6.3) ng/mL Troponin I 0.01 (<0.04) ng/mL C-Reactive Protein 9.31 H (< 5.00) mg/L B-Natriuretic Peptide ( - 100) pg/mL Total Protein 6.7 (6.4-8.9) g/dL Albumin 3.8 (3.2-5.2) g/dL Globulin 2.9 (2-4) g/dL Albumin/Globulin Ratio 1.3 (1-3) Lipase 41 (11.0-82.0) U/L TSH 8.42 H (0.34-5.60) mcIU/mL Acetaminophen < 15 mcg/mL Serum Alcohol < 10 (<10) mg/dL 06/24/17 06/24/17 06/24/17 Range/Units 12:05 12:05 12:05 WBC 7.5 (3.5-10.8) 10^3/ul RBC 3.90 L (4.0-5.4) 10^6/ul Hgb 9.5 L (14.0-18.0) g/dl Hct 30 L (42-52) % MCV 77 L (80-94) fL MCH 24 L (27-31) pg MCHC 32 (31-36) g/dl RDW 16 H (10.5-15) % Plt Count 178 (150-450) 10^3/ul MPV 10 (7.4-10.4) um3 Neut % (Auto) 61.7 (38-83) % Lymph % (Auto) 28.2 (25-47) % [place] % (Auto) 8.6 (1-9) % Eos % (Auto) 1.2 (0-6) % Baso % (Auto) 0.3 (0-2) % Absolute Neuts (auto) 4.7 (1.5-7.7) 10^3/ul Absolute Lymphs (auto) 2.1 (1.0-4.8) 10^3/ul Absolute Monos (auto) 0.7 (0-0.8) 10^3/ul Absolute Eos (auto) 0.1 (0-0.6) 10^3/ul Absolute Basos (auto) 0 (0-0.2) 10^3/ul Absolute Nucleated RBC 0 10^3/ul Nucleated RBC % 0 INR (Anticoag Therapy) (0.89-1.11) APTT (26.0-36.3) seconds Sodium (133-145) mmol/L Potassium (3.5-5.0) mmol/L Chloride (101-111) mmol/L Carbon Dioxide (22-32) mmol/L Anion Gap (2-11) mmol/L BUN (6-24) mg/dL Creatinine (0.67-1.17) mg/dL Est GFR ( Amer) (>60) Est GFR (Non-Af Amer) (>60) BUN/Creatinine Ratio (8-20) Glucose (70-100) mg/dL POC Glucose (mg/dL) (70-100) mg/dL Lactic Acid 1.3 (0.5-2.0) mmol/L Calcium (8.6-10.3) mg/dL Magnesium (1.9-2.7) mg/dL Total Bilirubin (0.2-1.0) mg/dL AST (13-39) U/L ALT (7-52) U/L Alkaline Phosphatase (34-104) U/L Ammonia TNP Total Creatine Kinase (10-223) U/L CK-MB (CK-2) (0.6-6.3) ng/mL Troponin I (<0.04) ng/mL C-Reactive Protein (< 5.00) mg/L B-Natriuretic Peptide 220 H ( - 100) pg/mL Total Protein (6.4-8.9) g/dL Albumin (3.2-5.2) g/dL Globulin (2-4) g/dL Albumin/Globulin Ratio (1-3) Lipase (11.0-82.0) U/L TSH (0.34-5.60) mcIU/mL Acetaminophen mcg/mL Serum Alcohol (<10) mg/dL Assess/Plan/Problems-Billing Assessment: 76 year old male PMH [place], DM, pAfib on xarelto, moderate-severe aortic stenosis, HTN, CKDIII, bipolar with recent ischemic CVA and multiple CT head showing chronic right parietal/occipital infarct presenting with confusion, agitation. - Patient Problems (1) Encephalopathy acute Comment: Pt has baseline dementia and I suspect has a maniac episode. cont Depakote. Psychiatry consult pending. (2) Hypertension Comment: suspect is a response to his agitation.Pt was agitated and confused BEFORE his BP was noted to be high. Uncontrolled, will increase clonidine Caution with preload reduction given moderate to severe aortic stenosis. (3) Aortic stenosis Comment: Moderate to severe on echo 03/31/2017. (4) AV block, 3rd degree Comment: PPM in place, followed by Dr. Keller. (5) CVA (cerebral vascular accident) Comment: Still has left facial droop, but no other motor deficit apart for dysarthia Cont Plavix (6) Atrial fibrillation Comment: Continue home xarelto. Paced (7) Diabetes Comment: Lispro sliding scale. Home glipizide held (8) CKD stage 3 due to type 2 diabetes mellitus Comment: creat at baseline (9) Microcytic anemia Comment: chronic, Hb at baseline (10) DVT prophylaxis Comment: Xarelto Status and Disposition: OBV changed to inpatient. Pt is aggressive and intermittently agitated. He is not safe to be discharged home.
[2017-06-25] MEDS: QUEtiapine TAB* 25 MG PO SCH (17:34)
[2017-06-25] MEDS: Terazosin CAP* 5 MG PO SCH (21:55)
[2017-06-25] MEDS: Atorvastatin* 80 MG TAB PO SCH (21:56)
[2017-06-25] MEDS: Divalproex DR TAB(*) 250 MG PO SCH (21:56)
[2017-06-25] MEDS: Nitro Patch/OINT Remove TOPICAL SCH (21:57)
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
[2017-06-26] MEDS: prednisoLONE 1% OPHTH.SUSP* 5 ML OPHTH.SUSP BOTH EYES SCH (08:31)
[2017-06-26] MEDS: Losartan TAB* 25 MG PO SCH (08:37)
[2017-06-26] MEDS: CMCS: Pantoprazole TAB (NF) 40 MG TAB PO SCH (08:37)
[2017-06-26] MEDS: Metoprolol Tartrate TAB* 100 MG TAB PO SCH ×2 (08:37→21:10)
[2017-06-26] MEDS: Divalproex DR TAB(*) 250 MG PO SCH ×2 (08:37→21:08)
[2017-06-26] MEDS: Rivaroxaban TAB(*) 15 MG PO SCH (08:38)
[2017-06-26] MEDS: Clopidogrel TAB* 75 MG PO SCH (08:38)
[2017-06-26] MEDS: Furosemide TAB* 40 MG PO SCH (08:39)
[2017-06-26] MEDS: Potassium Chlor TAB* 20 MEQ TAB.ER PO SCH ×2 (08:39→21:11)
[2017-06-26] MEDS: Verapamil SR TAB* 240 MG PO SCH ×2 (08:39→21:07)
[2017-06-26] MEDS: Nitroglycerin 0.2 MG/HR PATCH* (5 MG) TRANSDERM SCH (08:39)
[2017-06-26] MEDS: cloNIDine TAB* 0.1 MG PO SCH ×2 (08:39→21:09)
[2017-06-26] MEDS: Insulin LISPRO* 1 UNITS UNIT SUBCUT SCH ×4 (08:40→21:10)
--- NOTE | 2017-06-26 14:24 | PN ---
Subjective Date of Service: 06/26/17 Interval History: Pt is calmer today. more cooperative. no complaints. Disoriented. Objective Active Medications: Acetaminophen (Tylenol Tab*) 650 mg PO Q4H PRN PRN Reason: FEVER/PAIN Atorvastatin Calcium (Lipitor*) 80 mg PO 2100 [facility] Last Admin: 06/25/17 21:56 Dose: 80 mg Clonidine HCl (Catapres Tab*) 0.2 mg PO BID [facility] Last Admin: 06/26/17 08:39 Dose: 0.2 mg Clopidogrel Bisulfate (Plavix Tab*) 75 mg PO DAILY [facility] Last Admin: 06/26/17 08:38 Dose: 75 mg Dextrose (D50w Syringe 50 Ml*) 12.5 gm IV PUSH .FOR FS < 60 - SS PRN PRN Reason: FS < 60 Divalproex Sodium (Depakote Dr Tab(*)) 750 mg PO BID [facility] Last Admin: 06/26/17 08:37 Dose: 750 mg Docusate Sodium (Colace Cap*) 100 mg PO DAILY PRN PRN Reason: CONSTIPATION Furosemide (Lasix Tab*) 40 mg PO DAILY [facility] Last Admin: 06/26/17 08:39 Dose: 40 mg Hydralazine HCl (Apresoline Iv*) 10 mg IV SLOW PU Q6H PRN PRN Reason: SBP < 185 Last Admin: 06/25/17 04:18 Dose: 10 mg Insulin Human Lispro (Humalog*) 0 units SUBCUT ACHS [facility] PRN Reason: Protocol Last Admin: 06/26/17 12:48 Dose: 2 units Losartan Potassium (Cozaar Tab*) 100 mg PO DAILY [facility] Last Admin: 06/26/17 08:37 Dose: 100 mg Metoprolol Tartrate (Lopressor Tab*) 100 mg PO BID [facility] Last Admin: 06/26/17 08:37 Dose: 100 mg Nitroglycerin (Nitroglycerin 5 Mg Patch*) 1 patch TRANSDERM DAILY [facility] Last Admin: 06/26/17 08:39 Dose: 1 patch Pantoprazole Sodium (Protonix Tab (Nf)) 40 mg PO DAILY [facility] Last Admin: 06/26/17 08:37 Dose: 40 mg Pharmacy Profile Note (Nitro Patch/Oint Remove*) 1 note TOPICAL 2099 [facility] Last Admin: 06/25/17 21:57 Dose: 1 patch Potassium Chloride (Klor Con Er Tab*) 20 meq PO BID [facility] Last Admin: 06/26/17 08:39 Dose: 20 meq Prednisolone Acetate (Pred Forte 1%*) 1 drop BOTH EYES DAILY [facility] Last Admin: 06/26/17 08:31 Dose: Not Given Quetiapine Fumarate (Seroquel Tab*) 50 mg PO 2100 [facility] Last Admin: 06/25/17 17:34 Dose: 50 mg Rivaroxaban (Xarelto(*)) 15 mg PO DAILY [facility] Last Admin: 06/26/17 08:38 Dose: 15 mg Terazosin HCl (Hytrin Cap*) 10 mg PO BEDTIME [facility] Last Admin: 06/25/17 21:55 Dose: 10 mg Verapamil HCl (Calan Sr Tab*) 240 mg PO BID [facility] Last Admin: 06/26/17 08:39 Dose: 240 mg Vital Signs 06/25/17 06/25/17 06/25/17 16:22 20:00 20:29 Temperature 97.3 F 97.7 F Pulse Rate 59 59 Respiratory 16 16 14 Rate Blood Pressure 101/69 146/54 (mmHg) O2 Sat by Pulse 100 100 Oximetry 06/25/17 06/26/17 06/26/17 23:44 03:21 07:32 Temperature 97.2 F 97.9 F 97.3 F Pulse Rate 111 60 59 Respiratory 16 16 21 Rate Blood Pressure 140/67 116/53 176/71 (mmHg) O2 Sat by Pulse 93 100 97 Oximetry 06/26/17 11:16 Temperature 97.6 F Pulse Rate 59 Respiratory 20 Rate Blood Pressure 151/68 (mmHg) O2 Sat by Pulse 100 Oximetry Oxygen Devices in Use Now: None Appearance: 77 yo M in nAD, oriented to self, knows he is in hospital Eyes: No Scleral Icterus, PERRLA Ears/Nose/Mouth/Throat: NL Teeth, Lips, Gums, Mucous Membranes Moist Neck: NL Appearance and Movements; NL JVP, Trachea Midline Respiratory: Symmetrical Chest Expansion and Respiratory Effort, Clear to Auscultation Cardiovascular: RRR, - - 3/6 ISABELLA Abdominal: NL Sounds; No Tenderness; No Distention, No Hepatosplenomegaly Lymphatic: No Cervical Adenopathy Extremities: No Edema, No Clubbing, Cyanosis Skin: No Rash or Ulcers, No Nodules or Sclerosis Neurological: NL Muscle Strength and Tone, - - R facial droop and dysarthia at baseline Result Diagrams: 11/02/17 12:05 06/24/17 12:05 Additional Lab and Data: Lab Results 06/24/17 06/24/17 06/24/17 Range/Units 11:18 12:05 12:05 WBC (3.5-10.8) 10^3/ul RBC (4.0-5.4) 10^6/ul Hgb (14.0-18.0) g/dl Hct (42-52) % MCV (80-94) fL MCH (27-31) pg MCHC (31-36) g/dl RDW (10.5-15) % Plt Count (150-450) 10^3/ul MPV (7.4-10.4) um3 Neut % (Auto) (38-83) % Lymph % (Auto) (25-47) % [place] % (Auto) (1-9) % Eos % (Auto) (0-6) % Baso % (Auto) (0-2) % Absolute Neuts (auto) (1.5-7.7) 10^3/ul Absolute Lymphs (auto) (1.0-4.8) 10^3/ul Absolute Monos (auto) (0-0.8) 10^3/ul Absolute Eos (auto) (0-0.6) 10^3/ul Absolute Basos (auto) (0-0.2) 10^3/ul Absolute Nucleated RBC 10^3/ul Nucleated RBC % INR (Anticoag Therapy) 1.24 H (0.89-1.11) APTT 33.7 (26.0-36.3) seconds Sodium 138 (133-145) mmol/L Potassium 4.2 (3.5-5.0) mmol/L Chloride 106 (101-111) mmol/L Carbon Dioxide 26 (22-32) mmol/L Anion Gap 6 (2-11) mmol/L BUN 30 H (6-24) mg/dL Creatinine 1.46 H (0.67-1.17) mg/dL Est GFR ( Amer) 60.2 (>60) Est GFR (Non-Af Amer) 46.8 (>60) BUN/Creatinine Ratio 20.5 H (8-20) Glucose 200 H (70-100) mg/dL POC Glucose (mg/dL) 260 H (70-100) mg/dL Lactic Acid (0.5-2.0) mmol/L Calcium 8.9 (8.6-10.3) mg/dL Magnesium 2.0 (1.9-2.7) mg/dL Total Bilirubin 0.30 (0.2-1.0) mg/dL AST 15 (13-39) U/L ALT 11 (7-52) U/L Alkaline Phosphatase 38 (34-104) U/L Ammonia Total Creatine Kinase 55 (10-223) U/L CK-MB (CK-2) 1.1 (0.6-6.3) ng/mL Troponin I 0.01 (<0.04) ng/mL C-Reactive Protein 9.31 H (< 5.00) mg/L B-Natriuretic Peptide ( - 100) pg/mL Total Protein 6.7 (6.4-8.9) g/dL Albumin 3.8 (3.2-5.2) g/dL Globulin 2.9 (2-4) g/dL Albumin/Globulin Ratio 1.3 (1-3) Lipase 41 (11.0-82.0) U/L TSH 8.42 H (0.34-5.60) mcIU/mL Acetaminophen < 15 mcg/mL Serum Alcohol < 10 (<10) mg/dL 06/24/17 06/24/17 06/24/17 Range/Units 12:05 12:05 12:05 WBC 7.5 (3.5-10.8) 10^3/ul RBC 3.90 L (4.0-5.4) 10^6/ul Hgb 9.5 L (14.0-18.0) g/dl Hct 30 L (42-52) % MCV 77 L (80-94) fL MCH 24 L (27-31) pg MCHC 32 (31-36) g/dl RDW 16 H (10.5-15) % Plt Count 178 (150-450) 10^3/ul MPV 10 (7.4-10.4) um3 Neut % (Auto) 61.7 (38-83) % Lymph % (Auto) 28.2 (25-47) % [place] % (Auto) 8.6 (1-9) % Eos % (Auto) 1.2 (0-6) % Baso % (Auto) 0.3 (0-2) % Absolute Neuts (auto) 4.7 (1.5-7.7) 10^3/ul Absolute Lymphs (auto) 2.1 (1.0-4.8) 10^3/ul Absolute Monos (auto) 0.7 (0-0.8) 10^3/ul Absolute Eos (auto) 0.1 (0-0.6) 10^3/ul Absolute Basos (auto) 0 (0-0.2) 10^3/ul Absolute Nucleated RBC 0 10^3/ul Nucleated RBC % 0 INR (Anticoag Therapy) (0.89-1.11) APTT (26.0-36.3) seconds Sodium (133-145) mmol/L Potassium (3.5-5.0) mmol/L Chloride (101-111) mmol/L Carbon Dioxide (22-32) mmol/L Anion Gap (2-11) mmol/L BUN (6-24) mg/dL Creatinine (0.67-1.17) mg/dL Est GFR ( Amer) (>60) Est GFR (Non-Af Amer) (>60) BUN/Creatinine Ratio (8-20) Glucose (70-100) mg/dL POC Glucose (mg/dL) (70-100) mg/dL Lactic Acid 1.3 (0.5-2.0) mmol/L Calcium (8.6-10.3) mg/dL Magnesium (1.9-2.7) mg/dL Total Bilirubin (0.2-1.0) mg/dL AST (13-39) U/L ALT (7-52) U/L Alkaline Phosphatase (34-104) U/L Ammonia TNP Total Creatine Kinase (10-223) U/L CK-MB (CK-2) (0.6-6.3) ng/mL Troponin I (<0.04) ng/mL C-Reactive Protein (< 5.00) mg/L B-Natriuretic Peptide 220 H ( - 100) pg/mL Total Protein (6.4-8.9) g/dL Albumin (3.2-5.2) g/dL Globulin (2-4) g/dL Albumin/Globulin Ratio (1-3) Lipase (11.0-82.0) U/L TSH (0.34-5.60) mcIU/mL Acetaminophen mcg/mL Serum Alcohol (<10) mg/dL Assess/Plan/Problems-Billing Assessment: 76 year old male PMH [place], DM, pAfib on xarelto, moderate-severe aortic stenosis, HTN, CKDIII, bipolar with recent ischemic CVA and multiple CT head showing chronic right parietal/occipital infarct presenting with confusion, agitation. - Patient Problems (1) Encephalopathy acute Comment: Pt has baseline dementia and I suspect has a maniac episode. Confirmed by psychiatry . Dr. Lema recommended placement in geriatric psychiatric facility. cont Depakote-dose increased from 500 to 750mg BID. cont Seroquel started this hospital stay (2) Hypertension Comment: Pt was agitated and confused BEFORE his BP was noted to be high. Now more labnile and most recent BP actuall low at 90. Will change clonidine back to 0.1 BID Caution with preload reduction given moderate to severe aortic stenosis. (3) Aortic stenosis Comment: Moderate to severe on echo 03/31/2017. (4) AV block, 3rd degree Comment: PPM in place, followed by Dr. Keller. (5) CVA (cerebral vascular accident) Comment: Still has left facial droop, but no other motor deficit apart for dysarthia Cont Plavix (6) Atrial fibrillation Comment: Continue home xarelto. Paced (7) Diabetes Comment: Lispro sliding scale. Home glipizide held (8) CKD stage 3 due to type 2 diabetes mellitus Comment: creat at baseline (9) Microcytic anemia Comment: chronic, Hb at baseline (10) DVT prophylaxis Comment: Xarelto Status and Disposition: OBV changed to inpatient. Pt is aggressive and intermittently agitated. He is not safe to be discharged home. Needs placement in geriatric psychiatric facility
[2017-06-26] MEDS ORDERED: NS 0.9% 250 ML* 250 ML IV ONE (15:59)
[2017-06-26] MEDS: QUEtiapine TAB* 25 MG PO SCH (21:08)
[2017-06-26] MEDS: Atorvastatin* 80 MG TAB PO SCH (21:09)
[2017-06-26] MEDS: Nitro Patch/OINT Remove TOPICAL SCH (21:11)
[2017-06-26] MEDS: Terazosin CAP* 5 MG PO SCH (21:11)
[2017-06-27 07:04] LABS: ABS Basophils 0 10^3/ul (0-0.2); ABS Eosinophils 0.2 10^3/ul (0-0.6); ABS Lymphocytes 2.6 10^3/ul (1.0-4.8); ABS Monocytes 0.6 10^3/ul (0-0.8); ABS Neutrophils 4.2 10^3/ul (1.5-7.7); ABS Nucleated RBC 0 10^3/ul; Eosinophil % 2.3 % (0-6); Hematocrit 26 % (42-52); Hemoglobin 8.4 g/dl (14.0-18.0); Lymphocyte % 34.7 % (25-47); Mean Corpuscular HGB Conc 32 g/dl (31-36); Mean Corpuscular Hemoglobin 25 pg (27-31); Mean Corpuscular Volume 77 fL (80-94); Mean Platelet Volume 9 um3 (7.4-10.4); Nucleated Red Blood Cells % 0; Platelet Count 155 10^3/ul (150-450); Red Blood Count 3.41 10^6/ul (4.0-5.4); Red Cell Distribution Width 15 % (10.5-15); White Blood Count 7.6 10^3/ul (3.5-10.8)
[2017-06-27 07:21] LABS: EGFR Non-African American 39.5 (>60)
[2017-06-27] MEDS: Insulin LISPRO* 1 UNITS UNIT SUBCUT SCH ×4 (07:32→22:03)
[2017-06-27] MEDS: CMCS: Pantoprazole TAB (NF) 40 MG TAB PO SCH (08:35)
[2017-06-27] MEDS: Rivaroxaban TAB(*) 15 MG PO SCH (08:35)
[2017-06-27] MEDS: Metoprolol Tartrate TAB* 100 MG TAB PO SCH ×2 (08:35→22:02)
[2017-06-27] MEDS: Clopidogrel TAB* 75 MG PO SCH (08:36)
[2017-06-27] MEDS: Verapamil SR TAB* 240 MG PO SCH (08:37)
[2017-06-27] MEDS: Losartan TAB* 25 MG PO SCH (08:37)
[2017-06-27] MEDS: Potassium Chlor TAB* 20 MEQ TAB.ER PO SCH ×2 (08:38→22:03)
[2017-06-27] MEDS: Divalproex DR TAB(*) 250 MG PO SCH ×2 (08:38→22:03)
[2017-06-27] MEDS: Furosemide TAB* 40 MG PO SCH (08:38)
[2017-06-27] MEDS: cloNIDine TAB* 0.1 MG PO SCH ×2 (08:38→22:02)
[2017-06-27] MEDS: Nitroglycerin 0.2 MG/HR PATCH* (5 MG) TRANSDERM SCH (08:38)
[2017-06-27] MEDS: prednisoLONE 1% OPHTH.SUSP* 5 ML OPHTH.SUSP BOTH EYES SCH (08:39)
[2017-06-27] MEDS ORDERED: NS 0.9% 250 ML* 250 ML IV ONE (10:55)
[2017-06-27] MEDS ORDERED: Losartan TAB* 25 MG PO SCH (10:56)
--- NOTE | 2017-06-27 10:58 | PN ---
Subjective Date of Service: 06/27/17 Interval History: He offers no c/o. Not clear if he could make his needs known. Objective Active Medications: Acetaminophen (Tylenol Tab*) 650 mg PO Q4H PRN PRN Reason: FEVER/PAIN Atorvastatin Calcium (Lipitor*) 80 mg PO 2100 [facility] Last Admin: 06/26/17 21:09 Dose: 80 mg Clonidine HCl (Catapres Tab*) 0.1 mg PO BID [facility] Last Admin: 06/27/17 08:38 Dose: 0.1 mg Clopidogrel Bisulfate (Plavix Tab*) 75 mg PO DAILY [facility] Last Admin: 06/27/17 08:36 Dose: 75 mg Dextrose (D50w Syringe 50 Ml*) 12.5 gm IV PUSH .FOR FS < 60 - SS PRN PRN Reason: FS < 60 Divalproex Sodium (Depakote Dr Tab(*)) 750 mg PO BID [facility] Last Admin: 06/27/17 08:38 Dose: 750 mg Docusate Sodium (Colace Cap*) 100 mg PO DAILY PRN PRN Reason: CONSTIPATION Furosemide (Lasix Tab*) 40 mg PO DAILY [facility] Last Admin: 06/27/17 08:38 Dose: 40 mg Hydralazine HCl (Apresoline Iv*) 10 mg IV SLOW PU Q6H PRN PRN Reason: SBP < 185 Last Admin: 06/25/17 04:18 Dose: 10 mg Insulin Human Lispro (Humalog*) 0 units SUBCUT ACHS [facility] PRN Reason: Protocol Last Admin: 06/27/17 07:32 Dose: Not Given Losartan Potassium (Cozaar Tab*) 100 mg PO DAILY [facility] Last Admin: 06/27/17 08:37 Dose: 100 mg Metoprolol Tartrate (Lopressor Tab*) 100 mg PO BID [facility] Last Admin: 06/27/17 08:35 Dose: 100 mg Nitroglycerin (Nitroglycerin 5 Mg Patch*) 1 patch TRANSDERM DAILY [facility] Last Admin: 06/27/17 08:38 Dose: 1 patch Pantoprazole Sodium (Protonix Tab (Nf)) 40 mg PO DAILY [facility] Last Admin: 06/27/17 08:35 Dose: 40 mg Pharmacy Profile Note (Nitro Patch/Oint Remove*) 1 note TOPICAL 2099 [facility] Last Admin: 06/26/17 21:11 Dose: 1 patch Potassium Chloride (Klor Con Er Tab*) 20 meq PO BID [facility] Last Admin: 06/27/17 08:38 Dose: 20 meq Prednisolone Acetate (Pred Forte 1%*) 1 drop BOTH EYES DAILY [facility] Last Admin: 06/27/17 08:39 Dose: 1 drop Quetiapine Fumarate (Seroquel Tab*) 50 mg PO 2100 [facility] Last Admin: 06/26/17 21:08 Dose: 50 mg Rivaroxaban (Xarelto(*)) 15 mg PO DAILY [facility] Last Admin: 06/27/17 08:35 Dose: 15 mg Terazosin HCl (Hytrin Cap*) 10 mg PO BEDTIME [facility] Last Admin: 06/26/17 21:11 Dose: 10 mg Verapamil HCl (Calan Sr Tab*) 240 mg PO BID [facility] Last Admin: 06/27/17 08:37 Dose: 240 mg Vital Signs 06/26/17 06/26/17 06/26/17 15:37 15:45 16:10 Temperature 97.3 F Pulse Rate 58 Respiratory 16 Rate Blood Pressure 86/54 98/60 122/56 (mmHg) O2 Sat by Pulse 100 Oximetry 06/26/17 06/26/17 06/26/17 19:43 20:00 23:32 Temperature 97.6 F 97.8 F Pulse Rate 59 60 Respiratory 16 16 16 Rate Blood Pressure 144/67 175/71 (mmHg) O2 Sat by Pulse 100 100 Oximetry 06/27/17 06/27/17 06/27/17 03:19 07:34 08:00 Temperature 98.1 F 97.8 F Pulse Rate 60 61 Respiratory 20 19 16 Rate Blood Pressure 178/76 166/65 (mmHg) O2 Sat by Pulse 100 100 Oximetry Oxygen Devices in Use Now: None Appearance: In a chair somewhat lethargic. Looks comfortable. Respiratory: Symmetrical Chest Expansion and Respiratory Effort, Clear to Auscultation, Clear to Percussion Cardiovascular: NL Sounds; No Murmurs; No JVD, RRR, No Edema, - Extremities: No Edema, No Clubbing, Cyanosis, - Skin: No Rash or Ulcers, No Nodules or Sclerosis, - Neurological: NL Sensation, - - Speech garbled, not comprehensible. Gaze fixed to the left. No tremor. Result Diagrams: 06/27/17 06:46 06/28/17 05:45 Additional Lab and Data: Lab Results 06/24/17 06/24/17 06/24/17 Range/Units 11:18 12:05 12:05 WBC (3.5-10.8) 10^3/ul RBC (4.0-5.4) 10^6/ul Hgb (14.0-18.0) g/dl Hct (42-52) % MCV (80-94) fL MCH (27-31) pg MCHC (31-36) g/dl RDW (10.5-15) % Plt Count (150-450) 10^3/ul MPV (7.4-10.4) um3 Neut % (Auto) (38-83) % Lymph % (Auto) (25-47) % Lucas % (Auto) (1-9) % Eos % (Auto) (0-6) % Baso % (Auto) (0-2) % Absolute Neuts (auto) (1.5-7.7) 10^3/ul Absolute Lymphs (auto) (1.0-4.8) 10^3/ul Absolute Monos (auto) (0-0.8) 10^3/ul Absolute Eos (auto) (0-0.6) 10^3/ul Absolute Basos (auto) (0-0.2) 10^3/ul Absolute Nucleated RBC 10^3/ul Nucleated RBC % INR (Anticoag Therapy) 1.24 H (0.89-1.11) APTT 33.7 (26.0-36.3) seconds Sodium 138 (133-145) mmol/L Potassium 4.2 (3.5-5.0) mmol/L Chloride 106 (101-111) mmol/L Carbon Dioxide 26 (22-32) mmol/L Anion Gap 6 (2-11) mmol/L BUN 30 H (6-24) mg/dL Creatinine 1.46 H (0.67-1.17) mg/dL Est GFR ( Amer) 60.2 (>60) Est GFR (Non-Af Amer) 46.8 (>60) BUN/Creatinine Ratio 20.5 H (8-20) Glucose 200 H (70-100) mg/dL POC Glucose (mg/dL) 260 H (70-100) mg/dL Lactic Acid (0.5-2.0) mmol/L Calcium 8.9 (8.6-10.3) mg/dL Magnesium 2.0 (1.9-2.7) mg/dL Total Bilirubin 0.30 (0.2-1.0) mg/dL AST 15 (13-39) U/L ALT 11 (7-52) U/L Alkaline Phosphatase 38 (34-104) U/L Ammonia Total Creatine Kinase 55 (10-223) U/L CK-MB (CK-2) 1.1 (0.6-6.3) ng/mL Troponin I 0.01 (<0.04) ng/mL C-Reactive Protein 9.31 H (< 5.00) mg/L B-Natriuretic Peptide ( - 100) pg/mL Total Protein 6.7 (6.4-8.9) g/dL Albumin 3.8 (3.2-5.2) g/dL Globulin 2.9 (2-4) g/dL Albumin/Globulin Ratio 1.3 (1-3) Lipase 41 (11.0-82.0) U/L TSH 8.42 H (0.34-5.60) mcIU/mL Acetaminophen < 15 mcg/mL Serum Alcohol < 10 (<10) mg/dL 06/24/17 06/24/17 06/24/17 Range/Units 12:05 12:05 12:05 WBC 7.5 (3.5-10.8) 10^3/ul RBC 3.90 L (4.0-5.4) 10^6/ul Hgb 9.5 L (14.0-18.0) g/dl Hct 30 L (42-52) % MCV 77 L (80-94) fL MCH 24 L (27-31) pg MCHC 32 (31-36) g/dl RDW 16 H (10.5-15) % Plt Count 178 (150-450) 10^3/ul MPV 10 (7.4-10.4) um3 Neut % (Auto) 61.7 (38-83) % Lymph % (Auto) 28.2 (25-47) % Lucas % (Auto) 8.6 (1-9) % Eos % (Auto) 1.2 (0-6) % Baso % (Auto) 0.3 (0-2) % Absolute Neuts (auto) 4.7 (1.5-7.7) 10^3/ul Absolute Lymphs (auto) 2.1 (1.0-4.8) 10^3/ul Absolute Monos (auto) 0.7 (0-0.8) 10^3/ul Absolute Eos (auto) 0.1 (0-0.6) 10^3/ul Absolute Basos (auto) 0 (0-0.2) 10^3/ul Absolute Nucleated RBC 0 10^3/ul Nucleated RBC % 0 INR (Anticoag Therapy) (0.89-1.11) APTT (26.0-36.3) seconds Sodium (133-145) mmol/L Potassium (3.5-5.0) mmol/L Chloride (101-111) mmol/L Carbon Dioxide (22-32) mmol/L Anion Gap (2-11) mmol/L BUN (6-24) mg/dL Creatinine (0.67-1.17) mg/dL Est GFR ( Amer) (>60) Est GFR (Non-Af Amer) (>60) BUN/Creatinine Ratio (8-20) Glucose (70-100) mg/dL POC Glucose (mg/dL) (70-100) mg/dL Lactic Acid 1.3 (0.5-2.0) mmol/L Calcium (8.6-10.3) mg/dL Magnesium (1.9-2.7) mg/dL Total Bilirubin (0.2-1.0) mg/dL AST (13-39) U/L ALT (7-52) U/L Alkaline Phosphatase (34-104) U/L Ammonia TNP Total Creatine Kinase (10-223) U/L CK-MB (CK-2) (0.6-6.3) ng/mL Troponin I (<0.04) ng/mL C-Reactive Protein (< 5.00) mg/L B-Natriuretic Peptide 220 H ( - 100) pg/mL Total Protein (6.4-8.9) g/dL Albumin (3.2-5.2) g/dL Globulin (2-4) g/dL Albumin/Globulin Ratio (1-3) Lipase (11.0-82.0) U/L TSH (0.34-5.60) mcIU/mL Acetaminophen mcg/mL Serum Alcohol (<10) mg/dL Assess/Plan/Problems-Billing Assessment: 76 year old male PMH MD, DM, pAfib on xarelto, moderate-severe aortic stenosis, HTN, CKDIII, bipolar with recent ischemic CVA and multiple CT head showing chronic right parietal/occipital infarct presenting with confusion, agitation. - Patient Problems (1) Acute on chronic renal insufficiency Current Visit: No Status: Acute Code(s): N28.9 - DISORDER OF KIDNEY AND URETER, UNSPECIFIED; N18.9 - CHRONIC KIDNEY DISEASE, UNSPECIFIED SNOMED Code(s ): 141836343 Comment: Stop furosemide. Reduce losartan to 50 mg daily. BMP 06/28/17. (2) Hypertension Current Visit: No Status: Acute Code(s): I10 - ESSENTIAL (PRIMARY) HYPERTENSION SNOMED Code(s): 07336696 Comment: Reduce losartan to 75 mg daily. Another 250 ml bolus 06/27. (3) Microcytic anemia Current Visit: Yes Status: Acute Code(s): D50.9 - IRON DEFICIENCY ANEMIA, UNSPECIFIED SNOMED Code(s): 348731667 Comment: chronic, Hb at baseline. Add on ferritin ordered. (4) CVA (cerebral vascular accident) Current Visit: No Status: Acute Code(s): I63.9 - CEREBRAL INFARCTION, UNSPECIFIED SNOMED Code(s): 340495755 Comment: Cont Plavix, statin. (5) Diabetes Current Visit: Yes Status: Acute Code(s): E11.9 - TYPE 2 DIABETES MELLITUS WITHOUT COMPLICATIONS SNOMED Code(s): 60679733 Comment: Restart glipizide at lower dose than at home. Continue Lispro by SS. (6) Hypotension Current Visit: Yes Status: Acute Comment: More likely the hypotension caused his transient decrease in mental status and fixed gaze to the left and up. Cortisol level addon 14.5 06/27 14:50 hrs. His at 4 PM 06/27 agrees he is back to where he was mentally on 06/26. Status and Disposition: OBV changed to inpatient. Pt is aggressive and intermittently agitated. He is not safe to be discharged home. Needs placement in geriatric psychiatric facility
[2017-06-27] MEDS ORDERED: NS 0.9% 500 ML* 500 ML IV ONE ×2 (11:50→13:00)
[2017-06-27] MEDS ORDERED: Verapamil SR TAB* 240 MG PO SCH (11:53)
[2017-06-27] MEDS ORDERED: Ziprasidone IM INJ* 20 MG/ML VIAL IM ONE (14:25)
[2017-06-27] MEDS: glipiZIDE TAB* 5 MG PO SCH (17:45)
[2017-06-27] MEDS: Ziprasidone IM INJ* 20 MG/ML VIAL IM PRN (18:07)
--- NOTE | 2017-06-27 19:24 | RAD ---
Indication: Bilateral leg edema Duplex Doppler sonography of the deep venous system of both lower extremities was performed. Bilaterally the common femoral veins, proximal greater saphenous veins, proximal deep femoral veins, femoral veins, popliteal veins, posterior tibial veins and peroneal veins appear patent and compressible. IMPRESSION: NO EVIDENCE OF DEEP VENOUS THROMBOSIS OF EITHER LOWER EXTREMITY IS PRESENT.
--- NOTE | 2017-06-27 21:15 | CONS ---
CRITICAL CARE CONSULTATION REPORT: DATE OF CONSULTATION: 06/27/17 CONSULTATION REQUESTED BY: Ronald Barrett MD REASON FOR CONSULTATION: Hypotension, altered mental status. HISTORY OF PRESENT ILLNESS: Mr. Perales is a 77-year-old male with the recent ischemic stroke, memory deficit, episodes of agitation, who was transferred to ICU this afternoon for change in mental status and hypotension. The patient has been having episodes of agitation on the floor. He has residual right- sided weakness, dysarthria, left facial droop, and homonymous hemianopia. The patient has been having significantly elevated blood pressures recently while on the floor. The patient was on multiple blood pressure medications. The patient was hypertensive this morning. He has received verapamil 240 mg, metoprolol 100 mg and clonidine 0.1 mg. Patient subsequently was noted to have hypotension and also was found to have change in mental status from his baseline. The patient was transferred to ICU for close monitoring. Upon arrival in the ICU, the patient was found to be confused, oriented to self and place. The patient is hard to understand secondary to underlying dysarthria. He was also seen by Psychiatry while on the floor given episodes of agitation and violent behavior. The patient received 250 mL of IV fluids while on the floor. He is not currently on fluids. He was placed n.p.o. given recent episode of confusion. The patient's blood pressure has improved since his arrival in the ICU. He has pacemaker placed and is in paced rhythm. No acute ST-T wave changes were noted. The patient also complained of chest pressure and a 12-lead EKG was ordered and pending at the time of dictation. He does have history of [place] and diabetes. His blood sugars were around 140 to 180. He has chronic kidney disease with slight worsening of creatinine. He has a history of anemia with no significant drop. PAST MEDICAL HISTORY: 1. Left basal ganglia stroke with residual right-sided weakness, mild dysarthria, left facial droop, and left homonymous hemianopia. 2. Uncontrolled hypertension. 3. Bipolar disease, on Depakote. 4. CVA in the past with right hemisphere encephalomalacia. 5. History of [place]. 6. Diabetes, type 2. 7. Third degree heart block, status post pacemaker placement. 8. Chronic kidney disease, stage 3, due to diabetes. 9. Severe aortic stenosis. 10. History of depression. 11. Dyslipidemia. 12. Atrial fibrillation. 13. Cataract surgery. 14. Cholecystectomy. 15. Cardiac stent in 2007. MEDICATIONS: At home: 1. Prednisolone eye drops. 2. Glipizide 10 mg b.i.d. 3. Clonidine 0.1 mg b.i.d. 4. Verapamil 240 mg b.i.d. 5. Terazosin 10 mg at bedtime. 6. Xarelto 15 mg daily. 7. Potassium chloride 20 mEq b.i.d. 8. Omeprazole 20 mg daily. 9. Nitroglycerin patch 0.2 mg. 10. Metoprolol 100 mg b.i.d. 11. Losartan 100 mg daily. 12. Furosemide 20 mg daily. 13. Colace 100 mg daily p.r.n. 14. Depakote 500 mg b.i.d. 15. Plavix 75 mg daily. 16. Lipitor 80 mg daily. ALLERGIES: PENICILLIN. FAMILY HISTORY: Father at age 106. Mother with breast cancer. SOCIAL HISTORY: No tobacco, alcohol, or drug abuse. Lives at home with his . REVIEW OF SYSTEMS: Unable to obtain review of systems secondary to dysarthria and change in mental status. PHYSICAL EXAM: General: The patient is in bed in no apparent distress. He is alert, oriented x2, appears confused. Vital Signs: Temperature 96.7, pulse 60 beats per minute, respiratory rate 14 per minute, oxygen saturation 99% to 100% on room air, blood pressure 102/66. HEENT: Pupils equal and reactive to light. Mucous membranes are moist. Neck: Supple. No JVD. No bruits. Respiratory: Clear to auscultation bilaterally. Cardiovascular: Regular rate and rhythm, bradycardia, 2/6 systolic ejection murmur in the right upper sternal border. Abdomen: Protuberant, nontender. Bowel sounds present. Extremities: 1+ edema bilaterally, the patient with mild tenderness in the left lower extremity, pulses 2+ bilaterally. No clubbing or cyanosis. Neuro: The patient with dysarthria, alert, awake, oriented x2, right facial droop which is present from before, has right-sided hemiparesis, is able to move right upper and lower extremities, left good strength, no sensory deficits noted , however, neuro exam is slightly limited. Psychiatric: The patient is disoriented, able to follow commands. He does appear to be agitated at times. Skin: No ecchymosis or rash. LABORATORY EXAMINATION: WBC count 7.6, hemoglobin 8.4, hematocrit 76, platelet count 155, INR 1.24. Sodium 143, potassium 4.4, chloride 112, bicarb 26, BUN 34 , creatinine 1.69, glucose 132, repeat of 170, ammonia of 46, BNP 220. Chest x-ray performed on admission was personally reviewed by me. No acute airspace opacities were noted. CT brain on admission reveal no evidence of acute infarct, mass effect or hemorrhage. Old posteroparietal and occipital lobe infarct was seen. EKG repeated this afternoon showed paced rhythm and some T-wave flattening. IMPRESSION AND RECOMMENDATIONS: 77-year-old male with history of recent cerebrovascular accident; history of hypertension and recent hypertensive emergency, on multiple hypertensive medications, received metoprolol 100 mg, clonidine 0.1 mg, verapamil 240 mg, Lasix 40 mg this morning with hypotension and change in mental status. 1. Hypotension. Most likely secondary to multiple hypertensive medications administered around same time. The patient was also on nitro patch on arrival in the ICU. Will hold the medications at this time. Will obtain echocardiogram to evaluate for any changes. The patient has complained of chest pressure, stat EKG did not reveal any changes. Will check troponins. 2. He has lower extremity swelling and edema. Will order lower extremity Dopplers. The patient is on Xarelto already given history of atrial fibrillation. The patient is not tachycardiac, do not suspect pulmonary embolism. No evidence of hypoxemia at this time. 3. The patient with change in neurological status likely secondary to hypotension. Will monitor mental status closely. Recent CT brain did not show evidence of acute changes. Mental status change likely secondary to episode of hypotension. He has received 250 mL of LV fluid bolus while on the floor. His blood pressure is improving currently. Will avoid additional fluid boluses given the fact that he has history of aortic stenosis, moderate to severe. Will hold diabetic medications. Will cover with insulin as per sliding scale if needed. Will continue with n.p.o. status for now. Will restart blood pressure medications cautiously once his blood pressure starts to improve. No signs of sepsis at this time. No white count. He is afebrile. Will hold off on antibiotics at this time. Will send septic workup and only cover if anything is positive. Thank you for allowing me to participate in the care of your patient. Will monitor the patient closely in the ICU and will transfer to the floor when stable. [id number]/[facility] #: [id number] AYO
[2017-06-27] MEDS: QUEtiapine TAB* 25 MG PO SCH (22:02)
[2017-06-27] MEDS: Terazosin CAP* 5 MG PO SCH (22:02)
[2017-06-27] MEDS: Atorvastatin* 80 MG TAB PO SCH (22:02)
[2017-06-27] MEDS: Nitro Patch/OINT Remove TOPICAL SCH (22:05)
[2017-06-28] MEDS ORDERED: hydrALAZINE IV* 20 MG/ML VIAL ONE (02:51)
[2017-06-28] MEDS: hydrALAZINE IV* 20 MG/ML VIAL IV SLOW PU PRN ×2 (02:53→23:56)
[2017-06-28] MEDS: Ziprasidone IM INJ* 20 MG/ML VIAL IM PRN (04:27)
[2017-06-28 06:20] LABS: EGFR Non-African American 36.3 (>60)
[2017-06-28] MEDS: Insulin LISPRO* 1 UNITS UNIT SUBCUT SCH ×4 (07:46→20:47)
--- NOTE | 2017-06-28 07:51 | PN ---
Subjective Date of Service: 06/28/17 Interval History: No c/o. He fas flight of ideas, in a few moment stated he didn't want to go home and wanted to stay here, then stated he would be nice and agree to stay here 1 more night. He stated he likes it here because he doesn't have to pay for his medications but also said he has Medicaid which pays for his medications. Objective Active Medications: Acetaminophen (Tylenol Tab*) 650 mg PO Q4H PRN PRN Reason: FEVER/PAIN Atorvastatin Calcium (Lipitor*) 80 mg PO 2100 [facility] Last Admin: 06/27/17 22:02 Dose: 80 mg Clonidine HCl (Catapres Tab*) 0.1 mg PO BID [facility] Last Admin: 06/27/17 22:02 Dose: 0.1 mg Clopidogrel Bisulfate (Plavix Tab*) 75 mg PO DAILY [facility] Last Admin: 06/27/17 08:36 Dose: 75 mg Dextrose (D50w Syringe 50 Ml*) 12.5 gm IV PUSH .FOR FS < 60 - SS PRN PRN Reason: FS < 60 Divalproex Sodium (Depakote Dr Tab(*)) 750 mg PO BID [facility] Last Admin: 06/27/17 22:03 Dose: 750 mg Docusate Sodium (Colace Cap*) 100 mg PO DAILY PRN PRN Reason: CONSTIPATION Glipizide (Glucotrol Tab*) 5 mg PO 0800,1700 [facility] Last Admin: 06/27/17 17:45 Dose: 5 mg Hydralazine HCl (Apresoline Iv*) 5 mg IV SLOW PU Q6H PRN PRN Reason: BLOOD PRESSURE Last Admin: 06/28/17 02:53 Dose: 5 mg Insulin Human Lispro (Humalog*) 0 units SUBCUT ACHS [facility] PRN Reason: Protocol Last Admin: 06/27/17 22:03 Dose: 4 units Losartan Potassium (Cozaar Tab*) 50 mg PO DAILY [facility] Metoprolol Tartrate (Lopressor Tab*) 100 mg PO BID [facility] Last Admin: 06/27/17 22:02 Dose: 100 mg Nitroglycerin (Nitroglycerin 5 Mg Patch*) 1 patch TRANSDERM DAILY [facility] Last Admin: 06/27/17 08:38 Dose: 1 patch Pantoprazole Sodium (Protonix Tab (Nf)) 40 mg PO DAILY [facility] Last Admin: 06/27/17 08:35 Dose: 40 mg Pharmacy Profile Note (Nitro Patch/Oint Remove*) 1 note TOPICAL 2100 [facility] Last Admin: 06/27/17 22:05 Dose: 1 patch Prednisolone Acetate (Pred Forte 1%*) 1 drop BOTH EYES DAILY [facility] Last Admin: 06/27/17 08:39 Dose: 1 drop Quetiapine Fumarate (Seroquel Tab*) 25 mg PO DAILY [facility] Quetiapine Fumarate (Seroquel Tab*) 100 mg PO 2100 [facility] Rivaroxaban (Xarelto(*)) 15 mg PO DAILY [facility] Last Admin: 06/27/17 08:35 Dose: 15 mg Terazosin HCl (Hytrin Cap*) 10 mg PO BEDTIME [facility] Last Admin: 06/27/17 22:02 Dose: 10 mg Verapamil HCl (Calan Sr Tab*) 240 mg PO BID [facility] Ziprasidone (Geodon Im Inj*) 20 mg IM Q8H PRN PRN Reason: AGITATION Last Admin: 06/28/17 04:27 Dose: 20 mg Vital Signs 06/27/17 06/27/17 06/27/17 08:00 10:45 11:00 Temperature 96.6 F Pulse Rate Respiratory 16 Rate Blood Pressure 80/55 (mmHg) O2 Sat by Pulse Oximetry 06/27/17 06/27/17 06/27/17 11:10 11:45 12:00 Temperature Pulse Rate Respiratory Rate Blood Pressure 90/60 98/60 80/55 (mmHg) O2 Sat by Pulse Oximetry 06/27/17 06/27/17 06/27/17 12:46 12:58 13:00 Temperature 96.7 F Pulse Rate 60 60 62 Respiratory 22 20 15 Rate Blood Pressure 102/66 92/58 (mmHg) O2 Sat by Pulse 99 94 Oximetry 06/27/17 06/27/17 06/27/17 13:02 13:15 13:30 Temperature Pulse Rate 58 60 Respiratory 17 13 21 Rate Blood Pressure 102/66 99/65 109/63 (mmHg) O2 Sat by Pulse 99 98 Oximetry 06/27/17 06/27/17 06/27/17 13:45 14:00 14:01 Temperature Pulse Rate 60 60 61 Respiratory 19 21 21 Rate Blood Pressure 117/66 144/76 (mmHg) O2 Sat by Pulse 97 100 100 Oximetry 06/27/17 06/27/17 06/27/17 14:17 14:32 14:45 Temperature Pulse Rate 59 61 61 Respiratory 21 21 23 Rate Blood Pressure 146/70 128/59 140/73 (mmHg) O2 Sat by Pulse 99 Oximetry 06/27/17 06/27/17 06/27/17 14:52 15:00 15:01 Temperature Pulse Rate 59 60 Respiratory 21 15 20 Rate Blood Pressure 126/101 (mmHg) O2 Sat by Pulse 100 Oximetry 06/27/17 06/27/17 06/27/17 15:31 15:46 16:00 Temperature Pulse Rate 60 60 60 Respiratory 16 15 16 Rate Blood Pressure 136/70 107/66 120/63 (mmHg) O2 Sat by Pulse 100 98 99 Oximetry 06/27/17 06/27/17 06/27/17 16:15 16:30 16:46 Temperature Pulse Rate 60 60 60 Respiratory 16 18 17 Rate Blood Pressure 112/60 112/64 167/77 (mmHg) O2 Sat by Pulse 99 100 100 Oximetry 06/27/17 06/27/17 06/27/17 17:00 17:01 17:17 Temperature Pulse Rate 60 60 60 Respiratory 17 14 18 Rate Blood Pressure 147/77 169/77 (mmHg) O2 Sat by Pulse 100 100 100 Oximetry 06/27/17 06/27/17 06/27/17 17:31 17:46 17:48 Temperature Pulse Rate 60 67 67 Respiratory 19 18 20 Rate Blood Pressure 179/87 206/100 157/129 (mmHg) O2 Sat by Pulse 100 100 100 Oximetry 06/27/17 06/27/17 06/27/17 17:54 18:00 18:01 Temperature Pulse Rate 66 68 65 Respiratory 31 17 21 Rate Blood Pressure 173/112 158/80 (mmHg) O2 Sat by Pulse 100 100 100 Oximetry 06/27/17 06/27/17 06/27/17 18:10 18:15 18:31 Temperature Pulse Rate 68 61 61 Respiratory 20 16 17 Rate Blood Pressure 180/82 142/82 (mmHg) O2 Sat by Pulse 100 100 100 Oximetry 06/27/17 06/27/17 06/27/17 18:47 19:00 19:16 Temperature Pulse Rate 60 68 60 Respiratory 21 20 22 Rate Blood Pressure 153/109 180/87 132/82 (mmHg) O2 Sat by Pulse 100 100 100 Oximetry 06/27/17 06/27/1706/27/17 19:30 19:45 20:00 Temperature Pulse Rate 60 60 60 Respiratory 10 8 7 Rate Blood Pressure 124/68 110/62 100/66 (mmHg) O2 Sat by Pulse 100 100 96 Oximetry 06/27/17 06/27/17 06/27/17 20:46 21:00 21:01 Temperature Pulse Rate 60 60 60 Respiratory 16 17 17 Rate Blood Pressure 183/80 184/89 (mmHg) O2 Sat by Pulse 99 100 99 Oximetry 06/27/17 06/27/17 06/27/17 21:15 22:00 22:32 Temperature Pulse Rate 60 60 59 Respiratory 16 17 19 Rate Blood Pressure 179/76 195/82 (mmHg) O2 Sat by Pulse 100 98 100 Oximetry 06/27/17 06/27/17 06/27/17 23:00 23:01 23:31 Temperature Pulse Rate 60 60 60 Respiratory 19 17 18 Rate Blood Pressure 195/81 186/107 (mmHg) O2 Sat by Pulse 100 100 100 Oximetry 06/28/17 06/28/17 06/28/17 00:00 00:01 00:30 Temperature 97.9 F Pulse Rate 60 60 60 Respiratory 17 18 17 Rate Blood Pressure 137/62 151/66 (mmHg) O2 Sat by Pulse 99 99 99 Oximetry 06/28/17 06/28/17 06/28/17 01:00 01:30 02:00 Temperature Pulse Rate 60 58 60 Respiratory 18 18 17 Rate Blood Pressure 169/73 164/72 191/76 (mmHg) O2 Sat by Pulse 99 99 100 Oximetry 06/28/17 06/28/17 06/28/17 02:03 02:30 03:00 Temperature Pulse Rate 60 60 60 Respiratory 17 18 17 Rate Blood Pressure 198/91 192/91 (mmHg) O2 Sat by Pulse 100 100 100 Oximetry 06/28/17 06/28/17 06/28/17 03:01 03:30 04:00 Temperature Pulse Rate 60 60 68 Respiratory 18 17 20 Rate Blood Pressure 180/73 172/71 (mmHg) O2 Sat by Pulse 100 100 100 Oximetry 06/28/17 06/28/17 06/28/17 04:31 04:46 05:00 Temperature Pulse Rate 67 60 60 Respiratory 19 16 18 Rate Blood Pressure 220/81 189/80 169/83 (mmHg) O2 Sat by Pulse 100 100 98 Oximetry 06/28/17 06/28/17 06/28/17 05:30 06:00 07:25 Temperature 97.1 F Pulse Rate 60 60 Respiratory 19 18 Rate Blood Pressure 147/74 164/76 (mmHg) O2 Sat by Pulse 98 99 Oximetry Oxygen Devices in Use Now: None Appearance: Alert, sitting in a chair. In good spirits. Looks comfortable. Eyes: No Scleral Icterus Respiratory: Symmetrical Chest Expansion and Respiratory Effort, Clear to Auscultation, Clear to Percussion Cardiovascular: RRR, No Edema, - - 3/6 systolic murmur RSB Extremities: No Edema, No Clubbing, Cyanosis Skin: No Rash or Ulcers, No Nodules or Sclerosis Neurological: NL Sensation - Fair verbal skills, poor memory and judgement. Result Diagrams: 06/27/17 06:46 06/28/17 05:45 Additional Lab and Data: Lab Results 06/24/17 06/24/17 06/24/17 Range/Units 11:18 12:05 12:05 WBC (3.5-10.8) 10^3/ul RBC (4.0-5.4) 10^6/ul Hgb (14.0-18.0) g/dl Hct (42-52) % MCV (80-94) fL MCH (27-31) pg MCHC (31-36) g/dl RDW (10.5-15) % Plt Count (150-450) 10^3/ul MPV (7.4-10.4) um3 Neut % (Auto) (38-83) % Lymph % (Auto) (25-47) % Howard % (Auto) (1-9) % Eos % (Auto) (0-6) % Baso % (Auto) (0-2) % Absolute Neuts (auto) (1.5-7.7) 10^3/ul Absolute Lymphs (auto) (1.0-4.8) 10^3/ul Absolute Monos (auto) (0-0.8) 10^3/ul Absolute Eos (auto) (0-0.6) 10^3/ul Absolute Basos (auto) (0-0.2) 10^3/ul Absolute Nucleated RBC 10^3/ul Nucleated RBC % INR (Anticoag Therapy) 1.24 H (0.89-1.11) APTT 33.7 (26.0-36.3) seconds Sodium 138 (133-145) mmol/L Potassium 4.2 (3.5-5.0) mmol/L Chloride 106 (101-111) mmol/L Carbon Dioxide 26 (22-32) mmol/L Anion Gap 6 (2-11) mmol/L BUN 30 H (6-24) mg/dL Creatinine 1.46 H (0.67-1.17) mg/dL Est GFR ( Amer) 60.2 (>60) Est GFR (Non-Af Amer) 46.8 (>60) BUN/Creatinine Ratio 20.5 H (8-20) Glucose 200 H (70-100) mg/dL POC Glucose (mg/dL) 260 H (70-100) mg/dL Lactic Acid (0.5-2.0) mmol/L Calcium 8.9 (8.6-10.3) mg/dL Magnesium 2.0 (1.9-2.7) mg/dL Total Bilirubin 0.30 (0.2-1.0) mg/dL AST 15 (13-39) U/L ALT 11 (7-52) U/L Alkaline Phosphatase 38 (34-104) U/L Ammonia Total Creatine Kinase 55 (10-223) U/L CK-MB (CK-2) 1.1 (0.6-6.3) ng/mL Troponin I 0.01 (<0.04) ng/mL C-Reactive Protein 9.31 H (< 5.00) mg/L B-Natriuretic Peptide ( - 100) pg/mL Total Protein 6.7 (6.4-8.9) g/dL Albumin 3.8 (3.2-5.2) g/dL Globulin 2.9 (2-4) g/dL Albumin/Globulin Ratio 1.3 (1-3) Lipase 41 (11.0-82.0) U/L TSH 8.42 H (0.34-5.60) mcIU/mL Acetaminophen < 15 mcg/mL Serum Alcohol < 10 (<10) mg/dL 06/24/17 06/24/17 06/24/17 Range/Units 12:05 12:05 12:05 WBC 7.5 (3.5-10.8) 10^3/ul RBC 3.90 L (4.0-5.4) 10^6/ul Hgb 9.5 L (14.0-18.0) g/dl Hct 30 L (42-52) % MCV 77 L (80-94) fL MCH 24 L (27-31) pg MCHC 32 (31-36) g/dl RDW 16 H (10.5-15) % Plt Count 178 (150-450) 10^3/ul MPV 10 (7.4-10.4) um3 Neut % (Auto) 61.7 (38-83) % Lymph % (Auto) 28.2 (25-47) % Howard % (Auto) 8.6 (1-9) % Eos % (Auto) 1.2 (0-6) % Baso % (Auto) 0.3 (0-2) % Absolute Neuts (auto) 4.7 (1.5-7.7) 10^3/ul Absolute Lymphs (auto) 2.1 (1.0-4.8) 10^3/ul Absolute Monos (auto) 0.7 (0-0.8) 10^3/ul Absolute Eos (auto) 0.1 (0-0.6) 10^3/ul Absolute Basos (auto) 0 (0-0.2) 10^3/ul Absolute Nucleated RBC 0 10^3/ul Nucleated RBC % 0 INR (Anticoag Therapy) (0.89-1.11) APTT (26.0-36.3) seconds Sodium (133-145) mmol/L Potassium (3.5-5.0) mmol/L Chloride (101-111) mmol/L Carbon Dioxide (22-32) mmol/L Anion Gap (2-11) mmol/L BUN (6-24) mg/dL Creatinine (0.67-1.17) mg/dL Est GFR ( Amer) (>60) Est GFR (Non-Af Amer) (>60) BUN/Creatinine Ratio (8-20) Glucose (70-100) mg/dL POC Glucose (mg/dL) (70-100) mg/dL Lactic Acid 1.3 (0.5-2.0) mmol/L Calcium (8.6-10.3) mg/dL Magnesium (1.9-2.7) mg/dL Total Bilirubin (0.2-1.0) mg/dL AST (13-39) U/L ALT (7-52) U/L Alkaline Phosphatase (34-104) U/L Ammonia TNP Total Creatine Kinase (10-223) U/L CK-MB (CK-2) (0.6-6.3) ng/mL Troponin I (<0.04) ng/mL C-Reactive Protein (< 5.00) mg/L B-Natriuretic Peptide 220 H ( - 100) pg/mL Total Protein (6.4-8.9) g/dL Albumin (3.2-5.2) g/dL Globulin (2-4) g/dL Albumin/Globulin Ratio (1-3) Lipase (11.0-82.0) U/L TSH (0.34-5.60) mcIU/mL Acetaminophen mcg/mL Serum Alcohol (<10) mg/dL Assess/Plan/Problems-Billing Assessment: 76 year old male PMH AL, DM, pAfib on xarelto, moderate-severe aortic stenosis, HTN, CKDIII, bipolar with recent ischemic CVA and multiple CT head showing chronic right parietal/occipital infarct presenting with confusion, agitation. - Patient Problems (1) Acute on chronic renal insufficiency Current Visit: No Status: Acute Code(s): N28.9 - DISORDER OF KIDNEY AND URETER, UNSPECIFIED; N18.9 - CHRONIC KIDNEY DISEASE, UNSPECIFIED SNOMED Code(s ): 449961050 Comment: Furosemide on hold. BMP 06/29/17. (2) Hypertension Current Visit: No Status: Acute Code(s): I10 - ESSENTIAL (PRIMARY) HYPERTENSION SNOMED Code(s): 92477679 Comment: Continue reduced dose of losartan 50 mg daily, increase verapamil to 240 mg bid as he required IV hydralazine early 06/28. (3) Microcytic anemia Current Visit: Yes Status: Acute Code(s): D50.9 - IRON DEFICIENCY ANEMIA, UNSPECIFIED SNOMED Code(s): 779496440 Comment: chronic, Hb at baseline. Add on ferritin 68.5 06/27/17. (4) CVA (cerebral vascular accident) Current Visit: No Status: Acute Code(s): I63.9 - CEREBRAL INFARCTION, UNSPECIFIED SNOMED Code(s): 989421710 Comment: Cont Plavix, statin. (5) Diabetes Current Visit: Yes Status: Acute Code(s): E11.9 - TYPE 2 DIABETES MELLITUS WITHOUT COMPLICATIONS SNOMED Code(s): 41674012 Comment: Continue glipizide 5 mg 0800,1700\. Continue Lispro by SS. (6) Hypotension Current Visit: Yes Status: Acute Comment: More likely the hypotension caused his transient decrease in mental status and fixed gaze to the left and up. Cortisol level addon 14.5 06/27 14:50 hrs. His at 4 PM 06/27 agrees he is back to where he was mentally on 06/26. (7) Encephalopathy acute Current Visit: No Status: Acute Code(s): G93.40 - ENCEPHALOPATHY, UNSPECIFIED SNOMED Code(s): 5386800 Comment: Pt has baseline dementia. Dr. Lema recommended placement in geriatric psychiatric facility. Valproic acid level addon requested. Quetiapine dose increased, divided into 2 doses. Note he received ziprasidone early 06/28/17. Status and Disposition: OBV changed to inpatient. Pt is aggressive and intermittently agitated. He is not safe to be discharged home. Needs placement in geriatric psychiatric facility
[2017-06-28] MEDS: Metoprolol Tartrate TAB* 100 MG TAB PO SCH ×2 (08:29→21:07)
[2017-06-28] MEDS: cloNIDine TAB* 0.1 MG PO SCH ×2 (08:29→21:03)
[2017-06-28] MEDS: Clopidogrel TAB* 75 MG PO SCH (08:29)
[2017-06-28] MEDS: Verapamil SR TAB* 240 MG PO SCH ×2 (08:30→21:08)
[2017-06-28] MEDS: Divalproex DR TAB(*) 250 MG PO SCH ×2 (08:30→21:03)
[2017-06-28] MEDS: Losartan TAB* 25 MG PO SCH (08:30)
[2017-06-28] MEDS: glipiZIDE TAB* 5 MG PO SCH ×2 (08:30→16:57)
[2017-06-28] MEDS ORDERED: Potassium Chloride LIQUID* 20 MEQ PACKET PO SCH (09:00)
[2017-06-28] MEDS: QUEtiapine TAB* 25 MG PO SCH ×2 (09:19→21:10)
--- NOTE | 2017-06-28 09:23 | PN ---
Progress Note - Progress Note Date of Service: 06/28/17 Note: Progress Note Critical Care 24 hour events/significant events: -upgraded to ICU yesterday for delirium, hypotension; blood pressure has improved and has been stable overnight now -patient awake, pleasant; sometimes agitated, was more agitated and restless yesterday according to nursing and earlier this morning -currently HR 60s, BP 160-170s; given PO meds this morning after some adjustment Tele: afib, rate controlled 60s Vitals: Vital Signs Temp 97.1 F 06/28/17 07:25 Pulse 65 06/28/17 09:01 Resp 21 06/28/17 09:01 BP 123/62 06/28/17 09:01 Pulse Ox 99 06/28/17 09:01 Intake & Output 06/27/17 06/28/17 06/28/17 18:59 06:59 18:59 Intake Total 850 Output Total 600 1025 565 Balance 250 -1025 -565 Weight 203 lb 14.841 oz Intake: IV Fluids 750 NS (0.9%) 750 Oral 100 Output: Urine 600 1025 565 O2/Vent: RA Infusions: none Medications: Acetaminophen (Tylenol Tab*) 650 mg PO Q4H PRN PRN Reason: FEVER/PAIN Atorvastatin Calcium (Lipitor*) 80 mg PO 2100 [facility] Last Admin: 06/27/17 22:02 Dose: 80 mg Clonidine HCl (Catapres Tab*) 0.1 mg PO BID [facility] Last Admin: 06/28/17 08:29 Dose: 0.1 mg Clopidogrel Bisulfate (Plavix Tab*) 75 mg PO DAILY [facility] Last Admin: 06/28/17 08:29 Dose: 75 mg Dextrose (D50w Syringe 50 Ml*) 12.5 gm IV PUSH .FOR FS < 60 - SS PRN PRN Reason: FS < 60 Divalproex Sodium (Depakote Dr Tab(*)) 750 mg PO BID [facility] Last Admin: 06/28/17 08:30 Dose: 750 mg Docusate Sodium (Colace Cap*) 100 mg PO DAILY PRN PRN Reason: CONSTIPATION Glipizide (Glucotrol Tab*) 5 mg PO 0800,1700 [facility] Last Admin: 06/28/17 08:30 Dose: 5 mg Hydralazine HCl (Apresoline Iv*) 5 mg IV SLOW PU Q6H PRN PRN Reason: BLOOD PRESSURE Last Admin: 06/28/17 02:53 Dose: 5 mg Insulin Human Lispro (Humalog*) 0 units SUBCUT ACHS [facility] PRN Reason: Protocol Last Admin: 06/28/17 07:46 Dose: Not Given Losartan Potassium (Cozaar Tab*) 50 mg PO DAILY [facility] Last Admin: 06/28/17 08:30 Dose: 50 mg Metoprolol Tartrate (Lopressor Tab*) 100 mg PO BID [facility] Last Admin: 06/28/17 08:29 Dose: 100 mg Nitroglycerin (Nitroglycerin 5 Mg Patch*) 1 patch TRANSDERM DAILY [facility] Last Admin: 06/28/17 09:44 Dose: Not Given Pantoprazole Sodium (Protonix Tab (Nf)) 40 mg PO DAILY [facility] Last Admin: 06/27/17 08:35 Dose: 40 mg Pharmacy Profile Note (Nitro Patch/Oint Remove*) 1 note TOPICAL 2099 [facility] Last Admin: 06/27/17 22:05 Dose: 1 patch Prednisolone Acetate (Pred Forte 1%*) 1 drop BOTH EYES DAILY [facility] Last Admin: 06/27/17 08:39 Dose: 1 drop Quetiapine Fumarate (Seroquel Tab*) 25 mg PO DAILY [facility] Last Admin: 06/28/17 09:19 Dose: 25 mg Quetiapine Fumarate (Seroquel Tab*) 100 mg PO 2100 [facility] Rivaroxaban (Xarelto(*)) 15 mg PO DAILY [facility] Last Admin: 06/27/17 08:35 Dose: 15 mg Terazosin HCl (Hytrin Cap*) 10 mg PO BEDTIME [facility] Last Admin: 06/27/17 22:02 Dose: 10 mg Verapamil HCl (Calan Sr Tab*) 240 mg PO BID [facility] Last Admin: 06/28/17 08:30 Dose: 240 mg Ziprasidone (Geodon Im Inj*) 20 mg IM Q8H PRN PRN Reason: AGITATION Last Admin: 06/28/17 04:27 Dose: 20 mg Physical Exam: General: awake, alert, no distress Head: normocephalic, atraumatic HEENT: no pallor, no icterus, moist mucous membranes Neck: soft, supple, no jvd, no stridor CVS: normal rate, normal rhythm, no murmur Resp: bilateral air entry, no rhales, no wheeze, no rhonchi, no acc muscle use Abdomen: soft, nontender, nondistended, bowel sounds present Ext: pulses+, warm, no edema Skin: intact, no breakdown, no dryness Neuro: awake, alert; right sided weakness, dysarthric speech (baseline) Labs: Laboratory Results - last 24 hr 06/27/17 06/27/17 06/27/17 06:46 11:05 13:49 Sodium Potassium Chloride Carbon Dioxide Anion Gap BUN Creatinine Est GFR ( Amer) Est GFR (Non-Af Amer) BUN/Creatinine Ratio Glucose POC Glucose (mg/dL) 261 H 170 H Calcium Ferritin 68.5 Troponin I Cortisol Valproic Acid 06/27/17 06/27/17 06/27/17 14:50 17:20 18:26 Sodium Potassium Chloride Carbon Dioxide Anion Gap BUN Creatinine Est GFR ( Amer) Est GFR (Non-Af Amer) BUN/Creatinine Ratio Glucose POC Glucose (mg/dL) 254 H Calcium Ferritin Troponin I 0.01 0.01 Cortisol 16.45 Valproic Acid 06/27/17 06/27/17 06/28/17 21:44 22:52 05:45 Sodium 143 Potassium 4.0 Chloride 111 Carbon Dioxide 26 Anion Gap 6 BUN 33 H Creatinine 1.82 H Est GFR ( Amer) 46.7 Est GFR (Non-Af Amer) 36.3 BUN/Creatinine Ratio 18.1 Glucose 98 POC Glucose (mg/dL) 210 H Calcium 8.6 Ferritin Cancelled Troponin I 0.01 Cortisol Valproic Acid Cancelled 06/28/17 07:43 Sodium Potassium Chloride Carbon Dioxide Anion Gap BUN Creatinine Est GFR ( Amer) Est GFR (Non-Af Amer) BUN/Creatinine Ratio Glucose POC Glucose (mg/dL) 118 H Calcium Ferritin Troponin I Cortisol Valproic Acid Imaging: previous CT head reviewed LE venous duplex 06/27 negative Assessment: 77y M pmhx of HTN, DM, post CVA, CKD3, Severe As, Afib, recent left BG stroke with residual right sided weakness/dysarthria/left facial droop/left homonymous hemianopia; transferred to ICU 06/27 for agitation/delirium associated with hypotension. Likely caused by administration of antihypertensive medications, which resolved with IVF bolus. Delirium, secondary to hypotension/hypoperfusion; likely delirium 2/2 to CVAs vs newly developing dementia being aggravated? Uncontrolled Hypertension Hypotension, improved now Plan: Neuro- awake, alert; delirium improved after BP improved. goal to keep SBP 140s now and gradual lowering. space out antihypertensives. delirium prec. avoid bdz. cont seroquel and antipsychotics for delirium and bipolar. psych to see patient. sun-downing a component also. would continue neurochecks q4h CVS- restarted antihypertensives. would be good to space out medications to avoid hypotension. meds readjusted by hospitalist this AM. on clonidine/losartan /metoprolol/verapamil. add norvasc 5mg po daily now. target SBP 140 for now. on Rivaroxaban for Afib. Rate controlled afib. cont plavix/statin for CVA. ECHO being performed. Resp- on RA, no distress. ID- afebrile. wbc normal. no abx indicated. GI- PO diet as tolerated. Renal- Cr slowly rising. baseline CKD. may have some injury after hypotensive episode yesterday. Making urine. K okay, no acidosis. Cont to monitor for now. Avoid hypotension. Heme- anemia baseline, no bleeding. Rivaroxaban for afib. Endo- Insulin/glipizide for coverage. Musculsk- stable. pt/ot Wounds- none Nutrition- cardiac/diabetic diet DVT prophylaxis: - GI prophylaxis: protonix po Central Line: - Arterial Line: - Schrader Cathetor: - Disposition: could be sent to tele floor with neuro checks, continued BP control. Hospitalist managing, CC to follow as needed. Mental status improved with improved BP. Code Status: full code Ant Kay MD Clock Maker (Electronically Signed)
[2017-06-28] MEDS ORDERED: Perflutren Lipid Microsphere* 3 ML VIAL ONE (09:36)
[2017-06-28] MEDS: Nitroglycerin 0.2 MG/HR PATCH* (5 MG) TRANSDERM SCH (09:44)
[2017-06-28] MEDS: prednisoLONE 1% OPHTH.SUSP* 5 ML OPHTH.SUSP BOTH EYES SCH (10:05)
[2017-06-28] MEDS: Rivaroxaban TAB(*) 15 MG PO SCH (10:05)
[2017-06-28] MEDS: CMCS: Pantoprazole TAB (NF) 40 MG TAB PO SCH (10:05)
--- NOTE | 2017-06-28 11:25 | ECHO ---
Patient: TORY SAPP [facility] Rec#: [id number] : 1940 Date: 06/28/2017 Age: 77y Height: 167.64 cm / 66.0 in Weight: 91.17 kg / 200.9 lbs Sex: M BSA: 2 Room#: ICU-7 Admit Date#: 06/25/2017 Type: Inpatient Referring: FEDERICO TRIMBLE Reading: Je Keller MD Tire Rebuilder: Merlyn Castrejon RDCS CC: Hansa Lorenz Transthoracic Echocardiogram Indication: Hypotension BP: 164/76 HR: 69 Rhythm: NSR Findings History: Recent ischemic stroke,HTN,bipolar,HI,third degree HB s/p Pacer,DM,CKD stage III,severe ,PCI 2007. Technical Comments: The study is technically difficult. Definity used to enhance endocardial borders. The study is technically limited due to patient body habitus. Left Ventricle: The left ventricular chamber size is normal. Moderate to severe concentric left ventricular hypertrophy is observed. The estimated ejection fraction is 60-65%. There is abnormal ventricular septal wall motion consistent with right ventricular pacemaker. The patient was unable to perform a Valsalva maneuver. Left Atrium: The left atrium is mildly dilated. Right Ventricle: The right ventricular cavity size is normal. The right ventricular global systolic function is normal. The septum has abnormal paradoxical motion consistent with RV pacemaker. Right Atrium: The right atrial cavity size is normal. A pacemaker wire is visualized in the right atrium. Aortic Valve: The aortic valve is trileaflet. The aortic valve leaflets are severely thickened with reduced systolic excursion. Systolic excursion of the aortic valve cusps is reduced. There is a trace of aortic regurgitation. There is moderate to severe aortic stenosis. The mean gradient of the aortic valve is 22.11 mmHg. The aortic valve area, by peak velocities, is calculated at 1 cm2. Highest aortic valve velocity was acquired with Pedoff in apical position. Mitral Valve: The mitral valve leaflets are mildly thickened. There is trace to mild mitral regurgitation. There is no evidence of mitral stenosis. Tricuspid Valve: The tricuspid valve leaflets are normal. There is mild tricuspid regurgitation. There is evidence of mild pulmonary hypertension. There is no tricuspid stenosis. Pulmonic Valve: The pulmonic valve appears normal. There is no evidence of pulmonic regurgitation. There is no pulmonic stenosis. Pericardium: A pericardial fat pad is visualized. Aorta: There is no dilatation of the ascending aorta. There is no dilatation of the aortic arch. There is no dilation of the aortic root. Pulmonary Artery: The main pulmonary artery appears normal. Venous: The venous system is not well visualized. Contrast: Definity was used to optimize study. A total of 3 ml used. Intravenous contrast was used to enhance endocardial border definition. Summary: There are no significant changes when compared to the previous study done on 03/31/17 Conclusions Moderate to severe concentric left ventricular hypertrophy is observed. The estimated ejection fraction is 60-65%. There is abnormal ventricular septal wall motion consistent with right ventricular pacemaker. The right ventricular global systolic function is normal. The septum has abnormal paradoxical motion consistent with RV pacemaker. The aortic valve leaflets are severely thickened with reduced systolic excursion. There is moderate to severe aortic stenosis. The mean gradient of the aortic valve is 22.11 mmHg. There is trace to mild mitral regurgitation. There is mild tricuspid regurgitation. There is evidence of mild pulmonary hypertension. There are no significant changes when compared to the previous study done on 03/31/17 Measurements Name Value Normal Range RVIDd (AP) 2D 2.2 cm (0.9 - 2.6) RVDdMajor (2D) 3.6 cm (2.2 - 4.4) RAd ISD 4CH 4.8 cm (3.4 - 4.9) RA (A4C)W 3.3 cm (2.9 - 4.6) IVSd (2D) 1.7 cm (0.6 - 1) LVPWd (2D) 1.9 cm (0.6 - 1) LVIDd (2D) 3.8 cm (3.6 - 5.4) LVIDs (2D) 2.1 cm - LV FS (2D) 44 % (25 - 45) Aortic Annulus 1.7 cm (1.4 - 2.6) Ao root diameter (2D) 3.4 cm (2.1 - 3.5) Ascending Ao 3.1 cm (2.1 - 3.4) Aortic arch 2.4 cm (1.8 - 3.4) Descending Ao 0.8 cm - LA dimension (AP) 2D 4.1 cm (2.3 - 3.8) LAd ISD 4CH 5.5 cm (2.9 - 5.3) LA ISD 4CH W 3.5 cm (2.5 - 4.5) Name Value Normal Range LA ESV SP 4CH (A/L) 44 ml - LA ESV SP 2CH (A/L) 63 ml - LA ESV BP (A/L) 58 ml - LA ESV BP (A/L) index 28.73 ml/m2 - LA ESV SP 4CH (MOD) 40 ml - LA ESV SP 2CH (MOD) 63 ml - Name Value Normal Range MV E-wave Vmax 1 m/sec - MV deceleration time 299 msec - MV A-wave Vmax 1.2 m/sec - MV E:A ratio 0.83 ratio - LV septal e' Vmax 0.04 m/sec - LV lateral e' Vmax 0.06 m/sec - LV E:e' septal ratio 25 ratio - LV E:e' lateral ratio 16.7 ratio - Name Value Normal Range AV Vmax 3.2 m/sec - AV VTI 101.5 cm - AV peak gradient 42.1 mmHg - AV mean gradient 22.11 mmHg - LVOT diameter 2.1 cm - LVOT Vmax 0.9 m/sec - LVOT VTI 24.7 cm - LVOT peak gradient 3.5 mmHg - LVOT mean gradient 1.48 mmHg - BLAIR (continuity Vmax) 1 cm2 - BLAIR (continuity VTI) 0.8 cm2 - Name Value Normal Range TR Vmax 2.7 m/sec - TR peak gradient 30 mmHg - RAP 8 mmHg - RVSP 38 mmHg - Name Value Normal Range PV Vmax 0.8 m/sec - PV peak gradient 2.71 mmHg -
[2017-06-28] MEDS: amLODIPine TAB* 5 MG PO SCH (14:08)
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
[2017-06-28] MEDS: Atorvastatin* 80 MG TAB PO SCH (21:02)
[2017-06-28] MEDS: Terazosin CAP* 5 MG PO SCH (21:11)
[2017-06-28] MEDS: Nitro Patch/OINT Remove TOPICAL SCH (21:14)
[2017-06-29 05:50] LABS: EGFR Non-African American 38.5 (>60)
--- NOTE | 2017-06-29 07:41 | EEG ---
ELECTROENCEPHALOGRAPHY: DATE OF EE06/28/17 ORDERING PHYSICIAN: Dr. Barrett. The patient is an inpatient. 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 EEG is requested to evaluate for epileptiform abnormalities. MEDICATIONS: 1. Apresoline. 2. Colace. 3. Tylenol. 4. Hytrin. 5. Seroquel. 6. Nitro patch. 7. Lipitor. 8. Calan. 9. Xarelto. 10. Pred forte. 11. Klor-Con. 12. Pantoprazole. 13. Nitroglycerin. 14. Lopressor. 15. Depakote. 16. Plavix. 17. Catapres. 18. Glucotrol. 19. Humalog. 20. Geodon. 21. Cozaar. DESCRIPTION OF PROCEDURE: Waking background showed appropriate organization with clearly defined anterior to posterior voltage and frequency gradients. There was a well-defined posterior dominant rhythm of 8 Hz, which was symmetrical but was slower than expected for age. Anteriorly, there was an expected pattern of lower voltage, irregular, mixed to faster frequencies. Attenuation of the occipital rhythm accompanied drowsiness. The sleep background was appropriately organized with well-developed sleep spindles and vertex waves, but these wave forms were better represented over the right hemisphere. Throughout the recording, there were no epileptiform discharges. IMPRESSION: This is an abnormal waking and sleep EEG due to the presence of a slow posterior dominant rhythm and asymmetric sleep architecture representation with relative absence of sleep spindles over the left paracentral region. These findings are suggestive of a mild, nonspecific, diffuse encephalopathy. The lack of sleep architecture over the left hemisphere is likely secondary to his history of stroke. There are no epileptiform discharges. [id number]/[facility] #: [id number] [facility]
[2017-06-29] MEDS: Clopidogrel TAB* 75 MG PO SCH (08:17)
[2017-06-29] MEDS: Losartan TAB* 25 MG PO SCH (08:18)
[2017-06-29] MEDS: Verapamil SR TAB* 240 MG PO SCH ×2 (08:18→21:01)
[2017-06-29] MEDS: amLODIPine TAB* 5 MG PO SCH (08:18)
[2017-06-29] MEDS: CMCS: Pantoprazole TAB (NF) 40 MG TAB PO SCH (08:18)
[2017-06-29] MEDS: prednisoLONE 1% OPHTH.SUSP* 5 ML OPHTH.SUSP BOTH EYES SCH (08:18)
[2017-06-29] MEDS: glipiZIDE TAB* 5 MG PO SCH ×2 (08:18→17:17)
[2017-06-29] MEDS: Metoprolol Tartrate TAB* 100 MG TAB PO SCH ×2 (08:18→21:01)
[2017-06-29] MEDS: cloNIDine TAB* 0.1 MG PO SCH ×2 (08:18→21:01)
[2017-06-29] MEDS: Rivaroxaban TAB(*) 15 MG PO SCH (08:18)
[2017-06-29] MEDS: Divalproex DR TAB(*) 250 MG PO SCH ×2 (08:19→21:01)
[2017-06-29] MEDS: QUEtiapine TAB* 25 MG PO SCH ×2 (08:19→21:00)
--- NOTE | 2017-06-29 08:21 | PN ---
Subjective Date of Service: 06/29/17 Interval History: No c/o, seems very content with everything. Objective Active Medications: Acetaminophen (Tylenol Tab*) 650 mg PO Q4H PRN PRN Reason: FEVER/PAIN Amlodipine Besylate (Norvasc Tab*) 5 mg PO DAILY [facility] Last Admin: 06/28/17 14:08 Dose: 5 mg Atorvastatin Calcium (Lipitor*) 80 mg PO 2100 [facility] Last Admin: 06/28/17 21:02 Dose: 80 mg Clonidine HCl (Catapres Tab*) 0.1 mg PO BID [facility] Last Admin: 06/28/17 21:03 Dose: 0.1 mg Clopidogrel Bisulfate (Plavix Tab*) 75 mg PO DAILY [facility] Last Admin: 06/28/17 08:29 Dose: 75 mg Dextrose (D50w Syringe 50 Ml*) 12.5 gm IV PUSH .FOR FS < 60 - SS PRN PRN Reason: FS < 60 Divalproex Sodium (Depakote Dr Tab(*)) 750 mg PO BID [facility] Last Admin: 06/28/17 21:03 Dose: 750 mg Docusate Sodium (Colace Cap*) 100 mg PO DAILY PRN PRN Reason: CONSTIPATION Glipizide (Glucotrol Tab*) 5 mg PO 0800,1700 [facility] Last Admin: 06/28/17 16:57 Dose: 5 mg Hydralazine HCl (Apresoline Iv*) 5 mg IV SLOW PU Q6H PRN PRN Reason: BLOOD PRESSURE Last Admin: 06/28/17 23:56 Dose: 5 mg Insulin Human Lispro (Humalog*) 0 units SUBCUT ACHS [facility] PRN Reason: Protocol Last Admin: 06/28/17 20:47 Dose: 1 units Losartan Potassium (Cozaar Tab*) 50 mg PO DAILY [facility] Last Admin: 06/28/17 08:30 Dose: 50 mg Metoprolol Tartrate (Lopressor Tab*) 100 mg PO BID [facility] Last Admin: 06/28/17 21:07 Dose: 100 mg Pantoprazole Sodium (Protonix Tab (Nf)) 40 mg PO DAILY [facility] Last Admin: 06/28/17 10:05 Dose: 40 mg Prednisolone Acetate (Pred Forte 1%*) 1 drop BOTH EYES DAILY [facility] Last Admin: 06/28/17 10:05 Dose: 1 drop Quetiapine Fumarate (Seroquel Tab*) 25 mg PO DAILY [facility] Last Admin: 06/28/17 09:19 Dose: 25 mg Quetiapine Fumarate (Seroquel Tab*) 100 mg PO 2100 [facility] Last Admin: 06/28/17 21:10 Dose: 100 mg Rivaroxaban (Xarelto(*)) 15 mg PO DAILY [facility] Last Admin: 06/28/17 10:05 Dose: 15 mg Terazosin HCl (Hytrin Cap*) 10 mg PO BEDTIME [facility] Last Admin: 06/28/17 21:11 Dose: 10 mg Verapamil HCl (Calan Sr Tab*) 240 mg PO BID [facility] Last Admin: 06/28/17 21:08 Dose: 240 mg Ziprasidone (Geodon Im Inj*) 20 mg IM Q8H PRN PRN Reason: AGITATION Last Admin: 06/28/17 04:27 Dose: 20 mg Vital Signs 06/28/17 06/28/17 06/28/17 08:30 09:00 09:01 Temperature Pulse Rate 66 64 65 Respiratory 17 16 21 Rate Blood Pressure 153/84 123/62 (mmHg) O2 Sat by Pulse 99 99 99 Oximetry 06/28/17 06/28/17 06/28/17 09:31 10:00 10:02 Temperature Pulse Rate 60 60 60 Respiratory 18 17 18 Rate Blood Pressure 167/70 187/87 187/87 (mmHg) O2 Sat by Pulse 100 98 98 Oximetry 06/28/17 06/28/17 06/28/17 10:31 11:00 11:30 Temperature Pulse Rate 60 60 60 Respiratory 17 16 18 Rate Blood Pressure 163/72 182/74 182/98 (mmHg) O2 Sat by Pulse 94 97 98 Oximetry 06/28/17 06/28/17 06/28/17 11:42 12:00 12:30 Temperature 96.8 F Pulse Rate 60 60 Respiratory 16 15 Rate Blood Pressure 177/80 167/77 (mmHg) O2 Sat by Pulse 97 98 Oximetry 06/28/17 06/28/17 06/28/17 13:00 13:30 14:00 Temperature Pulse Rate 65 60 62 Respiratory 18 18 21 Rate Blood Pressure 158/77 (mmHg) O2 Sat by Pulse 100 100 100 Oximetry 06/28/17 06/28/17 06/28/17 14:31 14:44 14:54 Temperature Pulse Rate 60 60 Respiratory 19 17 16 Rate Blood Pressure 121/64 (mmHg) O2 Sat by Pulse 100 98 Oximetry 06/28/17 06/28/17 06/28/17 15:00 15:16 15:31 Temperature Pulse Rate 60 60 60 Respiratory 20 20 21 Rate Blood Pressure 115/65 113/70 (mmHg) O2 Sat by Pulse 100 100 100 Oximetry 06/28/17 06/28/17 06/28/17 16:00 16:01 16:31 Temperature Pulse Rate 60 60 60 Respiratory 21 24 24 Rate Blood Pressure 121/70 129/71 (mmHg) O2 Sat by Pulse 100 99 99 Oximetry 06/28/17 06/28/17 06/28/17 17:00 17:05 18:00 Temperature Pulse Rate 60 60 60 Respiratory 19 19 20 Rate Blood Pressure 110/63 (mmHg) O2 Sat by Pulse 99 100 100 Oximetry 06/28/17 06/28/17 06/28/17 18:02 19:00 19:01 Temperature Pulse Rate 60 62 64 Respiratory 18 19 21 Rate Blood Pressure 147/118 124/90 (mmHg) O2 Sat by Pulse 99 99 98 Oximetry 06/28/17 06/28/17 06/28/17 19:30 19:40 20:00 Temperature 97.2 F Pulse Rate 65 60 Respiratory 19 18 Rate Blood Pressure 144/70 (mmHg) O2 Sat by Pulse 99 98 Oximetry 06/28/17 06/28/17 06/28/17 20:01 20:41 20:59 Temperature Pulse Rate 60 60 Respiratory 16 23 21 Rate Blood Pressure 161/101 195/85 180/82 (mmHg) O2 Sat by Pulse 99 100 Oximetry 06/28/17 06/28/17 06/28/17 21:00 21:01 21:30 Temperature Pulse Rate 60 59 60 Respiratory 19 22 18 Rate Blood Pressure 193/86 202/82 (mmHg) O2 Sat by Pulse 100 97 Oximetry 06/28/17 06/28/17 06/28/17 22:00 22:01 22:30 Temperature Pulse Rate 60 60 60 Respiratory 18 17 18 Rate Blood Pressure 169/83 178/80 (mmHg) O2 Sat by Pulse 100 100 100 Oximetry 06/28/17 06/28/17 06/28/17 23:00 23:21 23:30 Temperature Pulse Rate 60 60 60 Respiratory 21 18 20 Rate Blood Pressure 198/86 177/115 (mmHg) O2 Sat by Pulse 100 100 100 Oximetry 06/28/17 06/28/17 06/29/17 23:40 23:41 00:00 Temperature 97.4 F Pulse Rate 60 67 Respiratory 18 20 Rate Blood Pressure 191/79 (mmHg) O2 Sat by Pulse 100 100 Oximetry 06/29/17 06/29/17 06/29/17 00:01 00:30 01:00 Temperature Pulse Rate 65 69 60 Respiratory 19 21 17 Rate Blood Pressure 192/88 182/87 (mmHg) O2 Sat by Pulse 100 100 100 Oximetry 06/29/17 06/29/17 06/29/17 01:01 01:31 02:00 Temperature Pulse Rate 62 70 62 Respiratory 18 19 18 Rate Blood Pressure 143/89 156/78 163/80 (mmHg) O2 Sat by Pulse 100 100 100 Oximetry 06/29/17 06/29/17 06/29/17 02:30 03:00 03:30 Temperature Pulse Rate 68 60 60 Respiratory 17 17 17 Rate Blood Pressure 144/71 117/60 138/69 (mmHg) O2 Sat by Pulse 99 99 99 Oximetry 06/29/17 06/29/17 06/29/17 04:00 04:30 05:00 Temperature 99.6 F Pulse Rate 61 60 60 Respiratory 16 17 16 Rate Blood Pressure 145/68 119/62 110/55 (mmHg) O2 Sat by Pulse 100 99 99 Oximetry 06/29/17 06/29/17 06/29/17 05:30 06:00 06:30 Temperature Pulse Rate 68 60 60 Respiratory 20 18 17 Rate Blood Pressure 133/69 126/63 119/59 (mmHg) O2 Sat by Pulse 100 99 98 Oximetry Oxygen Devices in Use Now: None Appearance: Alert, sitting on the edge of his ICU bed. In very good spirits. Looks comfortable. Eyes: No Scleral Icterus Neck: NL Appearance and Movements; NL JVP, No Thyroid Enlargement, Masses Respiratory: Symmetrical Chest Expansion and Respiratory Effort, Clear to Auscultation, Clear to Percussion Cardiovascular: RRR, No Edema, - - 2-3/6 systolic murmur RSB to LSB Extremities: No Edema, No Clubbing, Cyanosis, - Skin: No Rash or Ulcers, No Nodules or Sclerosis, - Neurological: NL Sensation - Sociable. Speech sl dysarthic as before but complete and appropriate sentences. Result Diagrams: 06/27/17 06:46 06/29/17 05:20 Additional Lab and Data: Lab Results 06/24/17 06/24/17 06/24/17 Range/Units 11:18 12:05 12:05 WBC (3.5-10.8) 10^3/ul RBC (4.0-5.4) 10^6/ul Hgb (14.0-18.0) g/dl Hct (42-52) % MCV (80-94) fL MCH (27-31) pg MCHC (31-36) g/dl RDW (10.5-15) % Plt Count (150-450) 10^3/ul MPV (7.4-10.4) um3 Neut % (Auto) (38-83) % Lymph % (Auto) (25-47) % Sac % (Auto) (1-9) % Eos % (Auto) (0-6) % Baso % (Auto) (0-2) % Absolute Neuts (auto) (1.5-7.7) 10^3/ul Absolute Lymphs (auto) (1.0-4.8) 10^3/ul Absolute Monos (auto) (0-0.8) 10^3/ul Absolute Eos (auto) (0-0.6) 10^3/ul Absolute Basos (auto) (0-0.2) 10^3/ul Absolute Nucleated RBC 10^3/ul Nucleated RBC % INR (Anticoag Therapy) 1.24 H (0.89-1.11) APTT 33.7 (26.0-36.3) seconds Sodium 138 (133-145) mmol/L Potassium 4.2 (3.5-5.0) mmol/L Chloride 106 (101-111) mmol/L Carbon Dioxide 26 (22-32) mmol/L Anion Gap 6 (2-11) mmol/L BUN 30 H (6-24) mg/dL Creatinine 1.46 H (0.67-1.17) mg/dL Est GFR ( Amer) 60.2 (>60) Est GFR (Non-Af Amer) 46.8 (>60) BUN/Creatinine Ratio 20.5 H (8-20) Glucose 200 H (70-100) mg/dL POC Glucose (mg/dL) 260 H (70-100) mg/dL Lactic Acid (0.5-2.0) mmol/L Calcium 8.9 (8.6-10.3) mg/dL Magnesium 2.0 (1.9-2.7) mg/dL Total Bilirubin 0.30 (0.2-1.0) mg/dL AST 15 (13-39) U/L ALT 11 (7-52) U/L Alkaline Phosphatase 38 (34-104) U/L Ammonia Total Creatine Kinase 55 (10-223) U/L CK-MB (CK-2) 1.1 (0.6-6.3) ng/mL Troponin I 0.01 (<0.04) ng/mL C-Reactive Protein 9.31 H (< 5.00) mg/L B-Natriuretic Peptide ( - 100) pg/mL Total Protein 6.7 (6.4-8.9) g/dL Albumin 3.8 (3.2-5.2) g/dL Globulin 2.9 (2-4) g/dL Albumin/Globulin Ratio 1.3 (1-3) Lipase 41 (11.0-82.0) U/L TSH 8.42 H (0.34-5.60) mcIU/mL Acetaminophen < 15 mcg/mL Serum Alcohol < 10 (<10) mg/dL 06/24/17 06/24/17 06/24/17 Range/Units 12:05 12:05 12:05 WBC 7.5 (3.5-10.8) 10^3/ul RBC 3.90 L (4.0-5.4) 10^6/ul Hgb 9.5 L (14.0-18.0) g/dl Hct 30 L (42-52) % MCV 77 L (80-94) fL MCH 24 L (27-31) pg MCHC 32 (31-36) g/dl RDW 16 H (10.5-15) % Plt Count 178 (150-450) 10^3/ul MPV 10 (7.4-10.4) um3 Neut % (Auto) 61.7 (38-83) % Lymph % (Auto) 28.2 (25-47) % Sac % (Auto) 8.6 (1-9) % Eos % (Auto) 1.2 (0-6) % Baso % (Auto) 0.3 (0-2) % Absolute Neuts (auto) 4.7 (1.5-7.7) 10^3/ul Absolute Lymphs (auto) 2.1 (1.0-4.8) 10^3/ul Absolute Monos (auto) 0.7 (0-0.8) 10^3/ul Absolute Eos (auto) 0.1 (0-0.6) 10^3/ul Absolute Basos (auto) 0 (0-0.2) 10^3/ul Absolute Nucleated RBC 0 10^3/ul Nucleated RBC % 0 INR (Anticoag Therapy) (0.89-1.11) APTT (26.0-36.3) seconds Sodium (133-145) mmol/L Potassium (3.5-5.0) mmol/L Chloride (101-111) mmol/L Carbon Dioxide (22-32) mmol/L Anion Gap (2-11) mmol/L BUN (6-24) mg/dL Creatinine (0.67-1.17) mg/dL Est GFR ( Amer) (>60) Est GFR (Non-Af Amer) (>60) BUN/Creatinine Ratio (8-20) Glucose (70-100) mg/dL POC Glucose (mg/dL) (70-100) mg/dL Lactic Acid 1.3 (0.5-2.0) mmol/L Calcium (8.6-10.3) mg/dL Magnesium (1.9-2.7) mg/dL Total Bilirubin (0.2-1.0) mg/dL AST (13-39) U/L ALT (7-52) U/L Alkaline Phosphatase (34-104) U/L Ammonia TNP Total Creatine Kinase (10-223) U/L CK-MB (CK-2) (0.6-6.3) ng/mL Troponin I (<0.04) ng/mL C-Reactive Protein (< 5.00) mg/L B-Natriuretic Peptide 220 H ( - 100) pg/mL Total Protein (6.4-8.9) g/dL Albumin (3.2-5.2) g/dL Globulin (2-4) g/dL Albumin/Globulin Ratio (1-3) Lipase (11.0-82.0) U/L TSH (0.34-5.60) mcIU/mL Acetaminophen mcg/mL Serum Alcohol (<10) mg/dL Assess/Plan/Problems-Billing Assessment: 76 year old male PMH GA, DM, pAfib on xarelto, moderate-severe aortic stenosis, HTN, CKDIII, bipolar with recent ischemic CVA and multiple CT head showing chronic right parietal/occipital infarct presenting with confusion, agitation. - Patient Problems (1) Acute on chronic renal insufficiency Current Visit: No Status: Acute Code(s): N28.9 - DISORDER OF KIDNEY AND URETER, UNSPECIFIED; N18.9 - CHRONIC KIDNEY DISEASE, UNSPECIFIED SNOMED Code(s ): 305874797 Comment: Furosemide on hold. He could not void this AM, bladder scan ordered. (2) Hypertension Current Visit: No Status: Acute Code(s): I10 - ESSENTIAL (PRIMARY) HYPERTENSION SNOMED Code(s): 61195916 Comment: Continue losartan 50 mg daily, verapamil to 240 mg bid. Did well with BP past 24 hrs as of 06/29/17. (3) Microcytic anemia Current Visit: Yes Status: Acute Code(s): D50.9 - IRON DEFICIENCY ANEMIA, UNSPECIFIED SNOMED Code(s): 189974961 Comment: chronic, Hb at baseline. Add on ferritin 68.5, 71.5 06/27/17, . (4) CVA (cerebral vascular accident) Current Visit: No Status: Acute Code(s): I63.9 - CEREBRAL INFARCTION, UNSPECIFIED SNOMED Code(s): 213565306 Comment: Cont Plavix, statin. (5) Diabetes Current Visit: Yes Status: Acute Code(s): E11.9 - TYPE 2 DIABETES MELLITUS WITHOUT COMPLICATIONS SNOMED Code(s): 38759947 Comment: Continue glipizide 5 mg 0800,1700. Add Lantus 6 U daily, consider stopping Lispro if total daily dose is negligible. (6) Hypotension Current Visit: Yes Status: Acute Comment: More likely the hypotension caused his transient decrease in mental status and fixed gaze to the left and up. Cortisol level addon 14.5 06/27 14:50 hrs. His at 4 PM 06/27 agrees he is back to where he was mentally on 06/26. (7) Encephalopathy acute Current Visit: No Status: Acute Code(s): G93.40 - ENCEPHALOPATHY, UNSPECIFIED SNOMED Code(s): 4957685 Comment: Pt has baseline dementia superimposed on prior dx of bipolar disorder. As his behavior is markedly improved, he is ready for a long-term care facility. Valproic acid level addon 88.0 06/28/17. Continue quetiapine. (8) Atrial fibrillation Current Visit: No Status: Acute Code(s): I48.91 - UNSPECIFIED ATRIAL FIBRILLATION SNOMED Code(s): 34638295 Comment: Continue rivaroxaban, metoprolol. Paced. Status and Disposition: OBV changed to inpatient. Pt is aggressive and intermittently agitated. He is not safe to be discharged home. Needs placement in geriatric psychiatric facility
[2017-06-29] MEDS: Insulin LISPRO* 1 UNITS UNIT SUBCUT SCH ×4 (08:55→21:04)
[2017-06-29] MEDS: Insulin GLARGINE(*) 1 UNITS UNIT SUBCUT SCH (09:06)
[2017-06-29] MEDS: Terazosin CAP* 5 MG PO SCH (21:01)
[2017-06-29] MEDS: Atorvastatin* 80 MG TAB PO SCH (21:01)
[2017-06-30] MEDS: CMCS: Melatonin (NF) 3 MG TAB PO PRN (02:54)
[2017-06-30] MEDS: Verapamil SR TAB* 240 MG PO SCH ×2 (09:06→22:05)
[2017-06-30] MEDS: Losartan TAB* 25 MG PO SCH (09:06)
[2017-06-30] MEDS: cloNIDine TAB* 0.1 MG PO SCH ×2 (09:07→22:05)
[2017-06-30] MEDS: CMCS: Pantoprazole TAB (NF) 40 MG TAB PO SCH (09:07)
[2017-06-30] MEDS: Clopidogrel TAB* 75 MG PO SCH (09:07)
[2017-06-30] MEDS: Divalproex DR TAB(*) 250 MG PO SCH ×2 (09:07→22:05)
[2017-06-30] MEDS: Metoprolol Tartrate TAB* 100 MG TAB PO SCH ×2 (09:07→22:06)
[2017-06-30] MEDS: Rivaroxaban TAB(*) 15 MG PO SCH (09:07)
[2017-06-30] MEDS: amLODIPine TAB* 5 MG PO SCH (09:07)
[2017-06-30] MEDS: glipiZIDE TAB* 5 MG PO SCH ×2 (09:07→17:45)
[2017-06-30] MEDS: Insulin GLARGINE(*) 1 UNITS UNIT SUBCUT SCH (09:11)
[2017-06-30] MEDS: Insulin LISPRO* 1 UNITS UNIT SUBCUT SCH ×4 (09:11→22:06)
--- NOTE | 2017-06-30 09:39 | PN ---
Subjective Date of Service: 06/30/17 Interval History: No c/o. States he prefers steak and eggs for breakfast. Objective Active Medications: Acetaminophen (Tylenol Tab*) 650 mg PO Q4H PRN PRN Reason: FEVER/PAIN Amlodipine Besylate (Norvasc Tab*) 5 mg PO DAILY [facility] Last Admin: 06/30/17 09:07 Dose: 5 mg Atorvastatin Calcium (Lipitor*) 80 mg PO 2100 [facility] Last Admin: 06/29/17 21:01 Dose: 80 mg Clonidine HCl (Catapres Tab*) 0.1 mg PO BID [facility] Last Admin: 06/30/17 09:07 Dose: 0.1 mg Clopidogrel Bisulfate (Plavix Tab*) 75 mg PO DAILY [facility] Last Admin: 06/30/17 09:07 Dose: 75 mg Dextrose (D50w Syringe 50 Ml*) 12.5 gm IV PUSH .FOR FS < 60 - SS PRN PRN Reason: FS < 60 Divalproex Sodium (Depakote Dr Tab(*)) 750 mg PO BID [facility] Last Admin: 06/30/17 09:07 Dose: 750 mg Docusate Sodium (Colace Cap*) 100 mg PO DAILY PRN PRN Reason: CONSTIPATION Glipizide (Glucotrol Tab*) 5 mg PO 0800,1700 [facility] Last Admin: 06/30/17 09:07 Dose: 5 mg Hydralazine HCl (Apresoline Iv*) 5 mg IV SLOW PU Q6H PRN PRN Reason: BLOOD PRESSURE Last Admin: 06/28/17 23:56 Dose: 5 mg Insulin Glargine (Lantus(*)) 6 units SUBCUT Q24H [facility] Last Admin: 06/30/17 09:11 Dose: 6 units Insulin Human Lispro (Humalog*) 0 units SUBCUT ACHS [facility] PRN Reason: Protocol Last Admin: 06/30/17 09:11 Dose: 2 units Losartan Potassium (Cozaar Tab*) 50 mg PO DAILY [facility] Last Admin: 06/30/17 09:06 Dose: 50 mg Melatonin (Melatonin (Nf)) 3 mg PO BEDTIME PRN; Protocol PRN Reason: Sleep Last Admin: 06/30/17 02:54 Dose: 3 mg Metoprolol Tartrate (Lopressor Tab*) 100 mg PO BID [facility] Last Admin: 06/30/17 09:07 Dose: 100 mg Pantoprazole Sodium (Protonix Tab (Nf)) 40 mg PO DAILY [facility] Last Admin: 06/30/17 09:07 Dose: 40 mg Prednisolone Acetate (Pred Forte 1%*) 1 drop BOTH EYES DAILY [facility] Last Admin: 06/29/17 08:18 Dose: 1 drop Quetiapine Fumarate (Seroquel Tab*) 100 mg PO 2100 [facility] Last Admin: 06/29/17 21:00 Dose: 100 mg Quetiapine Fumarate (Seroquel Tab*) 50 mg PO DAILY [facility] Rivaroxaban (Xarelto(*)) 15 mg PO DAILY [facility] Last Admin: 06/30/17 09:07 Dose: 15 mg Terazosin HCl (Hytrin Cap*) 10 mg PO BEDTIME [facility] Last Admin: 06/29/17 21:01 Dose: 10 mg Verapamil HCl (Calan Sr Tab*) 240 mg PO BID [facility] Last Admin: 06/30/17 09:06 Dose: 240 mg Ziprasidone (Geodon Im Inj*) 20 mg IM Q8H PRN PRN Reason: AGITATION Last Admin: 06/28/17 04:27 Dose: 20 mg Vital Signs 06/29/17 06/29/17 06/29/17 09:50 09:57 11:21 Temperature 97.8 F 97.7 F Pulse Rate 66 59 Respiratory 20 20 16 Rate Blood Pressure 151/67 153/67 (mmHg) O2 Sat by Pulse 100 100 Oximetry 06/29/17 06/29/17 06/29/17 13:24 15:30 19:16 Temperature 97.3 F 97.6 F Pulse Rate 61 59 Respiratory 20 20 20 Rate Blood Pressure 139/61 154/63 (mmHg) O2 Sat by Pulse 100 100 Oximetry 06/29/17 06/29/17 06/29/17 19:30 20:00 21:00 Temperature Pulse Rate 60 60 Respiratory 20 Rate Blood Pressure (mmHg) O2 Sat by Pulse Oximetry 06/29/17 06/30/17 23:17 07:35 Temperature 97.9 F 97.7 F Pulse Rate 59 69 Respiratory 16 16 Rate Blood Pressure 162/62 139/59 (mmHg) O2 Sat by Pulse 100 100 Oximetry Oxygen Devices in Use Now: None Appearance: Alert, in a chair. In good spirts, friendly. Looks comfortable. Eyes: No Scleral Icterus Extremities: No Edema, No Clubbing, Cyanosis, - Skin: No Rash or Ulcers, No Nodules or Sclerosis, - Neurological: NL Sensation - Good verbal skills. R facial droop. Result Diagrams: 06/27/17 06:46 06/29/17 05:20 Additional Lab and Data: Lab Results 06/24/17 06/24/17 06/24/17 Range/Units 11:18 12:05 12:05 WBC (3.5-10.8) 10^3/ul RBC (4.0-5.4) 10^6/ul Hgb (14.0-18.0) g/dl Hct (42-52) % MCV (80-94) fL MCH (27-31) pg MCHC (31-36) g/dl RDW (10.5-15) % Plt Count (150-450) 10^3/ul MPV (7.4-10.4) um3 Neut % (Auto) (38-83) % Lymph % (Auto) (25-47) % [place] % (Auto) (1-9) % Eos % (Auto) (0-6) % Baso % (Auto) (0-2) % Absolute Neuts (auto) (1.5-7.7) 10^3/ul Absolute Lymphs (auto) (1.0-4.8) 10^3/ul Absolute Monos (auto) (0-0.8) 10^3/ul Absolute Eos (auto) (0-0.6) 10^3/ul Absolute Basos (auto) (0-0.2) 10^3/ul Absolute Nucleated RBC 10^3/ul Nucleated RBC % INR (Anticoag Therapy) 1.24 H (0.89-1.11) APTT 33.7 (26.0-36.3) seconds Sodium 138 (133-145) mmol/L Potassium 4.2 (3.5-5.0) mmol/L Chloride 106 (101-111) mmol/L Carbon Dioxide 26 (22-32) mmol/L Anion Gap 6 (2-11) mmol/L BUN 30 H (6-24) mg/dL Creatinine 1.46 H (0.67-1.17) mg/dL Est GFR ( Amer) 60.2 (>60) Est GFR (Non-Af Amer) 46.8 (>60) BUN/Creatinine Ratio 20.5 H (8-20) Glucose 200 H (70-100) mg/dL POC Glucose (mg/dL) 260 H (70-100) mg/dL Lactic Acid (0.5-2.0) mmol/L Calcium 8.9 (8.6-10.3) mg/dL Magnesium 2.0 (1.9-2.7) mg/dL Total Bilirubin 0.30 (0.2-1.0) mg/dL AST 15 (13-39) U/L ALT 11 (7-52) U/L Alkaline Phosphatase 38 (34-104) U/L Ammonia Total Creatine Kinase 55 (10-223) U/L CK-MB (CK-2) 1.1 (0.6-6.3) ng/mL Troponin I 0.01 (<0.04) ng/mL C-Reactive Protein 9.31 H (< 5.00) mg/L B-Natriuretic Peptide ( - 100) pg/mL Total Protein 6.7 (6.4-8.9) g/dL Albumin 3.8 (3.2-5.2) g/dL Globulin 2.9 (2-4) g/dL Albumin/Globulin Ratio 1.3 (1-3) Lipase 41 (11.0-82.0) U/L TSH 8.42 H (0.34-5.60) mcIU/mL Acetaminophen < 15 mcg/mL Serum Alcohol < 10 (<10) mg/dL 06/24/17 06/24/17 06/24/17 Range/Units 12:05 12:05 12:05 WBC 7.5 (3.5-10.8) 10^3/ul RBC 3.90 L (4.0-5.4) 10^6/ul Hgb 9.5 L (14.0-18.0) g/dl Hct 30 L (42-52) % MCV 77 L (80-94) fL MCH 24 L (27-31) pg MCHC 32 (31-36) g/dl RDW 16 H (10.5-15) % Plt Count 178 (150-450) 10^3/ul MPV 10 (7.4-10.4) um3 Neut % (Auto) 61.7 (38-83) % Lymph % (Auto) 28.2 (25-47) % [place] % (Auto) 8.6 (1-9) % Eos % (Auto) 1.2 (0-6) % Baso % (Auto) 0.3 (0-2) % Absolute Neuts (auto) 4.7 (1.5-7.7) 10^3/ul Absolute Lymphs (auto) 2.1 (1.0-4.8) 10^3/ul Absolute Monos (auto) 0.7 (0-0.8) 10^3/ul Absolute Eos (auto) 0.1 (0-0.6) 10^3/ul Absolute Basos (auto) 0 (0-0.2) 10^3/ul Absolute Nucleated RBC 0 10^3/ul Nucleated RBC % 0 INR (Anticoag Therapy) (0.89-1.11) APTT (26.0-36.3) seconds Sodium (133-145) mmol/L Potassium (3.5-5.0) mmol/L Chloride (101-111) mmol/L Carbon Dioxide (22-32) mmol/L Anion Gap (2-11) mmol/L BUN (6-24) mg/dL Creatinine (0.67-1.17) mg/dL Est GFR ( Amer) (>60) Est GFR (Non-Af Amer) (>60) BUN/Creatinine Ratio (8-20) Glucose (70-100) mg/dL POC Glucose (mg/dL) (70-100) mg/dL Lactic Acid 1.3 (0.5-2.0) mmol/L Calcium (8.6-10.3) mg/dL Magnesium (1.9-2.7) mg/dL Total Bilirubin (0.2-1.0) mg/dL AST (13-39) U/L ALT (7-52) U/L Alkaline Phosphatase (34-104) U/L Ammonia TNP Total Creatine Kinase (10-223) U/L CK-MB (CK-2) (0.6-6.3) ng/mL Troponin I (<0.04) ng/mL C-Reactive Protein (< 5.00) mg/L B-Natriuretic Peptide 220 H ( - 100) pg/mL Total Protein (6.4-8.9) g/dL Albumin (3.2-5.2) g/dL Globulin (2-4) g/dL Albumin/Globulin Ratio (1-3) Lipase (11.0-82.0) U/L TSH (0.34-5.60) mcIU/mL Acetaminophen mcg/mL Serum Alcohol (<10) mg/dL Assess/Plan/Problems-Billing Assessment: 76 year old male PMH VT, DM, pAfib on xarelto, moderate-severe aortic stenosis, HTN, CKDIII, bipolar with recent ischemic CVA and multiple CT head showing chronic right parietal/occipital infarct presenting with confusion, agitation. - Patient Problems (1) Acute on chronic renal insufficiency Current Visit: No Status: Acute Code(s): N28.9 - DISORDER OF KIDNEY AND URETER, UNSPECIFIED; N18.9 - CHRONIC KIDNEY DISEASE, UNSPECIFIED SNOMED Code(s ): 830654689 Comment: Furosemide d/c'd 06/24. PVR by bladder scan ordered. (2) Hypertension Current Visit: No Status: Acute Code(s): I10 - ESSENTIAL (PRIMARY) HYPERTENSION SNOMED Code(s): 36847003 Comment: Continue losartan 50 mg daily, verapamil to 240 mg bid. Did well with BP (less labile) past 48 hrs as of 06/30/17. (3) Microcytic anemia Current Visit: Yes Status: Acute Code(s): D50.9 - IRON DEFICIENCY ANEMIA, UNSPECIFIED SNOMED Code(s): 503126253 Comment: chronic, Hb at baseline. Add on ferritin 68.5, 71.5 06/27/17, . CBC 06/30. (4) CVA (cerebral vascular accident) Current Visit: No Status: Acute Code(s): I63.9 - CEREBRAL INFARCTION, UNSPECIFIED SNOMED Code(s): 765635659 Comment: Cont Plavix, statin. (5) Diabetes Current Visit: Yes Status: Acute Code(s): E11.9 - TYPE 2 DIABETES MELLITUS WITHOUT COMPLICATIONS SNOMED Code(s): 72819723 Comment: Continue glipizide 5 mg 0800,1700. Increase Lantus to 10 U daily, start 06/30, consider stopping Lispro if total daily dose is negligible. (6) Hypotension Current Visit: Yes Status: Acute Comment: More likely the hypotension caused his transient decrease in mental status and fixed gaze to the left and up. Cortisol level addon 14.5 06/27 14:50 hrs. His at 4 PM 06/27 agrees he is back to where he was mentally on 06/26. (7) Encephalopathy acute Current Visit: No Status: Acute Code(s): G93.40 - ENCEPHALOPATHY, UNSPECIFIED SNOMED Code(s): 5862201 Comment: Pt has baseline dementia superimposed on prior dx of bipolar disorder. As his behavior is markedly improved, he is ready for a long-term care facility. Valproic acid level addon 88.0 06/28/17. Continue quetiapine. (8) Atrial fibrillation Current Visit: No Status: Acute Code(s): I48.91 - UNSPECIFIED ATRIAL FIBRILLATION SNOMED Code(s): 55570841 Comment: Continue rivaroxaban, metoprolol. Paced. Status and Disposition: OBV changed to inpatient. Pt is aggressive and intermittently agitated. He is not safe to be discharged home. Needs placement in geriatric psychiatric facility
[2017-06-30] MEDS ORDERED: Insulin GLARGINE(*) 1 UNITS UNIT SUBCUT ONE (09:44)
[2017-06-30] MEDS: QUEtiapine TAB* 25 MG PO SCH ×2 (10:51→22:05)
--- NOTE | 2017-06-30 11:57 | PN ---
Progress Note - Progress Note Date of Service: 06/30/17 Note: Patient had another hypotensive episode 06/30 in AM, was very lethargic with this. this tends to happen in the daytime and his hypertensive periods occur at night. I think he will do better with more of his BP medicines given hs and less in the AM. I will start by changing losartan to 25 mg bid starting 07/01.
--- NOTE | 2017-06-30 12:06 | PN ---
Progress Note - Progress Note Date of Service: 06/30/17 Note: BP meds adjusted as follows: Losartan 25 mg hs start 07/01, verapamil cap 180 AM and 360 hs start 07/01.
[2017-06-30] MEDS: prednisoLONE 1% OPHTH.SUSP* 5 ML OPHTH.SUSP BOTH EYES SCH (13:03)
[2017-06-30] MEDS ORDERED: Magnesium Hydroxide LIQ* 30 ML UDC PO ONE (17:00)
[2017-06-30] MEDS: Polyethylene Glycol 3350* 17 GM PACKET PO SCH (22:04)
[2017-06-30] MEDS: Terazosin CAP* 5 MG PO SCH (22:05)
[2017-06-30] MEDS: Atorvastatin* 80 MG TAB PO SCH (22:06)
[2017-07-01 07:35] LABS: ABS Basophils 0 10^3/ul (0-0.2); ABS Eosinophils 0.3 10^3/ul (0-0.6); ABS Lymphocytes 2.3 10^3/ul (1.0-4.8); ABS Monocytes 0.9 10^3/ul (0-0.8); ABS Neutrophils 6.5 10^3/ul (1.5-7.7); ABS Nucleated RBC 0.01 10^3/ul; Eosinophil % 2.9 % (0-6); Hematocrit 25 % (42-52); Lymphocyte % 23.1 % (25-47); Mean Corpuscular HGB Conc 32 g/dl (31-36); Mean Corpuscular Hemoglobin 25 pg (27-31); Mean Corpuscular Volume 76 fL (80-94); Mean Platelet Volume 10 um3 (7.4-10.4); Nucleated Red Blood Cells % 0.1; Platelet Count 152 10^3/ul (150-450); Red Blood Count 3.25 10^6/ul (4.0-5.4); Red Cell Distribution Width 15 % (10.5-15); White Blood Count 10.1 10^3/ul (3.5-10.8)
[2017-07-01 07:45] LABS: EGFR Non-African American 31.6 (>60)
[2017-07-01] MEDS: prednisoLONE 1% OPHTH.SUSP* 5 ML OPHTH.SUSP BOTH EYES SCH (08:03)
[2017-07-01] MEDS: Polyethylene Glycol 3350* 17 GM PACKET PO SCH ×2 (08:03→23:00)
[2017-07-01] MEDS: QUEtiapine TAB* 25 MG PO SCH ×2 (08:04→22:49)
[2017-07-01] MEDS: Divalproex DR TAB(*) 250 MG PO SCH ×2 (08:05→22:51)
[2017-07-01] MEDS: Verapamil SR CAP* 180 MG PO SCH ×2 (08:05→22:51)
[2017-07-01] MEDS: Rivaroxaban TAB(*) 15 MG PO SCH (08:06)
[2017-07-01] MEDS: glipiZIDE TAB* 5 MG PO SCH ×2 (08:06→17:10)
[2017-07-01] MEDS: amLODIPine TAB* 5 MG PO SCH (08:06)
[2017-07-01] MEDS: Metoprolol Tartrate TAB* 100 MG TAB PO SCH ×2 (08:06→22:51)
[2017-07-01] MEDS: Clopidogrel TAB* 75 MG PO SCH (08:06)
[2017-07-01] MEDS: cloNIDine TAB* 0.1 MG PO SCH ×2 (08:06→22:51)
[2017-07-01] MEDS: CMCS: Pantoprazole TAB (NF) 40 MG TAB PO SCH (08:06)
[2017-07-01] MEDS: Insulin LISPRO* 1 UNITS UNIT SUBCUT SCH ×4 (08:07→22:57)
[2017-07-01] MEDS: Insulin GLARGINE(*) 1 UNITS UNIT SUBCUT SCH (08:50)
[2017-07-01] MEDS ORDERED: Losartan TAB* 25 MG PO SCH ×2 (09:00→21:00)
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
--- NOTE | 2017-07-01 17:36 | PN ---
Subjective Date of Service: 07/01/17 Interval History: Seen and examined this AM Apparently fell asleep while eating bagel with food still in mouth Wakes easily and has no complaints Objective Active Medications: Acetaminophen (Tylenol Tab*) 650 mg PO Q4H PRN PRN Reason: FEVER/PAIN Amlodipine Besylate (Norvasc Tab*) 5 mg PO DAILY [facility] Last Admin: 07/01/17 08:06 Dose: 5 mg Atorvastatin Calcium (Lipitor*) 80 mg PO 2100 [facility] Last Admin: 06/30/17 22:06 Dose: 80 mg Clonidine HCl (Catapres Tab*) 0.1 mg PO BID [facility] Last Admin: 07/01/17 08:06 Dose: 0.1 mg Clopidogrel Bisulfate (Plavix Tab*) 75 mg PO DAILY [facility] Last Admin: 07/01/17 08:06 Dose: 75 mg Dextrose (D50w Syringe 50 Ml*) 12.5 gm IV PUSH .FOR FS < 60 - SS PRN PRN Reason: FS < 60 Divalproex Sodium (Depakote Dr Tab(*)) 750 mg PO BID [facility] Last Admin: 07/01/17 08:05 Dose: 750 mg Glipizide (Glucotrol Tab*) 5 mg PO 0800,1700 [facility] Last Admin: 07/01/17 17:10 Dose: 5 mg Hydralazine HCl (Apresoline Iv*) 5 mg IV SLOW PU Q6H PRN PRN Reason: BLOOD PRESSURE Last Admin: 06/28/17 23:56 Dose: 5 mg Insulin Glargine (Lantus(*)) 10 units SUBCUT Q24H [facility] Last Admin: 07/01/17 08:50 Dose: 10 units Insulin Human Lispro (Humalog*) 0 units SUBCUT ACHS [facility] PRN Reason: Protocol Last Admin: 07/01/17 17:09 Dose: 4 units Losartan Potassium (Cozaar Tab*) 25 mg PO BEDTIME [facility] Melatonin (Melatonin (Nf)) 3 mg PO BEDTIME PRN; Protocol PRN Reason: Sleep Last Admin: 06/30/17 02:54 Dose: 3 mg Metoprolol Tartrate (Lopressor Tab*) 100 mg PO BID [facility] Last Admin: 07/01/17 08:06 Dose: 100 mg Pantoprazole Sodium (Protonix Tab (Nf)) 40 mg PO DAILY [facility] Last Admin: 07/01/17 08:06 Dose: 40 mg Polyethylene Glycol/Electrolytes (Miralax*) 17 gm PO 0800,2100 [facility] Last Admin: 07/01/17 08:03 Dose: 17 gm Prednisolone Acetate (Pred Forte 1%*) 1 drop BOTH EYES DAILY [facility] Last Admin: 07/01/17 08:03 Dose: 1 drop Quetiapine Fumarate (Seroquel Tab*) 100 mg PO 2100 [facility] Last Admin: 06/30/17 22:05 Dose: 100 mg Quetiapine Fumarate (Seroquel Tab*) 50 mg PO DAILY [facility] Last Admin: 07/01/17 08:04 Dose: 50 mg Rivaroxaban (Xarelto(*)) 15 mg PO DAILY [facility] Last Admin: 07/01/17 08:06 Dose: 15 mg Terazosin HCl (Hytrin Cap*) 10 mg PO BEDTIME [facility] Last Admin: 06/30/17 22:05 Dose: 10 mg Verapamil HCl (Calan Sr Cap*) 180 mg PO DAILY [facility] Last Admin: 07/01/17 08:05 Dose: 180 mg Verapamil HCl (Calan Sr Cap*) 360 mg PO BEDTIME [facility] Ziprasidone (Geodon Im Inj*) 20 mg IM Q8H PRN PRN Reason: AGITATION Last Admin: 06/28/17 04:27 Dose: 20 mg Vital Signs 06/30/17 06/30/17 06/30/17 19:15 20:00 23:45 Temperature 97.9 F 97.3 F Pulse Rate 60 59 Respiratory 20 16 14 Rate Blood Pressure 165/62 151/69 (mmHg) O2 Sat by Pulse 100 100 Oximetry 07/01/17 07/01/17 07/01/17 04:09 07:39 11:33 Temperature 98.0 F 98.1 F 98.1 F Pulse Rate 58 58 59 Respiratory 20 20 20 Rate Blood Pressure 127/67 117/56 122/60 (mmHg) O2 Sat by Pulse 99 100 100 Oximetry 07/01/17 07/01/17 12:42 15:30 Temperature 98.0 F Pulse Rate 60 Respiratory 18 20 Rate Blood Pressure 135/67 (mmHg) O2 Sat by Pulse 100 Oximetry Oxygen Devices in Use Now: None Appearance: NAD, sitting up in bed, Eyes: No Scleral Icterus, PERRLA Ears/Nose/Mouth/Throat: Mucous Membranes Moist Neck: NL Appearance and Movements; NL JVP, Trachea Midline Respiratory: Symmetrical Chest Expansion and Respiratory Effort, Clear to Auscultation Cardiovascular: RRR Abdominal: NL Sounds; No Tenderness; No Distention, No Hepatosplenomegaly Skin: No Rash or Ulcers Neurological: - - Aox2 to name and hospital, right sided paresis Result Diagrams: 07/01/17 07:05 07/01/17 07:05 Additional Lab and Data: Lab Results 06/24/17 06/24/17 06/24/17 Range/Units 11:18 12:05 12:05 WBC (3.5-10.8) 10^3/ul RBC (4.0-5.4) 10^6/ul Hgb (14.0-18.0) g/dl Hct (42-52) % MCV (80-94) fL MCH (27-31) pg MCHC (31-36) g/dl RDW (10.5-15) % Plt Count (150-450) 10^3/ul MPV (7.4-10.4) um3 Neut % (Auto) (38-83) % Lymph % (Auto) (25-47) % [place]bert % (Auto) (1-9) % Eos % (Auto) (0-6) % Baso % (Auto) (0-2) % Absolute Neuts (auto) (1.5-7.7) 10^3/ul Absolute Lymphs (auto) (1.0-4.8) 10^3/ul Absolute Monos (auto) (0-0.8) 10^3/ul Absolute Eos (auto) (0-0.6) 10^3/ul Absolute Basos (auto) (0-0.2) 10^3/ul Absolute Nucleated RBC 10^3/ul Nucleated RBC % INR (Anticoag Therapy) 1.24 H (0.89-1.11) APTT 33.7 (26.0-36.3) seconds Sodium 138 (133-145) mmol/L Potassium 4.2 (3.5-5.0) mmol/L Chloride 106 (101-111) mmol/L Carbon Dioxide 26 (22-32) mmol/L Anion Gap 6 (2-11) mmol/L BUN 30 H (6-24) mg/dL Creatinine 1.46 H (0.67-1.17) mg/dL Est GFR ( Amer) 60.2 (>60) Est GFR (Non-Af Amer) 46.8 (>60) BUN/Creatinine Ratio 20.5 H (8-20) Glucose 200 H (70-100) mg/dL POC Glucose (mg/dL) 260 H (70-100) mg/dL Lactic Acid (0.5-2.0) mmol/L Calcium 8.9 (8.6-10.3) mg/dL Magnesium 2.0 (1.9-2.7) mg/dL Total Bilirubin 0.30 (0.2-1.0) mg/dL AST 15 (13-39) U/L ALT 11 (7-52) U/L Alkaline Phosphatase 38 (34-104) U/L Ammonia Total Creatine Kinase 55 (10-223) U/L CK-MB (CK-2) 1.1 (0.6-6.3) ng/mL Troponin I 0.01 (<0.04) ng/mL C-Reactive Protein 9.31 H (< 5.00) mg/L B-Natriuretic Peptide ( - 100) pg/mL Total Protein 6.7 (6.4-8.9) g/dL Albumin 3.8 (3.2-5.2) g/dL Globulin 2.9 (2-4) g/dL Albumin/Globulin Ratio 1.3 (1-3) Lipase 41 (11.0-82.0) U/L TSH 8.42 H (0.34-5.60) mcIU/mL Acetaminophen < 15 mcg/mL Serum Alcohol < 10 (<10) mg/dL 06/24/17 06/24/17 06/24/17 Range/Units 12:05 12:05 12:05 WBC 7.5 (3.5-10.8) 10^3/ul RBC 3.90 L (4.0-5.4) 10^6/ul Hgb 9.5 L (14.0-18.0) g/dl Hct 30 L (42-52) % MCV 77 L (80-94) fL MCH 24 L (27-31) pg MCHC 32 (31-36) g/dl RDW 16 H (10.5-15) % Plt Count 178 (150-450) 10^3/ul MPV 10 (7.4-10.4) um3 Neut % (Auto) 61.7 (38-83) % Lymph % (Auto) 28.2 (25-47) % Elbert % (Auto) 8.6 (1-9) % Eos % (Auto) 1.2 (0-6) % Baso % (Auto) 0.3 (0-2) % Absolute Neuts (auto) 4.7 (1.5-7.7) 10^3/ul Absolute Lymphs (auto) 2.1 (1.0-4.8) 10^3/ul Absolute Monos (auto) 0.7 (0-0.8) 10^3/ul Absolute Eos (auto) 0.1 (0-0.6) 10^3/ul Absolute Basos (auto) 0 (0-0.2) 10^3/ul Absolute Nucleated RBC 0 10^3/ul Nucleated RBC % 0 INR (Anticoag Therapy) (0.89-1.11) APTT (26.0-36.3) seconds Sodium (133-145) mmol/L Potassium (3.5-5.0) mmol/L Chloride (101-111) mmol/L Carbon Dioxide (22-32) mmol/L Anion Gap (2-11) mmol/L BUN (6-24) mg/dL Creatinine (0.67-1.17) mg/dL Est GFR ( Amer) (>60) Est GFR (Non-Af Amer) (>60) BUN/Creatinine Ratio (8-20) Glucose (70-100) mg/dL POC Glucose (mg/dL) (70-100) mg/dL Lactic Acid 1.3 (0.5-2.0) mmol/L Calcium (8.6-10.3) mg/dL Magnesium (1.9-2.7) mg/dL Total Bilirubin (0.2-1.0) mg/dL AST (13-39) U/L ALT (7-52) U/L Alkaline Phosphatase (34-104) U/L Ammonia TNP Total Creatine Kinase (10-223) U/L CK-MB (CK-2) (0.6-6.3) ng/mL Troponin I (<0.04) ng/mL C-Reactive Protein (< 5.00) mg/L B-Natriuretic Peptide 220 H ( - 100) pg/mL Total Protein (6.4-8.9) g/dL Albumin (3.2-5.2) g/dL Globulin (2-4) g/dL Albumin/Globulin Ratio (1-3) Lipase (11.0-82.0) U/L TSH (0.34-5.60) mcIU/mL Acetaminophen mcg/mL Serum Alcohol (<10) mg/dL Assess/Plan/Problems-Billing Assessment: 76 year old male PMH ND, DM, pAfib on xarelto, moderate-severe aortic stenosis, HTN, CKDIII, bipolar with recent ischemic CVA and multiple CT head showing chronic right parietal/occipital infarct presenting with confusion, agitation. - Patient Problems (1) Acute on chronic renal insufficiency Comment: Furosemide d/c'd 06/24. 1L NS overnight and recheck (2) Hypertension Comment: clonidine, losartan, norvasc, verapamil, metoprolol (3) CVA (cerebral vascular accident) Comment: Cont Plavix, statin. (4) Diabetes Comment: Lantus, Lispro sliding scale and glipizide (5) Hypotension Comment: Suspect medication effect. Changes in dosing made Cortisol level addon 14.5 06/27 14:50 hrs. (6) Atrial fibrillation Comment: Continue rivaroxaban, metoprolol. Paced. (7) Encephalopathy acute Comment: Pt has baseline dementia superimposed on prior dx of bipolar disorder. His behavior is markedly improved and he is ready for a long-term care facility. Valproic acid level 77 on 07/01/17. Much improved with addition of quetiapine. (8) DVT prophylaxis Comment: Xarelto Status and Disposition: OBV changed to inpatient. Pt is aggressive and intermittently agitated. He is not safe to be discharged home. Needs placement in geriatric psychiatric facility
[2017-07-01] MEDS ORDERED: NS 0.9% 1000 ML* 1,000 ML IV SCH (17:45)
--- NOTE | 2017-07-01 21:01 | PN ---
Hospitalist Progress Note Called to bedside for question of vtach. Patient asymptomatic, pt broke rhythm with valsalva maneuver, Densie chest pain or sob. Bp stable, checking bmp and mag, will interrogate pacer, again no symptoms. Murmur heard at aortic listening area 2/3. If persist will consider cardiology consult. Heart rate during these events 84-100. Will continue to monitor suspect this is afib with aberrancy
[2017-07-01 21:47] LABS: EGFR Non-African American 31.1 (>60)
[2017-07-01] MEDS: Atorvastatin* 80 MG TAB PO SCH (22:49)
[2017-07-01] MEDS: Terazosin CAP* 5 MG PO SCH (22:51)
[2017-07-02 06:33] LABS: ABS Basophils 0 10^3/ul (0-0.2); ABS Eosinophils 0.2 10^3/ul (0-0.6); ABS Lymphocytes 2.2 10^3/ul (1.0-4.8); ABS Monocytes 1.2 10^3/ul (0-0.8); ABS Neutrophils 7.6 10^3/ul (1.5-7.7); ABS Nucleated RBC 0 10^3/ul; Eosinophil % 1.8 % (0-6); Hematocrit 25 % (42-52); Hemoglobin 8.2 g/dl (14.0-18.0); Lymphocyte % 19.3 % (25-47); Mean Corpuscular HGB Conc 33 g/dl (31-36); Mean Corpuscular Hemoglobin 25 pg (27-31); Mean Platelet Volume 10 um3 (7.4-10.4); Nucleated Red Blood Cells % 0; Platelet Count 155 10^3/ul (150-450); Red Blood Count 3.33 10^6/ul (4.0-5.4); Red Cell Distribution Width 15 % (10.5-15); White Blood Count 11.2 10^3/ul (3.5-10.8)
[2017-07-02 06:46] LABS: Mean Corpuscular Volume 74 fL (80-94)
[2017-07-02 06:52] LABS: EGFR Non-African American 38.2 (>60)
[2017-07-02] MEDS: Divalproex DR TAB(*) 250 MG PO SCH ×2 (08:55→22:39)
[2017-07-02] MEDS: cloNIDine TAB* 0.1 MG PO SCH ×2 (08:56→22:39)
[2017-07-02] MEDS: glipiZIDE TAB* 5 MG PO SCH ×2 (08:56→17:47)
[2017-07-02] MEDS: Rivaroxaban TAB(*) 15 MG PO SCH (08:56)
[2017-07-02] MEDS: Verapamil SR CAP* 180 MG PO SCH ×2 (08:56→22:41)
[2017-07-02] MEDS: Polyethylene Glycol 3350* 17 GM PACKET PO SCH ×2 (08:56→22:41)
[2017-07-02] MEDS: prednisoLONE 1% OPHTH.SUSP* 5 ML OPHTH.SUSP BOTH EYES SCH (08:56)
[2017-07-02] MEDS: CMCS: Pantoprazole TAB (NF) 40 MG TAB PO SCH (08:56)
[2017-07-02] MEDS: amLODIPine TAB* 5 MG PO SCH (08:57)
[2017-07-02] MEDS: Insulin LISPRO* 1 UNITS UNIT SUBCUT SCH ×4 (08:57→22:41)
[2017-07-02] MEDS: Clopidogrel TAB* 75 MG PO SCH (08:57)
[2017-07-02] MEDS: Insulin GLARGINE(*) 1 UNITS UNIT SUBCUT SCH (08:57)
[2017-07-02] MEDS: QUEtiapine TAB* 25 MG PO SCH ×2 (09:44→22:40)
[2017-07-02] MEDS: Metoprolol Tartrate TAB* 100 MG TAB PO SCH ×2 (09:44→22:41)
--- NOTE | 2017-07-02 11:11 | PN ---
Progress Note - Progress Note Date of Service: 07/02/17 Note: Follow up to events from last night: Concern for wide complex rhythm overnight Review of telemetry strips indicate ventricular pacing as etiology if rhythm. New telemetry system indicates pacing with a "P" and not a dash vertical dash as seen in previous system. Discontinue telemetry
--- NOTE | 2017-07-02 18:12 | PN ---
Subjective Date of Service: 07/02/17 Interval History: seen and examined with and son at bedside is concerned about slurred speech since seroquel added. She notes that he does not have slurred speech now and seems at his baseline Pt has no complaints, reports feeling "good" Events from overnight noted. Concern for wide complex arrhythmia (not tachycardia) on review of telemetry strips patient was ventricular paced. Objective Active Medications: Acetaminophen (Tylenol Tab*) 650 mg PO Q4H PRN PRN Reason: FEVER/PAIN Amlodipine Besylate (Norvasc Tab*) 5 mg PO DAILY [facility] Last Admin: 07/02/17 08:57 Dose: 5 mg Atorvastatin Calcium (Lipitor*) 80 mg PO 2100 [facility] Last Admin: 07/01/17 22:49 Dose: 80 mg Clonidine HCl (Catapres Tab*) 0.1 mg PO BID [facility] Last Admin: 07/02/17 08:56 Dose: 0.1 mg Clopidogrel Bisulfate (Plavix Tab*) 75 mg PO DAILY [facility] Last Admin: 07/02/17 08:57 Dose: 75 mg Dextrose (D50w Syringe 50 Ml*) 12.5 gm IV PUSH .FOR FS < 60 - SS PRN PRN Reason: FS < 60 Divalproex Sodium (Depakote Dr Tab(*)) 750 mg PO BID [facility] Last Admin: 07/02/17 08:55 Dose: 750 mg Glipizide (Glucotrol Tab*) 5 mg PO 0800,1700 [facility] Last Admin: 07/02/17 17:47 Dose: 5 mg Hydralazine HCl (Apresoline Iv*) 5 mg IV SLOW PU Q6H PRN PRN Reason: BLOOD PRESSURE Last Admin: 06/28/17 23:56 Dose: 5 mg Insulin Glargine (Lantus(*)) 10 units SUBCUT Q24H [facility] Last Admin: 07/02/17 08:57 Dose: 10 units Insulin Human Lispro (Humalog*) 0 units SUBCUT ACHS [facility] PRN Reason: Protocol Last Admin: 07/02/17 17:46 Dose: 2 units Losartan Potassium (Cozaar Tab*) 25 mg PO BEDTIME [facility] Last Admin: 07/01/17 22:51 Dose: 25 mg Melatonin (Melatonin (Nf)) 3 mg PO BEDTIME PRN; Protocol PRN Reason: Sleep Last Admin: 06/30/17 02:54 Dose: 3 mg Metoprolol Tartrate (Lopressor Tab*) 100 mg PO BID [facility] Last Admin: 07/02/17 09:44 Dose: 100 mg Pantoprazole Sodium (Protonix Tab (Nf)) 40 mg PO DAILY [facility] Last Admin: 07/02/17 08:56 Dose: 40 mg Polyethylene Glycol/Electrolytes (Miralax*) 17 gm PO 0800,2100 [facility] Last Admin: 07/02/17 08:56 Dose: 17 gm Quetiapine Fumarate (Seroquel Tab*) 100 mg PO 2100 [facility] Last Admin: 07/01/17 22:49 Dose: 100 mg Quetiapine Fumarate (Seroquel Tab*) 50 mg PO DAILY [facility] Last Admin: 07/02/17 09:44 Dose: 50 mg Rivaroxaban (Xarelto(*)) 15 mg PO DAILY [facility] Last Admin: 07/02/17 08:56 Dose: 15 mg Terazosin HCl (Hytrin Cap*) 10 mg PO BEDTIME [facility] Last Admin: 07/01/17 22:51 Dose: 10 mg Verapamil HCl (Calan Sr Cap*) 180 mg PO DAILY [facility] Last Admin: 07/02/17 08:56 Dose: 180 mg Verapamil HCl (Calan Sr Cap*) 360 mg PO BEDTIME [facility] Last Admin: 07/01/17 22:51 Dose: 360 mg Ziprasidone (Geodon Im Inj*) 20 mg IM Q8H PRN PRN Reason: AGITATION Last Admin: 06/28/17 04:27 Dose: 20 mg Vital Signs 07/01/17 07/01/17 07/01/17 19:39 20:00 20:33 Temperature 97.6 F 98.2 F Pulse Rate 77 77 Respiratory 20 18 20 Rate Blood Pressure 154/65 179/69 (mmHg) O2 Sat by Pulse 99 100 Oximetry 07/01/17 07/01/17 07/02/17 22:49 23:40 03:48 Temperature 98.8 F 98.5 F 98.8 F Pulse Rate 80 77 75 Respiratory 17 20 16 Rate Blood Pressure 170/76 154/84 171/89 (mmHg) O2 Sat by Pulse 99 100 98 Oximetry 07/02/17 07/02/17 07/02/17 07:55 08:00 11:50 Temperature 98.3 F 98.4 F Pulse Rate 73 63 Respiratory 20 16 16 Rate Blood Pressure 156/77 175/80 (mmHg) O2 Sat by Pulse 100 100 Oximetry 07/02/17 15:41 Temperature 97.7 F Pulse Rate 71 Respiratory 22 Rate Blood Pressure 173/71 (mmHg) O2 Sat by Pulse 100 Oximetry Oxygen Devices in Use Now: None Appearance: NAD Eyes: No Scleral Icterus, PERRLA Neck: NL Appearance and Movements; NL JVP, Trachea Midline Respiratory: Symmetrical Chest Expansion and Respiratory Effort, Clear to Auscultation Cardiovascular: RRR Abdominal: NL Sounds; No Tenderness; No Distention, No Hepatosplenomegaly Extremities: No Edema Neurological: - - AOx2, right facial droop, right weakness Result Diagrams: 07/02/17 06:02 07/02/17 06:02 Additional Lab and Data: Lab Results 06/24/17 06/24/17 06/24/17 Range/Units 11:18 12:05 12:05 WBC (3.5-10.8) 10^3/ul RBC (4.0-5.4) 10^6/ul Hgb (14.0-18.0) g/dl Hct (42-52) % MCV (80-94) fL MCH (27-31) pg MCHC (31-36) g/dl RDW (10.5-15) % Plt Count (150-450) 10^3/ul MPV (7.4-10.4) um3 Neut % (Auto) (38-83) % Lymph % (Auto) (25-47) % Graham % (Auto) (1-9) % Eos % (Auto) (0-6) % Baso % (Auto) (0-2) % Absolute Neuts (auto) (1.5-7.7) 10^3/ul Absolute Lymphs (auto) (1.0-4.8) 10^3/ul Absolute Monos (auto) (0-0.8) 10^3/ul Absolute Eos (auto) (0-0.6) 10^3/ul Absolute Basos (auto) (0-0.2) 10^3/ul Absolute Nucleated RBC 10^3/ul Nucleated RBC % INR (Anticoag Therapy) 1.24 H (0.89-1.11) APTT 33.7 (26.0-36.3) seconds Sodium 138 (133-145) mmol/L Potassium 4.2 (3.5-5.0) mmol/L Chloride 106 (101-111) mmol/L Carbon Dioxide 26 (22-32) mmol/L Anion Gap 6 (2-11) mmol/L BUN 30 H (6-24) mg/dL Creatinine 1.46 H (0.67-1.17) mg/dL Est GFR ( Amer) 60.2 (>60) Est GFR (Non-Af Amer) 46.8 (>60) BUN/Creatinine Ratio 20.5 H (8-20) Glucose 200 H (70-100) mg/dL POC Glucose (mg/dL) 260 H (70-100) mg/dL Lactic Acid (0.5-2.0) mmol/L Calcium 8.9 (8.6-10.3) mg/dL Magnesium 2.0 (1.9-2.7) mg/dL Total Bilirubin 0.30 (0.2-1.0) mg/dL AST 15 (13-39) U/L ALT 11 (7-52) U/L Alkaline Phosphatase 38 (34-104) U/L Ammonia Total Creatine Kinase 55 (10-223) U/L CK-MB (CK-2) 1.1 (0.6-6.3) ng/mL Troponin I 0.01 (<0.04) ng/mL C-Reactive Protein 9.31 H (< 5.00) mg/L B-Natriuretic Peptide ( - 100) pg/mL Total Protein 6.7 (6.4-8.9) g/dL Albumin 3.8 (3.2-5.2) g/dL Globulin 2.9 (2-4) g/dL Albumin/Globulin Ratio 1.3 (1-3) Lipase 41 (11.0-82.0) U/L TSH 8.42 H (0.34-5.60) mcIU/mL Acetaminophen < 15 mcg/mL Serum Alcohol < 10 (<10) mg/dL 06/24/17 06/24/17 06/24/17 Range/Units 12:05 12:05 12:05 WBC 7.5 (3.5-10.8) 10^3/ul RBC 3.90 L (4.0-5.4) 10^6/ul Hgb 9.5 L (14.0-18.0) g/dl Hct 30 L (42-52) % MCV 77 L (80-94) fL MCH 24 L (27-31) pg MCHC 32 (31-36) g/dl RDW 16 H (10.5-15) % Plt Count 178 (150-450) 10^3/ul MPV 10 (7.4-10.4) um3 Neut % (Auto) 61.7 (38-83) % Lymph % (Auto) 28.2 (25-47) % Graham % (Auto) 8.6 (1-9) % Eos % (Auto) 1.2 (0-6) % Baso % (Auto) 0.3 (0-2) % Absolute Neuts (auto) 4.7 (1.5-7.7) 10^3/ul Absolute Lymphs (auto) 2.1 (1.0-4.8) 10^3/ul Absolute Monos (auto) 0.7 (0-0.8) 10^3/ul Absolute Eos (auto) 0.1 (0-0.6) 10^3/ul Absolute Basos (auto) 0 (0-0.2) 10^3/ul Absolute Nucleated RBC 0 10^3/ul Nucleated RBC % 0 INR (Anticoag Therapy) (0.89-1.11) APTT (26.0-36.3) seconds Sodium (133-145) mmol/L Potassium (3.5-5.0) mmol/L Chloride (101-111) mmol/L Carbon Dioxide (22-32) mmol/L Anion Gap (2-11) mmol/L BUN (6-24) mg/dL Creatinine (0.67-1.17) mg/dL Est GFR ( Amer) (>60) Est GFR (Non-Af Amer) (>60) BUN/Creatinine Ratio (8-20) Glucose (70-100) mg/dL POC Glucose (mg/dL) (70-100) mg/dL Lactic Acid 1.3 (0.5-2.0) mmol/L Calcium (8.6-10.3) mg/dL Magnesium (1.9-2.7) mg/dL Total Bilirubin (0.2-1.0) mg/dL AST (13-39) U/L ALT (7-52) U/L Alkaline Phosphatase (34-104) U/L Ammonia TNP Total Creatine Kinase (10-223) U/L CK-MB (CK-2) (0.6-6.3) ng/mL Troponin I (<0.04) ng/mL C-Reactive Protein (< 5.00) mg/L B-Natriuretic Peptide 220 H ( - 100) pg/mL Total Protein (6.4-8.9) g/dL Albumin (3.2-5.2) g/dL Globulin (2-4) g/dL Albumin/Globulin Ratio (1-3) Lipase (11.0-82.0) U/L TSH (0.34-5.60) mcIU/mL Acetaminophen mcg/mL Serum Alcohol (<10) mg/dL Assess/Plan/Problems-Billing Assessment: 76 year old male PMH SC, DM, pAfib on xarelto, moderate-severe aortic stenosis, HTN, CKD III, bipolar with recent ischemic CVA and multiple CT head showing chronic right parietal/occipital infarct presenting with confusion, agitation. - Patient Problems (1) Acute on chronic renal insufficiency Comment: Furosemide d/c'd 06/24. 1L NS overnight with improvement (2) Hypertension Comment: clonidine, losartan, norvasc, verapamil, metoprolol losartan increased to 50mg 07/02 (3) CVA (cerebral vascular accident) Comment: Cont Plavix, statin. (4) Diabetes Comment: Lantus, Lispro sliding scale and glipizide (5) Hypotension Comment: Suspect medication effect. Changes in dosing made Cortisol level addon 14.5 06/27 14:50 hrs. (6) Atrial fibrillation Comment: Continue rivaroxaban, metoprolol. Paced. (7) Encephalopathy acute Comment: Pt has baseline dementia superimposed on prior dx of bipolar disorder. His behavior is markedly improved and he is ready for a long-term care facility. Valproic acid level 77 on 07/01/17. Much improved with addition of quetiapine. (8) Urinary retention Comment: lopez placed 06/30 start flomax, finasteride (9) DVT prophylaxis Comment: Xarelto Status and Disposition: OBV changed to inpatient. Pt is aggressive and intermittently agitated. He is not safe to be discharged home. Needs placement in geriatric psychiatric facility
[2017-07-02] MEDS: Tamsulosin CAP* 0.4 MG PO SCH (22:39)
[2017-07-02] MEDS: Terazosin CAP* 5 MG PO SCH (22:39)
[2017-07-02] MEDS: Losartan TAB* 25 MG PO SCH (22:40)
[2017-07-02] MEDS: Atorvastatin* 80 MG TAB PO SCH (22:41)
[2017-07-03] MEDS: CMCS: Melatonin (NF) 3 MG TAB PO PRN (00:09)
[2017-07-03] MEDS: hydrALAZINE IV* 20 MG/ML VIAL IV SLOW PU PRN (00:09)
[2017-07-03] MEDS: Insulin LISPRO* 1 UNITS UNIT SUBCUT SCH ×4 (10:56→21:55)
[2017-07-03] MEDS: amLODIPine TAB* 5 MG PO SCH (10:57)
[2017-07-03] MEDS: QUEtiapine TAB* 25 MG PO SCH ×2 (10:57→21:32)
[2017-07-03] MEDS: Polyethylene Glycol 3350* 17 GM PACKET PO SCH ×2 (10:57→21:33)
[2017-07-03] MEDS: Clopidogrel TAB* 75 MG PO SCH (10:57)
[2017-07-03] MEDS: cloNIDine TAB* 0.1 MG PO SCH ×2 (10:57→21:34)
[2017-07-03] MEDS: glipiZIDE TAB* 5 MG PO SCH ×2 (10:57→17:08)
[2017-07-03] MEDS: Divalproex DR TAB(*) 250 MG PO SCH ×2 (10:57→21:33)
[2017-07-03] MEDS: Metoprolol Tartrate TAB* 100 MG TAB PO SCH ×2 (10:57→21:32)
[2017-07-03] MEDS: Insulin GLARGINE(*) 1 UNITS UNIT SUBCUT SCH (10:57)
[2017-07-03] MEDS: Finasteride TAB* 5 MG PO SCH (10:57)
[2017-07-03] MEDS: CMCS: Pantoprazole TAB (NF) 40 MG TAB PO SCH (10:57)
[2017-07-03] MEDS: Rivaroxaban TAB(*) 15 MG PO SCH (10:58)
[2017-07-03] MEDS: Verapamil SR CAP* 180 MG PO SCH ×2 (10:58→21:35)
[2017-07-03] MEDS: Acetaminophen TAB* 325 MG PO PRN (21:30)
[2017-07-03] MEDS: Losartan TAB* 25 MG PO SCH (21:31)
[2017-07-03] MEDS: Terazosin CAP* 5 MG PO SCH (21:34)
[2017-07-03] MEDS: Tamsulosin CAP* 0.4 MG PO SCH (21:34)
[2017-07-03] MEDS: Atorvastatin* 80 MG TAB PO SCH (21:34)
[2017-07-03] MEDS: Ziprasidone IM INJ* 20 MG/ML VIAL IM PRN (22:51)
[2017-07-04] MEDS ORDERED: Haloperidol INJ IV/IM* 5 MG/ML AMP IM ONE (07:36)
[2017-07-04] MEDS: Insulin LISPRO* 1 UNITS UNIT SUBCUT SCH ×4 (09:48→21:31)
[2017-07-04] MEDS: Verapamil SR CAP* 180 MG PO SCH ×2 (09:49→19:22)
[2017-07-04] MEDS: Rivaroxaban TAB(*) 15 MG PO SCH (09:49)
[2017-07-04] MEDS: glipiZIDE TAB* 5 MG PO SCH ×2 (09:49→17:55)
[2017-07-04] MEDS: QUEtiapine TAB* 25 MG PO SCH ×2 (09:50→19:22)
[2017-07-04] MEDS: CMCS: Pantoprazole TAB (NF) 40 MG TAB PO SCH (09:50)
[2017-07-04] MEDS: cloNIDine TAB* 0.1 MG PO SCH ×2 (09:50→19:30)
[2017-07-04] MEDS: Insulin GLARGINE(*) 1 UNITS UNIT SUBCUT SCH (09:50)
[2017-07-04] MEDS: Polyethylene Glycol 3350* 17 GM PACKET PO SCH ×2 (09:50→19:23)
[2017-07-04] MEDS: Clopidogrel TAB* 75 MG PO SCH (09:50)
[2017-07-04] MEDS: Metoprolol Tartrate TAB* 100 MG TAB PO SCH ×2 (09:50→19:23)
[2017-07-04] MEDS: amLODIPine TAB* 5 MG PO SCH (09:50)
[2017-07-04] MEDS: Divalproex DR TAB(*) 250 MG PO SCH ×2 (09:50→19:24)
[2017-07-04] MEDS: Finasteride TAB* 5 MG PO SCH (09:50)
[2017-07-04] MEDS ORDERED: amLODIPine TAB* 5 MG PO ONE (15:32)
[2017-07-04] MEDS: Tamsulosin CAP* 0.4 MG PO SCH (19:21)
[2017-07-04] MEDS: Losartan TAB* 25 MG PO SCH (19:22)
[2017-07-04] MEDS: Atorvastatin* 80 MG TAB PO SCH (19:23)
[2017-07-04] MEDS: Terazosin CAP* 5 MG PO SCH (19:23)
[2017-07-04] MEDS: hydrALAZINE IV* 20 MG/ML VIAL IV SLOW PU PRN (21:21)
[2017-07-04] MEDS: Ziprasidone IM INJ* 20 MG/ML VIAL IM PRN (21:33)
[2017-07-05] MEDS: Acetaminophen TAB* 325 MG PO PRN ×2 (09:02→21:22)
[2017-07-05] MEDS: cloNIDine TAB* 0.1 MG PO SCH ×2 (09:03→21:23)
[2017-07-05] MEDS: Divalproex DR TAB(*) 250 MG PO SCH ×2 (09:03→21:24)
[2017-07-05] MEDS: Clopidogrel TAB* 75 MG PO SCH (09:03)
[2017-07-05] MEDS: Finasteride TAB* 5 MG PO SCH (09:04)
[2017-07-05] MEDS: Metoprolol Tartrate TAB* 100 MG TAB PO SCH ×2 (09:04→21:16)
[2017-07-05] MEDS: CMCS: Pantoprazole TAB (NF) 40 MG TAB PO SCH (09:04)
[2017-07-05] MEDS: Rivaroxaban TAB(*) 15 MG PO SCH (09:04)
[2017-07-05] MEDS: QUEtiapine TAB* 25 MG PO SCH (09:04)
[2017-07-05] MEDS: amLODIPine TAB* 5 MG PO SCH (09:04)
[2017-07-05] MEDS: glipiZIDE TAB* 5 MG PO SCH ×2 (09:04→18:05)
[2017-07-05] MEDS: Polyethylene Glycol 3350* 17 GM PACKET PO SCH ×2 (09:05→21:20)
[2017-07-05] MEDS: Insulin GLARGINE(*) 1 UNITS UNIT SUBCUT SCH (09:05)
[2017-07-05] MEDS: Insulin LISPRO* 1 UNITS UNIT SUBCUT SCH ×4 (09:06→21:32)
[2017-07-05] MEDS: Verapamil SR CAP* 180 MG PO SCH ×2 (09:14→21:12)
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
[2017-07-05] MEDS: QUEtiapine TAB* 100 MG PO SCH (21:14)
[2017-07-05] MEDS: Losartan TAB* 25 MG PO SCH (21:14)
[2017-07-05] MEDS: CMCS: Melatonin (NF) 3 MG TAB PO PRN (21:16)
[2017-07-05] MEDS: Terazosin CAP* 5 MG PO SCH (21:17)
[2017-07-05] MEDS: Atorvastatin* 80 MG TAB PO SCH (21:18)
[2017-07-05] MEDS: Tamsulosin CAP* 0.4 MG PO SCH (21:25)
[2017-07-05] MEDS: hydrALAZINE IV* 20 MG/ML VIAL IV SLOW PU PRN (21:26)
[2017-07-06] MEDS: Insulin LISPRO* 1 UNITS UNIT SUBCUT SCH ×4 (08:13→21:32)
[2017-07-06] MEDS: Insulin GLARGINE(*) 1 UNITS UNIT SUBCUT SCH (08:13)
[2017-07-06] MEDS: Finasteride TAB* 5 MG PO SCH (10:11)
[2017-07-06] MEDS: CMCS: Pantoprazole TAB (NF) 40 MG TAB PO SCH (10:11)
[2017-07-06] MEDS: Divalproex DR TAB(*) 250 MG PO SCH ×2 (10:11→21:26)
[2017-07-06] MEDS: cloNIDine TAB* 0.1 MG PO SCH ×2 (10:11→21:21)
[2017-07-06] MEDS: Polyethylene Glycol 3350* 17 GM PACKET PO SCH ×2 (10:11→21:31)
[2017-07-06] MEDS: glipiZIDE TAB* 5 MG PO SCH ×2 (10:11→16:56)
[2017-07-06] MEDS: Clopidogrel TAB* 75 MG PO SCH ×2 (10:11→21:20)
[2017-07-06] MEDS: Metoprolol Tartrate TAB* 100 MG TAB PO SCH ×2 (10:11→21:19)
[2017-07-06] MEDS: amLODIPine TAB* 5 MG PO SCH (10:11)
[2017-07-06] MEDS: Rivaroxaban TAB(*) 15 MG PO SCH ×2 (10:12→21:19)
[2017-07-06] MEDS: Verapamil SR CAP* 180 MG PO SCH ×2 (10:12→21:33)
[2017-07-06] MEDS: QUEtiapine TAB* 25 MG PO SCH ×2 (10:12→10:51)
[2017-07-06] MEDS: CMCS: Melatonin (NF) 3 MG TAB PO PRN (21:19)
[2017-07-06] MEDS: Tamsulosin CAP* 0.4 MG PO SCH (21:21)
[2017-07-06] MEDS: QUEtiapine TAB* 100 MG PO SCH (21:24)
[2017-07-06] MEDS: Losartan TAB* 25 MG PO SCH (21:25)
[2017-07-06] MEDS: Terazosin CAP* 5 MG PO SCH (21:25)
[2017-07-06] MEDS: Atorvastatin* 80 MG TAB PO SCH (21:29)
[2017-07-06] MEDS: Acetaminophen TAB* 325 MG PO PRN (21:30)
[2017-07-07] MEDS: Insulin LISPRO* 1 UNITS UNIT SUBCUT SCH ×4 (07:55→21:06)
[2017-07-07] MEDS: Insulin GLARGINE(*) 1 UNITS UNIT SUBCUT SCH (08:22)
[2017-07-07] MEDS: amLODIPine TAB* 5 MG PO SCH (08:23)
[2017-07-07] MEDS: Polyethylene Glycol 3350* 17 GM PACKET PO SCH ×2 (08:23→21:08)
[2017-07-07] MEDS: cloNIDine TAB* 0.1 MG PO SCH ×2 (08:23→21:01)
[2017-07-07] MEDS: Divalproex DR TAB(*) 250 MG PO SCH ×2 (08:23→20:51)
[2017-07-07] MEDS: Verapamil SR CAP* 180 MG PO SCH ×2 (08:23→20:55)
[2017-07-07] MEDS: Metoprolol Tartrate TAB* 100 MG TAB PO SCH ×2 (08:23→21:00)
[2017-07-07] MEDS: QUEtiapine TAB* 25 MG PO SCH (08:23)
[2017-07-07] MEDS: glipiZIDE TAB* 5 MG PO SCH ×2 (08:23→17:20)
[2017-07-07] MEDS: Finasteride TAB* 5 MG PO SCH (08:23)
[2017-07-07] MEDS: CMCS: Pantoprazole TAB (NF) 40 MG TAB PO SCH (09:44)
--- NOTE | 2017-07-07 17:26 | PN ---
Subjective Date of Service: 07/07/17 Interval History: Seen and examined today. Noted to be more lethargic. Wakes easily to touch. Does not want to be bother. Otherwise has no complaints Took medications today Objective Active Medications: Acetaminophen (Tylenol Tab*) 650 mg PO Q4H PRN PRN Reason: FEVER/PAIN Last Admin: 07/06/17 21:30 Dose: 650 mg Amlodipine Besylate (Norvasc Tab*) 5 mg PO DAILY [facility] Last Admin: 07/07/17 08:23 Dose: 5 mg Atorvastatin Calcium (Lipitor*) 80 mg PO 2100 [facility] Last Admin: 07/06/17 21:29 Dose: 80 mg Clonidine HCl (Catapres Tab*) 0.1 mg PO BID [facility] Last Admin: 07/07/17 08:23 Dose: 0.1 mg Clopidogrel Bisulfate (Plavix Tab*) 75 mg PO 2100 [facility] Last Admin: 07/06/17 21:20 Dose: 75 mg Dextrose (D50w Syringe 50 Ml*) 12.5 gm IV PUSH .FOR FS < 60 - SS PRN PRN Reason: FS < 60 Divalproex Sodium (Depakote Dr Tab(*)) 750 mg PO BID [facility] Last Admin: 07/07/17 08:23 Dose: 750 mg Finasteride (Proscar Tab*) 5 mg PO DAILY [facility] Last Admin: 07/07/17 08:23 Dose: 5 mg Glipizide (Glucotrol Tab*) 5 mg PO 0800,1700 [facility] Last Admin: 07/07/17 17:20 Dose: Not Given Hydralazine HCl (Apresoline Iv*) 5 mg IV SLOW PU Q6H PRN PRN Reason: BLOOD PRESSURE Last Admin: 07/05/17 21:26 Dose: 5 mg Insulin Glargine (Lantus(*)) 10 units SUBCUT Q24H [facility] Last Admin: 07/07/17 08:22 Dose: 10 units Insulin Human Lispro (Humalog*) 0 units SUBCUT ACHS [facility] PRN Reason: Protocol Last Admin: 07/07/17 16:41 Dose: Not Given Losartan Potassium (Cozaar Tab*) 50 mg PO BEDTIME [facility] Last Admin: 07/06/17 21:25 Dose: 50 mg Melatonin (Melatonin (Nf)) 3 mg PO BEDTIME PRN; Protocol PRN Reason: Sleep Last Admin: 07/06/17 21:19 Dose: 3 mg Metoprolol Tartrate (Lopressor Tab*) 100 mg PO BID [facility] Last Admin: 07/07/17 08:23 Dose: 100 mg Pantoprazole Sodium (Protonix Tab (Nf)) 40 mg PO DAILY [facility] Last Admin: 07/07/17 09:44 Dose: Not Given Polyethylene Glycol/Electrolytes (Miralax*) 17 gm PO 0800,2100 [facility] Last Admin: 07/07/17 08:23 Dose: 17 gm Quetiapine Fumarate (Seroquel Tab*) 50 mg PO DAILY [facility] Last Admin: 07/07/17 08:23 Dose: 50 mg Quetiapine Fumarate (Seroquel Tab*) 150 mg PO 2100 [facility] Last Admin: 07/06/17 21:24 Dose: 150 mg Rivaroxaban (Xarelto(*)) 15 mg PO 2100 [facility] Last Admin: 07/06/17 21:19 Dose: 15 mg Tamsulosin HCl (Flomax Cap*) 0.4 mg PO BEDTIME [facility] Last Admin: 07/06/17 21:21 Dose: 0.4 mg Terazosin HCl (Hytrin Cap*) 10 mg PO BEDTIME [facility] Last Admin: 07/06/17 21:25 Dose: 10 mg Verapamil HCl (Calan Sr Cap*) 180 mg PO DAILY [facility] Last Admin: 07/07/17 08:23 Dose: 180 mg Verapamil HCl (Calan Sr Cap*) 360 mg PO BEDTIME [facility] Last Admin: 07/06/17 21:33 Dose: 360 mg Ziprasidone (Geodon Im Inj*) 20 mg IM Q8H PRN PRN Reason: AGITATION Last Admin: 07/04/17 21:33 Dose: 20 mg Vital Signs 07/06/17 07/06/17 07/07/17 19:34 20:00 00:23 Temperature 98.8 F 98.1 F Pulse Rate 83 73 Respiratory 14 18 16 Rate Blood Pressure 150/70 129/58 (mmHg) O2 Sat by Pulse 100 95 Oximetry 07/07/17 07/07/17 07/07/17 04:39 07:46 08:00 Temperature 98.1 F 98.1 F Pulse Rate 62 70 Respiratory 16 24 16 Rate Blood Pressure 127/59 147/68 (mmHg) O2 Sat by Pulse 97 100 Oximetry Oxygen Devices in Use Now: None Appearance: wakes to light touch, NAD Eyes: No Scleral Icterus Ears/Nose/Mouth/Throat: Clear Oropharnyx, Mucous Membranes Moist Neck: NL Appearance and Movements; NL JVP Respiratory: Symmetrical Chest Expansion and Respiratory Effort, Clear to Auscultation Cardiovascular: RRR, - - 2-3/6 holosystolic ISABELLA Abdominal: NL Sounds; No Tenderness; No Distention, No Hepatosplenomegaly Lymphatic: No Cervical Adenopathy Extremities: No Edema Neurological: - - slurring speech, right facial droop, right sided weakness Result Diagrams: 07/02/17 06:02 07/02/17 06:02 Additional Lab and Data: Lab Results 06/24/17 06/24/17 06/24/17 Range/Units 11:18 12:05 12:05 WBC (3.5-10.8) 10^3/ul RBC (4.0-5.4) 10^6/ul Hgb (14.0-18.0) g/dl Hct (42-52) % MCV (80-94) fL MCH (27-31) pg MCHC (31-36) g/dl RDW (10.5-15) % Plt Count (150-450) 10^3/ul MPV (7.4-10.4) um3 Neut % (Auto) (38-83) % Lymph % (Auto) (25-47) % [place] % (Auto) (1-9) % Eos % (Auto) (0-6) % Baso % (Auto) (0-2) % Absolute Neuts (auto) (1.5-7.7) 10^3/ul Absolute Lymphs (auto) (1.0-4.8) 10^3/ul Absolute Monos (auto) (0-0.8) 10^3/ul Absolute Eos (auto) (0-0.6) 10^3/ul Absolute Basos (auto) (0-0.2) 10^3/ul Absolute Nucleated RBC 10^3/ul Nucleated RBC % INR (Anticoag Therapy) 1.24 H (0.89-1.11) APTT 33.7 (26.0-36.3) seconds Sodium 138 (133-145) mmol/L Potassium 4.2 (3.5-5.0) mmol/L Chloride 106 (101-111) mmol/L Carbon Dioxide 26 (22-32) mmol/L Anion Gap 6 (2-11) mmol/L BUN 30 H (6-24) mg/dL Creatinine 1.46 H (0.67-1.17) mg/dL Est GFR ( Amer) 60.2 (>60) Est GFR (Non-Af Amer) 46.8 (>60) BUN/Creatinine Ratio 20.5 H (8-20) Glucose 200 H (70-100) mg/dL POC Glucose (mg/dL) 260 H (70-100) mg/dL Lactic Acid (0.5-2.0) mmol/L Calcium 8.9 (8.6-10.3) mg/dL Magnesium 2.0 (1.9-2.7) mg/dL Total Bilirubin 0.30 (0.2-1.0) mg/dL AST 15 (13-39) U/L ALT 11 (7-52) U/L Alkaline Phosphatase 38 (34-104) U/L Ammonia Total Creatine Kinase 55 (10-223) U/L CK-MB (CK-2) 1.1 (0.6-6.3) ng/mL Troponin I 0.01 (<0.04) ng/mL C-Reactive Protein 9.31 H (< 5.00) mg/L B-Natriuretic Peptide ( - 100) pg/mL Total Protein 6.7 (6.4-8.9) g/dL Albumin 3.8 (3.2-5.2) g/dL Globulin 2.9 (2-4) g/dL Albumin/Globulin Ratio 1.3 (1-3) Lipase 41 (11.0-82.0) U/L TSH 8.42 H (0.34-5.60) mcIU/mL Acetaminophen < 15 mcg/mL Serum Alcohol < 10 (<10) mg/dL 06/24/17 06/24/17 06/24/17 Range/Units 12:05 12:05 12:05 WBC 7.5 (3.5-10.8) 10^3/ul RBC 3.90 L (4.0-5.4) 10^6/ul Hgb 9.5 L (14.0-18.0) g/dl Hct 30 L (42-52) % MCV 77 L (80-94) fL MCH 24 L (27-31) pg MCHC 32 (31-36) g/dl RDW 16 H (10.5-15) % Plt Count 178 (150-450) 10^3/ul MPV 10 (7.4-10.4) um3 Neut % (Auto) 61.7 (38-83) % Lymph % (Auto) 28.2 (25-47) % [place] % (Auto) 8.6 (1-9) % Eos % (Auto) 1.2 (0-6) % Baso % (Auto) 0.3 (0-2) % Absolute Neuts (auto) 4.7 (1.5-7.7) 10^3/ul Absolute Lymphs (auto) 2.1 (1.0-4.8) 10^3/ul Absolute Monos (auto) 0.7 (0-0.8) 10^3/ul Absolute Eos (auto) 0.1 (0-0.6) 10^3/ul Absolute Basos (auto) 0 (0-0.2) 10^3/ul Absolute Nucleated RBC 0 10^3/ul Nucleated RBC % 0 INR (Anticoag Therapy) (0.89-1.11) APTT (26.0-36.3) seconds Sodium (133-145) mmol/L Potassium (3.5-5.0) mmol/L Chloride (101-111) mmol/L Carbon Dioxide (22-32) mmol/L Anion Gap (2-11) mmol/L BUN (6-24) mg/dL Creatinine (0.67-1.17) mg/dL Est GFR ( Amer) (>60) Est GFR (Non-Af Amer) (>60) BUN/Creatinine Ratio (8-20) Glucose (70-100) mg/dL POC Glucose (mg/dL) (70-100) mg/dL Lactic Acid 1.3 (0.5-2.0) mmol/L Calcium (8.6-10.3) mg/dL Magnesium (1.9-2.7) mg/dL Total Bilirubin (0.2-1.0) mg/dL AST (13-39) U/L ALT (7-52) U/L Alkaline Phosphatase (34-104) U/L Ammonia TNP Total Creatine Kinase (10-223) U/L CK-MB (CK-2) (0.6-6.3) ng/mL Troponin I (<0.04) ng/mL C-Reactive Protein (< 5.00) mg/L B-Natriuretic Peptide 220 H ( - 100) pg/mL Total Protein (6.4-8.9) g/dL Albumin (3.2-5.2) g/dL Globulin (2-4) g/dL Albumin/Globulin Ratio (1-3) Lipase (11.0-82.0) U/L TSH (0.34-5.60) mcIU/mL Acetaminophen mcg/mL Serum Alcohol (<10) mg/dL Assess/Plan/Problems-Billing Assessment: 76 year old male PMH [place], DM, pAfib on xarelto, moderate-severe aortic stenosis, HTN, CKD III, bipolar with recent ischemic CVA and multiple CT head showing chronic right parietal/occipital infarct presenting with confusion, agitation. - Patient Problems (1) Acute on chronic renal insufficiency Comment: Furosemide d/c'd 06/24. (2) Hypertension Comment: clonidine, losartan, norvasc, verapamil, metoprolol losartan increased to 50mg 07/02 (3) CVA (cerebral vascular accident) Comment: Cont Plavix, statin. (4) Diabetes Comment: Lantus, Lispro sliding scale and glipizide (5) Hypotension Status: Resolved Comment: Suspect medication effect. Changes in dosing made Cortisol level addon 14.5 06/27 14:50 hrs. (6) Atrial fibrillation Comment: Continue rivaroxaban, metoprolol. Paced. (7) Encephalopathy acute Comment: Pt has baseline dementia superimposed on prior dx of bipolar disorder. His behavior is markedly improved and he is ready for a long-term care facility. Valproic acid level 77 on 07/01/17. Much improved with addition of quetiapine. Seroquel increased which has coincided to his increased lethargy. I would not alter medications today but monitor for change. If remains increasingly sleepy can consider decrease in dose (8) Urinary retention Comment: lopez placed 06/30 start flomax, finasteride (9) DVT prophylaxis Comment: Xarelto Status and Disposition: [facility] care as he has no skilled needs. Pt has been aggressive and intermittently agitated but more recently much more controlled and calm. He is not safe to be discharged home. Needs placement. Rejected from [facility]. Expanding search to include [facility] not accepting anyone at this time.
[2017-07-07] MEDS: Clopidogrel TAB* 75 MG PO SCH (20:53)
[2017-07-07] MEDS: Rivaroxaban TAB(*) 15 MG PO SCH (20:56)
[2017-07-07] MEDS: Terazosin CAP* 5 MG PO SCH (20:56)
[2017-07-07] MEDS: QUEtiapine TAB* 100 MG PO SCH (20:57)
[2017-07-07] MEDS: Atorvastatin* 80 MG TAB PO SCH (20:58)
[2017-07-07] MEDS: CMCS: Melatonin (NF) 3 MG TAB PO PRN (21:00)
[2017-07-07] MEDS: Tamsulosin CAP* 0.4 MG PO SCH (21:00)
[2017-07-07] MEDS: Losartan TAB* 25 MG PO SCH (21:03)
[2017-07-08] MEDS: QUEtiapine TAB* 25 MG PO SCH (09:18)
[2017-07-08] MEDS: amLODIPine TAB* 5 MG PO SCH (09:19)
[2017-07-08] MEDS: Verapamil SR CAP* 180 MG PO SCH ×2 (09:19→21:05)
[2017-07-08] MEDS: Polyethylene Glycol 3350* 17 GM PACKET PO SCH ×2 (09:19→21:00)
[2017-07-08] MEDS: Metoprolol Tartrate TAB* 100 MG TAB PO SCH ×2 (09:19→21:01)
[2017-07-08] MEDS: Insulin GLARGINE(*) 1 UNITS UNIT SUBCUT SCH (09:19)
[2017-07-08] MEDS: Divalproex DR TAB(*) 250 MG PO SCH ×2 (09:20→21:01)
[2017-07-08] MEDS: cloNIDine TAB* 0.1 MG PO SCH ×2 (09:20→21:07)
[2017-07-08] MEDS: Finasteride TAB* 5 MG PO SCH (09:21)
[2017-07-08] MEDS: glipiZIDE TAB* 5 MG PO SCH ×2 (09:21→17:21)
[2017-07-08] MEDS: Insulin LISPRO* 1 UNITS UNIT SUBCUT SCH ×4 (09:23→21:07)
[2017-07-08] MEDS: CMCS: Pantoprazole TAB (NF) 40 MG TAB PO SCH (12:31)
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
[2017-07-08] MEDS: CMCS: Melatonin (NF) 3 MG TAB PO PRN (21:01)
[2017-07-08] MEDS: QUEtiapine TAB* 100 MG PO SCH (21:02)
[2017-07-08] MEDS: Tamsulosin CAP* 0.4 MG PO SCH (21:02)
[2017-07-08] MEDS: Losartan TAB* 25 MG PO SCH (21:04)
[2017-07-08] MEDS: Terazosin CAP* 5 MG PO SCH (21:06)
[2017-07-08] MEDS: Atorvastatin* 80 MG TAB PO SCH (21:07)
[2017-07-08] MEDS: Rivaroxaban TAB(*) 15 MG PO SCH (21:07)
[2017-07-08] MEDS: Clopidogrel TAB* 75 MG PO SCH (21:07)
[2017-07-09] MEDS: Divalproex DR TAB(*) 250 MG PO SCH ×2 (09:39→22:19)
[2017-07-09] MEDS: amLODIPine TAB* 5 MG PO SCH (09:39)
[2017-07-09] MEDS: CMCS: Pantoprazole TAB (NF) 40 MG TAB PO SCH (09:39)
[2017-07-09] MEDS: cloNIDine TAB* 0.1 MG PO SCH ×2 (09:39→22:10)
[2017-07-09] MEDS: Finasteride TAB* 5 MG PO SCH (09:40)
[2017-07-09] MEDS: Verapamil SR CAP* 180 MG PO SCH ×2 (09:40→22:13)
[2017-07-09] MEDS: Metoprolol Tartrate TAB* 100 MG TAB PO SCH ×2 (09:40→22:09)
[2017-07-09] MEDS: glipiZIDE TAB* 5 MG PO SCH ×2 (09:40→18:32)
[2017-07-09] MEDS: QUEtiapine TAB* 25 MG PO SCH (09:40)
[2017-07-09] MEDS: Insulin LISPRO* 1 UNITS UNIT SUBCUT SCH ×4 (09:40→22:20)
[2017-07-09] MEDS: Polyethylene Glycol 3350* 17 GM PACKET PO SCH ×2 (09:41→22:19)
[2017-07-09] MEDS: Insulin GLARGINE(*) 1 UNITS UNIT SUBCUT SCH (09:41)
[2017-07-09] MEDS: Atorvastatin* 80 MG TAB PO SCH (22:08)
[2017-07-09] MEDS: Losartan TAB* 25 MG PO SCH (22:08)
[2017-07-09] MEDS: Clopidogrel TAB* 75 MG PO SCH (22:09)
[2017-07-09] MEDS: Tamsulosin CAP* 0.4 MG PO SCH (22:10)
[2017-07-09] MEDS: Terazosin CAP* 5 MG PO SCH (22:13)
[2017-07-09] MEDS: Rivaroxaban TAB(*) 15 MG PO SCH (22:19)
[2017-07-09] MEDS: QUEtiapine TAB* 100 MG PO SCH (22:24)
[2017-07-10] MEDS: Ziprasidone IM INJ* 20 MG/ML VIAL IM PRN ×2 (01:25→20:40)
[2017-07-10] MEDS: Insulin LISPRO* 1 UNITS UNIT SUBCUT SCH ×4 (10:32→22:08)
[2017-07-10] MEDS: Insulin GLARGINE(*) 1 UNITS UNIT SUBCUT SCH (10:42)
[2017-07-10] MEDS: amLODIPine TAB* 5 MG PO SCH (10:43)
[2017-07-10] MEDS: Metoprolol Tartrate TAB* 100 MG TAB PO SCH ×2 (10:43→22:09)
[2017-07-10] MEDS: glipiZIDE TAB* 5 MG PO SCH ×2 (10:43→17:32)
[2017-07-10] MEDS: Verapamil SR CAP* 180 MG PO SCH ×2 (10:44→22:09)
[2017-07-10] MEDS: Finasteride TAB* 5 MG PO SCH (10:44)
[2017-07-10] MEDS: QUEtiapine TAB* 25 MG PO SCH (10:44)
[2017-07-10] MEDS: cloNIDine TAB* 0.1 MG PO SCH ×2 (10:44→22:08)
[2017-07-10] MEDS: Divalproex DR TAB(*) 250 MG PO SCH ×2 (10:44→22:09)
--- NOTE | 2017-07-10 13:46 | PN ---
Subjective Date of Service: 07/10/17 Interval History: Called to patient's room for patient complaint of chest pain. On arrival patient initially unresponsive per nursing, but on my exam patient answering questions appropriately and following commands. Patient continuing to complain of chest and epigastric pain. Objective Active Medications: Acetaminophen (Tylenol Tab*) 650 mg PO Q4H PRN Amlodipine Besylate (Norvasc Tab*) 5 mg PO DAILY [facility] Atorvastatin Calcium (Lipitor*) 80 mg PO 2100 [facility] Clonidine HCl (Catapres Tab*) 0.1 mg PO BID [facility] Clopidogrel Bisulfate (Plavix Tab*) 75 mg PO 2100 [facility] Dextrose (D50w Syringe 50 Ml*) 12.5 gm IV PUSH .FOR FS < 60 - SS PRN Divalproex Sodium (Depakote Dr Tab(*)) 750 mg PO BID [facility] Finasteride (Proscar Tab*) 5 mg PO DAILY [facility] Glipizide (Glucotrol Tab*) 5 mg PO 0800,1700 [facility] Hydralazine HCl (Apresoline Iv*) 5 mg IV SLOW PU Q6H PRN Insulin Glargine (Lantus(*)) 10 units SUBCUT Q24H [facility] Insulin Human Lispro (Humalog*) 0 units SUBCUT ACHS [facility] Losartan Potassium (Cozaar Tab*) 50 mg PO BEDTIME [facility] Melatonin (Melatonin (Nf)) 3 mg PO BEDTIME PRN; Protocol Metoprolol Tartrate (Lopressor Tab*) 100 mg PO BID [facility] Pantoprazole Sodium (Protonix Tab (Nf)) 40 mg PO DAILY [facility] Polyethylene Glycol/Electrolytes (Miralax*) 17 gm PO 0800,2100 [facility] Quetiapine Fumarate (Seroquel Tab*) 50 mg PO DAILY [facility] Quetiapine Fumarate (Seroquel Tab*) 150 mg PO 2100 [facility] Rivaroxaban (Xarelto(*)) 15 mg PO 2100 [facility] Tamsulosin HCl (Flomax Cap*) 0.4 mg PO BEDTIME [facility] Terazosin HCl (Hytrin Cap*) 10 mg PO BEDTIME [facility] Verapamil HCl (Calan Sr Cap*) 180 mg PO DAILY [facility] Verapamil HCl (Calan Sr Cap*) 360 mg PO BEDTIME [facility] Ziprasidone (Geodon Im Inj*) 20 mg IM Q8H PRN Vital Signs: Temp Pulse Resp BP Pulse Ox 100.2 F 79 20 153/74 99 07/10/17 10:22 07/10/17 10:22 07/10/17 10:22 07/10/17 10:22 07/10/17 10:22 Oxygen Devices in Use Now: None Appearance: Male lying in bed in NAD Eyes: No Scleral Icterus Ears/Nose/Mouth/Throat: Mucous Membranes Moist Neck: Trachea Midline Respiratory: Symmetrical Chest Expansion and Respiratory Effort, Clear to Auscultation Cardiovascular: NL Sounds; No Murmurs; No JVD, No Edema Abdominal: NL Sounds; No Tenderness; No Distention Lymphatic: No Cervical Adenopathy Extremities: No Edema Skin: No Rash or Ulcers Neurological: - - Subdued responses but answers questions appropriately and follows commands. Slurred speech, facial droop, right sided weakness Result Diagrams: 07/02/17 06:02 07/02/17 06:02 Additional Lab and Data: . Assess/Plan/Problems-Billing Assessment: Mr. Perales is a 76 year old male PMH NE, DM, pAfib on xarelto, moderate-severe aortic stenosis, HTN, CKD III, bipolar with recent ischemic CVA and multiple CT head showing chronic right parietal/occipital infarct presenting with confusion, agitation. - Patient Problems (1) Chest pain Comment: - Patient c/o chest pain today. - EKG A paced, troponin 0.01. (2) Encephalopathy acute Comment: - Pt has baseline dementia superimposed on prior dx of bipolar disorder. - Continues to intermittently require geodon. - Continue seroquel, quetiapine and valproic acid (level 77 on 07/01/17). Patient intermittently refuses meds or spits them out. (3) Acute on chronic renal insufficiency Comment: - Creatinine at baseline. (4) Hypertension Comment: - SBP 130-150s. - Continue clonidine, losartan, norvasc, verapamil, metoprolol. Losartan increased to 50mg 07/02. (5) CVA (cerebral vascular accident) Comment: - Cont Plavix, statin. (6) Atrial fibrillation Comment: - Paced. - Continue rivaroxaban, metoprolol. (7) Diabetes Comment: - BGs well controlled. - Lantus, Lispro sliding scale and glipizide (8) Urinary retention Comment: - Schrader placed 06/30. - Continue flomax, finasteride. (9) DVT prophylaxis Comment: Xarelto Status and Disposition: Snf care as he has no skilled needs. Pt has been aggressive and intermittently agitated but more recently much more controlled and calm. He is not safe to be discharged home. Needs placement. Rejected from [facility]. Expanding search to include [facility]. [facility] not accepting anyone at this time.
[2017-07-10] MEDS: CMCS: Pantoprazole TAB (NF) 40 MG TAB PO SCH (14:03)
[2017-07-10] MEDS: Polyethylene Glycol 3350* 17 GM PACKET PO SCH ×2 (17:33→22:09)
[2017-07-10] MEDS: Clopidogrel TAB* 75 MG PO SCH (22:08)
[2017-07-10] MEDS: Atorvastatin* 80 MG TAB PO SCH (22:08)
[2017-07-10] MEDS: Losartan TAB* 25 MG PO SCH (22:09)
[2017-07-10] MEDS: Rivaroxaban TAB(*) 15 MG PO SCH (22:09)
[2017-07-10] MEDS: Tamsulosin CAP* 0.4 MG PO SCH (22:09)
[2017-07-10] MEDS: QUEtiapine TAB* 100 MG PO SCH (22:09)
[2017-07-10] MEDS: Terazosin CAP* 5 MG PO SCH (22:09)
[2017-07-11] MEDS: QUEtiapine TAB* 25 MG PO SCH ×2 (10:24→12:08)
[2017-07-11] MEDS: Metoprolol Tartrate TAB* 100 MG TAB PO SCH ×2 (10:25→19:59)
[2017-07-11] MEDS: Divalproex DR TAB(*) 250 MG PO SCH ×2 (10:25→19:58)
[2017-07-11] MEDS: amLODIPine TAB* 5 MG PO SCH (10:28)
[2017-07-11] MEDS: Verapamil SR CAP* 180 MG PO SCH ×2 (10:28→20:00)
[2017-07-11] MEDS: Finasteride TAB* 5 MG PO SCH (10:28)
[2017-07-11] MEDS: glipiZIDE TAB* 5 MG PO SCH ×2 (10:28→17:23)
[2017-07-11] MEDS: cloNIDine TAB* 0.1 MG PO SCH ×2 (10:28→19:58)
[2017-07-11] MEDS: Insulin GLARGINE(*) 1 UNITS UNIT SUBCUT SCH (10:31)
[2017-07-11] MEDS: Insulin LISPRO* 1 UNITS UNIT SUBCUT SCH ×4 (10:31→21:14)
[2017-07-11] MEDS: Polyethylene Glycol 3350* 17 GM PACKET PO SCH ×2 (10:33→19:59)
[2017-07-11] MEDS: CMCS: Pantoprazole TAB (NF) 40 MG TAB PO SCH (10:33)
--- NOTE | 2017-07-11 11:15 | PN ---
Subjective Date of Service: 07/11/17 Interval History: Mr. Perales denies any complaint today and refuses to have me assess his testicles. His primary nurse notes that there is a small ulceration on his testicle. He appears to be in no acute distress resting comfortably in bed. Note is made of patient's continued intermittently aggressive behavior with staff and refusal to take medications. Objective Active Medications: Acetaminophen (Tylenol Tab*) 650 mg PO Q4H PRN Amlodipine Besylate (Norvasc Tab*) 5 mg PO DAILY NILDA Atorvastatin Calcium (Lipitor*) 80 mg PO 2100 NILDA Clonidine HCl (Catapres Tab*) 0.1 mg PO BID NILDA Clopidogrel Bisulfate (Plavix Tab*) 75 mg PO 2100 NILDA Dextrose (D50w Syringe 50 Ml*) 12.5 gm IV PUSH .FOR FS < 60 - SS PRN Divalproex Sodium (Depakote Dr Tab(*)) 750 mg PO BID NILDA Finasteride (Proscar Tab*) 5 mg PO DAILY NILDA Glipizide (Glucotrol Tab*) 5 mg PO 0800,1700 NILDA Hydralazine HCl (Apresoline Iv*) 5 mg IV SLOW PU Q6H PRN Insulin Glargine (Lantus(*)) 10 units SUBCUT Q24H NILDA Insulin Human Lispro (Humalog*) 0 units SUBCUT ACHS NILDA Losartan Potassium (Cozaar Tab*) 50 mg PO BEDTIME NILDA Melatonin (Melatonin (Nf)) 3 mg PO BEDTIME PRN; Protocol Metoprolol Tartrate (Lopressor Tab*) 100 mg PO BID NILDA Pantoprazole Sodium (Protonix Tab (Nf)) 40 mg PO DAILY ON LICENSE OF [facility] Polyethylene Glycol/Electrolytes (Miralax*) 17 gm PO 0800,2100 NILDA Quetiapine Fumarate (Seroquel Tab*) 50 mg PO DAILY NILDA Quetiapine Fumarate (Seroquel Tab*) 50 mg PO 1200 NILDA Quetiapine Fumarate (Seroquel Tab*) 150 mg PO 1700 NILDA Rivaroxaban (Xarelto(*)) 15 mg PO 2100 NILDA Tamsulosin HCl (Flomax Cap*) 0.4 mg PO BEDTIME NILDA Terazosin HCl (Hytrin Cap*) 10 mg PO BEDTIME NILDA Verapamil HCl (Calan Sr Cap*) 180 mg PO DAILY NILDA Verapamil HCl (Calan Sr Cap*) 360 mg PO BEDTIME NILDA Ziprasidone (Geodon Im Inj*) 20 mg IM Q8H PRN Vital Signs: Temp Pulse Resp BP Pulse Ox 98.3 F 76 20 169/81 100 07/11/17 10:02 07/11/17 10:02 07/11/17 10:02 07/11/17 10:02 07/11/17 10:02 Oxygen Devices in Use Now: None Appearance: Male lying in bed in NAD Eyes: No Scleral Icterus Ears/Nose/Mouth/Throat: Mucous Membranes Moist Respiratory: Symmetrical Chest Expansion and Respiratory Effort Cardiovascular: NL Sounds; No Murmurs; No JVD, No Edema Neurological: - - Alert, mumbled speech, right sided weakness Result Diagrams: 07/02/17 06:02 07/02/17 06:02 Additional Lab and Data: . Assess/Plan/Problems-Billing Assessment: Mr. Perales is a 76 year old male PMH CA, DM, pAfib on xarelto, moderate-severe aortic stenosis, HTN, CKD III, bipolar with recent ischemic CVA and multiple CT head showing chronic right parietal/occipital infarct presenting with confusion, agitation. - Patient Problems (1) Dementia Comment: - Pt has baseline dementia superimposed on prior dx of bipolar disorder. - Continues to intermittently require geodon for aggressive behavior. Plan to increase seroquel today(07/11/17), add noon dose and move up PM dose to 1800. Will likely need further adjustment. - Continue valproic acid (level 77 on 07/01/17). (2) Acute on chronic renal insufficiency Comment: - Creatinine at baseline. (3) Hypertension Comment: - SBP 130-150s. - Continue clonidine, losartan, norvasc, verapamil, metoprolol. Losartan increased to 50mg 07/02. (4) CVA (cerebral vascular accident) Comment: - Cont Plavix, statin. (5) Atrial fibrillation Comment: - Paced. - Continue rivaroxaban, metoprolol. (6) Diabetes Comment: - BGs well controlled. - Lantus, Lispro sliding scale and glipizide (7) Urinary retention Comment: - Schrader placed 06/30. - Continue flomax, finasteride. (8) DVT prophylaxis Comment: - Xarelto Status and Disposition: Senior Living care as he has no skilled needs. He is not safe to be discharged home and needs placement. SW and correctional casework specialist following.
[2017-07-11] MEDS: QUEtiapine TAB* 100 MG PO SCH (17:23)
[2017-07-11] MEDS: Atorvastatin* 80 MG TAB PO SCH (19:58)
[2017-07-11] MEDS: Clopidogrel TAB* 75 MG PO SCH (19:58)
[2017-07-11] MEDS: Losartan TAB* 25 MG PO SCH (19:59)
[2017-07-11] MEDS: Rivaroxaban TAB(*) 15 MG PO SCH (19:59)
[2017-07-11] MEDS: Terazosin CAP* 5 MG PO SCH (20:00)
[2017-07-11] MEDS: Tamsulosin CAP* 0.4 MG PO SCH (20:00)
[2017-07-12] MEDS: Insulin LISPRO* 1 UNITS UNIT SUBCUT SCH ×4 (08:03→22:52)
[2017-07-12] MEDS: Polyethylene Glycol 3350* 17 GM PACKET PO SCH ×2 (09:50→22:52)
[2017-07-12] MEDS: Verapamil SR CAP* 180 MG PO SCH ×2 (09:50→22:10)
[2017-07-12] MEDS: QUEtiapine TAB* 25 MG PO SCH ×2 (09:50→14:48)
[2017-07-12] MEDS: Divalproex DR TAB(*) 250 MG PO SCH ×3 (09:50→22:13)
[2017-07-12] MEDS: cloNIDine TAB* 0.1 MG PO SCH ×2 (09:51→22:18)
[2017-07-12] MEDS: amLODIPine TAB* 5 MG PO SCH (09:51)
[2017-07-12] MEDS: CMCS: Pantoprazole TAB (NF) 40 MG TAB PO SCH ×2 (09:51→11:22)
[2017-07-12] MEDS: Insulin GLARGINE(*) 1 UNITS UNIT SUBCUT SCH (09:51)
[2017-07-12] MEDS: Finasteride TAB* 5 MG PO SCH (09:51)
[2017-07-12] MEDS: Metoprolol Tartrate TAB* 100 MG TAB PO SCH ×2 (09:51→22:17)
[2017-07-12] MEDS: glipiZIDE TAB* 5 MG PO SCH ×2 (09:51→17:33)
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
[2017-07-12] MEDS: Ziprasidone IM INJ* 20 MG/ML VIAL IM PRN (13:31)
--- NOTE | 2017-07-12 16:30 | PN ---
Subjective Date of Service: 07/12/17 Interval History: This is a 77 yo gentleman with h/o bipolar disorder, relatively recent CVA with advancement of what is likely vascular type dementia who was brought to the hospital by his due to increasing agitation. Psychiatry has been involved in medical management. Seroquel dosing was increased yesterday with perhaps some immediate positive effect. Today, nursing reports that he has been pocketing his medications in his cheeks. When they went to crushing his medications he started refusing to eat. No aggressive behaviors today. Objective Active Medications: Acetaminophen (Tylenol Tab*) 650 mg PO Q4H PRN PRN Reason: FEVER/PAIN Last Admin: 07/06/17 21:30 Dose: 650 mg Amlodipine Besylate (Norvasc Tab*) 5 mg PO DAILY [facility] Last Admin: 07/12/17 09:51 Dose: 5 mg Atorvastatin Calcium (Lipitor*) 80 mg PO 2100 [facility] Last Admin: 07/11/17 19:58 Dose: 80 mg Clonidine HCl (Catapres Tab*) 0.1 mg PO BID [facility] Last Admin: 07/12/17 09:51 Dose: 0.1 mg Clopidogrel Bisulfate (Plavix Tab*) 75 mg PO 2100 [facility] Last Admin: 07/11/17 19:58 Dose: 75 mg Dextrose (D50w Syringe 50 Ml*) 12.5 gm IV PUSH .FOR FS < 60 - SS PRN PRN Reason: FS < 60 Divalproex Sodium (Depakote Dr Tab(*)) 750 mg PO BID [facility] Last Admin: 07/12/17 11:23 Dose: Not Given Finasteride (Proscar Tab*) 5 mg PO DAILY [facility] Last Admin: 07/12/17 09:51 Dose: 5 mg Glipizide (Glucotrol Tab*) 5 mg PO 0800,1700 [facility] Last Admin: 07/12/17 09:51 Dose: 5 mg Hydralazine HCl (Apresoline Iv*) 5 mg IV SLOW PU Q6H PRN PRN Reason: BLOOD PRESSURE Last Admin: 07/05/17 21:26 Dose: 5 mg Insulin Glargine (Lantus(*)) 10 units SUBCUT Q24H [facility] Last Admin: 07/12/17 09:51 Dose: 10 units Insulin Human Lispro (Humalog*) 0 units SUBCUT ACHS [facility] PRN Reason: Protocol Last Admin: 07/12/17 14:42 Dose: 2 units Losartan Potassium (Cozaar Tab*) 50 mg PO BEDTIME [facility] Last Admin: 07/11/17 19:59 Dose: 50 mg Melatonin (Melatonin (Nf)) 3 mg PO BEDTIME PRN; Protocol PRN Reason: Sleep Last Admin: 07/08/17 21:01 Dose: 3 mg Metoprolol Tartrate (Lopressor Tab*) 100 mg PO BID [facility] Last Admin: 07/12/17 09:51 Dose: 100 mg Pantoprazole Sodium (Protonix Tab (Nf)) 40 mg PO DAILY [facility] Last Admin: 07/12/17 11:22 Dose: Not Given Polyethylene Glycol/Electrolytes (Miralax*) 17 gm PO 0800,2100 [facility] Last Admin: 07/12/17 09:50 Dose: 17 gm Quetiapine Fumarate (Seroquel Tab*) 50 mg PO DAILY [facility] Last Admin: 07/12/17 09:50 Dose: 50 mg Quetiapine Fumarate (Seroquel Tab*) 50 mg PO 1200 [facility] Last Admin: 07/12/17 14:48 Dose: Not Given Quetiapine Fumarate (Seroquel Tab*) 150 mg PO 1700 [facility] Last Admin: 07/11/17 17:23 Dose: 150 mg Rivaroxaban (Xarelto(*)) 15 mg PO 2100 [facility] Last Admin: 07/11/17 19:59 Dose: 15 mg Tamsulosin HCl (Flomax Cap*) 0.4 mg PO BEDTIME [facility] Last Admin: 07/11/17 20:00 Dose: 0.4 mg Terazosin HCl (Hytrin Cap*) 10 mg PO BEDTIME [facility] Last Admin: 07/11/17 20:00 Dose: 10 mg Verapamil HCl (Calan Sr Cap*) 180 mg PO DAILY [facility] Last Admin: 07/12/17 09:50 Dose: 180 mg Verapamil HCl (Calan Sr Cap*) 360 mg PO BEDTIME [facility] Last Admin: 07/11/17 20:00 Dose: 360 mg Ziprasidone (Geodon Im Inj*) 20 mg IM Q8H PRN PRN Reason: AGITATION Last Admin: 07/12/17 13:31 Dose: 20 mg Vital Signs: Temp Pulse Resp BP Pulse Ox 98.4 F 60 24 132/57 96 07/12/17 11:59 07/12/17 11:59 07/12/17 11:59 07/12/17 11:59 07/12/17 11:59 Oxygen Devices in Use Now: None Appearance: Elderly gentleman who is resting comfortably but does not easily awaken, exam is limited. Respiratory: Symmetrical Chest Expansion and Respiratory Effort, - - exam limited Cardiovascular: RRR, - - blowing murmur 4/6 Skin: No Rash or Ulcers - limited exam Result Diagrams: 07/02/17 06:02 07/02/17 06:02 Additional Lab and Data: . Assess/Plan/Problems-Billing Assessment: Mr. Perales is a 76 year old male PMH [place], DM, pAfib on xarelto, moderate-severe aortic stenosis, HTN, CKD III, bipolar with recent ischemic CVA and multiple CT head showing chronic right parietal/occipital infarct presenting with confusion, agitation. - Patient Problems (1) Dementia Comment: Pt has baseline dementia, likely vascular type, superimposed on prior dx of bipolar disorder. Continues to intermittently require geodon for aggressive behavior. Seroquel increased 07/11 to add a noontime dose He has only been intermittently compliant with taking his oral medications Continue valproic acid (2) Acute on chronic renal insufficiency Comment: Cr has returned to baseline (3) Atrial fibrillation Comment: Paced. Continue rivaroxaban, metoprolol. (4) Bipolar disorder Comment: Appreciate psychiatry consultation Cont Seroquel and Depakote when he accepts oral medications (5) CVA (cerebral vascular accident) Comment: Cont Plavix, statin. (6) Diabetes Comment: BGs well controlled. Lantus, Lispro sliding scale and glipizide (7) Hypertension Comment: SBP 130-150s. Continue clonidine, losartan, norvasc, verapamil, metoprolol. Losartan increased to 50mg 07/02. (8) Urinary retention Comment: Schrader placed 06/30. Continue flomax, finasteride. (9) Aortic stenosis Comment: Moderate to severe on echo 03/31/2017. (10) CAD (coronary artery disease) Comment: No evidence of ACS Cont medical management (11) DVT prophylaxis Comment: Xarelto Status and Disposition: Nursing Home care as he has no skilled needs. He is not safe to be discharged home and needs placement. SW and shoe caser following.
[2017-07-12] MEDS: Nystatin SUSPENSION* 100000 UNITS/ML 5 ML UDC PO SCH ×2 (17:35→22:53)
[2017-07-12] MEDS: QUEtiapine TAB* 100 MG PO SCH (17:36)
[2017-07-12] MEDS ORDERED: Lidocaine 2% JELLY* 30 GM TUBE TOPICAL ONE (20:11)
[2017-07-12] MEDS: Losartan TAB* 25 MG PO SCH (22:08)
[2017-07-12] MEDS: Clopidogrel TAB* 75 MG PO SCH (22:12)
[2017-07-12] MEDS: Atorvastatin* 80 MG TAB PO SCH (22:14)
[2017-07-12] MEDS: Rivaroxaban TAB(*) 15 MG PO SCH (22:14)
[2017-07-12] MEDS: CMCS: Melatonin (NF) 3 MG TAB PO PRN (22:15)
[2017-07-12] MEDS: Acetaminophen TAB* 325 MG PO PRN (22:16)
[2017-07-12] MEDS: Tamsulosin CAP* 0.4 MG PO SCH (22:17)
[2017-07-12] MEDS: Terazosin CAP* 5 MG PO SCH (22:18)
[2017-07-13] MEDS: Insulin LISPRO* 1 UNITS UNIT SUBCUT SCH ×4 (07:38→23:06)
[2017-07-13] MEDS: Metoprolol Tartrate TAB* 100 MG TAB PO SCH ×2 (09:32→22:33)
[2017-07-13] MEDS: amLODIPine TAB* 5 MG PO SCH (09:32)
[2017-07-13] MEDS: Divalproex DR TAB(*) 250 MG PO SCH ×2 (09:32→22:31)
[2017-07-13] MEDS: glipiZIDE TAB* 5 MG PO SCH ×2 (09:32→16:40)
[2017-07-13] MEDS: Insulin GLARGINE(*) 1 UNITS UNIT SUBCUT SCH (09:33)
[2017-07-13] MEDS: Finasteride TAB* 5 MG PO SCH (09:33)
[2017-07-13] MEDS: Verapamil SR CAP* 180 MG PO SCH ×2 (09:33→22:32)
[2017-07-13] MEDS: cloNIDine TAB* 0.1 MG PO SCH ×2 (09:33→22:33)
[2017-07-13] MEDS: CMCS: Pantoprazole TAB (NF) 40 MG TAB PO SCH (09:33)
[2017-07-13] MEDS: Nystatin SUSPENSION* 100000 UNITS/ML 5 ML UDC PO SCH ×4 (09:34→22:33)
[2017-07-13] MEDS: Acetaminophen TAB* 325 MG PO PRN ×3 (09:41→22:34)
[2017-07-13] MEDS ORDERED: Lidocaine 2% JELLY* 30 GM TUBE TOPICAL PRN ×2 (10:03→14:57)
[2017-07-13] MEDS: QUEtiapine TAB* 25 MG PO SCH ×2 (10:10→12:25)
[2017-07-13] MEDS: Polyethylene Glycol 3350* 17 GM PACKET PO SCH ×2 (10:14→22:33)
[2017-07-13] MEDS ORDERED: Lidocaine 2% JELLY* 30 GM TUBE TOPICAL SCH (14:00)
--- NOTE | 2017-07-13 14:46 | PN ---
Subjective Date of Service: 07/13/17 Interval History: Patient has expressed discomfort around his Schrader catheter. Pain improved with use of lidocaine jelly. No associated yeast infection. Patient has been cooperative with care today. No behavior concerns in ~24 hours. Objective Active Medications: Acetaminophen (Tylenol Tab*) 650 mg PO Q4H PRN PRN Reason: FEVER/PAIN Last Admin: 07/13/17 09:41 Dose: 650 mg Amlodipine Besylate (Norvasc Tab*) 5 mg PO DAILY [facility] Last Admin: 07/13/17 09:32 Dose: 5 mg Atorvastatin Calcium (Lipitor*) 80 mg PO 2100 [facility] Last Admin: 07/12/17 22:14 Dose: 80 mg Clonidine HCl (Catapres Tab*) 0.1 mg PO BID [facility] Last Admin: 07/13/17 09:33 Dose: 0.1 mg Clopidogrel Bisulfate (Plavix Tab*) 75 mg PO 2100 [facility] Last Admin: 07/12/17 22:12 Dose: 75 mg Dextrose (D50w Syringe 50 Ml*) 12.5 gm IV PUSH .FOR FS < 60 - SS PRN PRN Reason: FS < 60 Divalproex Sodium (Depakote Dr Tab(*)) 750 mg PO BID [facility] Last Admin: 07/13/17 09:32 Dose: 750 mg Finasteride (Proscar Tab*) 5 mg PO DAILY [facility] Last Admin: 07/13/17 09:33 Dose: 5 mg Glipizide (Glucotrol Tab*) 5 mg PO 0800,1700 [facility] Last Admin: 07/13/17 09:32 Dose: 5 mg Hydralazine HCl (Apresoline Iv*) 5 mg IV SLOW PU Q6H PRN PRN Reason: BLOOD PRESSURE Last Admin: 07/05/17 21:26 Dose: 5 mg Insulin Glargine (Lantus(*)) 10 units SUBCUT Q24H [facility] Last Admin: 07/13/17 09:33 Dose: 10 units Insulin Human Lispro (Humalog*) 0 units SUBCUT ACHS [facility] PRN Reason: Protocol Last Admin: 07/13/17 12:24 Dose: 2 units Lidocaine HCl (Lidocaine 2% Jelly*) 1 applic TOPICAL TID PRN PRN Reason: PAIN Last Admin: 07/13/17 09:30 Dose: 1 applic Losartan Potassium (Cozaar Tab*) 50 mg PO BEDTIME [facility] Last Admin: 07/12/17 22:08 Dose: 50 mg Melatonin (Melatonin (Nf)) 3 mg PO BEDTIME PRN; Protocol PRN Reason: Sleep Last Admin: 07/12/17 22:15 Dose: 3 mg Metoprolol Tartrate (Lopressor Tab*) 100 mg PO BID [facility] Last Admin: 07/13/17 09:32 Dose: 100 mg Nystatin (Nystatin Suspension*) 500,000 units PO QID [facility] Stop: 07/19/17 16:33 Last Admin: 07/13/17 12:23 Dose: 500,000 units Pantoprazole Sodium (Protonix Tab (Nf)) 40 mg PO DAILY [facility] Last Admin: 07/13/17 09:33 Dose: 40 mg Polyethylene Glycol/Electrolytes (Miralax*) 17 gm PO 0800,2100 [facility] Last Admin: 07/13/17 10:14 Dose: Not Given Quetiapine Fumarate (Seroquel Tab*) 50 mg PO DAILY [facility] Last Admin: 07/13/17 10:10 Dose: 50 mg Quetiapine Fumarate (Seroquel Tab*) 50 mg PO 1200 [facility] Last Admin: 07/13/17 12:25 Dose: 50 mg Quetiapine Fumarate (Seroquel Tab*) 150 mg PO 1700 [facility] Last Admin: 07/12/17 17:36 Dose: 150 mg Rivaroxaban (Xarelto(*)) 15 mg PO 2100 [facility] Last Admin: 07/12/17 22:14 Dose: 15 mg Tamsulosin HCl (Flomax Cap*) 0.4 mg PO BEDTIME [facility] Last Admin: 07/12/17 22:17 Dose: 0.4 mg Terazosin HCl (Hytrin Cap*) 10 mg PO BEDTIME [facility] Last Admin: 07/12/17 22:18 Dose: 10 mg Verapamil HCl (Calan Sr Cap*) 180 mg PO DAILY [facility] Last Admin: 07/13/17 09:33 Dose: 180 mg Verapamil HCl (Calan Sr Cap*) 360 mg PO BEDTIME [facility] Last Admin: 07/12/17 22:10 Dose: 360 mg Vital Signs: Temp Pulse Resp BP Pulse Ox 97.6 F 62 18 136/65 95 07/13/17 07:18 07/13/17 08:02 07/13/17 08:00 07/13/17 07:18 07/13/17 07:18 Oxygen Devices in Use Now: None Appearance: Elderly gentleman in NAD. He is easily awakened. Speech is somewhat difficult to understand. Cooperative with exam. Respiratory: Symmetrical Chest Expansion and Respiratory Effort, Clear to Auscultation Cardiovascular: RRR, - - 4/6 murmur, high pitched Abdominal: NL Sounds; No Tenderness; No Distention Extremities: No Edema Skin: No Rash or Ulcers Neurological: - - alert, speech garbled, some R sided facial weakness Result Diagrams: 07/02/17 06:02 07/02/17 06:02 Additional Lab and Data: . Assess/Plan/Problems-Billing Assessment: Mr. Perales is a 76 year old male PMH [place], DM, pAfib on xarelto, moderate-severe aortic stenosis, HTN, CKD III, bipolar with recent ischemic CVA and multiple CT head showing chronic right parietal/occipital infarct presenting with confusion, agitation. - Patient Problems (1) Dementia Comment: Pt has baseline dementia, likely vascular type, superimposed on prior dx of bipolar disorder. Seroquel increased 07/11 to add a noontime dose Continue valproic acid Compliant with all aspects of care today, taking oral medications DC prn IM geodon (2) Acute on chronic renal insufficiency Comment: Cr has returned to baseline (3) Urinary retention Comment: Schrader placed 06/30. Continue flomax, finasteride. Patient is requesting Schrader removal, will attempt a voiding trial following Schrader discontinuation (4) Atrial fibrillation Comment: Paced. Continue rivaroxaban, metoprolol. (5) Bipolar disorder Comment: Appreciate psychiatry consultation Cont Seroquel and Depakote when he accepts oral medications (6) CVA (cerebral vascular accident) Comment: Recent CVA - slurred speech and R sided weakness Cont Plavix, statin. (7) Diabetes Comment: BGs well controlled. Lantus, Lispro sliding scale and glipizide (8) Hypertension Comment: SBP 130-150s. Continue clonidine, losartan, norvasc, verapamil, metoprolol. Losartan increased to 50mg 07/02. (9) Aortic stenosis Comment: Moderate to severe on echo 03/31/2017. (10) CAD (coronary artery disease) Comment: No evidence of ACS Cont medical management (11) DVT prophylaxis Comment: Xarelto Status and Disposition: Senior Living care as he has no skilled needs. He is not safe to be discharged home and needs placement. SW and hospice case manager following. Improving behaviors
[2017-07-13] MEDS: QUEtiapine TAB* 100 MG PO SCH (16:40)
[2017-07-13] MEDS: Clopidogrel TAB* 75 MG PO SCH (22:32)
[2017-07-13] MEDS: Atorvastatin* 80 MG TAB PO SCH (22:32)
[2017-07-13] MEDS: Losartan TAB* 25 MG PO SCH (22:32)
[2017-07-13] MEDS: Rivaroxaban TAB(*) 15 MG PO SCH (22:32)
[2017-07-13] MEDS: Terazosin CAP* 5 MG PO SCH (22:32)
[2017-07-13] MEDS: Tamsulosin CAP* 0.4 MG PO SCH (22:33)
[2017-07-13] MEDS: CMCS: Melatonin (NF) 3 MG TAB PO PRN (22:33)
[2017-07-14] MEDS: Insulin LISPRO* 1 UNITS UNIT SUBCUT SCH ×4 (08:01→21:03)
[2017-07-14] MEDS: Insulin GLARGINE(*) 1 UNITS UNIT SUBCUT SCH (09:33)
[2017-07-14] MEDS: Divalproex DR TAB(*) 250 MG PO SCH ×2 (09:33→20:42)
[2017-07-14] MEDS: Metoprolol Tartrate TAB* 100 MG TAB PO SCH ×2 (09:33→21:02)
[2017-07-14] MEDS: glipiZIDE TAB* 5 MG PO SCH ×2 (09:33→17:41)
[2017-07-14] MEDS: Polyethylene Glycol 3350* 17 GM PACKET PO SCH ×2 (09:33→21:02)
[2017-07-14] MEDS: CMCS: Pantoprazole TAB (NF) 40 MG TAB PO SCH (09:34)
[2017-07-14] MEDS: Verapamil SR CAP* 180 MG PO SCH ×2 (09:34→20:43)
[2017-07-14] MEDS: QUEtiapine TAB* 25 MG PO SCH ×2 (09:34→13:05)
[2017-07-14] MEDS: cloNIDine TAB* 0.1 MG PO SCH ×2 (09:34→20:41)
[2017-07-14] MEDS: amLODIPine TAB* 5 MG PO SCH (09:34)
[2017-07-14] MEDS: Finasteride TAB* 5 MG PO SCH (09:35)
[2017-07-14] MEDS: Nystatin SUSPENSION* 100000 UNITS/ML 5 ML UDC PO SCH ×4 (09:39→20:41)
--- NOTE | 2017-07-14 13:21 | PN ---
Subjective Date of Service: 07/14/17 Interval History: Patient continues to be cooperative with medications and nursing care. Schrader catheter was removed yesterday. Bladder scan overnight showed >500 ml urine, straight cath completed at that time. Today, repeat scan continues to show > 400 ml urine in the bladder. Patient offers no new complaints. Objective Active Medications: Acetaminophen (Tylenol Tab*) 650 mg PO Q4H PRN PRN Reason: FEVER/PAIN Last Admin: 07/13/17 22:34 Dose: 650 mg Amlodipine Besylate (Norvasc Tab*) 5 mg PO DAILY [facility] Last Admin: 07/14/17 09:34 Dose: 5 mg Atorvastatin Calcium (Lipitor*) 80 mg PO 2100 [facility] Last Admin: 07/13/17 22:32 Dose: 80 mg Clonidine HCl (Catapres Tab*) 0.1 mg PO BID [facility] Last Admin: 07/14/17 09:34 Dose: 0.1 mg Clopidogrel Bisulfate (Plavix Tab*) 75 mg PO 2100 [facility] Last Admin: 07/13/17 22:32 Dose: 75 mg Dextrose (D50w Syringe 50 Ml*) 12.5 gm IV PUSH .FOR FS < 60 - SS PRN PRN Reason: FS < 60 Divalproex Sodium (Depakote Dr Tab(*)) 750 mg PO BID [facility] Last Admin: 07/14/17 09:33 Dose: 750 mg Finasteride (Proscar Tab*) 5 mg PO DAILY [facility] Last Admin: 07/14/17 09:35 Dose: 5 mg Glipizide (Glucotrol Tab*) 5 mg PO 0800,1700 [facility] Last Admin: 07/14/17 09:33 Dose: 5 mg Hydralazine HCl (Apresoline Iv*) 5 mg IV SLOW PU Q6H PRN PRN Reason: BLOOD PRESSURE Last Admin: 07/05/17 21:26 Dose: 5 mg Insulin Glargine (Lantus(*)) 10 units SUBCUT Q24H [facility] Last Admin: 07/14/17 09:33 Dose: 10 units Insulin Human Lispro (Humalog*) 0 units SUBCUT ACHS [facility] PRN Reason: Protocol Last Admin: 07/14/17 13:05 Dose: 4 units Lidocaine HCl (Xylocaine 2 % Jelly*) 1 ml TOPICAL Q2H PRN PRN Reason: PAIN Losartan Potassium (Cozaar Tab*) 50 mg PO BEDTIME [facility] Last Admin: 07/13/17 22:32 Dose: 50 mg Melatonin (Melatonin (Nf)) 3 mg PO BEDTIME PRN; Protocol PRN Reason: Sleep Last Admin: 07/13/17 22:33 Dose: 3 mg Metoprolol Tartrate (Lopressor Tab*) 100 mg PO BID [facility] Last Admin: 07/14/17 09:33 Dose: 100 mg Nystatin (Nystatin Suspension*) 500,000 units PO QID [facility] Stop: 07/19/17 16:33 Last Admin: 07/14/17 13:05 Dose: Not Given Pantoprazole Sodium (Protonix Tab (Nf)) 40 mg PO DAILY [facility] Last Admin: 07/14/17 09:34 Dose: 40 mg Polyethylene Glycol/Electrolytes (Miralax*) 17 gm PO 0800,2100 [facility] Last Admin: 07/14/17 09:33 Dose: 17 gm Quetiapine Fumarate (Seroquel Tab*) 50 mg PO DAILY [facility] Last Admin: 07/14/17 09:34 Dose: 50 mg Quetiapine Fumarate (Seroquel Tab*) 50 mg PO 1200 [facility] Last Admin: 07/14/17 13:05 Dose: 50 mg Quetiapine Fumarate (Seroquel Tab*) 150 mg PO 1700 [facility] Last Admin: 07/13/17 16:40 Dose: 150 mg Rivaroxaban (Xarelto(*)) 15 mg PO 2100 [facility] Last Admin: 07/13/17 22:32 Dose: 15 mg Tamsulosin HCl (Flomax Cap*) 0.4 mg PO BEDTIME [facility] Last Admin: 07/13/17 22:33 Dose: 0.4 mg Terazosin HCl (Hytrin Cap*) 10 mg PO BEDTIME [facility] Last Admin: 07/13/17 22:32 Dose: 10 mg Verapamil HCl (Calan Sr Cap*) 180 mg PO DAILY [facility] Last Admin: 07/14/17 09:34 Dose: 180 mg Verapamil HCl (Calan Sr Cap*) 360 mg PO BEDTIME [facility] Last Admin: 07/13/17 22:32 Dose: 360 mg Vital Signs: Temp Pulse Resp BP Pulse Ox 97.5 F 60 14 135/63 100 07/14/17 07:26 07/14/17 07:26 07/14/17 08:00 07/14/17 07:26 07/14/17 07:26 Oxygen Devices in Use Now: None Appearance: Elderly gentleman in NAD Respiratory: Symmetrical Chest Expansion and Respiratory Effort, Clear to Auscultation Cardiovascular: RRR, - - 4/6 murmur Abdominal: NL Sounds; No Tenderness; No Distention Extremities: No Edema Skin: No Rash or Ulcers Neurological: - - alert, garbled speech, R sided weakness and neglect Result Diagrams: 07/02/17 06:02 07/02/17 06:02 Additional Lab and Data: . Assess/Plan/Problems-Billing Assessment: Mr. Perales is a 76 year old male PMH [place], DM, pAfib on xarelto, moderate-severe aortic stenosis, HTN, CKD III, bipolar with recent ischemic CVA and multiple CT head showing chronic right parietal/occipital infarct presenting with confusion, agitation. - Patient Problems (1) Dementia Comment: Pt has baseline dementia, likely vascular type, superimposed on prior dx of bipolar disorder. Seroquel increased 07/11 to add a noontime dose Continue valproic acid Compliant with all aspects of care over the last couple of days, taking oral medications (2) Urinary retention Comment: Schrader placed 06/30. Continue flomax, finasteride. Attempted voiding trial again yesterday, he continues to demonstrate retention after ~ 24 hrs. Schrader will be replaced today (3) Acute on chronic renal insufficiency Comment: Cr has returned to baseline (4) Atrial fibrillation Comment: Paced. Continue rivaroxaban, metoprolol. (5) Bipolar disorder Comment: Appreciate psychiatry consultation Cont Seroquel and Depakote when he accepts oral medications (6) CVA (cerebral vascular accident) Comment: Recent CVA - slurred speech and R sided weakness Cont Plavix, statin. (7) Diabetes Comment: BGs well controlled. Lantus, Lispro sliding scale and glipizide (8) Hypertension Comment: SBP 130-150s. Continue clonidine, losartan, norvasc, verapamil, metoprolol. Losartan increased to 50mg 07/02. (9) Aortic stenosis Comment: Moderate to severe on echo 03/31/2017. (10) CAD (coronary artery disease) Comment: No evidence of ACS Cont medical management (11) DVT prophylaxis Comment: Xarelto Status and Disposition: Longterm care as he has no skilled needs. He is not safe to be discharged home and needs placement. SW and rehabilitation case coordinator following. Improving behaviors
[2017-07-14] MEDS: QUEtiapine TAB* 100 MG PO SCH (17:41)
[2017-07-14] MEDS: Lidocaine 2% JELLY* 20 ML (for OR use) TOPICAL PRN (20:31)
[2017-07-14] MEDS: Terazosin CAP* 5 MG PO SCH (20:42)
[2017-07-14] MEDS: Rivaroxaban TAB(*) 15 MG PO SCH (20:42)
[2017-07-14] MEDS: CMCS: Melatonin (NF) 3 MG TAB PO PRN (20:43)
[2017-07-14] MEDS: Clopidogrel TAB* 75 MG PO SCH (20:43)
[2017-07-14] MEDS: Atorvastatin* 80 MG TAB PO SCH (20:43)
[2017-07-14] MEDS: Losartan TAB* 25 MG PO SCH (20:44)
[2017-07-14] MEDS: Tamsulosin CAP* 0.4 MG PO SCH (21:02)
[2017-07-15] MEDS: Insulin LISPRO* 1 UNITS UNIT SUBCUT SCH ×4 (07:32→20:45)
[2017-07-15] MEDS: Polyethylene Glycol 3350* 17 GM PACKET PO SCH ×2 (09:02→20:45)
[2017-07-15] MEDS: Insulin GLARGINE(*) 1 UNITS UNIT SUBCUT SCH (09:02)
[2017-07-15] MEDS: Verapamil SR CAP* 180 MG PO SCH ×2 (09:03→20:44)
[2017-07-15] MEDS: Divalproex DR TAB(*) 250 MG PO SCH ×2 (09:03→20:46)
[2017-07-15] MEDS: QUEtiapine TAB* 25 MG PO SCH ×2 (09:03→12:09)
[2017-07-15] MEDS: cloNIDine TAB* 0.1 MG PO SCH ×2 (09:03→20:44)
[2017-07-15] MEDS: Metoprolol Tartrate TAB* 100 MG TAB PO SCH ×2 (09:03→20:44)
[2017-07-15] MEDS: Finasteride TAB* 5 MG PO SCH (09:03)
[2017-07-15] MEDS: Nystatin SUSPENSION* 100000 UNITS/ML 5 ML UDC PO SCH ×4 (09:03→20:45)
[2017-07-15] MEDS: amLODIPine TAB* 5 MG PO SCH (09:03)
[2017-07-15] MEDS: CMCS: Pantoprazole TAB (NF) 40 MG TAB PO SCH (09:08)
--- NOTE | 2017-07-15 14:57 | PN ---
Subjective Date of Service: 07/15/17 Interval History: Patient offers no acute complaints. He states he is "doing great" today. Tolerating Schrader catheter. Objective Active Medications: Acetaminophen (Tylenol Tab*) 650 mg PO Q4H PRN PRN Reason: FEVER/PAIN Last Admin: 07/13/17 22:34 Dose: 650 mg Amlodipine Besylate (Norvasc Tab*) 5 mg PO DAILY [facility] Last Admin: 07/15/17 09:03 Dose: 5 mg Atorvastatin Calcium (Lipitor*) 80 mg PO 2100 [facility] Last Admin: 07/14/17 20:43 Dose: 80 mg Clonidine HCl (Catapres Tab*) 0.1 mg PO BID [facility] Last Admin: 07/15/17 09:03 Dose: 0.1 mg Clopidogrel Bisulfate (Plavix Tab*) 75 mg PO 2100 [facility] Last Admin: 07/14/17 20:43 Dose: 75 mg Dextrose (D50w Syringe 50 Ml*) 12.5 gm IV PUSH .FOR FS < 60 - SS PRN PRN Reason: FS < 60 Divalproex Sodium (Depakote Dr Tab(*)) 750 mg PO BID [facility] Last Admin: 07/15/17 09:03 Dose: 750 mg Finasteride (Proscar Tab*) 5 mg PO DAILY [facility] Last Admin: 07/15/17 09:03 Dose: 5 mg Hydralazine HCl (Apresoline Iv*) 5 mg IV SLOW PU Q6H PRN PRN Reason: BLOOD PRESSURE Last Admin: 07/05/17 21:26 Dose: 5 mg Insulin Glargine (Lantus(*)) 10 units SUBCUT Q24H [facility] Last Admin: 07/15/17 09:02 Dose: 10 units Insulin Human Lispro (Humalog*) 0 units SUBCUT ACHS [facility] PRN Reason: Protocol Last Admin: 07/15/17 12:09 Dose: 1 units Lidocaine HCl (Xylocaine 2 % Jelly*) 1 ml TOPICAL Q2H PRN PRN Reason: PAIN Last Admin: 07/14/17 20:31 Dose: 1 ml Losartan Potassium (Cozaar Tab*) 50 mg PO BEDTIME [facility] Last Admin: 07/14/17 20:44 Dose: 50 mg Melatonin (Melatonin (Nf)) 3 mg PO BEDTIME PRN; Protocol PRN Reason: Sleep Last Admin: 07/14/17 20:43 Dose: 3 mg Metoprolol Tartrate (Lopressor Tab*) 100 mg PO BID [facility] Last Admin: 07/15/17 09:03 Dose: 100 mg Nystatin (Nystatin Suspension*) 500,000 units PO QID [facility] Stop: 07/19/17 16:33 Last Admin: 07/15/17 12:09 Dose: Not Given Pantoprazole Sodium (Protonix Tab (Nf)) 40 mg PO DAILY [facility] Last Admin: 07/15/17 09:08 Dose: 40 mg Polyethylene Glycol/Electrolytes (Miralax*) 17 gm PO 0800,2100 [facility] Last Admin: 07/15/17 09:02 Dose: 17 gm Quetiapine Fumarate (Seroquel Tab*) 50 mg PO DAILY [facility] Last Admin: 07/15/17 09:03 Dose: 50 mg Quetiapine Fumarate (Seroquel Tab*) 50 mg PO 1200 [facility] Last Admin: 07/15/17 12:09 Dose: 50 mg Quetiapine Fumarate (Seroquel Tab*) 150 mg PO 1700 [facility] Last Admin: 07/14/17 17:41 Dose: 150 mg Rivaroxaban (Xarelto(*)) 15 mg PO 2100 [facility] Last Admin: 07/14/17 20:42 Dose: 15 mg Tamsulosin HCl (Flomax Cap*) 0.4 mg PO BEDTIME [facility] Last Admin: 07/14/17 21:02 Dose: 0.4 mg Terazosin HCl (Hytrin Cap*) 10 mg PO BEDTIME [facility] Last Admin: 07/14/17 20:42 Dose: 10 mg Verapamil HCl (Calan Sr Cap*) 180 mg PO DAILY [facility] Last Admin: 07/15/17 09:03 Dose: 180 mg Verapamil HCl (Calan Sr Cap*) 360 mg PO BEDTIME [facility] Last Admin: 07/14/17 20:43 Dose: 360 mg Vital Signs: Temp Pulse Resp BP Pulse Ox 97.7 F 59 16 148/61 100 07/15/17 07:46 07/15/17 11:28 07/15/17 11:28 07/15/17 11:28 07/15/17 11:28 Oxygen Devices in Use Now: None Appearance: 77 yo male in NAD. Slurred, rambling speech that can be difficult to comprehend Respiratory: Symmetrical Chest Expansion and Respiratory Effort, Clear to Auscultation Cardiovascular: RRR, - - 4/6 murmur Extremities: No Edema Skin: No Rash or Ulcers Neurological: - - alert, unsure of orientation. Rambling, slurred speech with R sided weakness Result Diagrams: 07/02/17 06:02 07/02/17 06:02 Additional Lab and Data: . Assess/Plan/Problems-Billing Assessment: Mr. Perales is a 76 year old male PMH [place], DM, pAfib on xarelto, moderate-severe aortic stenosis, HTN, CKD III, bipolar with recent ischemic CVA and multiple CT head showing chronic right parietal/occipital infarct presenting with confusion, agitation. - Patient Problems (1) Dementia Comment: Pt has baseline dementia, likely vascular type, superimposed on prior dx of bipolar disorder. Seroquel increased 07/11 to add a noontime dose Continue valproic acid Compliant with all aspects of care over the last couple of days, taking oral medications (2) Urinary retention Comment: Schrader placed 06/30. Continue flomax, finasteride. Failed voiding trial 07/13-, Schrader replaced (3) Acute on chronic renal insufficiency Comment: Cr has returned to baseline (4) Atrial fibrillation Comment: Paced. Continue rivaroxaban, metoprolol. (5) Bipolar disorder Comment: Appreciate psychiatry consultation Cont Seroquel and Depakote (6) CVA (cerebral vascular accident) Comment: Recent CVA - slurred speech and R sided weakness Cont Plavix, statin. (7) Diabetes Comment: BGs well controlled. Lantus, Lispro sliding scale Stopped glipizide due to frequent hypoglycemia (8) Hypertension Comment: SBP 130-150s. Continue clonidine, losartan, norvasc, verapamil, metoprolol. Losartan increased to 50mg 07/02. (9) Aortic stenosis Comment: Moderate to severe on echo 03/31/2017. (10) CAD (coronary artery disease) Comment: No evidence of ACS Cont medical management (11) DVT prophylaxis Comment: Xarelto Status and Disposition: Snf care as he has no skilled needs. He is not safe to be discharged home and needs placement. SW and pillowcase cleaner following. Improving behaviors
[2017-07-15] MEDS: QUEtiapine TAB* 100 MG PO SCH (17:02)
[2017-07-15] MEDS: Clopidogrel TAB* 75 MG PO SCH (20:44)
[2017-07-15] MEDS: Atorvastatin* 80 MG TAB PO SCH (20:44)
[2017-07-15] MEDS: Tamsulosin CAP* 0.4 MG PO SCH (20:44)
[2017-07-15] MEDS: Losartan TAB* 25 MG PO SCH (20:44)
[2017-07-15] MEDS: Lidocaine 2% JELLY* 20 ML (for OR use) TOPICAL PRN (20:46)
[2017-07-15] MEDS: Rivaroxaban TAB(*) 15 MG PO SCH (20:47)
[2017-07-15] MEDS: CMCS: Melatonin (NF) 3 MG TAB PO PRN ×2 (20:48→20:50)
[2017-07-15] MEDS: Terazosin CAP* 5 MG PO SCH (20:48)
[2017-07-16] MEDS: Lidocaine 2% JELLY* 20 ML (for OR use) TOPICAL PRN ×2 (04:23→08:10)
[2017-07-16] MEDS: Insulin LISPRO* 1 UNITS UNIT SUBCUT SCH ×4 (08:13→20:42)
[2017-07-16] MEDS: Polyethylene Glycol 3350* 17 GM PACKET PO SCH ×2 (09:53→20:42)
[2017-07-16] MEDS: Divalproex DR TAB(*) 250 MG PO SCH ×2 (09:55→20:41)
[2017-07-16] MEDS: amLODIPine TAB* 5 MG PO SCH (09:58)
[2017-07-16] MEDS: Metoprolol Tartrate TAB* 100 MG TAB PO SCH ×2 (09:59→20:42)
[2017-07-16] MEDS: CMCS: Pantoprazole TAB (NF) 40 MG TAB PO SCH (10:00)
[2017-07-16] MEDS: Nystatin SUSPENSION* 100000 UNITS/ML 5 ML UDC PO SCH ×4 (10:01→20:41)
[2017-07-16] MEDS: QUEtiapine TAB* 25 MG PO SCH ×2 (10:02→13:04)
[2017-07-16] MEDS: Verapamil SR CAP* 180 MG PO SCH ×2 (10:03→20:41)
[2017-07-16] MEDS: cloNIDine TAB* 0.1 MG PO SCH ×2 (10:04→20:42)
[2017-07-16] MEDS: Finasteride TAB* 5 MG PO SCH (10:04)
[2017-07-16] MEDS: Insulin GLARGINE(*) 1 UNITS UNIT SUBCUT SCH (10:05)
--- NOTE | 2017-07-16 17:17 | PN ---
Subjective Date of Service: 07/16/17 Interval History: No complaints from patient today. Still cooperative with care. Objective Active Medications: Acetaminophen (Tylenol Tab*) 650 mg PO Q4H PRN PRN Reason: FEVER/PAIN Last Admin: 07/13/17 22:34 Dose: 650 mg Amlodipine Besylate (Norvasc Tab*) 5 mg PO DAILY [facility] Last Admin: 07/16/17 09:58 Dose: 5 mg Atorvastatin Calcium (Lipitor*) 80 mg PO 2100 [facility] Last Admin: 07/15/17 20:44 Dose: 80 mg Clonidine HCl (Catapres Tab*) 0.1 mg PO BID [facility] Last Admin: 07/16/17 10:04 Dose: 0.1 mg Clopidogrel Bisulfate (Plavix Tab*) 75 mg PO 2100 [facility] Last Admin: 07/15/17 20:44 Dose: 75 mg Dextrose (D50w Syringe 50 Ml*) 12.5 gm IV PUSH .FOR FS < 60 - SS PRN PRN Reason: FS < 60 Divalproex Sodium (Depakote Dr Tab(*)) 750 mg PO BID [facility] Last Admin: 07/16/17 09:55 Dose: 750 mg Finasteride (Proscar Tab*) 5 mg PO DAILY [facility] Last Admin: 07/16/17 10:04 Dose: 5 mg Hydralazine HCl (Apresoline Iv*) 5 mg IV SLOW PU Q6H PRN PRN Reason: BLOOD PRESSURE Last Admin: 07/05/17 21:26 Dose: 5 mg Insulin Glargine (Lantus(*)) 10 units SUBCUT Q24H [facility] Last Admin: 07/16/17 10:05 Dose: 10 units Insulin Human Lispro (Humalog*) 0 units SUBCUT ACHS [facility] PRN Reason: Protocol Last Admin: 07/16/17 13:02 Dose: 2 units Lidocaine HCl (Lidocaine 2% Jelly*) 1 applic TOPICAL Q2H PRN PRN Reason: PAIN Losartan Potassium (Cozaar Tab*) 50 mg PO BEDTIME [facility] Last Admin: 07/15/17 20:44 Dose: 50 mg Melatonin (Melatonin (Nf)) 3 mg PO BEDTIME PRN; Protocol PRN Reason: Sleep Last Admin: 07/15/17 20:50 Dose: 3 mg Metoprolol Tartrate (Lopressor Tab*) 100 mg PO BID [facility] Last Admin: 07/16/17 09:59 Dose: 100 mg Nystatin (Nystatin Suspension*) 500,000 units PO QID [facility] Stop: 07/19/17 16:33 Last Admin: 07/16/17 13:05 Dose: 500,000 units Pantoprazole Sodium (Protonix Tab (Nf)) 40 mg PO DAILY [facility] Last Admin: 07/16/17 10:00 Dose: 40 mg Polyethylene Glycol/Electrolytes (Miralax*) 17 gm PO 0800,2100 [facility] Last Admin: 07/16/17 09:53 Dose: 17 gm Quetiapine Fumarate (Seroquel Tab*) 50 mg PO DAILY [facility] Last Admin: 07/16/17 10:02 Dose: 50 mg Quetiapine Fumarate (Seroquel Tab*) 50 mg PO 1200 [facility] Last Admin: 07/16/17 13:04 Dose: 50 mg Quetiapine Fumarate (Seroquel Tab*) 150 mg PO 1700 [facility] Last Admin: 07/15/17 17:02 Dose: 150 mg Rivaroxaban (Xarelto(*)) 15 mg PO 2100 [facility] Last Admin: 07/15/17 20:47 Dose: 15 mg Tamsulosin HCl (Flomax Cap*) 0.4 mg PO BEDTIME [facility] Last Admin: 07/15/17 20:44 Dose: 0.4 mg Terazosin HCl (Hytrin Cap*) 10 mg PO BEDTIME [facility] Last Admin: 07/15/17 20:48 Dose: 10 mg Verapamil HCl (Calan Sr Cap*) 180 mg PO DAILY [facility] Last Admin: 07/16/17 10:03 Dose: 180 mg Verapamil HCl (Calan Sr Cap*) 360 mg PO BEDTIME [facility] Last Admin: 07/15/17 20:44 Dose: 360 mg Vital Signs: Temp Pulse Resp BP Pulse Ox 97.6 F 58 16 136/69 100 07/16/17 15:53 07/16/17 15:53 07/16/17 15:53 07/16/17 15:53 07/16/17 15:53 Oxygen Devices in Use Now: None Appearance: Patient is resting comfortably, full exam deferred today Result Diagrams: 07/02/17 06:02 07/02/17 06:02 Additional Lab and Data: . Assess/Plan/Problems-Billing Assessment: Mr. Perales is a 76 year old male PMH [place], DM, pAfib on xarelto, moderate-severe aortic stenosis, HTN, CKD III, bipolar with recent ischemic CVA and multiple CT head showing chronic right parietal/occipital infarct presenting with confusion, agitation. - Patient Problems (1) Dementia Comment: Pt has baseline dementia, likely vascular type, superimposed on prior dx of bipolar disorder. Seroquel increased 07/11 to add a noontime dose Continue valproic acid Compliant with all aspects of care over the last couple of days, taking oral medications (2) Urinary retention Comment: Schrader placed 06/30. Continue flomax, finasteride. Failed voiding trial 07/13-, Schrdaer replaced (3) Acute on chronic renal insufficiency Comment: Cr has returned to baseline (4) Atrial fibrillation Comment: Paced. Continue rivaroxaban, metoprolol. (5) Bipolar disorder Comment: Appreciate psychiatry consultation Cont Seroquel and Depakote (6) CVA (cerebral vascular accident) Comment: Recent CVA - slurred speech and R sided weakness Cont Plavix, statin. (7) Diabetes Comment: BGs well controlled. Lantus, Lispro sliding scale Stopped glipizide due to frequent hypoglycemia (8) Hypertension Comment: SBP 130-150s. Continue clonidine, losartan, norvasc, verapamil, metoprolol. Losartan increased to 50mg 07/02. (9) Aortic stenosis Comment: Moderate to severe on echo 03/31/2017. (10) CAD (coronary artery disease) Comment: No evidence of ACS Cont medical management (11) DVT prophylaxis Comment: Xarelto Status and Disposition: Snf care as he has no skilled needs. He is not safe to be discharged home and needs placement. SW and correctional case manager following. Improved behaviors
[2017-07-16] MEDS: QUEtiapine TAB* 100 MG PO SCH (18:01)
[2017-07-16] MEDS: Atorvastatin* 80 MG TAB PO SCH (20:41)
[2017-07-16] MEDS: Lidocaine 2% JELLY* 30 GM TUBE TOPICAL PRN ×2 (20:41→23:52)
[2017-07-16] MEDS: Losartan TAB* 25 MG PO SCH (20:42)
[2017-07-16] MEDS: Terazosin CAP* 5 MG PO SCH (20:42)
[2017-07-16] MEDS: Tamsulosin CAP* 0.4 MG PO SCH (20:42)
[2017-07-16] MEDS: Clopidogrel TAB* 75 MG PO SCH (20:42)
[2017-07-16] MEDS: Rivaroxaban TAB(*) 15 MG PO SCH (20:42)
[2017-07-16] MEDS: CMCS: Melatonin (NF) 3 MG TAB PO PRN (20:42)
[2017-07-17] MEDS: QUEtiapine TAB* 25 MG PO SCH ×2 (09:13→12:40)
[2017-07-17] MEDS: Finasteride TAB* 5 MG PO SCH (09:13)
[2017-07-17] MEDS: Nystatin SUSPENSION* 100000 UNITS/ML 5 ML UDC PO SCH ×4 (09:13→20:47)
[2017-07-17] MEDS: Acetaminophen TAB* 325 MG PO PRN ×2 (09:13→17:39)
[2017-07-17] MEDS: cloNIDine TAB* 0.1 MG PO SCH ×2 (09:14→20:38)
[2017-07-17] MEDS: amLODIPine TAB* 5 MG PO SCH (09:14)
[2017-07-17] MEDS: Insulin GLARGINE(*) 1 UNITS UNIT SUBCUT SCH (09:19)
[2017-07-17] MEDS: Polyethylene Glycol 3350* 17 GM PACKET PO SCH ×2 (09:19→21:41)
[2017-07-17] MEDS: Insulin LISPRO* 1 UNITS UNIT SUBCUT SCH ×4 (09:19→21:40)
[2017-07-17] MEDS: Verapamil SR CAP* 180 MG PO SCH ×2 (09:28→20:35)
[2017-07-17] MEDS: Lidocaine 2% JELLY* 30 GM TUBE TOPICAL PRN ×2 (09:28→13:20)
[2017-07-17] MEDS: Divalproex DR TAB(*) 250 MG PO SCH ×2 (09:28→20:35)
[2017-07-17] MEDS: CMCS: Pantoprazole TAB (NF) 40 MG TAB PO SCH (09:28)
[2017-07-17] MEDS: Metoprolol Tartrate TAB* 100 MG TAB PO SCH ×2 (10:05→20:39)
--- NOTE | 2017-07-17 13:17 | PN ---
Subjective Date of Service: 07/17/17 Interval History: Patient is complaining of some discomfort over his sacral area and nursing noted some breakdown around the urethral meatus. No cough, SOB, abd pain, n/v. Objective Active Medications: Acetaminophen (Tylenol Tab*) 650 mg PO Q4H PRN PRN Reason: FEVER/PAIN Last Admin: 07/17/17 09:13 Dose: 650 mg Amlodipine Besylate (Norvasc Tab*) 5 mg PO DAILY [facility] Last Admin: 07/17/17 09:14 Dose: 5 mg Atorvastatin Calcium (Lipitor*) 80 mg PO 2100 [facility] Last Admin: 07/16/17 20:41 Dose: 80 mg Clonidine HCl (Catapres Tab*) 0.1 mg PO BID [facility] Last Admin: 07/17/17 09:14 Dose: 0.1 mg Clopidogrel Bisulfate (Plavix Tab*) 75 mg PO 2100 [facility] Last Admin: 07/16/17 20:42 Dose: 75 mg Dextrose (D50w Syringe 50 Ml*) 12.5 gm IV PUSH .FOR FS < 60 - SS PRN PRN Reason: FS < 60 Divalproex Sodium (Depakote Dr Tab(*)) 750 mg PO BID [facility] Last Admin: 07/17/17 09:28 Dose: 750 mg Finasteride (Proscar Tab*) 5 mg PO DAILY [facility] Last Admin: 07/17/17 09:13 Dose: 5 mg Hydralazine HCl (Apresoline Iv*) 5 mg IV SLOW PU Q6H PRN PRN Reason: BLOOD PRESSURE Last Admin: 07/05/17 21:26 Dose: 5 mg Insulin Glargine (Lantus(*)) 10 units SUBCUT Q24H [facility] Last Admin: 07/17/17 09:19 Dose: 10 units Insulin Human Lispro (Humalog*) 0 units SUBCUT ACHS [facility] PRN Reason: Protocol Last Admin: 07/17/17 12:40 Dose: 2 units Lidocaine HCl (Lidocaine 2% Jelly*) 1 applic TOPICAL Q2H PRN PRN Reason: PAIN Last Admin: 07/17/17 09:28 Dose: 1 applic Losartan Potassium (Cozaar Tab*) 50 mg PO BEDTIME [facility] Last Admin: 07/16/17 20:42 Dose: 50 mg Melatonin (Melatonin (Nf)) 3 mg PO BEDTIME PRN; Protocol PRN Reason: Sleep Last Admin: 07/16/17 20:42 Dose: 3 mg Metoprolol Tartrate (Lopressor Tab*) 100 mg PO BID [facility] Last Admin: 07/17/17 10:05 Dose: Not Given Nystatin (Nystatin Suspension*) 500,000 units PO QID [facility] Stop: 07/19/17 16:33 Last Admin: 07/17/17 12:40 Dose: 500,000 units Pantoprazole Sodium (Protonix Tab (Nf)) 40 mg PO DAILY [facility] Last Admin: 07/17/17 09:28 Dose: 40 mg Polyethylene Glycol/Electrolytes (Miralax*) 17 gm PO 0800,2100 [facility] Last Admin: 07/17/17 09:19 Dose: 17 gm Quetiapine Fumarate (Seroquel Tab*) 50 mg PO DAILY [facility] Last Admin: 07/17/17 09:13 Dose: 50 mg Quetiapine Fumarate (Seroquel Tab*) 50 mg PO 1200 [facility] Last Admin: 07/17/17 12:40 Dose: 50 mg Quetiapine Fumarate (Seroquel Tab*) 150 mg PO 1700 [facility] Last Admin: 07/16/17 18:01 Dose: 150 mg Rivaroxaban (Xarelto(*)) 15 mg PO 2100 [facility] Last Admin: 07/16/17 20:42 Dose: 15 mg Tamsulosin HCl (Flomax Cap*) 0.4 mg PO BEDTIME [facility] Last Admin: 07/16/17 20:42 Dose: 0.4 mg Terazosin HCl (Hytrin Cap*) 10 mg PO BEDTIME [facility] Last Admin: 07/16/17 20:42 Dose: 10 mg Verapamil HCl (Calan Sr Cap*) 180 mg PO DAILY [facility] Last Admin: 07/17/17 09:28 Dose: 180 mg Verapamil HCl (Calan Sr Cap*) 360 mg PO BEDTIME [facility] Last Admin: 07/16/17 20:41 Dose: 360 mg Vital Signs: Temp Pulse Resp BP Pulse Ox 97.3 F 61 16 104/53 98 07/17/17 11:54 07/17/17 11:54 07/17/17 11:54 07/17/17 11:54 07/17/17 11:54 Oxygen Devices in Use Now: None Appearance: 77 yo male in NAD. Cooperative with exam. Somewhat slurred, rambling speech Respiratory: Symmetrical Chest Expansion and Respiratory Effort, Clear to Auscultation Cardiovascular: NL Sounds; No Murmurs; No JVD, RRR Abdominal: NL Sounds; No Tenderness; No Distention, - - some bleeding noted at the ureteral meatus and tissue breakdown over the inferior portion Extremities: No Edema Skin: No Rash or Ulcers Neurological: - - alert, pleasant, slurred rambling speech Result Diagrams: 07/02/17 06:02 07/02/17 06:02 Additional Lab and Data: . Assess/Plan/Problems-Billing Assessment: Mr. Perales is a 76 year old male PMH [place], DM, pAfib on xarelto, moderate-severe aortic stenosis, HTN, CKD III, bipolar with recent ischemic CVA and multiple CT head showing chronic right parietal/occipital infarct presenting with confusion, agitation. - Patient Problems (1) Dementia Comment: Pt has baseline dementia, likely vascular type, superimposed on prior dx of bipolar disorder. Seroquel increased 07/11 to add a noontime dose Continue valproic acid Compliant with all aspects of care over the last couple of days, taking oral medications (2) Urinary retention Comment: Schrader placed 06/30. Continue flomax, finasteride. Failed voiding trial 07/13-, Schrader replaced Some tissue breakdown at the urethral meatus, nursing attempting to prop the catheter and will trial regular application of barrier cream (3) Acute on chronic renal insufficiency Comment: Cr has returned to baseline (4) Atrial fibrillation Comment: Paced. Continue rivaroxaban, metoprolol. (5) Bipolar disorder Comment: Appreciate psychiatry consultation Cont Seroquel and Depakote (6) CVA (cerebral vascular accident) Comment: Recent CVA - slurred speech and R sided weakness Cont Plavix, statin. (7) Diabetes Comment: BGs well controlled. Lantus, Lispro sliding scale Stopped glipizide due to frequent hypoglycemia (8) Hypertension Comment: SBP 130-150s. Continue clonidine, losartan, norvasc, verapamil, metoprolol. Losartan increased to 50mg 07/02. (9) Aortic stenosis Comment: Moderate to severe on echo 03/31/2017. (10) CAD (coronary artery disease) Comment: No evidence of ACS Cont medical management (11) DVT prophylaxis Comment: Xarelto Status and Disposition: Alf care as he has no skilled needs. He is not safe to be discharged home and needs placement. SW and supportive employment case manager following. Improved behaviors
[2017-07-17] MEDS: QUEtiapine TAB* 100 MG PO SCH (17:39)
[2017-07-17] MEDS: Tamsulosin CAP* 0.4 MG PO SCH (20:35)
[2017-07-17] MEDS: Clopidogrel TAB* 75 MG PO SCH (20:39)
[2017-07-17] MEDS: Atorvastatin* 80 MG TAB PO SCH (20:39)
[2017-07-17] MEDS: Losartan TAB* 25 MG PO SCH (20:39)
[2017-07-17] MEDS: Terazosin CAP* 5 MG PO SCH (20:46)
[2017-07-17] MEDS: Rivaroxaban TAB(*) 15 MG PO SCH (20:46)
[2017-07-18] MEDS: Acetaminophen TAB* 325 MG PO PRN ×3 (03:02→20:34)
[2017-07-18] MEDS: Lidocaine 2% JELLY* 30 GM TUBE TOPICAL PRN ×4 (03:03→20:37)
[2017-07-18] MEDS: Finasteride TAB* 5 MG PO SCH (10:23)
[2017-07-18] MEDS: Nystatin SUSPENSION* 100000 UNITS/ML 5 ML UDC PO SCH ×4 (10:24→23:08)
[2017-07-18] MEDS: Metoprolol Tartrate TAB* 100 MG TAB PO SCH ×2 (10:24→23:05)
[2017-07-18] MEDS: amLODIPine TAB* 5 MG PO SCH (10:24)
[2017-07-18] MEDS: QUEtiapine TAB* 25 MG PO SCH ×2 (10:24→12:54)
[2017-07-18] MEDS: cloNIDine TAB* 0.1 MG PO SCH ×2 (10:24→23:05)
[2017-07-18] MEDS: Verapamil SR CAP* 180 MG PO SCH ×2 (10:24→23:01)
[2017-07-18] MEDS: Polyethylene Glycol 3350* 17 GM PACKET PO SCH ×2 (10:25→23:08)
[2017-07-18] MEDS: Divalproex DR TAB(*) 250 MG PO SCH ×2 (10:25→23:03)
[2017-07-18] MEDS: Insulin GLARGINE(*) 1 UNITS UNIT SUBCUT SCH (10:26)
[2017-07-18] MEDS: Insulin LISPRO* 1 UNITS UNIT SUBCUT SCH ×4 (10:26→23:07)
[2017-07-18] MEDS: CMCS: Pantoprazole TAB (NF) 40 MG TAB PO SCH (10:30)
--- NOTE | 2017-07-18 16:00 | PN ---
Subjective Date of Service: 07/18/17 Interval History: Patient is somewhat depressed today. No acute complaints. Still very much cooperative with nursing care. Objective Active Medications: Acetaminophen (Tylenol Tab*) 650 mg PO Q4H PRN PRN Reason: FEVER/PAIN Last Admin: 07/18/17 10:29 Dose: 650 mg Amlodipine Besylate (Norvasc Tab*) 5 mg PO DAILY [facility] Last Admin: 07/18/17 10:24 Dose: 5 mg Atorvastatin Calcium (Lipitor*) 80 mg PO 2100 [facility] Last Admin: 07/17/17 20:39 Dose: 80 mg Clonidine HCl (Catapres Tab*) 0.1 mg PO BID [facility] Last Admin: 07/18/17 10:24 Dose: 0.1 mg Clopidogrel Bisulfate (Plavix Tab*) 75 mg PO 2100 [facility] Last Admin: 07/17/17 20:39 Dose: 75 mg Dextrose (D50w Syringe 50 Ml*) 12.5 gm IV PUSH .FOR FS < 60 - SS PRN PRN Reason: FS < 60 Divalproex Sodium (Depakote Dr Tab(*)) 750 mg PO BID [facility] Last Admin: 07/18/17 10:25 Dose: 750 mg Finasteride (Proscar Tab*) 5 mg PO DAILY [facility] Last Admin: 07/18/17 10:23 Dose: 5 mg Hydralazine HCl (Apresoline Iv*) 5 mg IV SLOW PU Q6H PRN PRN Reason: BLOOD PRESSURE Last Admin: 07/05/17 21:26 Dose: 5 mg Insulin Glargine (Lantus(*)) 10 units SUBCUT Q24H [facility] Last Admin: 07/18/17 10:26 Dose: 10 units Insulin Human Lispro (Humalog*) 0 units SUBCUT ACHS [facility] PRN Reason: Protocol Last Admin: 07/18/17 12:54 Dose: 4 units Lidocaine HCl (Lidocaine 2% Jelly*) 1 applic TOPICAL Q2H PRN PRN Reason: PAIN Last Admin: 07/18/17 03:03 Dose: 1 applic Losartan Potassium (Cozaar Tab*) 50 mg PO BEDTIME [facility] Last Admin: 07/17/17 20:39 Dose: 50 mg Melatonin (Melatonin (Nf)) 3 mg PO BEDTIME PRN; Protocol PRN Reason: Sleep Last Admin: 07/16/17 20:42 Dose: 3 mg Metoprolol Tartrate (Lopressor Tab*) 100 mg PO BID [facility] Last Admin: 07/18/17 10:24 Dose: 100 mg Nystatin (Nystatin Suspension*) 500,000 units PO QID [facility] Stop: 07/19/17 16:33 Last Admin: 07/18/17 12:53 Dose: 500,000 units Pantoprazole Sodium (Protonix Tab (Nf)) 40 mg PO DAILY [facility] Last Admin: 07/18/17 10:30 Dose: 40 mg Polyethylene Glycol/Electrolytes (Miralax*) 17 gm PO 0800,2100 [facility] Last Admin: 07/18/17 10:25 Dose: 17 gm Quetiapine Fumarate (Seroquel Tab*) 50 mg PO DAILY [facility] Last Admin: 07/18/17 10:24 Dose: 50 mg Quetiapine Fumarate (Seroquel Tab*) 50 mg PO 1200 [facility] Last Admin: 07/18/17 12:54 Dose: 50 mg Quetiapine Fumarate (Seroquel Tab*) 150 mg PO 1700 [facility] Last Admin: 07/17/17 17:39 Dose: 150 mg Rivaroxaban (Xarelto(*)) 15 mg PO 2100 [facility] Last Admin: 07/17/17 20:46 Dose: 15 mg Tamsulosin HCl (Flomax Cap*) 0.4 mg PO BEDTIME [facility] Last Admin: 07/17/17 20:35 Dose: 0.4 mg Terazosin HCl (Hytrin Cap*) 10 mg PO BEDTIME [facility] Last Admin: 07/17/17 20:46 Dose: 10 mg Verapamil HCl (Calan Sr Cap*) 180 mg PO DAILY [facility] Last Admin: 07/18/17 10:24 Dose: 180 mg Verapamil HCl (Calan Sr Cap*) 360 mg PO BEDTIME [facility] Last Admin: 07/17/17 20:35 Dose: 360 mg Vital Signs: Temp Pulse Resp BP Pulse Ox 97.3 F 59 18 139/65 100 07/18/17 14:00 07/18/17 14:00 07/18/17 14:00 07/18/17 14:00 07/18/17 14:00 Oxygen Devices in Use Now: None Appearance: 77 yo male in NAD. Slurred rambling speech Respiratory: Symmetrical Chest Expansion and Respiratory Effort, Clear to Auscultation Cardiovascular: NL Sounds; No Murmurs; No JVD, RRR Abdominal: NL Sounds; No Tenderness; No Distention Extremities: No Edema Skin: No Rash or Ulcers Neurological: - - alert, somewhat depressed, rambling, slurred speech Result Diagrams: 07/02/17 06:02 07/02/17 06:02 Additional Lab and Data: . Assess/Plan/Problems-Billing Assessment: Mr. Perales is a 76 year old male PMH [place], DM, pAfib on xarelto, moderate-severe aortic stenosis, HTN, CKD III, bipolar with recent ischemic CVA and multiple CT head showing chronic right parietal/occipital infarct presenting with confusion, agitation. - Patient Problems (1) Dementia Comment: Pt has baseline dementia, likely vascular type, superimposed on prior dx of bipolar disorder. Seroquel increased 07/11 to add a noontime dose Continue valproic acid Compliant with all aspects of care over the last couple of days, taking oral medications (2) Urinary retention Comment: Schrader placed 06/30. Continue flomax, finasteride. Failed voiding trial 07/13-, Schrader replaced Some tissue breakdown at the urethral meatus, nursing attempting to prop the catheter and will trial regular application of barrier cream (3) Acute on chronic renal insufficiency Comment: Cr has returned to baseline (4) Atrial fibrillation Comment: Paced. Continue rivaroxaban, metoprolol. (5) Bipolar disorder Comment: Appreciate psychiatry consultation Cont Seroquel and Depakote (6) CVA (cerebral vascular accident) Comment: Recent CVA - slurred speech and R sided weakness Cont Plavix, statin. (7) Diabetes Comment: BGs well controlled. Lantus, Lispro sliding scale Stopped glipizide due to frequent hypoglycemia (8) Hypertension Comment: SBP 130-150s. Continue clonidine, losartan, norvasc, verapamil, metoprolol. Losartan increased to 50mg 07/02. (9) Aortic stenosis Comment: Moderate to severe on echo 03/31/2017. (10) CAD (coronary artery disease) Comment: No evidence of ACS Cont medical management (11) DVT prophylaxis Comment: Xarelto Status and Disposition: [facility] care as he has no skilled needs. He is not safe to be discharged home and needs placement. SW and immigration case worker following. Improved behaviors
[2017-07-18] MEDS: QUEtiapine TAB* 100 MG PO SCH (18:10)
[2017-07-18] MEDS: Terazosin CAP* 5 MG PO SCH (23:03)
[2017-07-18] MEDS: Tamsulosin CAP* 0.4 MG PO SCH (23:03)
[2017-07-18] MEDS: Losartan TAB* 25 MG PO SCH (23:04)
[2017-07-18] MEDS: Atorvastatin* 80 MG TAB PO SCH (23:05)
[2017-07-18] MEDS: Clopidogrel TAB* 75 MG PO SCH (23:06)
[2017-07-18] MEDS: Rivaroxaban TAB(*) 15 MG PO SCH (23:06)
[2017-07-19] MEDS: Acetaminophen TAB* 325 MG PO PRN ×3 (01:12→17:05)
[2017-07-19] MEDS: Insulin GLARGINE(*) 1 UNITS UNIT SUBCUT SCH (09:06)
[2017-07-19] MEDS: Insulin LISPRO* 1 UNITS UNIT SUBCUT SCH ×4 (09:07→21:37)
[2017-07-19] MEDS: Finasteride TAB* 5 MG PO SCH (09:07)
[2017-07-19] MEDS: Nystatin SUSPENSION* 100000 UNITS/ML 5 ML UDC PO SCH ×2 (09:07→11:53)
[2017-07-19] MEDS: QUEtiapine TAB* 25 MG PO SCH ×2 (09:08→11:57)
[2017-07-19] MEDS: Divalproex DR TAB(*) 250 MG PO SCH ×2 (09:08→21:35)
[2017-07-19] MEDS: Verapamil SR CAP* 180 MG PO SCH ×2 (09:08→21:36)
[2017-07-19] MEDS: CMCS: Pantoprazole TAB (NF) 40 MG TAB PO SCH (09:08)
[2017-07-19] MEDS: Metoprolol Tartrate TAB* 100 MG TAB PO SCH ×2 (09:09→21:34)
[2017-07-19] MEDS: cloNIDine TAB* 0.1 MG PO SCH ×2 (09:09→21:37)
[2017-07-19] MEDS: amLODIPine TAB* 5 MG PO SCH (09:09)
[2017-07-19] MEDS: Polyethylene Glycol 3350* 17 GM PACKET PO SCH ×2 (09:46→21:38)
[2017-07-19] MEDS: QUEtiapine TAB* 100 MG PO SCH (17:05)
[2017-07-19] MEDS: Lidocaine 2% JELLY* 30 GM TUBE TOPICAL PRN (17:07)
[2017-07-19] MEDS: Atorvastatin* 80 MG TAB PO SCH (21:34)
[2017-07-19] MEDS: Rivaroxaban TAB(*) 15 MG PO SCH (21:34)
[2017-07-19] MEDS: Losartan TAB* 25 MG PO SCH (21:35)
[2017-07-19] MEDS: Clopidogrel TAB* 75 MG PO SCH (21:35)
[2017-07-19] MEDS: Tamsulosin CAP* 0.4 MG PO SCH (21:36)
[2017-07-19] MEDS: Terazosin CAP* 5 MG PO SCH (21:36)
[2017-07-20] MEDS: Acetaminophen TAB* 325 MG PO PRN ×5 (05:12→20:45)
[2017-07-20] MEDS: Insulin LISPRO* 1 UNITS UNIT SUBCUT SCH ×4 (07:50→20:54)
--- NOTE | 2017-07-20 08:25 | RAD ---
INDICATION: Tachypnea COMPARISON: Most recent comparison chest x-rays dated June 24, 2017 TECHNIQUE: Single AP portable view of the chest was obtained. FINDINGS: Image quality is compromised due to the relative inferiority of a portable chest x-ray. The heart and mediastinum exhibit normal size and contour. The lungs are grossly clear. There is no evidence of a large pleural effusion. Visualized bones are normal for the patient's age. IMPRESSION: No radiographic evidence for acute cardiopulmonary abnormality on this portable chest x-ray.
[2017-07-20] MEDS: Insulin GLARGINE(*) 1 UNITS UNIT SUBCUT SCH (08:30)
[2017-07-20] MEDS: Divalproex DR TAB(*) 250 MG PO SCH ×2 (08:30→20:44)
[2017-07-20] MEDS: Verapamil SR CAP* 180 MG PO SCH ×2 (08:30→20:43)
[2017-07-20] MEDS: Finasteride TAB* 5 MG PO SCH (08:31)
[2017-07-20] MEDS: amLODIPine TAB* 5 MG PO SCH (08:31)
[2017-07-20] MEDS: Metoprolol Tartrate TAB* 100 MG TAB PO SCH ×2 (08:31→20:45)
[2017-07-20] MEDS: cloNIDine TAB* 0.1 MG PO SCH ×2 (08:31→20:44)
[2017-07-20] MEDS: QUEtiapine TAB* 25 MG PO SCH ×2 (08:31→11:56)
[2017-07-20] MEDS: CMCS: Pantoprazole TAB (NF) 40 MG TAB PO SCH (08:31)
[2017-07-20] MEDS: Polyethylene Glycol 3350* 17 GM PACKET PO SCH ×2 (08:44→20:24)
[2017-07-20] MEDS: QUEtiapine TAB* 100 MG PO SCH (16:01)
[2017-07-20] MEDS: Clopidogrel TAB* 75 MG PO SCH (20:43)
[2017-07-20] MEDS: Terazosin CAP* 5 MG PO SCH (20:44)
[2017-07-20] MEDS: Atorvastatin* 80 MG TAB PO SCH (20:44)
[2017-07-20] MEDS: CMCS: Melatonin (NF) 3 MG TAB PO PRN (20:44)
[2017-07-20] MEDS: Losartan TAB* 25 MG PO SCH (20:44)
[2017-07-20] MEDS: Rivaroxaban TAB(*) 15 MG PO SCH (20:45)
[2017-07-20] MEDS: Tamsulosin CAP* 0.4 MG PO SCH (20:45)
[2017-07-20] MEDS: Lidocaine 2% JELLY* 30 GM TUBE TOPICAL PRN (20:48)
[2017-07-21] MEDS: Finasteride TAB* 5 MG PO SCH (07:31)
[2017-07-21] MEDS: Insulin GLARGINE(*) 1 UNITS UNIT SUBCUT SCH (07:31)
[2017-07-21] MEDS: QUEtiapine TAB* 25 MG PO SCH ×3 (07:31→13:24)
[2017-07-21] MEDS: Divalproex DR TAB(*) 250 MG PO SCH ×2 (07:31→20:57)
[2017-07-21] MEDS: CMCS: Pantoprazole TAB (NF) 40 MG TAB PO SCH (07:32)
[2017-07-21] MEDS: Metoprolol Tartrate TAB* 100 MG TAB PO SCH ×2 (07:32→20:57)
[2017-07-21] MEDS: cloNIDine TAB* 0.1 MG PO SCH ×2 (07:32→21:02)
[2017-07-21] MEDS: Verapamil SR CAP* 180 MG PO SCH ×2 (07:32→21:08)
[2017-07-21] MEDS: Acetaminophen TAB* 325 MG PO PRN ×3 (07:32→16:33)
[2017-07-21] MEDS: Insulin LISPRO* 1 UNITS UNIT SUBCUT SCH ×4 (07:32→21:05)
[2017-07-21] MEDS: Polyethylene Glycol 3350* 17 GM PACKET PO SCH ×2 (07:39→21:07)
[2017-07-21] MEDS: QUEtiapine TAB* 100 MG PO SCH (16:33)
[2017-07-21] MEDS: Clopidogrel TAB* 75 MG PO SCH (20:56)
[2017-07-21] MEDS: CMCS: Melatonin (NF) 3 MG TAB PO PRN (20:57)
[2017-07-21] MEDS: Tamsulosin CAP* 0.4 MG PO SCH (20:57)
[2017-07-21] MEDS: Atorvastatin* 80 MG TAB PO SCH (20:57)
[2017-07-21] MEDS: Rivaroxaban TAB(*) 15 MG PO SCH (20:57)
[2017-07-21] MEDS: Losartan TAB* 25 MG PO SCH (21:02)
[2017-07-21] MEDS: Terazosin CAP* 5 MG PO SCH (21:07)
[2017-07-22] MEDS: Polyethylene Glycol 3350* 17 GM PACKET PO SCH ×2 (08:44→20:01)
[2017-07-22] MEDS: cloNIDine TAB* 0.1 MG PO SCH ×2 (08:45→20:05)
[2017-07-22] MEDS: Divalproex DR TAB(*) 250 MG PO SCH ×2 (08:45→20:02)
[2017-07-22] MEDS: Finasteride TAB* 5 MG PO SCH (08:45)
[2017-07-22] MEDS: QUEtiapine TAB* 25 MG PO SCH ×2 (08:45→12:02)
[2017-07-22] MEDS: Verapamil SR CAP* 180 MG PO SCH ×2 (08:45→20:03)
[2017-07-22] MEDS: CMCS: Pantoprazole TAB (NF) 40 MG TAB PO SCH (08:46)
[2017-07-22] MEDS: Metoprolol Tartrate TAB* 100 MG TAB PO SCH ×2 (08:46→20:05)
[2017-07-22] MEDS: Acetaminophen TAB* 325 MG PO PRN ×2 (08:46→20:04)
[2017-07-22] MEDS: Insulin LISPRO* 1 UNITS UNIT SUBCUT SCH ×4 (08:49→21:06)
[2017-07-22] MEDS: Insulin GLARGINE(*) 1 UNITS UNIT SUBCUT SCH (08:51)
--- NOTE | 2017-07-22 15:14 | DCNOTE ---
Subjective Date of Service: 07/22/17 Interval History: Patient seen and examined at bedside. Patient reporting LLQ abdominal pain started this AM. Speech very dysarthric so difficult to assess. Denies SOB or pain elsewhere. Family History: Unchanged from Admission Social History: Unchanged from Admission Past Medical History: Unchanged from Admission Objective Active Medications: Acetaminophen (Tylenol Tab*) 650 mg PO Q4H PRN Atorvastatin Calcium (Lipitor*) 80 mg PO 2100 [facility] Clonidine HCl (Catapres Tab*) 0.1 mg PO BID [facility] Clopidogrel Bisulfate (Plavix Tab*) 75 mg PO 2100 [facility] Divalproex Sodium (Depakote Dr Tab(*)) 750 mg PO BID [facility] Finasteride (Proscar Tab*) 5 mg PO DAILY [facility] Hydralazine HCl (Apresoline Iv*) 5 mg IV SLOW PU Q6H PRN Insulin Glargine (Lantus(*)) 10 units SUBCUT Q24H [facility] Insulin Human Lispro (Humalog*) 0 units SUBCUT ACHS [facility] Lidocaine HCl (Lidocaine 2% Jelly*) 1 applic TOPICAL Q2H PRN Losartan Potassium (Cozaar Tab*) 50 mg PO BEDTIME [facility] Melatonin (Melatonin (Nf)) 3 mg PO BEDTIME PRN; Protocol Metoprolol Tartrate (Lopressor Tab*) 100 mg PO BID [facility] Pantoprazole Sodium (Protonix Tab (Nf)) 40 mg PO DAILY [facility] Polyethylene Glycol/Electrolytes (Miralax*) 17 gm PO 0800,2100 [facility] Quetiapine Fumarate (Seroquel Tab*) 50 mg PO DAILY [facility] Quetiapine Fumarate (Seroquel Tab*) 50 mg PO 1200 [facility] Quetiapine Fumarate (Seroquel Tab*) 150 mg PO 1700 [facility] Rivaroxaban (Xarelto(*)) 15 mg PO 2100 [facility] Tamsulosin HCl (Flomax Cap*) 0.4 mg PO BEDTIME [facility] Terazosin HCl (Hytrin Cap*) 10 mg PO BEDTIME [facility] Verapamil HCl (Calan Sr Cap*) 180 mg PO DAILY [facility] Verapamil HCl (Calan Sr Cap*) 360 mg PO BEDTIME [facility] Vital Signs Temp Pulse Resp BP Pulse Ox 99.9 F 108 18 133/73 99 07/22/17 10:11 07/22/17 07:32 07/22/17 08:00 07/22/17 07:32 07/22/17 07:32 Oxygen Devices in Use Now: None Appearance: sitting up in chair, NAD Eyes: No Scleral Icterus Ears/Nose/Mouth/Throat: NL Teeth, Lips, Gums, Mucous Membranes Moist Neck: NL Appearance and Movements; NL JVP Respiratory: Symmetrical Chest Expansion and Respiratory Effort, Clear to Auscultation Cardiovascular: NL Sounds; No Murmurs; No JVD, RRR, No Edema Abdominal: - - tense and distended; non-specific tenderness Extremities: No Edema, - - R sided weakness Skin: No Rash or Ulcers Neurological: - - alert to self and place; slurred speech Lines/Tubes/Other Access: Clean, Dry and Intact Peripheral IV Nutrition: Taking PO's Result Diagrams: 07/02/17 06:02 07/02/17 06:02 Additional Lab and Data: . Assess/Plan/Problems-Billing Assessment: Mr. Perales is a 76 year old male PMH [place], DM, pAfib on xarelto, moderate-severe aortic stenosis, HTN, CKD III, bipolar with recent ischemic CVA and multiple CT head showing chronic right parietal/occipital infarct presenting with confusion, agitation. - Patient Problems (1) Abdominal pain Comment: Will check AXR and labs. Suspect constipation although had BM yesterday. (2) Dementia Comment: Pt has baseline dementia, likely vascular type, superimposed on prior dx of bipolar disorder. Seroquel increased 07/11 with a noontime dose Continue valproic acid. Compliant with medications. (3) Urinary retention Comment: Failed voiding trial 07/13-. Will d/c with Schrader. (4) Acute on chronic renal insufficiency Comment: Cr has returned to baseline (5) Atrial fibrillation Comment: Paced. Continue rivaroxaban and metoprolol. (6) Bipolar disorder Comment: Appreciate psychiatry consultation. Cont Seroquel and Depakote (7) CVA (cerebral vascular accident) Comment: Recent CVA with slurred speech and R sided weakness. Cont Plavix and Statin. (8) Diabetes Comment: BGs well controlled. Lantus and Lispro sliding scale. Stopped glipizide due to frequent hypoglycemia (9) Hypertension Comment: SBP 130-150s. Continue clonidine, losartan, norvasc, verapamil, metoprolol. Losartan increased to 50mg 07/02. (10) Aortic stenosis Comment: Moderate to severe on echo 03/31/2017. (11) CAD (coronary artery disease) Comment: No evidence of ACS. Cont medical management (12) DVT prophylaxis Comment: Juvenal (13) Full code status Status and Disposition: [facility] care as he has no skilled needs. Stable to be discharged to [facility] in the AM
[2017-07-22 16:47] LABS: ABS Basophils 0.1 10^3/ul (0-0.2); ABS Eosinophils 0 10^3/ul (0-0.6); ABS Lymphocytes 1.6 10^3/ul (1.0-4.8); ABS Monocytes 2.3 10^3/ul (0-0.8); ABS Neutrophils 22.1 10^3/ul (1.5-7.7); ABS Nucleated RBC 0 10^3/ul; Eosinophil % 0.1 % (0-6); Hematocrit 26 % (42-52); Hemoglobin 8.2 g/dl (14.0-18.0); Mean Corpuscular HGB Conc 31 g/dl (31-36); Mean Corpuscular Hemoglobin 23 pg (27-31); Mean Corpuscular Volume 74 fL (80-94); Mean Platelet Volume 8 um3 (7.4-10.4); Nucleated Red Blood Cells % 0; Platelet Count 279 10^3/ul (150-450); Red Blood Count 3.54 10^6/ul (4.0-5.4); Red Cell Distribution Width 15 % (10.5-15)
[2017-07-22 17:00] LABS: EGFR Non-African American 42.7 (>60)
--- NOTE | 2017-07-22 17:15 | PN ---
Hospitalist Progress Note HOSPITALIST ADDENDUM: PT was c/o of abdominal pain earlier. For that w/u checked BMP and CBC and initially wanted AXR. Subsequently the patient passed flatus and abdominal pain completely resolved; AXR cancelled. Prepared discharge and labs returned with WBC of 26k. Patient also had a low grade temp earlier. Plan to liu culture patient and recheck WBCs in AM. If nothing is revealing would consider CT abd/pel due to intermittent abd discomfort earlier. Discharge place on hold until re-evaluation in the AM.
--- NOTE | 2017-07-22 17:38 | RAD ---
INDICATION: Short of breath. Fever. COMPARISON: July 12, 2017 TECHNIQUE: An AP portable view obtained at 1719 hours is submitted. FINDINGS: Bones/Soft Tissues: There are no acute bony findings. There is a left-sided cardiac pacemaker. Cardiomediastinal: The cardiomediastinal silhouette is normal. Lungs: There are no infiltrates. Pleura: There are no pleural effusions. Other: None IMPRESSION: NO ACTIVE DISEASE.
[2017-07-22] MEDS: QUEtiapine TAB* 100 MG PO SCH (17:55)
[2017-07-22] MEDS: Losartan TAB* 25 MG PO SCH (20:04)
[2017-07-22] MEDS: Terazosin CAP* 5 MG PO SCH (20:05)
[2017-07-22] MEDS: Rivaroxaban TAB(*) 15 MG PO SCH (20:05)
[2017-07-22] MEDS: Clopidogrel TAB* 75 MG PO SCH (20:05)
[2017-07-22] MEDS: Atorvastatin* 80 MG TAB PO SCH (20:05)
[2017-07-22] MEDS: CMCS: Melatonin (NF) 3 MG TAB PO PRN (20:06)
[2017-07-22] MEDS: Tamsulosin CAP* 0.4 MG PO SCH (20:06)
[2017-07-22 20:23] LABS: Urine Appearance Cloudy; Urine Blood 3+ (Negative); Urine Color Yellow; Urine Ketones Negative (Negative); Urine Protein 2+(100 mg/dL) (Negative); Urine Specific Gravity 1.014 (1.010-1.030); Urine Urobilinogen Positive (Negative)
[2017-07-22] MEDS ORDERED: cefTRIAXone VIAL(*) 1,000 MG in D5W 50 ML BAG* 50 ML IVPB SCH (21:00)
--- NOTE | 2017-07-23 04:05 | DS ---
CC: KD Wetzel; Dr. Lema; Dr. Kay * DISCHARGE SUMMARY: DATE OF ADMISSION: 06/25/17 DATE OF EXPECTED DISCHARGE: 07/23/17 PRIMARY CARE PROVIDER: KD Wetzel ATTENDING PHYSICIAN: Kaleb Barrett MD * (DICTATED BY NADEEM LIRIANO NP) PRIMARY DIAGNOSES: 1. Agitated delirium. 2. Hypotension. SECONDARY DIAGNOSES: 1. History of left basal ganglia stroke with residual right-sided weakness, dysarthria, left facial droop, homonymous hemianopsia. 2. Uncontrolled hypertension. 3. Bipolar disease. 4. Cerebrovascular accident in the past. 5. History of myocardial infarction. 6. Type 2 diabetes. 7. Third-degree heart block, status post pacer. 8. Chronic kidney disease, stage 3. 9. Severe aortic stenosis. 10. Depression. 11. Dyslipidemia. 12. Atrial fibrillation. STUDIES WHILE IN THE HOSPITAL: 1. Lower extremity Doppler, bilateral, on 06/27/17: No evidence of DVT of either lower extremity is present. 2. Transthoracic echocardiogram, 06/28/17: Estimated ejection fraction is 60% to 65%. There is abnormal ventricular septal wall motion consistent with right ventricular pacemaker. The right ventricular global systolic function is normal. The septum has abnormal paradoxical motion consistent with RV pacemaker. Aortic leaflets are severely thickened with reduced systolic excursion. There is moderate- to-severe aortic stenosis. The mean gradient of the aortic valve is 22 mmHg. There is ejirs-yd-stdi mitral regurgitation. There is mild tricuspid regurgitation. There is evidence of mild pulmonary hypertension. There are no significant changes when compared to the previous study done on 03/31/17. 3. CT of the brain without contrast, 07/04/17: No evidence for gross acute infarct, mass effect, or hemorrhage. Old right posterior parietal and occipital lobe infarct unchanged. 4. Chest x-ray, portable, 06/24/17: No radiographic evidence for acute cardiopulmonary abnormality on this portable chest x-ray. 5. On 07/20/17, no radiographic evidence for acute cardiopulmonary abnormality on this portable chest x-ray. MEDICATIONS AT THE TIME OF DISCHARGE: New medications: 1. Depakote 750 mg oral twice daily. 2. Lantus 10 units subcu every 24 hours. 3. Lispro sliding scale 2 units for blood sugar 150 to 200; 3 units for 201 to 250; 4 units for 251 to 300; 8 units, 301 to 350; 10 units, 351 to 400; greater than 401, call MD. 4. Cozaar 50 mg oral at bedtime. 5. MiraLAX 17 g 8 a.m. and 9 p.m. 6. Seroquel 150 mg oral at 1700, 50 mg at noon, and 50 mg in the morning. 7. Flomax 0.4 mg oral at bedtime. 8. Verapamil 180 mg in the morning and 360 mg oral at bedtime. 9. Terazosin 10 mg oral at bedtime. 10. Clonidine 0.1 mg oral twice daily. 11. Metoprolol tartrate 100 mg oral twice daily. 12. Xarelto 15 mg oral daily. 13. Plavix 75 mg oral daily. 14. Lipitor 80 mg oral daily. 15. Colace 100 mg oral daily as needed. 16. Prilosec 20 mg oral daily. 17. Prednisone 1 drop both eyes every day. The following medications have been discontinued: 1. Lasix. 2. Potassium. 3. Glipizide. CONSULTATIONS WHILE IN THE HOSPITAL: 1. Dr. Adrian Lema, Psychiatry. 2. Dr. Kay, Critical Care. HISTORY OF PRESENT ILLNESS AND HOSPITAL COURSE: Mr. Perales is a 77-year-old male with a history of recent ischemic stroke and significant memory deficits as a result of these strokes. He was brought to the hospital on 06/24/17 by his as she was too exhausted to care for him. The patient was very confused and agitated at night. The patient was admitted to the medical floor and home medications were continued. He was started on Seroquel. The patient was seen in consultation by Dr. Lema from Psychiatry; please refer to his dictation for detail. The patient's Seroquel dose was gradually increased to help control his agitation and delirium. There was a short period of time where the patient required transfer to the intensive care unit for his delirium. The patient's Depakote dose was increased to 750 twice daily and Seroquel was gradually tapered up to where it stands now which is 50 mg in the morning, 50 mg at noon, and 150 mg at 5 p.m. With this medication regimen, the patient has remained calm and agreeable to basic nursing care including taking all of his meds agreeably. Additionally, during the patient's hospitalization, he became quite hypotensive. Home medications including nitro patch, Lasix, Cozaar, and verapamil were held, and then gradually reintroduced. Currently, the patient is on 50 mg of Cozaar at bedtime, 180 mg of verapamil in the morning and 360 mg at bedtime, as well as 100 mg of metoprolol twice daily. He is also on clonidine 0.1 mg twice a day. The patient's nitro patch and Lasix are still held. With this medication regimen, the patient's blood pressure has been stable, systolic ranging from 130 to 150. The patient has chronic kidney disease with the baseline creatinine between 1.5 and 1.8. Last creatinine was measured today, which is 1.5. The patient has been on Lantus 10 units daily and lispro, blood sugar has been controlled. For the patient's coronary artery disease, the patient has remained on Plavix, Lipitor, as well as beta lynn. On 07/22/17, vitals were as follows: Temp 99.9, heart rate 88, respiratory rate 18, blood pressure 133/73, and oxygen saturation 99%. At this point, the patient was stable for discharge. The patient is being discharged on a diabetic, heart-healthy diet, mechanical ground texture diet. The patient is Tommy lift dependent. He has baseline dysarthria and right-sided neglect. The patient should be seen by his primary care provider within 7 to 10 days. This is a summarized report of a complex medical hospital stay. For more details, please see the entire medical record. TIME SPENT: Time for discharge was 50 minutes, and 25 minutes was spent coordinating discharge plans. CONDITION ON DISCHARGE: Stable. ADDENDUM: During this dictation, the patient's white count came back at 26, 000. The patient's white count will be checked tomorrow in the morning and he will be liu cultured including blood cultures, urine, as well as chest x-ray. Empiric antibiotic therapy will be initiated with Ceftriaxone. Discharge will be held until cultures back and leukocytosis improved. NADEEM LIRIANO, EDUCATION REPORTER [id number]/[facility] #: [id number] [facility]PITALCosme
[2017-07-23 06:30] LABS: ABS Basophils 0 10^3/ul (0-0.2); ABS Eosinophils 0 10^3/ul (0-0.6); ABS Lymphocytes 2.3 10^3/ul (1.0-4.8); ABS Monocytes 2.5 10^3/ul (0-0.8); ABS Neutrophils 20.9 10^3/ul (1.5-7.7); ABS Nucleated RBC 0 10^3/ul; Eosinophil % 0 % (0-6); Hematocrit 22 % (42-52); Mean Corpuscular HGB Conc 32 g/dl (31-36); Mean Corpuscular Hemoglobin 23 pg (27-31); Mean Platelet Volume 9 um3 (7.4-10.4); Nucleated Red Blood Cells % 0; Platelet Count 241 10^3/ul (150-450); Red Blood Count 2.99 10^6/ul (4.0-5.4); Red Cell Distribution Width 15 % (10.5-15); White Blood Count 25.8 10^3/ul (3.5-10.8)
[2017-07-23 06:32] LABS: Mean Corpuscular Volume 73 fL (80-94)
[2017-07-23 06:47] LABS: EGFR Non-African American 37.7 (>60)
[2017-07-23] MEDS: QUEtiapine TAB* 25 MG PO SCH ×2 (07:56→11:51)
[2017-07-23] MEDS: cloNIDine TAB* 0.1 MG PO SCH ×2 (07:56→19:58)
[2017-07-23] MEDS: CMCS: Pantoprazole TAB (NF) 40 MG TAB PO SCH (07:56)
[2017-07-23] MEDS: Finasteride TAB* 5 MG PO SCH (07:57)
[2017-07-23] MEDS: Divalproex DR TAB(*) 250 MG PO SCH ×2 (07:57→19:58)
[2017-07-23] MEDS: Metoprolol Tartrate TAB* 100 MG TAB PO SCH ×2 (07:57→19:57)
[2017-07-23] MEDS: Verapamil SR CAP* 180 MG PO SCH ×2 (07:57→19:57)
[2017-07-23] MEDS: Polyethylene Glycol 3350* 17 GM PACKET PO SCH ×2 (07:57→19:56)
[2017-07-23] MEDS: Insulin LISPRO* 1 UNITS UNIT SUBCUT SCH ×4 (08:09→21:23)
[2017-07-23] MEDS: Insulin GLARGINE(*) 1 UNITS UNIT SUBCUT SCH (08:09)
[2017-07-23] MEDS: Lidocaine 2% JELLY* 30 GM TUBE TOPICAL PRN (12:06)
--- NOTE | 2017-07-23 15:11 | PN ---
Subjective Date of Service: 07/23/17 Interval History: Patient examined and complained only of being thirsty. Denies subjective F/C, N/ V, Abdominal pain, CP, SOB, Back pain, or other pain. Family History: Unchanged from Admission Social History: Unchanged from Admission Past Medical History: Unchanged from Admission Objective Active Medications: Acetaminophen (Tylenol Tab*) 650 mg PO Q4H PRN PRN Reason: FEVER/PAIN Last Admin: 07/22/17 20:04 Dose: 650 mg Atorvastatin Calcium (Lipitor*) 80 mg PO 2100 [facility] Last Admin: 07/22/17 20:05 Dose: 80 mg Clonidine HCl (Catapres Tab*) 0.1 mg PO BID [facility] Last Admin: 07/23/17 07:56 Dose: 0.1 mg Clopidogrel Bisulfate (Plavix Tab*) 75 mg PO 2100 [facility] Last Admin: 07/22/17 20:05 Dose: 75 mg Dextrose (D50w Syringe 50 Ml*) 12.5 gm IV PUSH .FOR FS < 60 - SS PRN PRN Reason: FS < 60 Divalproex Sodium (Depakote Dr Tab(*)) 750 mg PO BID [facility] Last Admin: 07/23/17 07:57 Dose: 750 mg Finasteride (Proscar Tab*) 5 mg PO DAILY [facility] Last Admin: 07/23/17 07:57 Dose: 5 mg Hydralazine HCl (Apresoline Iv*) 5 mg IV SLOW PU Q6H PRN PRN Reason: BLOOD PRESSURE Last Admin: 07/05/17 21:26 Dose: 5 mg Ceftriaxone Sodium 1,000 mg/ (Dextrose) 50 mls @ 200 mls/hr IVPB Q24H [facility] Stop: 07/23/17 20:59 Last Admin: 07/22/17 21:29 Dose: 200 mls/hr Ceftriaxone Sodium 1,000 mg/ (Sodium Chloride) 50 mls @ 200 mls/hr IVPB Q24H [facility] Stop: 07/24/17 20:59 Ceftriaxone Sodium 1,000 mg/ (Dextrose) 50 mls @ 200 mls/hr IVPB Q24H [facility] Insulin Glargine (Lantus(*)) 10 units SUBCUT Q24H [facility] Last Admin: 07/23/17 08:09 Dose: 10 units Insulin Human Lispro (Humalog*) 0 units SUBCUT ACHS [facility] PRN Reason: Protocol Last Admin: 07/23/17 12:04 Dose: 4 units Lidocaine HCl (Lidocaine 2% Jelly*) 1 applic TOPICAL Q2H PRN PRN Reason: PAIN Last Admin: 07/23/17 12:06 Dose: 1 applic Losartan Potassium (Cozaar Tab*) 50 mg PO BEDTIME NILDA Last Admin: 07/22/17 20:04 Dose: 50 mg Melatonin (Melatonin (Nf)) 3 mg PO BEDTIME PRN; Protocol PRN Reason: Sleep Last Admin: 07/22/17 20:06 Dose: 3 mg Metoprolol Tartrate (Lopressor Tab*) 100 mg PO BID [facility] Last Admin: 07/23/17 07:57 Dose: 100 mg Pantoprazole Sodium (Protonix Tab (Nf)) 40 mg PO DAILY [facility] Last Admin: 07/23/17 07:56 Dose: 40 mg Polyethylene Glycol/Electrolytes (Miralax*) 17 gm PO 0800,2100 [facility] Last Admin: 07/23/17 07:57 Dose: Not Given Quetiapine Fumarate (Seroquel Tab*) 50 mg PO DAILY [facility] Last Admin: 07/23/17 07:56 Dose: 50 mg Quetiapine Fumarate (Seroquel Tab*) 50 mg PO 1200 [facility] Last Admin: 07/23/17 11:51 Dose: 50 mg Quetiapine Fumarate (Seroquel Tab*) 150 mg PO 1700 [facility] Last Admin: 07/22/17 17:55 Dose: 150 mg Rivaroxaban (Xarelto(*)) 15 mg PO 2100 [facility] Last Admin: 07/22/17 20:05 Dose: 15 mg Tamsulosin HCl (Flomax Cap*) 0.4 mg PO BEDTIME [facility] Last Admin: 07/22/17 20:06 Dose: 0.4 mg Terazosin HCl (Hytrin Cap*) 10 mg PO BEDTIME [facility] Last Admin: 07/22/17 20:05 Dose: 10 mg Verapamil HCl (Calan Sr Cap*) 180 mg PO DAILY [facility] Last Admin: 07/23/17 07:57 Dose: 180 mg Verapamil HCl (Calan Sr Cap*) 360 mg PO BEDTIME [facility] Last Admin: 07/22/17 20:03 Dose: 360 mg Vital Signs 07/22/17 07/22/17 07/22/17 18:53 19:00 20:00 Temperature 102.0 F 100.2 F Pulse Rate 117 Respiratory 20 20 Rate Blood Pressure 153/69 (mmHg) O2 Sat by Pulse 87 Oximetry 07/22/17 07/23/17 07/23/17 23:30 03:19 07:48 Temperature 97.9 F 99.0 F 98.5 F Pulse Rate 75 75 72 Respiratory 18 16 16 Rate Blood Pressure 127/69 126/58 126/60 (mmHg) O2 Sat by Pulse 97 92 97 Oximetry 07/23/17 07/23/17 08:14 11:03 Temperature 98.3 F Pulse Rate 69 Respiratory 16 16 Rate Blood Pressure 107/56 (mmHg) O2 Sat by Pulse 96 Oximetry Oxygen Devices in Use Now: None Appearance: Patient is a 77yo male who appears stated age, has an obvious left sided facial droop and is sitting in the bed in NAD. Eyes: No Scleral Icterus, PERRLA Ears/Nose/Mouth/Throat: NL Teeth, Lips, Gums, Clear Oropharnyx, Mucous Membranes Moist Neck: NL Appearance and Movements; NL JVP, Trachea Midline Respiratory: Symmetrical Chest Expansion and Respiratory Effort, Clear to Auscultation Cardiovascular: RRR, No Edema, - - Grade 3/6 murmur heard best at RUSB with S1 and S2 present. No thrill. Pulses 2+ in B/L Radial, DP/PT areas. Abdominal: NL Sounds; No Tenderness; No Distention, No Hepatosplenomegaly, - - Suprapubic tenderness, no CVA tenderness. Lymphatic: No Cervical Adenopathy Skin: No Nodules or Sclerosis Neurological: Alert and Oriented x 3, - - Significant R sided weakness with left sided facial droop. Result Diagrams: 07/23/17 06:05 07/23/17 06:05 Additional Lab and Data: . Microbiology and Other Data: Microbiology 07/22/17 20:00 Influenza Types A,B Antigen ([facility]ULWANT) - Final Nasal Specimen received for Influenza A/B Molecular testing Assess/Plan/Problems-Billing Assessment: Mr. Perales is a 76 year old male PMH PA, DM, pAfib on xarelto, moderate-severe aortic stenosis, HTN, CKD III, bipolar with recent ischemic CVA and multiple CT head showing chronic right parietal/occipital infarct presenting with confusion, agitation which is now improved however, patient developed a CAUTI while in the hospital which is now being treated. - Patient Problems (1) Urinary tract infection associated with catheterization of urinary tract Current Visit: Yes Status: Acute Code(s): T83.511A - I/I REACT D/T INDWELLING URETHRAL CATHETER, INIT; N39.0 - URINARY TRACT INFECTION, SITE NOT SPECIFIED SNOMED Code(s): 530188486 Comment: Patient has significant leukocytosis with fever, suprapubic tenderness, and grossly positive UA. This was not present at admission. Patient has been catheterized for almost a month due to urinary retention. Will treat for 7 days starting with ceftriaxone. Improving, now afebrile, WBC count decreasing. (2) Microcytic anemia Current Visit: Yes Status: Acute Code(s): D50.9 - IRON DEFICIENCY ANEMIA, UNSPECIFIED SNOMED Code(s): 703743305 Comment: Chronic. Likely due to CKD, Hb decreased by 1.2 overnight. No signs of acute bleeding. Recheck pending. Will transfuse as needed below 7. (3) Atrial fibrillation Current Visit: Yes Status: Acute Code(s): I48.91 - UNSPECIFIED ATRIAL FIBRILLATION SNOMED Code(s): 89404411 Comment: Paced. Continue rivaroxaban and metoprolol. (4) Bipolar disorder Current Visit: Yes Status: Acute Comment: Appreciate psychiatry consultation. Cont Seroquel and Depakote (5) CKD stage 3 due to type 2 diabetes mellitus Current Visit: Yes Status: Acute Code(s): E11.22 - TYPE 2 DIABETES MELLITUS W DIABETIC CHRONIC KIDNEY DISEASE; N18.3 - CHRONIC KIDNEY DISEASE, STAGE 3 ( MODERATE) SNOMED Code(s): 358625047598 Comment: creat at baseline (6) CVA (cerebral vascular accident) Current Visit: Yes Status: Acute Code(s): I63.9 - CEREBRAL INFARCTION, UNSPECIFIED SNOMED Code(s): 594127450 Comment: Recent CVA with slurred speech and R sided weakness. Cont Plavix and Statin. (7) Dementia Current Visit: Yes Status: Acute Code(s): F03.90 - UNSPECIFIED DEMENTIA WITHOUT BEHAVIORAL DISTURBANCE SNOMED Code(s): 89619723 Comment: Pt has baseline dementia, likely vascular type, superimposed on prior dx of bipolar disorder. Seroquel increased 07/11 with a noontime dose Continue valproic acid. Compliant with medications. (8) Diabetes Current Visit: Yes Status: Acute Code(s): E11.9 - TYPE 2 DIABETES MELLITUS WITHOUT COMPLICATIONS SNOMED Code(s): 27868189 Comment: BGs moderately well controlled. Lantus and Lispro sliding scale. Stopped glipizide due to frequent hypoglycemia. (9) Hypertension Current Visit: Yes Status: Acute Code(s): I10 - ESSENTIAL (PRIMARY) HYPERTENSION SNOMED Code(s): 90892798 Comment: Normotensive. Continue clonidine, losartan, norvasc, verapamil, metoprolol. Losartan increased to 50mg 07/02. (10) Urinary retention Current Visit: Yes Status: Acute Code(s): R33.9 - RETENTION OF URINE, UNSPECIFIED SNOMED Code(s): 988537024 Comment: Schrader removed due to UTI. Will monitor with bladder scans. Small post void residual, no need for recatheterization at this time. Will montior. Continue finasteride and Flomax. (11) AV block, 3rd degree Current Visit: No Status: Acute Code(s): I44.2 - ATRIOVENTRICULAR BLOCK, COMPLETE SNOMED Code(s): 21273937 Comment: PPM in place, followed by Dr. Keller. (12) Aortic stenosis Current Visit: No Status: Acute Code(s): I35.0 - NONRHEUMATIC AORTIC (VALVE ) STENOSIS SNOMED Code(s): 03684259 Comment: Moderate to severe on echo 03/31/2017. (13) CAD (coronary artery disease) Current Visit: No Status: Acute Code(s): I25.10 - ATHSCL HEART DISEASE OF [place] CORONARY ARTERY W/O ANG PCTRS SNOMED Code(s): 40922188 Comment: No evidence of ACS. Cont medical management (14) DVT prophylaxis Current Visit: Yes Status: Acute Code(s): WUE5986 - SNOMED Code(s): 399436903 Comment: Xarelto Status and Disposition: OBV due to UTI. Will monitor with hopeful D/C in AM.
[2017-07-23] MEDS: QUEtiapine TAB* 100 MG PO SCH (16:44)
[2017-07-23 19:29] LABS: ABS Basophils 0.1 10^3/ul (0-0.2); ABS Eosinophils 0 10^3/ul (0-0.6); ABS Lymphocytes 2.5 10^3/ul (1.0-4.8); ABS Monocytes 3.2 10^3/ul (0-0.8); ABS Nucleated RBC 0 10^3/ul; Eosinophil % 0.1 % (0-6); Hematocrit 23 % (42-52); Hemoglobin 7.1 g/dl (14.0-18.0); Lymphocyte % 8.8 % (25-47); Mean Corpuscular HGB Conc 32 g/dl (31-36); Mean Corpuscular Hemoglobin 23 pg (27-31); Mean Platelet Volume 8 um3 (7.4-10.4); Nucleated Red Blood Cells % 0; Platelet Count 237 10^3/ul (150-450); Red Blood Count 3.09 10^6/ul (4.0-5.4); Red Cell Distribution Width 15 % (10.5-15)
[2017-07-23 19:30] LABS: Mean Corpuscular Volume 73 fL (80-94)
[2017-07-23 19:31] LABS: ABS Neutrophils 22.2 10^3/ul (1.5-7.7)
[2017-07-23 19:34] LABS: EGFR Non-African American 33.9 (>60)
[2017-07-23] MEDS: Rivaroxaban TAB(*) 15 MG PO SCH (19:56)
[2017-07-23] MEDS: Losartan TAB* 25 MG PO SCH (19:56)
[2017-07-23] MEDS: Clopidogrel TAB* 75 MG PO SCH (19:56)
[2017-07-23] MEDS: Tamsulosin CAP* 0.4 MG PO SCH (19:57)
[2017-07-23] MEDS: Terazosin CAP* 5 MG PO SCH (19:57)
[2017-07-23] MEDS: Atorvastatin* 80 MG TAB PO SCH (19:57)
[2017-07-23] MEDS ORDERED: cefTRIAXone* 1 GM in NS 0.9% 50 ML BAG IVPB SCH (21:00)
[2017-07-23] MEDS: Nystatin SUSPENSION* 100000 UNITS/ML 5 ML UDC SWISH SPIT SCH (22:09)
[2017-07-24] MEDS: Acetaminophen TAB* 325 MG PO PRN (04:00)
[2017-07-24 07:18] LABS: EGFR Non-African American 36.8 (>60)
[2017-07-24] MEDS: Insulin LISPRO* 1 UNITS UNIT SUBCUT SCH ×4 (08:36→21:47)
[2017-07-24] MEDS: Insulin GLARGINE(*) 1 UNITS UNIT SUBCUT SCH (08:37)
[2017-07-24] MEDS: Meropenem 1 GM PREMIX(*) 1 GM/50 ML BAG IV SCH ×2 (11:31→22:15)
[2017-07-24] MEDS: Lidocaine 2% JELLY* 30 GM TUBE TOPICAL PRN (11:36)
[2017-07-24] MEDS: Polyethylene Glycol 3350* 17 GM PACKET PO SCH ×2 (12:08→21:47)
[2017-07-24] MEDS: Nystatin SUSPENSION* 100000 UNITS/ML 5 ML UDC SWISH SPIT SCH ×2 (12:09→14:15)
[2017-07-24] MEDS: CMCS: Pantoprazole TAB (NF) 40 MG TAB PO SCH ×2 (12:09→13:23)
[2017-07-24] MEDS: QUEtiapine TAB* 25 MG PO SCH ×2 (12:09→13:23)
[2017-07-24 12:45] LABS: ABS Basophils 0 10^3/ul (0-0.2); ABS Eosinophils 0 10^3/ul (0-0.6); ABS Lymphocytes 1.2 10^3/ul (1.0-4.8); ABS Neutrophils 15.7 10^3/ul (1.5-7.7); ABS Nucleated RBC 0.01 10^3/ul; Eosinophil % 0.2 % (0-6); Hematocrit 23 % (42-52); Hemoglobin 7.3 g/dl (14.0-18.0); Lymphocyte % 6.5 % (25-47); Mean Corpuscular HGB Conc 32 g/dl (31-36); Mean Corpuscular Hemoglobin 23 pg (27-31); Mean Platelet Volume 8 um3 (7.4-10.4); Nucleated Red Blood Cells % 0.1; Platelet Count 237 10^3/ul (150-450); Red Blood Count 3.14 10^6/ul (4.0-5.4); Red Cell Distribution Width 14 % (10.5-15)
[2017-07-24 12:46] LABS: Mean Corpuscular Volume 72 fL (80-94)
[2017-07-24] MEDS: Verapamil SR CAP* 180 MG PO SCH ×2 (13:22→21:48)
[2017-07-24] MEDS: Divalproex DR TAB(*) 250 MG PO SCH ×2 (13:22→21:47)
[2017-07-24] MEDS: Metoprolol Tartrate TAB* 100 MG TAB PO SCH ×2 (13:23→21:47)
[2017-07-24] MEDS: Finasteride TAB* 5 MG PO SCH (13:23)
[2017-07-24] MEDS: cloNIDine TAB* 0.1 MG PO SCH ×2 (13:23→21:47)
[2017-07-24] MEDS ORDERED: Simethicone LIQ* 40 MG/0.6 ML UD ORAL SYRINGE PO PRN (14:38)
--- NOTE | 2017-07-24 15:31 | PN ---
Subjective Date of Service: 07/24/17 Interval History: Patient very agitated this morning and uncooperative with care. Refused examination and swatted away any attempts to adjust objects around the bed. Patient speaks in a garbled fashion, alert and oriented x2. Patient also verbally abusive and obstinate with the nursing staff. Returned later and patient much more calm. Able to examine. Patient states he has mild generalized abdominal pain that feels like gas. Patient denies F/C, CP, SOB, Diarrhea, Constipation, Or dysuria. Patient has painful skin breakdown near urethral meatus. Patient incontinent of voiding without residual. Patient has rhonchorous sounds in lungs and is compliant with ISB but only able to reach 500. Found to be pocketing medications on exam. Family History: Unchanged from Admission Social History: Unchanged from Admission Past Medical History: Unchanged from Admission Objective Active Medications: Acetaminophen (Tylenol Tab*) 650 mg PO Q4H PRN PRN Reason: FEVER/PAIN Last Admin: 07/24/17 04:00 Dose: 650 mg Atorvastatin Calcium (Lipitor*) 80 mg PO 2100 [facility] Last Admin: 07/23/17 19:57 Dose: 80 mg Clonidine HCl (Catapres Tab*) 0.1 mg PO BID [facility] Last Admin: 07/24/17 13:23 Dose: 0.1 mg Clopidogrel Bisulfate (Plavix Tab*) 75 mg PO 2100 [facility] Last Admin: 07/23/17 19:56 Dose: 75 mg Clotrimazole (Mycelex Ben*) 10 mg PO FIVE TIMES DAILY [facility] Dextrose (D50w Syringe 50 Ml*) 12.5 gm IV PUSH .FOR FS < 60 - SS PRN PRN Reason: FS < 60 Divalproex Sodium (Depakote Dr Tab(*)) 750 mg PO BID [facility] Last Admin: 07/24/17 13:22 Dose: 750 mg Finasteride (Proscar Tab*) 5 mg PO DAILY [facility] Last Admin: 07/24/17 13:23 Dose: 5 mg Hydralazine HCl (Apresoline Iv*) 5 mg IV SLOW PU Q6H PRN PRN Reason: BLOOD PRESSURE Last Admin: 07/05/17 21:26 Dose: 5 mg Meropenem (Merrem 1 Gm Premix(*)) 1 gm in 50 mls @ 100 mls/hr IV Q12HR [facility] Last Admin: 07/24/17 11:31 Dose: 100 mls/hr Insulin Glargine (Lantus(*)) 15 units SUBCUT Q24H [facility] Insulin Human Lispro (Humalog*) 0 units SUBCUT ACHS [facility] PRN Reason: Protocol Last Admin: 07/24/17 13:21 Dose: 2 units Lidocaine HCl (Lidocaine 2% Jelly*) 1 applic TOPICAL Q2H PRN PRN Reason: PAIN Last Admin: 07/24/17 11:36 Dose: 1 applic Losartan Potassium (Cozaar Tab*) 50 mg PO BEDTIME [facility] Last Admin: 07/23/17 19:56 Dose: 50 mg Melatonin (Melatonin (Nf)) 3 mg PO BEDTIME PRN; Protocol PRN Reason: Sleep Last Admin: 07/22/17 20:06 Dose: 3 mg Metoprolol Tartrate (Lopressor Tab*) 100 mg PO BID [facility] Last Admin: 07/24/17 13:23 Dose: 100 mg Pantoprazole Sodium (Protonix Tab (Nf)) 40 mg PO DAILY [facility] Last Admin: 07/24/17 13:23 Dose: 40 mg Polyethylene Glycol/Electrolytes (Miralax*) 17 gm PO 0800,2100 [facility] Last Admin: 07/24/17 12:08 Dose: Not Given Quetiapine Fumarate (Seroquel Tab*) 50 mg PO DAILY [facility] Last Admin: 07/24/17 12:09 Dose: Not Given Quetiapine Fumarate (Seroquel Tab*) 50 mg PO 1200 [facility] Last Admin: 07/24/17 13:23 Dose: 50 mg Quetiapine Fumarate (Seroquel Tab*) 150 mg PO 1700 [facility] Last Admin: 07/23/17 16:44 Dose: 150 mg Rivaroxaban (Xarelto(*)) 15 mg PO 2100 [facility] Last Admin: 07/23/17 19:56 Dose: 15 mg Simethicone (Mylicon Liq*) 40 mg PO BID PRN PRN Reason: INDIGESTION Tamsulosin HCl (Flomax Cap*) 0.4 mg PO BEDTIME [facility] Last Admin: 07/23/17 19:57 Dose: 0.4 mg Terazosin HCl (Hytrin Cap*) 10 mg PO BEDTIME [facility] Last Admin: 07/23/17 19:57 Dose: 10 mg Verapamil HCl (Calan Sr Cap*) 180 mg PO DAILY [facility] Last Admin: 07/24/17 13:22 Dose: 180 mg Verapamil HCl (Calan Sr Cap*) 360 mg PO BEDTIME [facility] Last Admin: 07/23/17 19:57 Dose: 360 mg Vital Signs 07/23/17 07/23/17 07/23/17 19:52 20:00 23:21 Temperature 99.0 F 99.2 F Pulse Rate 75 75 Respiratory 16 16 26 Rate Blood Pressure 159/66 133/51 (mmHg) O2 Sat by Pulse 97 94 Oximetry 07/24/17 07/24/17 07/24/17 03:44 08:00 08:24 Temperature 100.5 F 98.4 F Pulse Rate 80 81 Respiratory 24 16 19 Rate Blood Pressure 145/69 136/64 (mmHg) O2 Sat by Pulse 93 94 Oximetry Oxygen Devices in Use Now: None Appearance: Patient is a 77yo male who appears stated age and is sitting in the bed in [facility]. Eyes: No Scleral Icterus, PERRLA Ears/Nose/Mouth/Throat: Clear Oropharnyx, Mucous Membranes Moist, - - White covering in mouth unable to be scraped away consistent with thrush. Neck: NL Appearance and Movements; NL JVP, Trachea Midline Respiratory: Symmetrical Chest Expansion and Respiratory Effort, - - Mild course Rhonchi in B/L Lower lungs. Cardiovascular: RRR, - - 1+ edema. grade 3/6 systolic ejection murmur heard best at RUSB. Pulses 2+ in B/L radial, DP/PT areas. Abdominal: No Hepatosplenomegaly, - - Normoactive BS in all 4 quadrants. Diffusely tender to palpation without guarding. Lymphatic: No Cervical Adenopathy Extremities: No Clubbing, Cyanosis Skin: No Rash or Ulcers, No Nodules or Sclerosis Neurological: - - Left sided facial droop, leftward gaze deviation. Uncooperative with strength testing. Tongue extends to the midline, palate raises symmetrically. A/Ox2 Result Diagrams: 07/24/17 11:53 07/24/17 06:21 Additional Lab and Data: . Microbiology and Other Data: Microbiology 07/22/17 20:00 Influenza Types A,B Antigen ([facility]) - Final Nasal Specimen received for Influenza A/B Molecular testing Microbiology 07/22/17 17:30 Urine Culture - Final Urine Esbl Escherichia Coli 11/30/17 20:00 Influenza Types A,B Antigen ([facility]) - Final Nasal Specimen received for Influenza A/B Molecular testing Assess/Plan/Problems-Billing Assessment: Mr. Perales is a 76 year old male PMH [place], DM, pAfib on xarelto, moderate-severe aortic stenosis, HTN, CKD III, bipolar with recent ischemic CVA and multiple CT head showing chronic right parietal/occipital infarct presenting with confusion, agitation which is now improved however, patient developed a CAUTI while in the hospital which is now being treated. - Patient Problems (1) Urinary tract infection associated with catheterization of urinary tract Current Visit: Yes Status: Acute Code(s): T83.511A - I/I REACT D/T INDWELLING URETHRAL CATHETER, INIT; N39.0 - URINARY TRACT INFECTION, SITE NOT SPECIFIED SNOMED Code(s): 939458664 Comment: Patient had significant leukocytosis with fever. Now afebrile with WBCs of 19K. Positive suprapubic tenderness, and grossly positive UA. This was not present at admission. Patient has been catheterized for almost a month due to urinary retention. But is now voiding without residual. Culture grew ESBL E Coli, started on Meropenum. (2) Microcytic anemia Current Visit: Yes Status: Acute Code(s): D50.9 - IRON DEFICIENCY ANEMIA, UNSPECIFIED SNOMED Code(s): 906787830 Comment: Chronic. Likely due to CKD, Hb slowly increasing, now at 7.3. No signs of acute bleeding. Will recheck in AM. Will transfuse as needed below 7. (3) Atrial fibrillation Current Visit: Yes Status: Acute Code(s): I48.91 - UNSPECIFIED ATRIAL FIBRILLATION SNOMED Code(s): 37285832 Comment: Paced. Continue rivaroxaban and metoprolol. (4) Bipolar disorder Current Visit: Yes Status: Acute Comment: Appreciate psychiatry consultation. Cont Seroquel and Depakote. Depakote level 64. Will recheck tomorrow due to interaction with Meropenum lowering concentrations. (5) CKD stage 3 due to type 2 diabetes mellitus Current Visit: Yes Status: Acute Code(s): E11.22 - TYPE 2 DIABETES MELLITUS W DIABETIC CHRONIC KIDNEY DISEASE; N18.3 - CHRONIC KIDNEY DISEASE, STAGE 3 ( MODERATE) SNOMED Code(s): 684781178600 Comment: creat at baseline (6) CVA (cerebral vascular accident) Current Visit: Yes Status: Acute Code(s): I63.9 - CEREBRAL INFARCTION, UNSPECIFIED SNOMED Code(s): 034199948 Comment: Recent CVA with slurred speech and R sided weakness. Cont Plavix and Statin. (7) Dementia Current Visit: Yes Status: Acute Code(s): F03.90 - UNSPECIFIED DEMENTIA WITHOUT BEHAVIORAL DISTURBANCE SNOMED Code(s): 98835291 Comment: Pt has baseline dementia, likely vascular type, superimposed on prior dx of bipolar disorder. Seroquel increased 07/11 with a noontime dose Continue valproic acid. Compliant with medications but found to be pocketing and could not give a reason why. Will crush pills. (8) Diabetes Current Visit: Yes Status: Acute Code(s): E11.9 - TYPE 2 DIABETES MELLITUS WITHOUT COMPLICATIONS SNOMED Code(s): 32148480 Comment: BGs moderately well controlled. Lantus increased to 15u. Lispro sliding scale. Stopped glipizide due to frequent hypoglycemia. (9) Hypertension Current Visit: Yes Status: Acute Code(s): I10 - ESSENTIAL (PRIMARY) HYPERTENSION SNOMED Code(s): 28317824 Comment: Normotensive. Continue clonidine, losartan, norvasc, verapamil, metoprolol. Losartan increased to 50mg 07/02. (10) Urinary retention Current Visit: Yes Status: Acute Code(s): R33.9 - RETENTION OF URINE, UNSPECIFIED SNOMED Code(s): 287282851 Comment: Schrader removed due to UTI. Bladder scans showed no residual for 24hrs. Continue finasteride and Flomax. (11) AV block, 3rd degree Current Visit: No Status: Acute Code(s): I44.2 - ATRIOVENTRICULAR BLOCK, COMPLETE SNOMED Code(s): 39855755 Comment: PPM in place, followed by Dr. Keller. (12) Aortic stenosis Current Visit: No Status: Acute Code(s): I35.0 - NONRHEUMATIC AORTIC (VALVE ) STENOSIS SNOMED Code(s): 89978562 Comment: Moderate to severe on echo 03/31/2017. (13) CAD (coronary artery disease) Current Visit: No Status: Acute Code(s): I25.10 - ATHSCL HEART DISEASE OF [place] CORONARY ARTERY W/O ANG PCTRS SNOMED Code(s): 06084721 Comment: No evidence of ACS. Cont medical management (14) DVT prophylaxis Current Visit: Yes Status: Acute Code(s): JCI4850 - SNOMED Code(s): 799611017 Comment: Xarelto Status and Disposition: Admitted inpatient for IV ABX. Hopeful discharge Wednesday.
[2017-07-24] MEDS: Clotrimazole TROCHE* 10 MG TROCHE PO SCH ×2 (17:17→21:48)
[2017-07-24] MEDS: QUEtiapine TAB* 100 MG PO SCH (17:17)
[2017-07-24] MEDS ORDERED: cefTRIAXone VIAL(*) 1,000 MG in D5W 50 ML BAG* 50 ML IVPB SCH (21:00)
[2017-07-24] MEDS: Atorvastatin* 80 MG TAB PO SCH (21:46)
[2017-07-24] MEDS: Clopidogrel TAB* 75 MG PO SCH (21:47)
[2017-07-24] MEDS: Rivaroxaban TAB(*) 15 MG PO SCH (21:47)
[2017-07-24] MEDS: Losartan TAB* 25 MG PO SCH (21:47)
[2017-07-24] MEDS: Tamsulosin CAP* 0.4 MG PO SCH (21:48)
[2017-07-24] MEDS: Terazosin CAP* 5 MG PO SCH (21:48)
[2017-07-24] MEDS: Acetaminophen SUPP* 650 MG SUPP PR PRN (23:42)
[2017-07-25] MEDS: Clotrimazole TROCHE* 10 MG TROCHE PO SCH ×5 (05:47→21:59)
[2017-07-25] MEDS: Acetaminophen SUPP* 650 MG SUPP PR PRN (06:33)
--- NOTE | 2017-07-25 08:03 | RAD ---
INDICATION: Rhonchi on exam. COMPARISON: Chest x-ray dated July 22, 2017 TECHNIQUE: Single AP portable view of the chest was obtained. FINDINGS: Image quality is compromised due to the relative inferiority of a portable chest x-ray. The left upper chest cardiac pacemaker with 2 leads overlying the heart is unchanged in position. There is a mild degree of cardiomegaly similar in appearance to the previous chest x-ray. The lungs are grossly clear. There is no evidence of a large pleural effusion. Visualized bones are normal for the patient's age. IMPRESSION: No radiographic evidence for acute cardiopulmonary abnormality on this portable chest x-ray.
[2017-07-25 08:21] LABS: ABS Basophils 0 10^3/ul (0-0.2); ABS Eosinophils 0 10^3/ul (0-0.6); ABS Lymphocytes 1.2 10^3/ul (1.0-4.8); ABS Monocytes 1.5 10^3/ul (0-0.8); ABS Neutrophils 8.9 10^3/ul (1.5-7.7); ABS Nucleated RBC 0.01 10^3/ul; Eosinophil % 0 % (0-6); Hematocrit 20 % (42-52); Hemoglobin 6.6 g/dl (14.0-18.0); Mean Corpuscular HGB Conc 33 g/dl (31-36); Mean Corpuscular Hemoglobin 23 pg (27-31); Mean Platelet Volume 8 um3 (7.4-10.4); Nucleated Red Blood Cells % 0.1; Platelet Count 199 10^3/ul (150-450); Red Blood Count 2.82 10^6/ul (4.0-5.4); Red Cell Distribution Width 14 % (10.5-15); White Blood Count 11.7 10^3/ul (3.5-10.8)
[2017-07-25 08:22] LABS: Mean Corpuscular Volume 71 fL (80-94)
[2017-07-25 08:31] LABS: EGFR Non-African American 36.5 (>60)
[2017-07-25] MEDS: Meropenem 1 GM PREMIX(*) 1 GM/50 ML BAG IV SCH ×2 (10:22→22:32)
[2017-07-25] MEDS: Divalproex DR TAB(*) 250 MG PO SCH ×2 (10:39→22:32)
[2017-07-25] MEDS: Verapamil SR CAP* 180 MG PO SCH ×2 (10:39→21:59)
[2017-07-25] MEDS: Insulin GLARGINE(*) 1 UNITS UNIT SUBCUT SCH (10:39)
[2017-07-25] MEDS: QUEtiapine TAB* 25 MG PO SCH ×2 (10:40→12:37)
[2017-07-25] MEDS: Insulin LISPRO* 1 UNITS UNIT SUBCUT SCH ×4 (10:40→22:33)
[2017-07-25] MEDS: Finasteride TAB* 5 MG PO SCH (10:41)
[2017-07-25] MEDS: guaiFENesin ER TAB 600 MG PO SCH ×2 (10:41→22:33)
[2017-07-25] MEDS: Metoprolol Tartrate TAB* 100 MG TAB PO SCH ×2 (10:41→21:58)
[2017-07-25] MEDS: cloNIDine TAB* 0.1 MG PO SCH ×2 (10:41→21:58)
[2017-07-25] MEDS: Polyethylene Glycol 3350* 17 GM PACKET PO SCH ×3 (10:41→21:58)
[2017-07-25] MEDS: CMCS: Pantoprazole TAB (NF) 40 MG TAB PO SCH (10:41)
[2017-07-25] MEDS: Acetaminophen TAB* 325 MG PO PRN (13:21)
--- NOTE | 2017-07-25 16:42 | PN ---
Subjective Date of Service: 07/25/17 Interval History: Patient offers no complaints today. In a relatively good mood. Denies F/C, N/V, CP, SOB, Abdominal Pain, diarrhea, constipation, dysuria, dizziness, or other pain. However, Patient is visibly short of breath while conversing and sitting up to be examined. Family History: Unchanged from Admission Social History: Unchanged from Admission Past Medical History: Unchanged from Admission Objective Active Medications: Acetaminophen (Tylenol Tab*) 650 mg PO Q4H PRN PRN Reason: FEVER/PAIN Last Admin: 07/25/17 13:21 Dose: 650 mg Acetaminophen (Tylenol Supp*) [address] Q4H PRN PRN Reason: FEVER/PAIN Last Admin: 07/25/17 06:33 Dose: 650 mg Atorvastatin Calcium (Lipitor*) 80 mg PO 2100 [facility] Last Admin: 07/24/17 21:46 Dose: Not Given Clonidine HCl (Catapres Tab*) 0.1 mg PO BID [facility] Last Admin: 07/25/17 10:41 Dose: 0.1 mg Clopidogrel Bisulfate (Plavix Tab*) 75 mg PO 2100 [facility] Last Admin: 07/24/17 21:47 Dose: Not Given Clotrimazole (Mycelex Ben*) 10 mg PO FIVE TIMES DAILY [facility] Last Admin: 07/25/17 14:24 Dose: Not Given Dextrose (D50w Syringe 50 Ml*) 12.5 gm IV PUSH .FOR FS < 60 - SS PRN PRN Reason: FS < 60 Divalproex Sodium (Depakote Dr Tab(*)) 750 mg PO BID [facility] Last Admin: 07/25/17 10:39 Dose: 750 mg Finasteride (Proscar Tab*) 5 mg PO DAILY [facility] Last Admin: 07/25/17 10:41 Dose: 5 mg Guaifenesin (Mucinex*) 600 mg PO BID [facility] Last Admin: 07/25/17 10:41 Dose: 600 mg Hydralazine HCl (Apresoline Iv*) 5 mg IV SLOW PU Q6H PRN PRN Reason: BLOOD PRESSURE Last Admin: 07/05/17 21:26 Dose: 5 mg Meropenem (Merrem 1 Gm Premix(*)) 1 gm in 50 mls @ 100 mls/hr IV Q12HR [facility] Last Admin: 07/25/17 10:22 Dose: 100 mls/hr Insulin Glargine (Lantus(*)) 15 units SUBCUT Q24H [facility] Last Admin: 07/25/17 10:39 Dose: 15 units Insulin Human Lispro (Humalog*) 0 units SUBCUT ACHS [facility] PRN Reason: Protocol Last Admin: 07/25/17 12:36 Dose: 4 units Lidocaine HCl (Lidocaine 2% Jelly*) 1 applic TOPICAL Q2H PRN PRN Reason: PAIN Last Admin: 07/24/17 11:36 Dose: 1 applic Losartan Potassium (Cozaar Tab*) 50 mg PO BEDTIME [facility] Last Admin: 07/24/17 21:47 Dose: Not Given Melatonin (Melatonin (Nf)) 3 mg PO BEDTIME PRN; Protocol PRN Reason: Sleep Last Admin: 07/22/17 20:06 Dose: 3 mg Metoprolol Tartrate (Lopressor Tab*) 100 mg PO BID [facility] Last Admin: 07/25/17 10:41 Dose: 100 mg Pantoprazole Sodium (Protonix Tab (Nf)) 40 mg PO DAILY [facility] Last Admin: 07/25/17 10:41 Dose: Not Given Polyethylene Glycol/Electrolytes (Miralax*) 17 gm PO 0800,2100 [facility] Last Admin: 07/25/17 11:26 Dose: Not Given Quetiapine Fumarate (Seroquel Tab*) 50 mg PO DAILY [facility] Last Admin: 07/25/17 10:40 Dose: 50 mg Quetiapine Fumarate (Seroquel Tab*) 50 mg PO 1200 [facility] Last Admin: 07/25/17 12:37 Dose: 50 mg Quetiapine Fumarate (Seroquel Tab*) 150 mg PO 1700 [facility] Last Admin: 07/24/17 17:17 Dose: 150 mg Rivaroxaban (Xarelto(*)) 15 mg PO 2100 [facility] Last Admin: 07/24/17 21:47 Dose: Not Given Simethicone (Mylicon Liq*) 40 mg PO BID PRN PRN Reason: INDIGESTION Last Admin: 07/24/17 21:04 Dose: 40 mg Tamsulosin HCl (Flomax Cap*) 0.4 mg PO BEDTIME [facility] Last Admin: 07/24/17 21:48 Dose: Not Given Terazosin HCl (Hytrin Cap*) 10 mg PO BEDTIME [facility] Last Admin: 07/24/17 21:48 Dose: Not Given Verapamil HCl (Calan Sr Cap*) 180 mg PO DAILY [facility] Last Admin: 07/25/17 10:39 Dose: 180 mg Verapamil HCl (Calan Sr Cap*) 360 mg PO BEDTIME [facility] Last Admin: 07/24/17 21:48 Dose: Not Given Vital Signs 07/24/17 07/24/17 07/24/17 19:48 20:00 23:31 Temperature 102.8 F 101.8 F 102.9 F Pulse Rate 85 90 Respiratory 22 18 24 Rate Blood Pressure 153/56 158/72 (mmHg) O2 Sat by Pulse 97 90 Oximetry 07/25/17 07/25/17 07/25/17 02:31 08:00 08:43 Temperature 100.1 F 98.4 F Pulse Rate 93 Respiratory 20 28 Rate Blood Pressure 153/67 (mmHg) O2 Sat by Pulse 94 Oximetry 07/25/17 07/25/17 07/25/17 11:32 12:26 14:52 Temperature 98.9 F 99 F 97.9 F Pulse Rate 87 72 63 Respiratory 18 20 18 Rate Blood Pressure 150/59 134/56 135/78 (mmHg) O2 Sat by Pulse 98 97 95 Oximetry Oxygen Devices in Use Now: None Appearance: Patient is a 77yo male who has an obvious facial droop and is sitting in the bed in [facility]. Eyes: No Scleral Icterus, PERRLA Ears/Nose/Mouth/Throat: NL Teeth, Lips, Gums, Clear Oropharnyx, Mucous Membranes Moist, - - Pale mucus membranes Neck: NL Appearance and Movements; NL JVP, Trachea Midline Respiratory: Symmetrical Chest Expansion and Respiratory Effort, - - Rhonchi in lower lobes that resolve with repeated deep inspiration. Cardiovascular: RRR, No Edema, - - S1 and S2 present, Grade 3/6 systolic ejection murmur heard best at RUSB. Abdominal: NL Sounds; No Tenderness; No Distention, No Hepatosplenomegaly Lymphatic: No Cervical Adenopathy Extremities: No Edema, No Clubbing, Cyanosis Skin: No Rash or Ulcers, No Nodules or Sclerosis Neurological: - - A/Ox3, stable neurological deficits. Result Diagrams: 07/25/17 08:06 07/25/17 08:06 Additional Lab and Data: . Microbiology and Other Data: Microbiology 07/22/17 20:00 Influenza Types A,B Antigen ([facility]) - Final Nasal Specimen received for Influenza A/B Molecular testing Microbiology 07/22/17 17:30 Urine Culture - Final Urine Esbl Escherichia Coli 07/22/17 20:00 Influenza Types A,B Antigen ([facility]) - Final Nasal Specimen received for Influenza A/B Molecular testing Assess/Plan/Problems-Billing Assessment: Mr. Perales is a 76 year old male PMH [place], DM, pAfib on xarelto, moderate-severe aortic stenosis, HTN, CKD III, bipolar with recent ischemic CVA and multiple CT head showing chronic right parietal/occipital infarct presenting with confusion, agitation which is now improved however, patient developed a CAUTI while in the hospital which is now being treated. - Patient Problems (1) Urinary tract infection associated with catheterization of urinary tract Current Visit: Yes Status: Acute Code(s): T83.511A - I/I REACT D/T INDWELLING URETHRAL CATHETER, INIT; N39.0 - URINARY TRACT INFECTION, SITE NOT SPECIFIED SNOMED Code(s): 045320901 Comment: Patient had significant leukocytosis with fever. Now afebrile with WBCs of 19K. Positive suprapubic tenderness, and grossly positive UA. This was not present at admission. Patient has been catheterized for almost a month due to urinary retention. But is now voiding without residual. Culture grew ESBL E Coli, started on Meropenum day 2. ID consult. (2) Microcytic anemia Current Visit: Yes Status: Acute Code(s): D50.9 - IRON DEFICIENCY ANEMIA, UNSPECIFIED SNOMED Code(s): 837387331 Comment: Chronic. Likely due to CKD, Hb decreased to 6.6. No signs of acute bleeding. Hemoccult ordered and not collected yet. Transfused 1 unit, Recheck pending. Will recheck iron panel and supplement as needed. Will check EPO level, if low, will give epogen. Likely cause of SOB as CXR is normal. Will monitor for resolution as Hb increases. (3) Atrial fibrillation Current Visit: Yes Status: Acute Code(s): I48.91 - UNSPECIFIED ATRIAL FIBRILLATION SNOMED Code(s): 00498340 Comment: Paced. Continue rivaroxaban and metoprolol. (4) Bipolar disorder Current Visit: Yes Status: Acute Comment: Appreciate psychiatry consultation. Cont Seroquel and Depakote. Depakote level 16, likely due to meropenum interaction. Will monitor cloesly for signs of nohemy and depression. (5) CKD stage 3 due to type 2 diabetes mellitus Current Visit: Yes Status: Acute Code(s): E11.22 - TYPE 2 DIABETES MELLITUS W DIABETIC CHRONIC KIDNEY DISEASE; N18.3 - CHRONIC KIDNEY DISEASE, STAGE 3 ( MODERATE) SNOMED Code(s): 765943651323 Comment: creat at baseline (6) CVA (cerebral vascular accident) Current Visit: Yes Status: Acute Code(s): I63.9 - CEREBRAL INFARCTION, UNSPECIFIED SNOMED Code(s): 263930794 Comment: Recent CVA with slurred speech and R sided weakness. Cont Plavix and Statin. (7) Dementia Current Visit: Yes Status: Acute Code(s): F03.90 - UNSPECIFIED DEMENTIA WITHOUT BEHAVIORAL DISTURBANCE SNOMED Code(s): 32799459 Comment: Pt has baseline dementia, likely vascular type, superimposed on prior dx of bipolar disorder. Seroquel increased 07/11 with a noontime dose Continue valproic acid. Compliant with medications but found to be pocketing and could not give a reason why. Will crush pills. (8) Diabetes Current Visit: Yes Status: Acute Code(s): E11.9 - TYPE 2 DIABETES MELLITUS WITHOUT COMPLICATIONS SNOMED Code(s): 04506394 Comment: BGs moderately well controlled. Lantus increased to 15u. Lispro sliding scale. Stopped glipizide due to frequent hypoglycemia. (9) Hypertension Current Visit: Yes Status: Acute Code(s): I10 - ESSENTIAL (PRIMARY) HYPERTENSION SNOMED Code(s): 25394544 Comment: Normotensive. Continue clonidine, losartan, norvasc, verapamil, metoprolol. Losartan increased to 50mg 07/02. (10) Urinary retention Current Visit: Yes Status: Acute Code(s): R33.9 - RETENTION OF URINE, UNSPECIFIED SNOMED Code(s): 793363796 Comment: Schrader removed due to UTI. Bladder scans showed no residual for 24hrs. Continue finasteride and Flomax. (11) AV block, 3rd degree Current Visit: No Status: Acute Code(s): I44.2 - ATRIOVENTRICULAR BLOCK, COMPLETE SNOMED Code(s): 99920799 Comment: PPM in place, followed by Dr. Keller. (12) Aortic stenosis Current Visit: No Status: Acute Code(s): I35.0 - NONRHEUMATIC AORTIC (VALVE ) STENOSIS SNOMED Code(s): 65980617 Comment: Moderate to severe on echo 03/31/2017. (13) CAD (coronary artery disease) Current Visit: No Status: Acute Code(s): I25.10 - ATHSCL HEART DISEASE OF [place] CORONARY ARTERY W/O ANG PCTRS SNOMED Code(s): 89447429 Comment: No evidence of ACS. Cont medical management (14) DVT prophylaxis Current Visit: Yes Status: Acute Code(s): AEO6341 - SNOMED Code(s): 917621043 Comment: [place] Status and Disposition: Admitted inpatient for IV ABX. Hopeful discharge Wednesday.
[2017-07-25] MEDS: QUEtiapine TAB* 100 MG PO SCH ×3 (17:37→17:42)
[2017-07-25 18:48] LABS: ABS Basophils 0 10^3/ul (0-0.2); ABS Eosinophils 0 10^3/ul (0-0.6); ABS Lymphocytes 1.4 10^3/ul (1.0-4.8); ABS Nucleated RBC 0 10^3/ul; Eosinophil % 0.3 % (0-6); Hematocrit 23 % (42-52); Hemoglobin 7.4 g/dl (14.0-18.0); Lymphocyte % 14.2 % (25-47); Mean Corpuscular HGB Conc 33 g/dl (31-36); Mean Corpuscular Hemoglobin 24 pg (27-31); Mean Corpuscular Volume 74 fL (80-94); Mean Platelet Volume 8 um3 (7.4-10.4); Nucleated Red Blood Cells % 0; Platelet Count 178 10^3/ul (150-450); Red Blood Count 3.04 10^6/ul (4.0-5.4); Red Cell Distribution Width 15 % (10.5-15); White Blood Count 10.2 10^3/ul (3.5-10.8)
[2017-07-25 18:49] LABS: ABS Monocytes 1.6 10^3/ul (0-0.8)
[2017-07-25] MEDS: Terazosin CAP* 5 MG PO SCH (21:58)
[2017-07-25] MEDS: Losartan TAB* 25 MG PO SCH (21:58)
[2017-07-25] MEDS: Rivaroxaban TAB(*) 15 MG PO SCH (22:32)
[2017-07-25] MEDS: Atorvastatin* 80 MG TAB PO SCH (22:32)
[2017-07-25] MEDS: Tamsulosin CAP* 0.4 MG PO SCH (22:32)
[2017-07-25] MEDS: Clopidogrel TAB* 75 MG PO SCH (22:33)
[2017-07-26] MEDS: Acetaminophen SUPP* 650 MG SUPP PR PRN (03:48)
[2017-07-26] MEDS: Clotrimazole TROCHE* 10 MG TROCHE PO SCH ×5 (05:32→22:20)
[2017-07-26] MEDS: Acetaminophen TAB* 325 MG PO PRN (08:42)
[2017-07-26] MEDS: Ferrous Sulfate TAB* 325 MG PO SCH (08:44)
[2017-07-26] MEDS: QUEtiapine TAB* 25 MG PO SCH ×2 (08:45→12:23)
[2017-07-26] MEDS: Verapamil SR CAP* 180 MG PO SCH ×2 (08:46→22:19)
[2017-07-26] MEDS: Divalproex DR TAB(*) 250 MG PO SCH ×2 (08:46→22:18)
[2017-07-26] MEDS: Finasteride TAB* 5 MG PO SCH (08:47)
[2017-07-26] MEDS: Metoprolol Tartrate TAB* 100 MG TAB PO SCH ×2 (08:47→22:20)
[2017-07-26] MEDS: cloNIDine TAB* 0.1 MG PO SCH ×2 (08:47→22:19)
[2017-07-26] MEDS: guaiFENesin ER TAB 600 MG PO SCH ×2 (08:47→22:19)
[2017-07-26] MEDS: Insulin LISPRO* 1 UNITS UNIT SUBCUT SCH ×4 (08:55→22:18)
[2017-07-26] MEDS: Polyethylene Glycol 3350* 17 GM PACKET PO SCH (08:56)
[2017-07-26] MEDS: Insulin GLARGINE(*) 1 UNITS UNIT SUBCUT SCH (08:56)
[2017-07-26] MEDS: Meropenem 1 GM PREMIX(*) 1 GM/50 ML BAG IV SCH (09:03)
[2017-07-26] MEDS: Losartan TAB* 25 MG PO SCH (10:38)
[2017-07-26] MEDS: CMCS: Pantoprazole TAB (NF) 40 MG TAB PO SCH (10:39)
[2017-07-26 15:44] LABS: Hematocrit 23 % (42-52); Hemoglobin 7.5 g/dl (14.0-18.0); Mean Corpuscular HGB Conc 33 g/dl (31-36); Mean Corpuscular Hemoglobin 24 pg (27-31); Mean Corpuscular Volume 75 fL (80-94); Mean Platelet Volume 8 um3 (7.4-10.4); Platelet Count 191 10^3/ul (150-450); Red Cell Distribution Width 16 % (10.5-15); White Blood Count 9.5 10^3/ul (3.5-10.8)
--- NOTE | 2017-07-26 16:32 | CONS ---
CONSULTATION REPORT: DATE OF CONSULTATION: 07/26/17 REQUESTING PHYSICIAN: KD Rodriguez. CONSULTING SERVICE: Infectious Disease. REASON FOR CONSULTATION: Fever, cystitis. IMPRESSION: 1. Fever. Found to have cystitis. Urinalysis showed blood, leukocyte esterase. Urine culture on grew an E. coli, which is an ESBL creative producer, greater than 100,000 colonies, sensitive to Augmentin, Bactrim, tetracycline, meropenem, Zosyn; resistant to Cipro and Levaquin. 2. Admission with delirium. 3. Seizure disorder. 4. History of basal ganglia stroke. RECOMMENDATIONS: 1. We will stop his meropenem, start doxycycline 100 mg by mouth twice daily for another 10 days for a complicated urinary tract infection. 2. If he is not improving, we will plan on a renal ultrasound to rule out stone or obstruction, which at this point seems unlikely given his lack of flank pain and improving renal function. HISTORY OF PRESENT ILLNESS: This is a 77-year-old man with dementia and dysarthria, admitted with change in mental status on 06/24/17. He was followed by Psychiatry here for that as well as the hospitalist service. On 07/22/17, he developed a fever. Urinalysis was sent with findings as above including urine culture. Blood cultures were negative. Influenza PCR negative. He was started on meropenem when specimen came back. His temperature is trending down , was 39.3 on the 2nd and the highest today was 38.1 this morning. He denies pain. He has had occasional loose stool. He was not aware of the fever. He cannot provide much of the history given his mental status, which was obtained instead from review of the medical record, discussion with KD Rodriguez and discussion with his nurse. PAST MEDICAL HISTORY: 1. Left basal ganglia stroke with right-sided weakness, dysarthria, left facial droop. 2. Uncontrolled hypertension. 3. Bipolar disease. 4. Coronary artery disease, history of NC. 5. Type 2 diabetes. 6. Third degree heart block, status post pacemaker placement. 7. Chronic kidney disease, stage 3. 8. Diabetic nephropathy. 9. Severe aortic stenosis. 10. Depression. 11. Dyslipidemia. 12. Atrial fibrillation. 13. Cataract surgery. 14. Status post cholecystectomy. 15. History of coronary stent in 2007. MEDICATIONS: 1. Tylenol. 2. Lipitor. 3. Clonidine. 4. Plavix. 5. Depakote. 6. Ferrous sulfate. 7. Finasteride. 8. Losartan. 9. Metoprolol. 10. Melatonin. 11. Seroquel. 12. Pantoprazole. 13. Rivaroxaban. 14. Simethicone. 15. Tamsulosin. 16. Terazosin. 17. Verapamil. 18. Meropenem 1 g every 12 hours. ALLERGIES: PENICILLIN caused unknown reaction. FAMILY HISTORY: Father at 106. Mother of breast cancer. SOCIAL HISTORY: Nonsmoker. Lives with his . REVIEW OF SYSTEMS: Difficult to obtain given his dysarthria and difficulty in answering questions. PHYSICAL EXAM: Vital Signs: Temperature is 38, heart rate 80, respiratory rate 20, blood pressure 150/80, O2 sat 97% on room air. General: He is awake, not in distress. Neurologic: He answers some questions, follows commands. Speech is dysarthric. HEENT: There is no conjunctival hemorrhage. Oropharynx without lesions. Neck: Supple. Lymph nodes: There is no inguinal, axillary, or epitrochlear lymphadenopathy. Heart: Regular rate and rhythm without murmurs, rubs, or gallops. Lungs: Clear to auscultation bilaterally. Abdomen : Soft, nontender, nondistended. There are bowel sounds present. Skin: There is no rash or splinter hemorrhages. LABORATORY DATA: White blood cell count 10, hemoglobin 7, platelets 178,000. Creatinine is 1.8. Please see impressions and recommendations outlined above. Thank you for asking me to see Mr. Perales in consultation. [id number]/[facility] #: [id number] AYO
[2017-07-26 17:28] LABS: Monocytes % 14 % (0-13)
[2017-07-26 17:29] LABS: Schistocytes 1+
[2017-07-26 17:31] LABS: ABS Basophils 0 10^3/ul (0-0.2); ABS Eosinophils 0.3 10^3/ul (0-0.6); ABS Lymphocytes 2.2 10^3/ul (1.0-4.8); ABS Monocytes 1.3 10^3/ul (0-0.8); ABS Neutrophils 5.7 10^3/ul (1.5-7.7); ABS Nucleated RBC 0 10^3/ul
[2017-07-26] MEDS: QUEtiapine TAB* 100 MG PO SCH (18:25)
--- NOTE | 2017-07-26 18:29 | PN ---
Subjective Date of Service: 07/26/17 Interval History: Patient in a very pleasant mood. Patient denies any complaints. Patient had a fever up to 102 this morning. Patient has been hypertensive since having medications held last night for relative hypotension. Patient denies any other pain. Patient A/OX2. Family History: Unchanged from Admission Social History: Unchanged from Admission Past Medical History: Unchanged from Admission Objective Active Medications: Acetaminophen (Tylenol Tab*) 650 mg PO Q4H PRN PRN Reason: FEVER/PAIN Last Admin: 07/26/17 08:42 Dose: 650 mg Acetaminophen (Tylenol Supp*) 650 mg CO Q4H PRN PRN Reason: FEVER/PAIN Last Admin: 07/26/17 03:48 Dose: 650 mg Atorvastatin Calcium (Lipitor*) 80 mg PO 2100 [facility] Last Admin: 07/25/17 22:32 Dose: 80 mg Clonidine HCl (Catapres Tab*) 0.1 mg PO BID [facility] Last Admin: 07/26/17 08:47 Dose: 0.1 mg Clopidogrel Bisulfate (Plavix Tab*) 75 mg PO 2100 [facility] Last Admin: 07/25/17 22:33 Dose: 75 mg Clotrimazole (Mycelex Ben*) 10 mg PO FIVE TIMES DAILY [facility] Last Admin: 07/26/17 16:04 Dose: Not Given Dextrose (D50w Syringe 50 Ml*) 12.5 gm IV PUSH .FOR FS < 60 - SS PRN PRN Reason: FS < 60 Divalproex Sodium (Depakote Dr Tab(*)) 750 mg PO BID [facility] Last Admin: 07/26/17 08:46 Dose: 750 mg Doxycycline Hyclate (Vibramycin Cap(*)) 100 mg PO BID [facility] Ferrous Sulfate (Ferrous Sulfate Tab*) 325 mg PO DAILY [facility] Last Admin: 07/26/17 08:44 Dose: 325 mg Finasteride (Proscar Tab*) 5 mg PO DAILY [facility] Last Admin: 07/26/17 08:47 Dose: 5 mg Guaifenesin (Mucinex*) 600 mg PO BID [facility] Last Admin: 07/26/17 08:47 Dose: 600 mg Heparin Sodium (Porcine) (Heparin Flush Picc/Ml/Cvc(*)) 1 ml FLUSH 0600,1800 [facility] PRN Reason: Protocol Hydralazine HCl (Apresoline Iv*) 5 mg IV SLOW PU Q6H PRN PRN Reason: BLOOD PRESSURE Last Admin: 07/05/17 21:26 Dose: 5 mg Insulin Glargine (Lantus(*)) 15 units SUBCUT Q24H [facility] Last Admin: 07/26/17 08:56 Dose: 15 units Insulin Human Lispro (Humalog*) 0 units SUBCUT ACHS NILDA PRN Reason: Protocol Last Admin: 07/26/17 12:22 Dose: 2 units Lidocaine HCl (Lidocaine 2% Jelly*) 1 applic TOPICAL Q2H PRN PRN Reason: PAIN Last Admin: 07/24/17 11:36 Dose: 1 applic Losartan Potassium (Cozaar Tab*) 50 mg PO DAILY [facility] Last Admin: 07/26/17 10:38 Dose: 50 mg Melatonin (Melatonin (Nf)) 3 mg PO BEDTIME PRN; Protocol PRN Reason: Sleep Last Admin: 07/22/17 20:06 Dose: 3 mg Metoprolol Tartrate (Lopressor Tab*) 100 mg PO BID [facility] Last Admin: 07/26/17 08:47 Dose: 100 mg Pantoprazole Sodium (Protonix Tab (Nf)) 40 mg PO DAILY [facility] Last Admin: 07/26/17 10:39 Dose: 40 mg Quetiapine Fumarate (Seroquel Tab*) 50 mg PO DAILY [facility] Last Admin: 07/26/17 08:45 Dose: 50 mg Quetiapine Fumarate (Seroquel Tab*) 50 mg PO 1200 [facility] Last Admin: 07/26/17 12:23 Dose: 50 mg Quetiapine Fumarate (Seroquel Tab*) 150 mg PO 1700 [facility] Last Admin: 07/25/17 17:42 Dose: Not Given Rivaroxaban (Xarelto(*)) 15 mg PO 2100 [facility] Last Admin: 07/25/17 22:32 Dose: 15 mg Simethicone (Mylicon Liq*) 40 mg PO BID PRN PRN Reason: INDIGESTION Last Admin: 07/24/17 21:04 Dose: 40 mg Tamsulosin HCl (Flomax Cap*) 0.4 mg PO BEDTIME [facility] Last Admin: 07/25/17 22:32 Dose: 0.4 mg Terazosin HCl (Hytrin Cap*) 10 mg PO BEDTIME [facility] Last Admin: 07/25/17 21:58 Dose: Not Given Verapamil HCl (Calan Sr Cap*) 180 mg PO DAILY [facility] Last Admin: 07/26/17 08:46 Dose: 180 mg Verapamil HCl (Calan Sr Cap*) 360 mg PO BEDTIME [facility] Last Admin: 07/25/17 21:59 Dose: Not Given Vital Signs 07/25/17 07/25/17 07/25/17 20:00 21:56 23:47 Temperature 98.3 F 99.6 F Pulse Rate 64 81 Respiratory 18 18 20 Rate Blood Pressure 112/75 166/72 (mmHg) O2 Sat by Pulse 98 99 Oximetry 07/26/17 07/26/17 07/26/17 03:56 08:13 10:50 Temperature 100.5 F 102.0 F 99.3 F Pulse Rate 85 84 69 Respiratory 20 24 Rate Blood Pressure 151/80 174/71 131/58 (mmHg) O2 Sat by Pulse 97 99 Oximetry 07/26/17 07/26/17 11:36 16:27 Temperature 99.0 F 98.2 F Pulse Rate 64 65 Respiratory 20 18 Rate Blood Pressure 125/56 165/61 (mmHg) O2 Sat by Pulse 94 98 Oximetry Oxygen Devices in Use Now: None Appearance: Patient is a 77yo male who appears stated age, has an obivous facial droop and is sitting in the bed in NAD. Eyes: No Scleral Icterus, PERRLA Ears/Nose/Mouth/Throat: Clear Oropharnyx, Mucous Membranes Moist, - - White covering on tongue and buccal mucosa. Neck: NL Appearance and Movements; NL JVP, Trachea Midline Respiratory: Symmetrical Chest Expansion and Respiratory Effort, - - Rhonchi in lower lobes that diminish with deep breathing. Cardiovascular: RRR, No Edema, - - Grade 3/6 murmur heard best at RUSB Abdominal: No Hepatosplenomegaly, - - Hypoactive bowel sounds in all 4 quadrants. no tenderness or distention. Lymphatic: No Cervical Adenopathy Extremities: No Edema, No Clubbing, Cyanosis Skin: No Rash or Ulcers, No Nodules or Sclerosis Neurological: - - Stable neurological deficits. Result Diagrams: 07/26/17 15:15 07/25/17 08:06 Additional Lab and Data: . Microbiology and Other Data: Microbiology 07/22/17 20:00 Influenza Types A,B Antigen (KULWANT) - Final Nasal Specimen received for Influenza A/B Molecular testing Microbiology 07/22/17 17:30 Urine Culture - Final Urine Esbl Escherichia Coli 07/22/17 20:00 Influenza Types A,B Antigen (KULWANT) - Final Nasal Specimen received for Influenza A/B Molecular testing Assess/Plan/Problems-Billing Assessment: Mr. Perales is a 76 year old male PMH PR, DM, pAfib on xarelto, moderate-severe aortic stenosis, HTN, CKD III, bipolar with recent ischemic CVA and multiple CT head showing chronic right parietal/occipital infarct presenting with confusion, agitation which is now improved however, patient developed a CAUTI while in the hospital which is now being treated. - Patient Problems (1) Urinary tract infection associated with catheterization of urinary tract Current Visit: Yes Status: Acute Code(s): T83.511A - I/I REACT D/T INDWELLING URETHRAL CATHETER, INIT; N39.0 - URINARY TRACT INFECTION, SITE NOT SPECIFIED SNOMED Code(s): 305257087 Comment: Patient had significant leukocytosis with fever. Now intermittently febrile up to 102 with WBCs of 9K. No more suprapubic tenderness. Patient has been catheterized for almost a month due to urinary retention. But is now voiding without residual. Culture grew ESBL E Coli, 2 days of Meropenum. Doxycycline for 10 days started. Appreciate ID consult. Recommends US of kidneys if no improvement. (2) Microcytic anemia Current Visit: Yes Status: Acute Code(s): D50.9 - IRON DEFICIENCY ANEMIA, UNSPECIFIED SNOMED Code(s): 566677127 Comment: Chronic. Hb decreased to 6.6 on 07/26. Up to 7.6 today. Hemoccult ordered and positive. Stopped Plavix and Xarelto. Will consult GI in morning. Transfused 1 unit on 07/26. Iron Panel shows low iron and %Sat. Normal Ferritin likely due to acute phase reactent. EPO level pending, if low or normal, will consider giving epogen. No SOB today. Would recommend follow up outpatient with hematology if no resonse to iron. (3) Atrial fibrillation Current Visit: Yes Status: Acute Code(s): I48.91 - UNSPECIFIED ATRIAL FIBRILLATION SNOMED Code(s): 14913197 Comment: Paced. Continue rivaroxaban and metoprolol. (4) Bipolar disorder Current Visit: Yes Status: Acute Comment: Appreciate psychiatry consultation. Cont Seroquel and Depakote. Depakote level 16, likely due to meropenum interaction. Will monitor cloesly for signs of nohemy and depression. (5) CKD stage 3 due to type 2 diabetes mellitus Current Visit: Yes Status: Acute Code(s): E11.22 - TYPE 2 DIABETES MELLITUS W DIABETIC CHRONIC KIDNEY DISEASE; N18.3 - CHRONIC KIDNEY DISEASE, STAGE 3 ( MODERATE) SNOMED Code(s): 982741338419 Comment: creat at baseline (6) CVA (cerebral vascular accident) Current Visit: Yes Status: Acute Code(s): I63.9 - CEREBRAL INFARCTION, UNSPECIFIED SNOMED Code(s): 780819352 Comment: Recent CVA with slurred speech and R sided weakness. Cont Plavix and Statin. (7) Dementia Current Visit: Yes Status: Acute Code(s): F03.90 - UNSPECIFIED DEMENTIA WITHOUT BEHAVIORAL DISTURBANCE SNOMED Code(s): 49660074 Comment: Pt has baseline dementia, likely vascular type, superimposed on prior dx of bipolar disorder. Seroquel increased 07/11 with a noontime dose Continue valproic acid. Compliant with medications but found to be pocketing and could not give a reason why. Will crush pills. (8) Diabetes Current Visit: Yes Status: Acute Code(s): E11.9 - TYPE 2 DIABETES MELLITUS WITHOUT COMPLICATIONS SNOMED Code(s): 24577006 Comment: BGs moderately well controlled. Lantus increased to 15u. Lispro sliding scale. Stopped glipizide due to frequent hypoglycemia. (9) Hypertension Current Visit: Yes Status: Acute Code(s): I10 - ESSENTIAL (PRIMARY) HYPERTENSION SNOMED Code(s): 23808909 Comment: Hypertensive in AM. Now normotensive. Medications held last night due to relative hypotension. Continue clonidine, losartan, norvasc, verapamil, metoprolol. Losartan increased to 50mg 07/02 and switched to AM today. (10) Urinary retention Current Visit: Yes Status: Acute Code(s): R33.9 - RETENTION OF URINE, UNSPECIFIED SNOMED Code(s): 245009101 Comment: Schrader removed due to UTI. Bladder scans showed no residual for 24hrs. Continue finasteride and Flomax. (11) AV block, 3rd degree Current Visit: No Status: Acute Code(s): I44.2 - ATRIOVENTRICULAR BLOCK, COMPLETE SNOMED Code(s): 15118004 Comment: PPM in place, followed by Dr. Keller. (12) Aortic stenosis Current Visit: No Status: Acute Code(s): I35.0 - NONRHEUMATIC AORTIC (VALVE ) STENOSIS SNOMED Code(s): 46518065 Comment: Moderate to severe on echo 03/31/2017. (13) CAD (coronary artery disease) Current Visit: No Status: Acute Code(s): I25.10 - ATHSCL HEART DISEASE OF [place] CORONARY ARTERY W/O ANG PCTRS SNOMED Code(s): 88673399 Comment: No evidence of ACS. Cont medical management (14) DVT prophylaxis Current Visit: Yes Status: Acute Code(s): CUI5517 - SNOMED Code(s): 042183758 Comment: Xarelto Status and Disposition: Admitted inpatient for IV ABX. Hopeful discharge tomorrow if Hb stable.
[2017-07-26] MEDS: Atorvastatin* 80 MG TAB PO SCH (22:18)
[2017-07-26] MEDS: Terazosin CAP* 5 MG PO SCH (22:19)
[2017-07-26] MEDS: DOXYcycline CAP(*) 100 MG PO SCH (22:19)
[2017-07-26] MEDS: CMCS: Melatonin (NF) 3 MG TAB PO PRN (22:19)
[2017-07-26] MEDS: Tamsulosin CAP* 0.4 MG PO SCH (22:19)
[2017-07-27] MEDS: Acetaminophen TAB* 325 MG PO PRN (05:46)
[2017-07-27] MEDS: Clotrimazole TROCHE* 10 MG TROCHE PO SCH ×3 (05:46→12:40)
[2017-07-27 06:14] LABS: ABS Basophils 0.1 10^3/ul (0-0.2); ABS Eosinophils 0.3 10^3/ul (0-0.6); ABS Lymphocytes 2.6 10^3/ul (1.0-4.8); ABS Monocytes 2.3 10^3/ul (0-0.8); ABS Neutrophils 5.7 10^3/ul (1.5-7.7); ABS Nucleated RBC 0 10^3/ul; Corrected Retic Count 0.3 % (0.5-1.5); Hematocrit 24 % (42-52); Hematocrit for Retic CNT 24 % (42-52); Hemoglobin 7.9 g/dl (14.0-18.0); Immature Retic Fraction 0.39; Mean Corpuscular HGB Conc 33 g/dl (31-36); Mean Corpuscular Hemoglobin 24 pg (27-31); Mean Platelet Volume 8 um3 (7.4-10.4); Platelet Count 217 10^3/ul (150-450); RBC Retic Count 3.24 10^6/ul (4.6-6.2); Red Blood Count 3.24 10^6/ul (4.0-5.4); Red Cell Distribution Width 16 % (10.5-15)
[2017-07-27 06:25] LABS: Mean Corpuscular Volume 74 fL (80-94)
[2017-07-27 06:26] LABS: EGFR Non-African American 51.2 (>60)
[2017-07-27] MEDS: Insulin LISPRO* 1 UNITS UNIT SUBCUT SCH ×3 (07:56→17:43)
[2017-07-27 08:02] LABS: Monocytes % 13 % (0-13)
[2017-07-27 08:05] LABS: Schistocytes 1+
[2017-07-27] MEDS ORDERED: Omeprazole CAP* 20 MG PO SCH (09:00)
[2017-07-27] MEDS: Insulin GLARGINE(*) 1 UNITS UNIT SUBCUT SCH (10:14)
[2017-07-27] MEDS: DOXYcycline CAP(*) 100 MG PO SCH (10:30)
[2017-07-27] MEDS: Divalproex DR TAB(*) 250 MG PO SCH (10:34)
[2017-07-27] MEDS: Losartan TAB* 25 MG PO SCH (10:36)
[2017-07-27] MEDS: QUEtiapine TAB* 25 MG PO SCH ×2 (10:37→12:38)
[2017-07-27] MEDS: Ferrous Sulfate TAB* 325 MG PO SCH (10:37)
[2017-07-27] MEDS: Verapamil SR CAP* 180 MG PO SCH (10:39)
[2017-07-27] MEDS: cloNIDine TAB* 0.1 MG PO SCH (10:41)
[2017-07-27] MEDS: Finasteride TAB* 5 MG PO SCH (10:41)
[2017-07-27] MEDS: Metoprolol Tartrate TAB* 100 MG TAB PO SCH (10:41)
[2017-07-27] MEDS: guaiFENesin ER TAB 600 MG PO SCH (10:45)
[2017-07-27 14:47] VITALS: BP 139/24
--- NOTE | 2017-07-27 17:00 | DS ---
Addendum to discharge summary from Aide Fischer NP from 07/22/2017. DATE OF ADMISSION: 07/24/2017. NEW EXPECTED DATE OF DISCHARGE: 07/27/2017. ATTENDING PHYSICIAN: Sera Santana MD * (DICTATED BY KD GAMBLE) ADDITIONAL PRIMARY DIAGNOSES: Urinary tract infection due to extended spectrum beta lactamase E. 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 ADDITIONAL STUDIES DONE WHILE IN THE HOSPITAL: 1. Electrocardiogram from 07/23/2017 showed flat T-waves in V4, V5 and V6. No significant changes since the previous record. 2. Chest x-ray from 07/22/2017 read as no active disease. 3. Chest x-ray from 07/25/2017 read as no radiographic evidence for acute cardiopulmonary abnormalities in this portable chest x-ray. ADDITIONAL CONSULTING PROVIDERS: Dr. Guille Lindo of Infectious Disease and Dr. Hung Stephens of Gastroenterology. MEDICATIONS CHANGES: Discontinued medications: 1. Lantus 10 units subcu q.24 hours. 2. Xarelto 15 mg p.o. oral daily. New medications at discharge: 1. Lantus 15 units subcutaneous every 24 hours. 2. Doxycycline 100 mg p.o. b.i.d. for 9 more days. 3. Clotrimazole Ben 10 mg p.o. 5 times daily. 4. Ferrous Sulfate 325 mg p.o. b.i.d. 5. Guaifenesin 600 mg p.o. b.i.d. HOSPITAL COURSE ON MOST RECENT ADMISSION: The patient was scheduled to be discharged on 07/23/2017 and the discharge summary was dictated in advance by Aide Fischer NP. As above, the patient was then found to have a white blood cell count of 26,000, hemoglobin of 8.2, potassium of 5.1, and no other significant abnormalities from previous checks. The patient's discharge was then put on hold. The patient was started on Ceftriaxone. A urine culture, blood cultures, lactic acid and chest x-ray were obtained. Lactic acid was 1.7. Chest x-ray was read as above. Blood cultures times two were negative. The patient had fevers up to 102; however, the patient remained asymptomatic through all of this with no shortness of breath or other complaints. The patient continued to be febrile and his white blood cell count increased to 28 on 07/23/2017. The patient's hemoglobin dropped to 7.0 and then 7.1. During this time, the patient's point of care glucoses were also elevated between 175 and 222. The patient's Glargine insulin was increased to 15 units subcutaneous daily. The patient's urine came back for extended beta lactamase E. coli. The patient was started on Meropenem and Infectious Disease was consulted. The patient improved greatly with the addition of Ceftriaxone and then Meropenem. The patient's white blood cell count decreased to 19, his hemoglobin increased to 7.3, any other significant changes in laboratory data on 07/24/2017. The patient continued to be febrile up to 102, which was responsive to Tylenol. The patient is noted to be short of breath through this time and had course rhonchi in the lungs which resolved with repeated deep breathing. Chest x-ray was ordered which was negative as above. On 07/25/2017, the patient's hemoglobin was found to be at 6.6. One unit of packed red blood cells was ordered and there was good response with his hemoglobin rising to 7.4. The patient's creatinine through this time decreased from 1.81 to 1.43. On 07/26/2017, his hemoglobin elevated 7.5; however, the patient had a Hemoccult test which came back positive for occult blood. Gastroenterology was consulted. They had seen him previously in the outpatient setting and it was felt at this time the patient had previously previously unknown beta thalassemia with sickle cell chain. The patient's iron studies also showed iron deficiency with ferritin elevated, believed to be due to acute phase reaction. The patient was started on iron. The patient's hemoglobin raised to 7.9 on 07/27/2017. Gastroenterology stated that the patient did not need an endoscopy at this time , that he could be managed with an increase in his PPI therapy, that he would be okay to resume antiplatelet agents, but that his Xarelto should be held and the patient should follow-up with his primary care provider. Infectious Disease was also consulted on July 26 and recommended ten days of Doxycycline for a complicated UTI which was prescribed. E. coli was susceptible to Tetracyclines and KULWANT of less than one. The patient had a repeat stool occult blood on 07/27/2017 which was negative. The patient was deemed eligible for discharge on Clopidogrel with his Xarelto held as this time, to follow-up in four to seven days with his primary care provider to assess his general medical stability with repeat lab work, including a CBC, BMP, and magnesium. The patient should be monitored for new neurological deficits indicating a stroke. The patient should also be monitored for signs of increasing anemia such as shortness of breath and dizziness. The patient has no complaints at the time of discharge. Of note, the patient also had a Schrader catheter inserted when the UTI was discovered which was removed and the patient's acute urinary retention from previously in the hospitalization had resolved, so the catheter remained out. PHYSICAL EXAMINATION ON THE DAY OF DISCHARGE: General: The patient is a 77- year- old male who appears older than stated age, has an obvious facial droop and is sitting in the bed in no acute distress. Vital Signs: At the time of discharge, temperature 98.3, pulse rate 60, respiratory rate 16, oxygen saturation 100 percent on room air, blood pressure 139/24. HEENT: Head normocephalic, atraumatic. Sclerae anicteric. No conjunctival injection. Nasal and oral mucosa moist. No pharyngeal erythema. Neck: Supple, nontender, no lymphadenopathy, no JVD, no carotid bruit auscultated. Respiratory: There are continued rhonchi in the lower and middle posterior areas bilaterally which resolve with repeated deep breathing. Good air exchanged. Clear to auscultation. No other adventitious lung sounds. Cardiovascular: Regular rate and rhythm. Grade 3/6 systolic ejection murmur, heard best at the right upper sternal border without radiation. S1, S2 present. Pulses 2+ in bilateral radial , dorsalis pedis and posterior tibialis areas. No edema noted in the bilateral lower extremities. Abdomen: Distended, soft, nontender, no bowel sounds present. Normoactive in all four quadrants. No abdominal bruits auscultated. No hepatosplenomegaly. Neuro: There is the aforementioned left-sided facial droop. Cranial nerves II through XII are grossly intact. Slight weakness on the right side, grade 4 out of 5 in the upper and lower extremities distally and proximally. Sensation intact to light touch distally and proximally in the bilateral upper and lower extremities. The patient is alert and oriented times two, not knowing what the date is. The patient is dysarthric and has difficulty communicating his needs. Psychiatric: The patient is pleasant and cooperative today. Skin: Clean, dry, intact. No rash or open areas in readily visible areas. LABORATORY DATA ON THE DATE OF DISCHARGE: White blood cell count 11.0, red blood cell count 3.24, hemoglobin 7.9, hematocrit 24, MCV 74, MCH 24, RDW 16, platelet count 217, reticulocyte count 0.6, corrected reticulocyte count 0.3. Comment from the heme pathologist, microcytic anemia, absolute monocytosis. Sodium 141, potassium 4.5, chloride 112, carbon dioxide 24, anion gap 5, BUN 29 , creatinine 1.35, glucose 93, calcium 8.1, magnesium 3.0. DISCHARGE PLAN: The patient will be discharged to [facility] as discussed by the discharge summary by Aide Fischer NP with the change in medications as above. The patient should follow-up with his primary care doctor in four to seven days for general medical management to determine whether or not to restart his Rivaroxaban based on lab work. The patient should have a repeat CBC and BMP prior to this appointment. The patient should be monitored for blood in his stool as well as dark stools, urinary retention, fevers, or other signs of recurrent infection or treatment failure. ACTIVITY: The patient is Tommy dependent and should be gotten out of bed as tolerated. DIET: The patient should have a mechanically ground, consistent carbohydrate heart- heathy diet with thin liquids okay. Approximately 60 minutes were spent of this discharge, 30 of which were spent face- to-face with the patient obtaining the history and physical and discussing treatment plan. KD GAMBLE [id number]/[facility] #: [id number] AYO
[2017-07-27] MEDS: QUEtiapine TAB* 100 MG PO SCH (17:43)
[2017-07-27] MEDS ORDERED: Ferrous Sulfate TAB* 325 MG PO SCH (21:00)
--- NOTE | 2017-07-27 21:17 | CONS ---
GASTROENTEROLOGY CONSULT: DATE: CONSULTING PRACTITIONER: KD Rodriguez REASON FOR CONSULTATION: Heme positive stool in a man with chronic microcytic anemia and multiple complex problems. HISTORY OF PRESENT ILLNESS: This 77-year-old man, currently bedbound and with a chronic indwelling urinary catheter from the effects of sequence of strokes, has been known to be anemic with microcytosis for many years. He did however required transfusion within the week. He had had another single unit transfusion on 05/13/17. Nowhere in the record is there any recording of vomiting or hematemesis or bloody stool. The Hemoccult he had yesterday is the only one in the record going back to May 2012. He was actually seen in our office in consultation for anemia on 06/07/17 and was Hemoccult negative at that time while taking Xarelto and clopidogrel. Calling [facility] reveals no record of any Hemoccult testing over the last year. He has been on iron per [facility] records the last year and iron is listed on his history and physicals over the last several months. He had a history of a right colonic polyp, removed and treated with APC 10 years ago. He did not followup on that. He has been in the hospital here for several weeks with an indwelling Schrader. It was thought he would go to a snf about a week ago, but he developed a fever and urine culture showed E. coli, extended spectrum, beta-lactamase and he is now on isolation and on doxycycline. PAST MEDICAL HISTORY: 1. Aortic stenosis - said to be [id number]. 2. Coronary artery disease - history of stenting at [facility]. 3. Diabetes. 4. Chronic microcytic anemia - in November of 2012, Dr. Aguirre ordered hemoglobin electrophoresis, which shows substantial hemoglobin S and the interpretation was that the S component was less than expected for heterozygous state implying there was probably alpha thalassemia in combination. His iron levels have been normal at 71 and 66 in 2012 and 2013 and slightly low this admission at 30. Ferritins have run in the low normal range and they are not elevated on 07/25/17, attributed likely to an acute-phase reactant. His albumin level was 2.6 down from the mid 3s that had been at his baseline. 5. Status post pacer for third-degree heart block. 6. History of atrial fibrillation. 7. Multiple cerebrovascular accidents - see Neurology consult in March and April of this year. 8. Bipolar disease. 9. History of accelerated hypertension. SOCIAL HISTORY: He is , but his family has acknowledged they could not care for him. REVIEW OF SYSTEMS: No history of acid peptic disease. No history of seizure, tremor, CVA overtly prior to this year. He has been on unrestricted diet. His weight has been up. PHYSICAL EXAM: He is a substantially overweight man in bed, unable to get up. He does regard one and answered that he is not in any distress. He has his eyes shut. With brief openings, he is anicteric. There is no adenopathy. Breath sounds are equal, but cooperation is poor. Heart sounds are regular. The abdomen is obese, symmetric with normal bowel sounds. Perianal inspection is normal and rectal reveals average tone and medium brown greasy stool, submitted for Hemoccult. There is no rectal mass. Extremities showed 2+ edema at the ankles. IMPRESSION: This 77-year-old man with chronic microcytic anemia probably has it on the basis of sickle cell trait, alpha thalassemia and iron deficiency anemia with the severity of the iron deficiency over time either mild or difficult to be sure about. He has been on iron chronically. His Hemoccult status has not been known except for 2 months ago when he was negative and then during this inpatient stay when he was positive. At that point, Xarelto and clopidogrel were stopped. Given all of his comorbidities, it is difficult to see how a workup would yield results that would change his therapy or benefit him. He could certainly be continued on a PPI and a baby aspirin or even on a adult-strength aspirin. An upper endoscopy is relatively less invasive or morbid procedure, though is not likely to result in treatment of any vascular issue or polyp. Colonoscopy is not going to be feasible at this time and is clearly deferred. [id number]/[facility] #: [id number] [facility]
== END 2017-07-27 18:20 | DRG 699 ==
LOC: ED 10:15 → MED 15:09 → INTOOBSV 06-25 16:00 → OBSVTOIN 06-25 16:00 → ICU 06-27 12:50 → MED 06-29 08:13 → MEDTELE 07-01 23:47 → MED 07-11 22:20 → OBSVTOIN 07-24 09:00
PROVIDERS: ADMIT Internal Medicine; ATTEND Internal Medicine
PROC: 30233N1 Transfusion of Nonautologous Red Blood Cells into Peripheral Vein, Percutaneous Approach (ICD-10-PCS; principal; 2017-07-25)
DX: T83.511A Infection and inflammatory reaction due to indwelling urethral catheter, initial encounter (principal); I44.2 Atrioventricular block, complete; E11.21 Type 2 diabetes mellitus with diabetic nephropathy; E11.22 Type 2 diabetes mellitus with diabetic chronic kidney disease; D56.1 Beta thalassemia; D57.1 Sickle-cell disease without crisis; I95.9 Hypotension, unspecified; F01.51 Vascular dementia, unspecified severity, with behavioral disturbance; F31.2 Bipolar disorder, current episode manic severe with psychotic features; I69.351 Hemiplegia and hemiparesis following cerebral infarction affecting right dominant side; F05 Delirium due to known physiological condition; N18.3 Chronic kidney disease, stage 3 (moderate); E11.649 Type 2 diabetes mellitus with hypoglycemia without coma; G93.89 Other specified disorders of brain; H53.462 Homonymous bilateral field defects, left side; I48.91 Unspecified atrial fibrillation; I69.311 Memory deficit following cerebral infarction; G40.909 Epilepsy, unspecified, not intractable, without status epilepticus; E78.5 Hyperlipidemia, unspecified; I35.0 Nonrheumatic aortic (valve) stenosis; I25.10 Atherosclerotic heart disease of native coronary artery without angina pectoris; I12.9 Hypertensive chronic kidney disease with stage 1 through stage 4 chronic kidney disease, or unspecified chronic kidney disease; D50.9 Iron deficiency anemia, unspecified; B96.29 Other Escherichia coli [E. coli] as the cause of diseases classified elsewhere; E11.65 Type 2 diabetes mellitus with hyperglycemia; R06.02 Shortness of breath; R19.5 Other fecal abnormalities; N30.90 Cystitis, unspecified without hematuria; N28.9 Disorder of kidney and ureter, unspecified; Y73.1 Therapeutic (nonsurgical) and rehabilitative gastroenterology and urology devices associated with adverse incidents; Y92.239 Unspecified place in hospital as the place of occurrence of the external cause; R33.9 Retention of urine, unspecified; E66.3 Overweight; R41.9 Unspecified symptoms and signs involving cognitive functions and awareness; Z68.32 Body mass index [BMI] 32.0-32.9, adult; I69.322 Dysarthria following cerebral infarction; I69.392 Facial weakness following cerebral infarction; I69.398 Other sequelae of cerebral infarction; I25.2 Old myocardial infarction; Z95.0 Presence of cardiac pacemaker; Z95.5 Presence of coronary angioplasty implant and graft; Z90.49 Acquired absence of other specified parts of digestive tract; Z98.49 Cataract extraction status, unspecified eye; Z88.0 Allergy status to penicillin; Z80.3 Family history of malignant neoplasm of breast; Z91.83 Wandering in diseases classified elsewhere; Z74.01 Bed confinement status; Z79.4 Long term (current) use of insulin; Z79.01 Long term (current) use of anticoagulants
CPT/HCPCS: 36415; 70450; 71010; 80048; 80053; 80164; 80320; 80329; 81003; 81015; 82140; 82270; 82272; 82533; 82550; 82553; 82668; 82728; 83540; 83550; 83605; 83690; 83735; 83880; 84443; 84484; 85025; 85045; 85060; 85610; 85730; 86140; 86850; 86900; 86901; 86922; 87040; 87077; 87086; 87186; 87502; 93005; 93306; 93970; 95819; 99283; A9270-GY; C8929; G0480; J0360; J0696; J1630; J2185; J3486; P9040

== ENCOUNTER 2017-06-24 15:09 | Inpatient (IN) | payer MEDICARE | END 2017-07-22 10:00 | DRG 884 | LOC: MED 15:09 → OBSVTOIN 06-25 16:00 | PROVIDERS: ADMIT Internal Medicine; ATTEND Internal Medicine | DX: F01.51 Vascular dementia, unspecified severity, with behavioral disturbance (principal); I44.2 Atrioventricular block, complete; G93.40 Encephalopathy, unspecified; N17.9 Acute kidney failure, unspecified; E11.22 Type 2 diabetes mellitus with diabetic chronic kidney disease; N18.3 Chronic kidney disease, stage 3 (moderate); D50.9 Iron deficiency anemia, unspecified; F10.21 Alcohol dependence, in remission; F05 Delirium due to known physiological condition; I69.351 Hemiplegia and hemiparesis following cerebral infarction affecting right dominant side; F31.2 Bipolar disorder, current episode manic severe with psychotic features; I95.9 Hypotension, unspecified; I13.10 Hypertensive heart and chronic kidney disease without heart failure, with stage 1 through stage 4 chronic kidney disease, or unspecified chronic kidney disease; H53.462 Homonymous bilateral field defects, left side; I69.322 Dysarthria following cerebral infarction; I35.0 Nonrheumatic aortic (valve) stenosis; F32.9 Major depressive disorder, single episode, unspecified; E78.5 Hyperlipidemia, unspecified; I48.91 Unspecified atrial fibrillation; I25.10 Atherosclerotic heart disease of native coronary artery without angina pectoris; R33.9 Retention of urine, unspecified; D63.1 Anemia in chronic kidney disease; I25.2 Old myocardial infarction; Z95.0 Presence of cardiac pacemaker; Z79.01 Long term (current) use of anticoagulants; Z79.84 Long term (current) use of oral hypoglycemic drugs; Z88.0 Allergy status to penicillin; Z80.3 Family history of malignant neoplasm of breast; Z79.899 Other long term (current) drug therapy; Z74.2 Need for assistance at home and no other household member able to render care | CPT/HCPCS: 99282 ==

== ENCOUNTER 2018-09-04 00:22 | Observation (INO) | payer MEDICARE ==
[2018-09-04] MEDS ORDERED: Aspirin 81 mg CHEW TAB* 81 MG TAB.CHEW PO ONE (00:33)
[2018-09-04] MEDS ORDERED: NS 0.9% 1000 ML** 1,000 ML IV.FLUID IV ONE (01:15)
[2018-09-04 01:47] LABS: Influenza A Molecular NEGATIVE (Negative); Influenza B Molecular NEGATIVE (Negative)
[2018-09-04 01:49] LABS: ALT 8 U/L (7-52); Albumin 3.1 g/dL (3.2-5.2); Albumin/Globulin Ratio 0.9 (1-3); Alkaline Phosphatase 43 U/L (34-104); BUN/Creatinine Ratio 26.9 (8-20); Blood Urea Nitrogen 94 mg/dL (6-24); CO2 Carbon Dioxide 25 mmol/L (22-32); Calcium 8.7 mg/dL (8.6-10.3); Creatine Kinase 286 U/L (10-223); EGFR African American 20.7 (>60); EGFR Non-African American 17.1 (>60); Globulin 3.3 g/dL (2-4); Glucose 355 mg/dL (70-100); Total Protein 6.4 g/dL (6.4-8.9)
--- NOTE | 2018-09-04 01:54 | ED ---
Altered Mental Status - HPI Summary HPI Summary: Patient is a 78-year-old male presenting to the ED with altered mental status from [facility]. Patient is unresponsive when he arrives to the ED. [facility] nursing staff states he has been less responsive today and on arrival to the ED is unresponsive. He typically is on 3 L nasal cannula and on EMS arrival he was satting a 74% on 3 L. They placed him on 15 L nonrebreather mask which increased his oxygen to 99%. Nursing staff also states he has been febrile today at 105 to the left temporal and 102 to the right temporal. Patient has a suprapubic catheter. Last visit to the ED was 1 year ago. He is DNR/DNI with fluid resuscitation and antibiotics. - History Of Current Complaint Chief Complaint: EDAltMentalStatus Stated Complaint: AMS Time Seen by Provider: 09/04/18 00:27 Hx Obtained From: EMS, Medical Records Hx From Patient Unobtainable Due To: Altered Mental Status Onset/Duration: Unknown Timing: Constant Severity Initially: Severe Severity Currently: Severe Character: Responsiveness - unresponsive Aggravating Factor(s): Nothing Alleviating Factor(s): Nothing Associated Signs And Symptoms: Positive: Negative - Risk Factors Cardiac Risk Factors: Hypertension, Diabetes, Elevated Lipids, CHF, Prior [place], CAD - Allergies/Home Medications Allergies/Adverse Reactions: Allergies Allergy/AdvReac Type Severity Reaction Status Date / Time Penicillins Allergy Rash Verified 09/04/18 01:09 strawberry Allergy Unknown Verified 09/04/18 01:09 Reaction Details Home Medications: Home Medications Acetaminophen [Pain Relief] 2 tab PO Q6H PRN 09/04/18 [History Confirmed ] Albuterol 0.5% CONC NEB.FEDERICO* 1 neb INH ONCE 09/04/18 [History Confirmed 09/04/18 ] Ascorbic Acid 500 mg PO 0800 09/04/18 [History Confirmed 09/04/18] Baclofen TAB* [Lioresal TAB*] 5 mg PO 07,,09/04/18 [History Confirmed 09/04] Citric AC/Gluconolact/Mag Carb [Renacidin Irrigation Solution] 30 ml IRRIGATION DAILY 09/04/18 [History Confirmed 09/04/18] Clopidogrel Bisulfate [Plavix] 75 mg PO 0800 09/04/18 [History Confirmed ] Divalproex Sodium 6 cap PO ,09/04/18 [History Confirmed 09/04/18] Escitalopram Oxalate [Lexapro 10 mg] 10 mg PO DAILY 09/04/18 [History Confirmed 09/04/18] Ferrous Sulfate 325 mg PO 0809/04/18 [History Confirmed 09/04/18] Levothyroxine Sodium 20 mcg PO 0500 09/04/18 [History Confirmed 09/04/18] Losartan Potassium [Cozaar] 50 mg PO 199909/04/18 [History Confirmed 09/04/18] Metoprolol Tartrate TAB* [Lopressor TAB*] 100 mg PO ,09/04/18 [History Confirmed 09/04/18] Quetiapine Fumarate [Quetiapine 100 mg] 100 mg PO 0800 09/04/18 [History Confirmed 09/04/18] Quetiapine Fumarate [Quetiapine 100 mg] 150 mg PO 1830 09/04/18 [History Confirmed 09/04/18] Sennosides/Docusate Sodium [Senna-S Tablet] 2 each PO BEDTIME 09/04/18 [History Confirmed 09/04/18] Sorbitol Solution [Sorbitol] 30 ml PO 0809/04/18 [History Confirmed 09/04/18] Terazosin CAP* [Hytrin CAP 5 MG*] 10 mg PO 199909/04/18 [History Confirmed ] Torsemide 1 tab PO DAILY 09/04/18 [History Confirmed 09/04/18] Verapamil TAB* [Calan TAB*] 1 tab PO ,,09/04/18 [History Confirmed ] cefTRIAXone VIAL(*) [Rocephin VIAL(*)] 1 gm IM Q24H 09/04/18 [History Confirmed 09/04/18] cloNIDine TAB* [Catapres 0.1 MG TAB*] 0.1 mg PO TID 09/04/18 [History Confirmed 09/04/18] prednisoLONE 1% OPHTH.SUSP* [Pred Forte 1%*] 1 drop RIGHT EYE 0800 09/04/18 [ History Confirmed 09/04/18] raNITIdine HCl [Ranitidine HCl] 1 tab PO BEDTIME 09/04/18 [History Confirmed ] PMH/Surg Hx/FS Hx/Imm Hx Previously Healthy: No Endocrine/Hematology History: Reports: Hx Diabetes, Hx Anemia Denies: Hx Anticoagulant Therapy, Hx Thyroid Disease Cardiovascular History: Reports: Hx Angina, Hx Cardiac Arrest, Hx Coronary Artery Disease, Hx Hypercholesterolemia, Hx Hypertension, Hx Myocardial Infarction, Hx Pacemaker/ICD, Other Cardiovascular Problems/Disorders - 3rd degree heart block, severe aortic stenosis, Denies: Hx Congestive Heart Failure Respiratory History: Denies: Hx Asthma, Hx Chronic Obstructive Pulmonary Disease (COPD) GI History: Reports: Other GI Disorders Denies: Hx Gall Bladder Disease History: Reports: Other Problems/Disorders - CKD stage 3 Denies: Hx Renal Disease Sensory History: Reports: Hx Contacts or Glasses - At home, Hx Vision Problem Denies: Hx Eye Injury, Hx Hearing Aid Opthamlomology History: Reports: Hx Contacts or Glasses - At home, Hx Vision Problem Denies: Hx Eye Injury Neurological History: Reports: Hx CVA, Hx Transient Ischemic Attacks (TIA) Denies: Hx Dementia, Hx Seizures Psychiatric History: Reports: Hx Depression, Hx Bipolar Disorder Denies: Hx Substance Abuse - Surgical History Surgery Procedure, Year, and Place: PACEMAKER - Immunization History Hx Pertussis Vaccination: Yes Immunizations Up to Date: Yes Infectious Disease History: Unable to Obtain/Confirm Infectious Disease History: Denies: Hx Clostridium Difficile, Hx Hepatitis, Hx Human Immunodeficiency Virus (HIV), Hx of Known/Suspected MRSA, Hx Shingles, Hx Tuberculosis, History Other Infectious Disease, Traveled Outside the [place] in Last 30 Days - Family History Known Family History: Positive: Diabetes - Social History Occupation: Unemployed, Disabled Lives: At [facility] [employer] - 6 Alcohol Use: None Hx Substance Use: No Substance Use Type: Reports: None Hx Tobacco Use: Yes Smoking Status (MU): Never Smoked Tobacco Review of Systems - ROS Summary Review of Systems Summary: Level 5 Caveat Constitutional: Negative Negative: Fever, Chills, Fatigue, Skin Diaphoresis Negative: Photophobia, Blurred Vision, Diplopia Negative: Shortness Of Breath, Cough Negative: Abdominal Pain, Vomiting, Diarrhea Genitourinary: Negative, Other - patient has suprapubic catheter Positive: no symptoms reported, see HPI Positive: Weakness All Other Systems Reviewed And Are Negative: Yes Physical Exam Triage Information Reviewed: Yes Vital Signs On Initial Exam: Initial Vitals Pulse Resp BP Pulse Ox 113 43 113/64 93 09/04/18 00:24 09/04/18 00:24 09/04/18 00:24 09/04/18 00:24 Vital Signs Reviewed: Yes Completion Of Physical Exam Limited Due To: Altered Mental Status Appearance: Positive: Ill-Appearing Skin: Positive: Other - dry scaly skin throughout; no abnormal drainage from suprapubic catheter Eyes: Positive: Conjunctiva Inflammed Neck: Positive: No Lymphadenopathy Respiratory/Lung Sounds: Positive: Rhonchi - bilateral, Wheezes - bilateral Cardiovascular: Positive: Tachycardia. Negative: Leg Edema Left, Leg Edema Right - C washable Male Genital Exam: Positive: Other - suprapubic catheter - no abnormal drainage Neurological: Positive: Other - unrepsonsive to light stimuli - - [place] Coma Scale Best Eye Response: 1 - None Best Motor Response: 4 - Withdraws Best Verbal Response: 1 - None Coma Scale Total: 6 Glascow Coma Scale Comments: DNI/DNR Diagnostics - Vital Signs Vital Signs Temp Pulse Resp BP Pulse Ox 09/04/18 01:25 98 41 135/72 09/04/18 01:21 105 31 111/77 96 09/04/18 01:00 89 42 75 09/04/18 00:34 99.1 F 123 44 113/64 93 09/04/18 00:30 127 39 96 09/04/18 00:24 113 43 113/64 93 - Laboratory Lab Results: Lab Results 09/04/18 Range/Units 01:35 Influenza A (Rapid) Negative (Negative) Influenza B (Rapid) Negative (Negative) Result Diagrams: 09/04/18 01:20 09/04/18 01:20 Lab Statement: Any lab studies that have been ordered have been reviewed, and results considered in the medical decision making process. - Radiology No standard instances Radiology Interpretation Completed By: ED Physician - Read by DORINDA Culver Bilateral PNA Altered Mental Statu Course/Dx - Course Course Of Treatment: On arrival to the ED, patient's vital signs are 99.1, tachy at 123, respirations of 44, 93% and 113/64. EKG shows atrial paced complexes, ventricular trigeminy. For this - sepsis protocol is initiated. 1L fluids, cefepime and Levaquin given. Multiple RN attempts at lines with no success. Arterial stick obtained and the femoral artery. Venipuncture with US obtained to the L antecubital. Chest xray obtained and read as bilateral PNA by Merissa Luong PA-C. Leukocytosis of 16.5. BUN 94, creatinine 3.69. Will await final read tomorrow morning. Influenza negative. Noted to by hyperglycemic so is given 6 units insulin. He was not given full sepsis 3L bolus of NS d/t hypernatremic state. D5W 1L bolus is ordered followed by 150cc/ hr. Will continue to monitor. Discussed case with Dr. Melgar who agrees to admit. On re-evaluation he is in normal sinus rhythm. - Diagnoses Differential Diagnosis/HQI/PQRI: Metabolic Disorder, Sepsis, Other - hyperglycemia Provider Diagnoses: PNA (pneumonia), Altered mental status - Provider Notifications Discussed Care Of Patient With: Isadora Melgar Instructed by Provider To: Admit As Inpatient - Critical Care Time Critical Care Time: 30-74 min Discharge - Sign-Out/Discharge Documenting (check all that apply): Patient Departure - Discharge Plan Condition: Fair Disposition: ADMITTED TO [facility] Referrals: Valente ATKINS,Hansa Skinner [Primary Care Provider] - - Billing Disposition and Condition Condition: FAIR Disposition: Admitted to [facility]
[2018-09-04 01:55] LABS: ABS Basophils 0.1 10^3/ul (0-0.2); ABS Eosinophils 0.6 10^3/ul (0-0.6); ABS Lymphocytes 2.6 10^3/ul (1.0-4.8); ABS Monocytes 0.7 10^3/ul (0-0.8); ABS Neutrophils 12.5 10^3/ul (1.5-7.7); ABS Nucleated RBC 0.1 10^3/ul; Activated Partial Thrombo Time 26.4 seconds (26.0-36.3); Eosinophil % 3.6 %; Hematocrit 32 % (42-52); Hemoglobin 9.8 g/dl (14.0-18.0); INR 1.23 (0.77-1.02); Lymphocyte % 15.6 %; Mean Corpuscular HGB Conc 31 g/dl (31-36); Mean Corpuscular Hemoglobin 23 pg (27-31); Mean Corpuscular Volume 74 fL (80-94); Myoglobin 585.6 ng/mL (17.4-105.7); Nucleated Red Blood Cells % 0.3; Platelet Count 188 10^3/ul (150-450); Red Blood Count 4.32 10^6/ul (4.00-5.40); Red Cell Distribution Width 16 % (10.5-15); White Blood Count 16.5 10^3/ul (3.5-10.8)
[2018-09-04 01:56] LABS: CKMB ng/mL 7.6 ng/mL (0.6-6.3)
[2018-09-04] MEDS ORDERED: Levofloxacin 750 MG IVPREMIX(* 750 MG/150 ML BAG IVPB ONE (01:58)
[2018-09-04] MEDS ORDERED: Cefepime 2 GM in Dextrose(*) 2 GM/50 ML BAG IV ONE (01:58)
[2018-09-04] MEDS ORDERED: Insulin REGULAR(*) 1 UNITS UNIT IV PUSH ONE (02:12)
[2018-09-04 02:31] LABS: Magnesium 3.2 mg/dL (1.9-2.7)
[2018-09-04 02:32] LABS: Anion Gap 10 mmol/L (2-11); Chloride 129 mmol/L (101-111); Sodium 164 mmol/L (135-145)
[2018-09-04 02:34] LABS: Troponin I 0.07 ng/mL (<0.04)
[2018-09-04] MEDS ORDERED: Lidocaine 2% EPI 1:200000 MPF*10-20 ML VIAL ONE (02:50)
[2018-09-04] MEDS ORDERED: D5W 1000 ML BAG* 1,000 ML IV SCH ×2 (03:00)
--- NOTE | 2018-09-04 03:08 | ED ---
Progress - Progress Note Progress Note: Procedure note: Central line placement in right IJ. Triple lumen catheter. DIAG Chest XR CXR reveals, per ED physician, tip in the distal SVC and no pneumothorax. Course/Dx - Course Course Of Treatment: On arrival to the ED, patient's vital signs are 99.1, tachy at 123, respirations of 44, 93% and 113/64. EKG shows atrial paced complexes, ventricular trigeminy. For this - sepsis protocol is initiated. 1L fluids, cefepime and Levaquin given. Multiple RN attempts at lines with no success. Arterial stick obtained and the femoral artery. Venipuncture with US obtained to the L antecubital. Chest xray obtained and read as bilateral PNA by Merissa Luong PA-C. Leukocytosis of 16.5. BUN 94, creatinine 3.69. Will await final read tomorrow morning. Influenza negative. Noted to by hyperglycemic so is given 6 units insulin. He was not given full sepsis 3L bolus of NS d/t hypernatremic state. D5W 1L bolus is ordered followed by 150cc/ hr. Will continue to monitor. Discussed case with Dr. Melgar who agrees to admit. On re-evaluation he is in normal sinus rhythm. - Diagnoses Provider Diagnoses: PNA (pneumonia), Altered mental status - Provider Notifications Instructed by Provider To: Admit As Inpatient - Critical Care Time Critical Care Time: 30-74 min Discharge - Sign-Out/Discharge Documenting (check all that apply): Patient Departure - Admit to [facility], Receiving Sign-Out Receiving patient FROM: Merissa Luong - Discharge Plan Condition: Fair Disposition: ADMITTED TO [facility] - Billing Disposition and Condition Condition: FAIR Disposition: Admitted to [facility] - Attestation Statements Document Initiated by Scribe: Yes Documenting Scribe: Yamila Gonzalez Provider For Whom Zulema is Documenting (Include Credential): Dr. Nyasia Roberts MD Scribe Attestation: Yamila Rao, scribed for Dr. Nyasia Roberts MD on 09/05/18 at 0742. Scribe Documentation Reviewed: Yes Provider Attestation: The documentation as recorded by the Yamila pappas accurately reflects the service I personally performed and the decisions made by me, Dr. Nyasia Roberts MD Status of Scribe Document: Viewed Procedures - Procedure Summary Procedure Summary: Central line placement in right IJ. Triple lumen catheter. Procedures - Central Line Central Line Lumen: triple Central Line Procedure: betadine prep, sterile drapes applied, sterile dressing applied Central Line Postion: internal jugular (R) Anesthesia: Lidocaine Complications: none Central Line Post Position: sutured, position confirmed w/ CXR
[2018-09-04] MEDS ORDERED: Piperacillin/Tazobac ADVAN(*) 3.375 GM in NS 0.9% 100 ML* 100 ML IVPB ONE (03:28)
[2018-09-04] MEDS ORDERED: Piperacillin/Tazobac (*) 3.375 GM BAG ONE (03:29)
[2018-09-04] MEDS ORDERED: LORazepam INJ* 2 MG/ML 1 ML VIAL IV PUSH PRN (04:05)
[2018-09-04] MEDS: Morphine VIAL* 4 MG/ML VIAL (1 ml vial) IV PRN ×2 (05:32→07:47)
[2018-09-04 06:28] VITALS: BP 113/76
[2018-09-04] MEDS ORDERED: Morphine VIAL* 4 MG/ML VIAL (1 ml vial) IV PRN (08:23)
[2018-09-04] MEDS ORDERED: Atropine 1% (ORAL/SL)* 15 ML BTL SL PRN (08:23)
[2018-09-04] MEDS ORDERED: Morphine VIAL* 4 MG/ML VIAL (1 ml vial) ONE (08:26)
--- NOTE | 2018-09-04 08:33 | HP ---
CC: [facility] * HISTORY AND PHYSICAL: DATE OF ADMISSION: 09/04/18 PRIMARY CARE PROVIDER: Provider at [facility]. CHIEF COMPLAINT: Unresponsive. HISTORY OF PRESENT ILLNESS: Mr. Perales is a 78-year-old male who has an extensive past medical history significant for past left basal ganglia CVA, hypertension, bipolar disorder, right hemispheric CVA, coronary artery disease, type 2 diabetes, chronic kidney disease, and severe aortic stenosis, who presented to the emergency room from [facility] with unresponsiveness. The patient obviously cannot provide any history as he is unresponsive. The patient 's states that over the last 4 to 5 days he has not been doing well at [facility]. He has not been eating, he has been spitting out his medications. Report from staff stated that 2 days ago he was fine but on the day of admission he had fever and was unresponsive. When EMS arrived to [facility], his O2 saturation was 74% on 3 L nasal cannula O2. He was found to have snoring and gurgling respirations. PAST MEDICAL HISTORY: 1. Left basal ganglia CVA. 2. Hypertension. 3. Bipolar disorder. 4. Right hemispheric CVA. 5. Coronary artery disease. 6. Type 2 diabetes. 7. History of third-degree heart block status post pacemaker. 8. Chronic kidney disease stage 3 secondary to diabetic nephropathy. 9. Severe aortic stenosis. 10. Depression. 11. Dyslipidemia. 12. History of atrial fibrillation. PAST SURGICAL HISTORY: 1. Cataract extraction. 2. Cholecystectomy. MEDICATIONS: 1. Albuterol 1 neb inhaled once on the evening of 09/03/18. 2. Ceftriaxone 1 g IM on the evening of 09/03/18. 3. Tylenol 1000 mg p.o. q.6 hours p.r.n. pain. 4. Ranitidine 300 mg p.o. q.h.s. 5. Senna-S 2 caps p.o. q.h.s. 6. Prednisolone 1% one drop to the right eye daily. 7. Plavix 75 mg p.o. daily. 8. Clonidine 0.1 mg p.o. t.i.d. 9. Ferrous sulfate 325 mg p.o. daily. 10. Ascorbic acid 500 mg p.o. daily. 11. Torsemide 20 mg p.o. daily. 12. Lexapro 10 mg p.o. daily. 13. Renacidin irrigation solution used daily. 14. Sorbitol 30 mL p.o. daily. 15. Seroquel 100 mg p.o. daily. 16. Losartan 50 mg p.o. daily. 17. Levothyroxine 25 mcg p.o. daily. 18. Verapamil 80 mg p.o. at 0800, 1300, and 2000. 19. Terazosin 10 mg p.o. daily. 20. Seroquel 150 mg p.o. daily at 1830. 21. Metoprolol tartrate 100 mg p.o. b.i.d. 22. Depakote 750 mg p.o. twice daily. 23. Baclofen 5 mg p.o. 3 times daily. ALLERGIES: PENICILLINS and STRAWBERRY. FAMILY HISTORY: Dad diet at the age of 106. Mom of breast cancer. SOCIAL HISTORY: The patient does not smoke or drink alcohol. He resides at [facility]. He is . His also resides at [facility] and is his healthcare proxy REVIEW OF SYSTEMS: The patient is unable to answer any questions at this point as he is unresponsive. PHYSICAL EXAMINATION GENERAL: The patient is a well-developed, elderly male seen lying in the bed, tachypneic but in no acute distress. He is unresponsive. VITAL SIGNS: Blood pressure 82/48, pulse 115, respirations 37, temp 99.1, O2 sat 91% on 15 L nonrebreather. HEENT: The patient appears to have a disconjugate gaze. Pupils are round. There appears to be prior cataract surgery. The patient does not open his mouth for me nor can I coax his mouth open. There is no submandibular, cervical , or supraclavicular adenopathy. There is a triple-lumen catheter present in the right neck. PULMONARY: Lungs at the lateral base reveal coarse rhonchi. Anteriorly, his lungs sound clear. Again he is tachypneic, at times has gurgling respirations. CARDIAC: Normal S1, S2. Heart rate is tachycardic. It is regular. There is a 2/6 systolic murmur heard best at the right upper sternal border. ABDOMEN: Bowel sounds present. Abdomen is soft, nontender, and nondistended. MUSCULOSKELETAL: The patient is seen at times wiggling his feet but does not follow any commands purposefully. SKIN: Warm and dry. There are no rashes. The patient has very excoriated macerated buttocks that bled upon getting stool cleaned up. NEUROLOGIC: The patient is unable to cooperate with the exam. PSYCH: The patient is unable to cooperate with the exam DIAGNOSTIC STUDIES/LAB DATA: WBC 16.5, hemoglobin 9.8, hematocrit 32, platelets 188. INR 1.23. Sodium 164, potassium test not performed due to hemolysis, chloride 129, CO2 of 25, BUN 94, creatinine 3.49, glucose 355, lactic acid 2.5. Calcium 8.7, magnesium 3.2, bilirubin 0.6. AST not performed, ALT 8, alk phos 43. CPK 286, CK-MB 7.6, myoglobin 585.6, troponin 0.07. BNP 311. Albumin 3.1. Influenza A and B negative. EKG revealed generally an atrial paced rhythm with PVCs, a ventricular trigeminy. There are ST depressions in the anterior lateral leads that is new and significant from last EKG done in July 2017. Chest x-ray to my interpretation shows possible bilateral infiltrates. ASSESSMENT AND PLAN: Mr. Perales is a 78-year-old male with multiple chronic medical conditions including type 2 diabetes, hypertension, coronary artery disease, stage 3 chronic kidney disease, severe aortic stenosis, atrial fibrillation, and past cerebrovascular accident, who presented to the emergency room after being found unresponsive. 1. Severe sepsis secondary to probable bilateral pneumonia. At this point, the patient is severely septic likely from bilateral pneumonia. He is completely unresponsive. His blood pressures have dropped since being in the emergency room. It got to a low of 65/50. He remains tachycardic. I had a long discussion with both the patient's who is the patient's formal healthcare proxy and with their son about the patient's condition. The patient' s at this time requests that comfort measures alone be utilized to treat her . She states that they had had discussions in the past and that he would not want to try to be resuscitated from this point. I again discussed this with the patient's son who is in agreement with his mom's decision for comfort measures only. The patient will not have the 30 mL/kg bolus for severe sepsis, a sepsis reassessment note, follow up lactic acids, blood cultures or antibiotics administered at this time due to the fact that he is being admitted for comfort measures only. At this point, the patient will have p.r.n. morphine and Ativan available for pain and air hunger as well as anxiety. The patient remains on a nonrebreather at this time with marginal O2 saturations. We will transition this to a nasal cannula. I have informed both the patient's and his son that the patient will likely pass away in the next 24 to 48 hours. 2. Hypertension. The patient is hypotensive currently. All of his usual home medications are being held. 3. Type 2 diabetes. Blood sugars will not be checked as the patient is comfort care. 4. DVT prophylaxis. The patient scores a 5 on the DVT prophylaxis scale. No prophylaxis will be administered due to the fact the patient is comfort care. 5. Code is DNR/DNI. TIME SPENT: Fifty five minutes was spent admitting this patient, of which greater than half of spent [id number] with the patient, performing physical exam, and speaking to his and son on the phone. [id number]/[facility] #: [id number] A[facility]
[2018-09-04] MEDS ORDERED: Acetaminophen SUPP* 650 MG SUPP PR PRN (08:53)
[2018-09-04] MEDS ORDERED: Ondansetron INJ* 2 MG/ML VIAL IV PRN (08:53)
--- NOTE | 2018-09-04 09:02 | PN ---
Subjective Date of Service: 09/04/18 Interval History: Patient admitted last evening for SNF with severe sepsis, decision made with Dr. Melgar and family to keep patient on comfort measures only. Patient tachypneic this AM - morphine increased. Unable to get in touch with family this morning. But I assume based on last evenings conversation they understand poor prognosis. Patient remains slightly tachypneic, unresponsive to voice or tactile stimuli Objective Active Medications: Acetaminophen (Tylenol Supp*) 650 mg LA Q4H PRN PRN Reason: FEVER Atropine Sulfate (Atropine 1% (Oral/Sl)*) 2 drop SL Q2H PRN PRN Reason: DISCOMFORT Lorazepam (Ativan Inj*) 1 mg IV PUSH Q6H PRN PRN Reason: ANXIETY Last Admin: 09/04/18 04:54 Dose: 1 mg Morphine Sulfate (Morphine Vial*) 4 mg IV Q1HR PRN PRN Reason: Pain or air hunger Last Admin: 09/04/18 08:30 Dose: 4 mg Ondansetron HCl (Zofran Inj*) 4 mg IV Q6H PRN PRN Reason: NAUSEA/VOMITING Vital Signs - 8 hr 09/04/18 09/04/18 09/04/18 01:00 01:21 01:25 Temperature Pulse Rate 89 105 98 Respiratory 42 31 41 Rate Blood Pressure 111/77 135/72 (mmHg) O2 Sat by Pulse 75 96 Oximetry 09/04/18 09/04/18 09/04/18 01:54 02:24 02:54 Temperature Pulse Rate 106 87 Respiratory 39 42 43 Rate Blood Pressure 102/64 94/58 88/66 (mmHg) O2 Sat by Pulse 94 85 Oximetry 09/04/18 09/04/18 09/04/18 03:24 03:25 03:27 Temperature Pulse Rate 115 116 103 Respiratory 38 38 38 Rate Blood Pressure 70/54 65/50 89/44 (mmHg) O2 Sat by Pulse 94 90 94 Oximetry 09/04/18 09/04/18 09/04/18 03:32 03:42 03:48 Temperature Pulse Rate 122 117 128 Respiratory 39 37 23 Rate Blood Pressure 90/57 98/58 84/68 (mmHg) O2 Sat by Pulse 96 97 80 Oximetry 09/04/18 09/04/18 09/04/18 03:52 03:57 04:00 Temperature Pulse Rate 115 115 Respiratory 38 37 34 Rate Blood Pressure 104/57 82/48 (mmHg) O2 Sat by Pulse 91 90 Oximetry 09/04/18 09/04/18 09/04/18 04:33 04:54 05:00 Temperature Pulse Rate 114 115 Respiratory 32 29 39 Rate Blood Pressure 117/59 (mmHg) O2 Sat by Pulse 98 88 Oximetry 09/04/18 09/04/18 09/04/18 05:12 05:30 05:32 Temperature 99.1 F 97.7 F Pulse Rate 114 114 Respiratory 30 42 42 Rate Blood Pressure 79/46 113/76 (mmHg) O2 Sat by Pulse 88 87 Oximetry 09/04/18 09/04/18 09/04/18 06:00 07:47 07:50 Temperature Pulse Rate Respiratory 40 32 32 Rate Blood Pressure (mmHg) O2 Sat by Pulse Oximetry 09/04/18 09/04/18 07:53 08:30 Temperature Pulse Rate Respiratory 40 34 Rate Blood Pressure (mmHg) O2 Sat by Pulse Oximetry Oxygen Devices in Use Now: Simple Face Mask, OxyMask Ears/Nose/Mouth/Throat: - - dry mucus membranes Neck: Trachea Midline Respiratory: - - coarse rhonchi b/l, tachypnea Cardiovascular: - - tachycardia Abdominal: NL Sounds; No Tenderness; No Distention, No Hepatosplenomegaly Extremities: - - peripheral edema +2 Neurological: - - unresponsive Result Diagrams: 09/04/18 01:20 09/04/18 01:20 Additional Lab and Data: Lab Results 09/04/18 Range/Units 01:35 Influenza A (Rapid) Negative (Negative) Influenza B (Rapid) Negative (Negative) Microbiology and Other Data: Microbiology 09/04/18 01:20 Influenza Types A,B Antigen - Final Nasal Specimen received for Influenza A/B Molecular testing Assess/Plan/Problems-Billing Assessment: This is a 78 yr old with PMHx of CVA, CAD, DM and CKD presents from [facility] with severe sepsis. With poor prognosis decision was made to keep patient comfortable - Patient Problems (1) Comfort measures only status Current Visit: Yes Status: Acute Code(s): Z51.5 - ENCOUNTER FOR PALLIATIVE CARE SNOMED Code(s): 16652382587798 Comment: A/P Multiple comorbidities with severe sepsis Patient unresponsive. Increased morphine for tachypnea and work of breathing. Transition to nasal cannula from face mask. RN and I both attempted to contact family this AM to discuss imminent passing Patient expected to pass in the next 24 hours Palliative care comfort care orders in place Status and Disposition: Patient actively dying. Unable to transfer at this time.
--- NOTE | 2018-09-04 10:34 | PN ---
Progress Note - Progress Note Date of Service: 09/04/18 Note: Paged patient at 10:05 AM. No heart sounds or respirations RN at bedside. Spoke with with who also resides at [facility]. She is going to send her son in. certificate to be completed electronically
--- NOTE | 2018-09-04 12:05 | DS ---
CC: Primary care provider at [facility] SUMMARY: DATE OF ADMISSION: 09/04/18 DATE OF EXPIRATION: 09/04/18 TIME OF : 10:05 a.m. CAUSE OF : Severe sepsis secondary to healthcare-associated pneumonia. SECONDARY DIAGNOSES: 1. History of stroke. 2. Hypertension. 3. History of coronary artery disease. 4. History of diabetes. 5. History of chronic kidney disease. 6. History of severe aortic stenosis. 7. History of atrial fibrillation. HOSPITAL COURSE: This is a 78-year-old jail patient with multiple comorbidities as above, wh o presented to the emergency room early in the morning on the 09/04/18, found unresponsive with oxyge n saturations in the 70s. On admission, the patient was found to have severe sepsis secondary to hea lthcare-associated pneumonia. The admitting physician, Dr. Melgar, spoke with the son and the a t length over the phone and the decision was made to keep the patient comfortable. His admitting labo ratory work showed he had a leukocytosis of 16, he was significantly hypernatremic at 164, worsening renal failure with a creatinine of 3.5, lactate at 2.5, and elevated troponin as well. The patient w as admitted to the floor with morphine and palliative care comfort measure orders set in place. He ex pired with the nurse at the bedside at 10:05 a.m. The , Isaac was contacted, she is also a res ident of [facility]. I spoke with her about her 's passing, which she said felipe sainz expected was going to happen today. She is going to have her son come in to provide further details . [id number]/[facility] #: [id number]
== END 2018-09-04 10:05 | disposition expired ==
LOC: ED 00:22 → MEDTELE 03:59
PROVIDERS: ADMIT Hospitalist; ATTEND Pediatrics
DX: A40.3 Sepsis due to Streptococcus pneumoniae (principal); J18.9 Pneumonia, unspecified organism; R65.20 Severe sepsis without septic shock; R41.82 Altered mental status, unspecified; I25.10 Atherosclerotic heart disease of native coronary artery without angina pectoris; I10 Essential (primary) hypertension; E11.9 Type 2 diabetes mellitus without complications; N18.9 Chronic kidney disease, unspecified; I35.0 Nonrheumatic aortic (valve) stenosis; I48.91 Unspecified atrial fibrillation; Z51.5 Encounter for palliative care
CPT/HCPCS: 36415; 71045; 80053; 82550; 82553; 83605; 83735; 83874; 83880; 84484; 85025; 85610; 85730; 87641; 93005; 96365; 96366; 96375; 96376; 99285; G0378; J0692; J2060; J2270; J2543